=== PATIENT | female | born 1950 | race Caucasian/White ===

== ENCOUNTER 2020-07-06 14:08 | Emergency (ER) | payer MEDICARE, OTHER, SELFPAY ==
[2020-07-06 14:20] VITALS: BP 150/80; PULSE 150; RESP 30; TEMP 36.8; O2SAT 94; BMI 21.4
--- NOTE | 2020-07-06 14:30 | XR_ITS ---
EXAMINATION: XR CHEST CLINICAL INFORMATION: Shortness of breath. Acute intracranial subdural hematoma. COMPARISON: Chest radiographs 04/11/2015 TECHNIQUE: Portable upright AP view of the chest was obtained. FINDINGS: There is no pneumothorax, airspace consolidation, or effusion. Linear scarring adjacent to left cardiac border stable. Heart is borderline enlarged. The vascularity is low normal. The hilar and mediastinal contours are normal. There are multilevel degenerative changes as well as curvature at thoracolumbar spine. Suspect ununited fracture right posterior second rib, rounded edge, no visible destructive process. Finding new from 2015. XR/XR chest 1V IMPRESSION: No acute intrathoracic disease.
--- NOTE | 2020-07-06 14:31 | CT_ITS ---
EXAMINATION: CT HEAD WITHOUT CONTRAST (STROKE PROTOCOL) CLINICAL INFORMATION: Stroke protocol. Difficulty speaking. COMPARISON: CT brain noncontrast 08/21/2011 TECHNIQUE: Contiguous axial imaging was performed from the skull base to vertex without intravenous administration of contrast. This CT examination was performed using dose optimization techniques as appropriate, variously including the following: *Automated exposure control *Adjustment of mA and/or kV according to patient size (this includes techniques or standardized protocols for targeted exams where dose is matched to indication/reason for exam; i.e. extremities or head) *Use of iterative reconstruction technique DLP: 644 mGy-cm FINDINGS: There is an acute left cerebral convexity subdural hematoma measuring up to 8 mm in thickness. There is some extension along the left tentorium. No midline shift. Cisterns around midbrain symmetric. There is no intraparenchymal, intraventricular, or subarachnoid hemorrhage. No hydrocephalus. Periventricular white matter gliosis is present consistent with small vessel ischemic changes. There is no acute territorial infarct or mass lesion. The calvarium appears intact. There is no pneumocephalus or orbital emphysema. The visualized sinuses and middle ears and mastoid air cells show no significant mucosal thickening. There are no air-fluid levels. Results are called and discussed with Dr. Cruz in the Emergency Department at [address]/CT head for stroke IMPRESSION: 1. Acute left cerebral convexity subdural hematoma up to 8 mm thickness. No midline shift. 2. Bilateral periventricular white matter gliosis. No visible acute territorial infarct.
--- NOTE | 2020-07-06 14:31 | ECG_ITS ---
Test Reason : STROKE Blood Pressure : / mmHG Vent. Rate : 093 BPM Atrial Rate : 093 BPM P-R Int : 140 ms QRS Dur : 074 ms QT Int : 390 ms P-R-T Axes : 050 -13 038 degrees QTc Int : 484 ms Normal sinus rhythm Possible Left atrial enlargement Borderline ECG When compared with ECG of 13-JUL-2012 14:21, No significant change was found Referred By: Ting Cruz Electronically Signed By:JONATHON FRANKLIN MD
[2020-07-06 14:59] LABS: Glucose, Whole Blood 103 mg/dL (60-115)
--- NOTE | 2020-07-06 14:59 | PC.NURSE ---
PERFORMED PT/INR ON PT UNABLE TO FIND TECH PNEUMONICS IN POC MACHINE. PERMORED 1451.
[2020-07-06 15:00] LABS: Basophils Percent Auto 0.3 % (0-2); Hematocrit 38.3 % (37-47); Hemoglobin 12.6 g/dl (12.0-16.0); Imm Gran Abs Auto 0.01 X10*3/uL (0.00-0.03); Imm Gran Pct Auto 0.1 % (0.0-0.4); Lymphocytes Absolute Auto 0.4 X10*3/uL (1.2-4.9); Lymphocytes Percent Auto 5.5 % (20-40); MANUAL DIFF FLAG SCAN; Mean Corpuscular HGB Conc 32.9 g/dl (31.0-35.0); Mean Corpuscular Hemoglobin 30.8 pg (27.0-33.0); Mean Corpuscular Volume 93.6 fL (80-98); Mean Platelet Volume 9.6 fL (9.4-12.3); Monocytes Absolute Auto 0.3 X10*3/uL (0.1-1.2); Neutrophils Absolute Auto 6.3 X10*3/uL (2.0-8.3); Neutrophils Percent Auto 90.1 % (45-73); Platelet Count 212 X10*3/uL (160-400); Red Blood Count 4.09 X10*6/uL (4.20-5.50); Red Cell Distribution Width 13.9 % (11.0-16.0); SCAN SMEAR FLAG 1
--- NOTE | 2020-07-06 15:00 | PC.NURSE ---
pt reports going to bed last night around 2300 after speaking to her son on the phone at that time speech was clear and baseline for the pt. around 0100 pt accidentally rolled out of bed, hitting her head, c/o dizziness after wards, pt is not on blood thinners, then pt went back to bed. son spoke again to the pt around 1100 and pt appeared to bed confused and slurred speech. when arrived to ed pt has a slurred speech, very hard to comprehend, very slight facial droop on the left sided, hand grasp strong and equal, no visible drift, able to lift bilateral lower extremities, perrla. but when stood the pt up pt unable to stand onher own, need assistance into the bed. ns ont he monitor hr 91, 137/81 -
--- NOTE | 2020-07-06 15:03 | ED_ITS ---
HPI - Altered Mental Status General Chief Complaint: Altered Mental Status Stated Complaint: altered mental status Time Seen by Provider: 07/06/20 14:30 History of Present Illness HPI narrative: Patient is a 69-year-old female status post fall at approximately 01:00 a.m. this morning. Patient is subsequently felt very dizzy lightheaded. The fall was mechanical in nature. Patient denies any chest pain any palpitation. After the fall patient had headache difficulty walking. Finally presented to the emergency department at approximately 14:30. Patient denies any chest pain. Denies any nausea vomiting. Had difficulty getting the right words out. Had difficulty with her gait. Patient from home. No history of being on blood thinners. Not on Coumadin on Xarelto not on Eliquis. Related Data Home Medications Medication Instructions Recorded Confirmed bupropion HCl 1 tab PO QAM 07/06/20 07/06/20 fluoxetine 2 cap PO QAM 07/06/20 07/06/20 lorazepam 0.25 mg PO DAILY PRN 07/06/20 07/06/20 methylphenidate HCl 1 tab PO QID 07/06/20 07/06/20 trazodone 2 tab PO BEDTIME 07/06/20 07/06/20 Allergies Allergy/AdvReac Type Severity Reaction Status Date / Time Iodinated Contrast Media AdvReac Mild UNABLE TO Unverified 03/30/20 14:46 [IV CONTRAST] SPEAK Review of Systems Review of Systems: Yes all other systems are reviewed and are negative [facility] Past Medical History Attestation statement: The following information was validated with the patient. Medical History Anxiety Depression Social History Social History Advance Directives: No Advance Directives Information Provided: No Physical Exam Vital Signs: Vital Signs: Last Vital Signs Temp 98.3 F 07/06/20 14:20 Pulse 150 H 07/06/20 14:20 Resp 30 H 07/06/20 14:20 BP 150/80 H 07/06/20 14:20 Pulse Ox 94 07/06/20 14:20 Body Mass Index 21.4 Appearance: Alert. Oriented X3. Positive sign of head trauma to the left eye area. Eyes: Pupils equal, round and reactive to light. ENT: Pharynx normal. Neck: Normal inspection. Neck supple. No lymph nodes noted. No crepitus CVS: Normal heart rate and rhythm. Pulses normal. Normal S1 and S2 Respiratory: No respiratory distress. Breath sounds normal. No Wheezing. No rales Abdomen: Soft and nontender. No rigidity. No distention. good BS x4 Skin: Skin warm and dry. Normal skin color. Normal skin turgor. Extremities: No lower extremity edema. Neurovascular intact to all extremities. No Lacerations. No Rash Neuro: Oriented X 3. Moving all extremities . No sensory deficit. Moving all extermities. + slurred speech. [id number] off. NIH Stroke Scale Internal: Initial- Upon Arrival Level of Consciousness: Alert Level of Consciousness Questions: Answers both questions correctly Level of Consciousness Commands: Performs both tasks correctly Best Gaze: Normal Visual: No visual loss Facial Palsy: Normal Motor Arm (Right): No drift Motor Arm (Left): No drift Motor Leg (Right): No drift Motor Leg (Left): No drift Limb Ataxia: Present in two limbs Sensory: Normal Best Language: Mild to moderate aphasia Dysarthia: Mild to moderate dysarthria Extinction and Inattention: No abnormality Score: 4 MDM - Altered Mental Status MDM Narrative Medical decision making narrative: CT scan of the head showed a small subdural hematoma approximately 4 mm in size on the left side. There is no midline shift. The Urgent finding was discussed with Dr. Tripp at [facility]. Patient will likely require transfer to [facility] for further treatment. Patient's blood pressure is 137/81. Heart rate is actually 90. Finding discussed with patient's family. Agree with plan of transfer. Understood the risk and benefit of transfer. Lab Data Result diagrams: 07/06/20 14:52 07/06/20 14:52 Labs: Lab Results 07/06/20 07/06/20 Range/Units 14:51 14:52 WBC 7.0 (4.8-10.8) X10*3/uL RBC 4.09 L (4.20-5.50) X10*6/uL Hgb 12.6 (12.0-16.0) g/dl Hct 38.3 (37-47) % MCV 93.6 (80-98) fL MCH 30.8 (27.0-33.0) pg MCHC 32.9 (31.0-35.0) g/dl RDW 13.9 (11.0-16.0) % Plt Count 212 (160-400) X10*3/uL MPV 9.6 (9.4-12.3) fL POC Glucose 103 (60-115) mg/dL Critical Care Time Critical Care Time Total Critical Care Time: 40 Attestation: I have personally provided 40 minutes of critical care time exclusive of time spent on separately billable procedures. Time includes review of lab data, radiology results, discussion with consultants, and monitoring for potential decompensation. Interventions were performed as documented above Discharge Plan Discharge Clinical Impression: Subarachnoid hemorrhage Patient Disposition: [facility] Prescriptions: No Action methylphenidate HCl 20 mg tablet 1 tab PO QID RF: 0 lorazepam 0.5 mg tablet 0.25 mg PO DAILY PRN (Reason: Anxiety) RF: 0 trazodone 100 mg tablet 2 tab PO BEDTIME RF: 0 fluoxetine 20 mg capsule 2 cap PO QAM RF: 0 bupropion HCl 300 mg tablet extended release 24 hr 1 tab PO QAM RF: 0
[2020-07-06 15:06] VITALS: BP 137/81; PULSE 93
[2020-07-06 15:06] LABS: INTERNATIONAL NORM RATIO 1.1 (0.9-1.1); Prothrombin Time 13.2 SEC (10.8-13.0)
[2020-07-06 15:08] LABS: Partial Thromboplastin Time 33.2 SEC (24.1-38.0)
[2020-07-06 15:09] LABS: Stroke Lab Use COMPLETE
[2020-07-06 15:12] LABS: COVID-19 Test Negative (Negative)
[2020-07-06 15:17] VITALS: BP 141/81; PULSE 89; RESP 22; O2SAT 95
[2020-07-06 15:22] LABS: Prothrombin Time Whole Bld POC 13.5 sec (11.1-13.5); ~PT, ~INR - Anti Coag Clinic 1.1 (0.9-1.1)
--- NOTE | 2020-07-06 15:22 | PC.NURSE ---
Addendum entered by Macey Rader 07/06/20 15:37: pt does have visible bruising to her left side of face Original Note: pt is reporting of slight headache on the top of her head, pain at about 6/10,
[2020-07-06 15:23] VITALS: BP 136/82; PULSE 91; RESP 22; O2SAT 95
[2020-07-06 15:24] LABS: Alanine Aminotransferase 36 U/L (0-31); Albumin Level 3.9 g/dL (3.5-5.0); Alkaline Phosphatase 69 U/L (39-117); Aspartate Amino Transferase 54 U/L (5-31); Bilirubin Direct 0.2 mg/dL (0.0-0.5); Bilirubin Total 0.4 mg/dL (0.0-1.0)
[2020-07-06 15:27] LABS: SLIDE REVIEW VERIFIED
[2020-07-06 15:35] LABS: Anion Gap 15 (12-20); Blood Urea Nitrogen 21 mg/dL (9-16); Calcium 8.7 mg/dL (8.4-10.2); Carbon Dioxide 23 mmol/L (22-29); Chloride 102 mmol/L (96-108); Creatinine Clr Calc Pharmacy 35.6; Estimated Glomerular Filt Rate 52; Glucose Random 109 mg/dL (60-115); Potassium 4.1 mmol/l (3.3-5.1); Sodium 136 mmol/L (135-145)
[2020-07-06 15:38] LABS: Troponin-I High Sensitivity 27.3 ng/L (<3.5-17.0)
[2020-07-06 15:41] VITALS: BP 129/83; PULSE 90; RESP 22; O2SAT 95
--- NOTE | 2020-07-06 16:06 | PC.NURSE ---
report given to anna amaya at [facility]
== END 2020-07-06 16:07 | disposition short-term general hospital (02) ==
PROVIDERS: Emergency Provider Emergency Medicine Emergency Medical Services; PCP Internal Medicine
DX: S06.5X0A Traumatic subdural hemorrhage without loss of consciousness, initial encounter (principal); W01.0XXA Fall on same level from slipping, tripping and stumbling without subsequent striking against object, initial encounter; Z20.828 Contact with and (suspected) exposure to other viral communicable diseases; Y93.9 Activity, unspecified; Y92.003 Bedroom of unspecified non-institutional (private) residence as the place of occurrence of the external cause; Y99.9 Unspecified external cause status
CPT/HCPCS: 36415; 70450; 71045; 80048; 80076; 82550; 82947; 84484; 85025; 85610; 85730; 87635; 93005; 99285; 99291

== ENCOUNTER 2020-07-21 14:07 | Outpatient (REF) | payer MEDICARE, MEDICAID, OTHER, SELFPAY ==
[2020-07-21 15:00] LABS: MANUAL DIFF FLAG NO
[2020-07-21 15:10] LABS: Basophils Percent Auto 0.5 % (0-2); Eosinophils Absolute Auto 0.1 X10*3/uL (0.0-0.4); Eosinophils Percent Auto 1.7 % (0-4); Hematocrit 39.6 % (37-47); Hemoglobin 12.8 g/dl (12.0-16.0); Imm Gran Abs Auto 0.01 X10*3/uL (0.00-0.03); Imm Gran Pct Auto 0.2 % (0.0-0.4); Lymphocytes Absolute Auto 0.9 X10*3/uL (1.2-4.9); Lymphocytes Percent Auto 14.4 % (20-40); Mean Corpuscular HGB Conc 32.3 g/dl (31.0-35.0); Mean Corpuscular Hemoglobin 30.6 pg (27.0-33.0); Mean Corpuscular Volume 94.7 fL (80-98); Mean Platelet Volume 9.2 fL (9.4-12.3); Monocytes Absolute Auto 0.4 X10*3/uL (0.1-1.2); Monocytes Percent Auto 5.8 % (2-11); Neutrophils Percent Auto 77.4 % (45-73); Platelet Count 344 X10*3/uL (160-400); Red Blood Count 4.18 X10*6/uL (4.20-5.50); Red Cell Distribution Width 14.1 % (11.0-16.0); White Blood Count 6.4 X10*3/uL (4.8-10.8)
[2020-07-21 15:24] LABS: Alanine Aminotransferase 42 U/L (0-31); Albumin Level 3.8 g/dL (3.5-5.0); Alkaline Phosphatase 119 U/L (39-117); Anion Gap 11 (12-20); Aspartate Amino Transferase 29 U/L (5-31); Bilirubin Total 0.3 mg/dL (0.0-1.0); Blood Urea Nitrogen 22 mg/dL (9-16); C Reactive Protein 0.54 mg/dL (< or = 0.50); Calcium 8.5 mg/dL (8.4-10.2); Carbon Dioxide 26 mmol/L (22-29); Chloride 105 mmol/L (96-108); Estimated Glomerular Filt Rate 52; Glucose Random 102 mg/dL (60-115); Potassium 4.5 mmol/l (3.3-5.1); Sodium 137 mmol/L (135-145)
== END 2020-07-21 14:08 | disposition home or self-care (01) ==
LOC: HO.LAB 14:07
PROVIDERS: PCP Internal Medicine; Visit Provider Internal Medicine
DX: J44.9 Chronic obstructive pulmonary disease, unspecified (principal); S06.5X9D Traumatic subdural hemorrhage with loss of consciousness of unspecified duration, subsequent encounter; X58.XXXD Exposure to other specified factors, subsequent encounter
CPT/HCPCS: 36415; 80053; 85025; 86140

== ENCOUNTER 2021-01-31 14:26 | Outpatient (REF) | payer MEDICARE, MEDICAID, SELFPAY ==
--- NOTE | ~2021-01-31 | FL_ITS ---
EXAMINATION: XR BARIUM SWALLOW CLINICAL INFORMATION: Dysphagia. COMPARISON: None. TECHNIQUE: Modified barium swallow with speech pathologist. FINDINGS: Patient swallowed a combination of consistencies from thin liquid to barium-coated cookie without difficulty. No nasopharyngeal reflux or tracheal aspiration was appreciated. FLUOROSCOPY TIME: 1.8 minutes. DOSE AREA PRODUCT: 1.534 Gy-cm2 (parmar-centimeter squared). FL/FL barium swallow modified IMPRESSION: Unremarkable examination. Please refer to speech pathologist report for details.
--- NOTE | 2021-01-31 16:04 | MHC.SL.IMP ---
Date of Plan of Treatment: 01/31/21 Onset of Symptoms/Illness: 02/01/20 Date Treatment Started: 01/31/21 Admitting Diagnosis: Depression Cholecystectomy Peptic ulcer disease status post vagotomy Tubal ligation Carpal tunnel syndrome Right hand weakness with pain and loss of movement Primary Speech & Language Diagnosis: R13.12 Oropharyngeal Phase Dysphagia Reason for Today's Visit: 28328 Modified Barium Swallow Study Pre-evaluation Dietary Consistencies: Regular Pre-evaluation Liquid Consistency: Thin Pre-evaluation Medication Administration: Whole with Liquid Medical History: Modified Barium Swallow Study Fluoroscopic Evaluation of Swallowing Function CPT Code 98330 Evaluation Year: 2020 Reason for Study: Patient reports globus sensation and coughing when eating. Referring Physician: Dr. Tuan Nguyen Evaluating Clinician: Eileen Silva M.A., CCC-WATERWAY TRAFFIC CHECKER Study Number: 1 Patient Name: Herminia Blackmon Status: Outpatient, Ambulatory Age: 70 Gender: Female MEDICAL HISTORY: Year of Onset or Diagnosis: 2020 Comorbidities: Depression Cholecystectomy Peptic ulcer disease status post vagotomy Tubal ligation Carpal tunnel syndrome Right hand weakness with pain and loss of movement Current (pre-evaluation) Intake/Diet: Route: PO Diet Grade: Regular Liquid Consistencies: Thin Pre-Study Functional Oral Intake Scale (FOIS): 7- Total oral intake with no restrictions Pain: None reported at time of study Oral Motor Exam Mouth Occlusion: Normal Oral-Facial Teeth Characteristics: Intact/Normal Tongue Size: Normal Tongue Frenum Length: Normal Is patient able to manage secretions?: Yes Food and Liquid Trials: Oral Impairment: Lip Closure: Did not test Oral Impairment: Tongue Control During Bolus Hold: 0=Cohesive bolus between tongue to palatal seal Oral Impairment: Bolus Preparation/Mastication: 1=Slow prolonged chewing/mashing with complete re-collection Oral Impairment: Bolus Transport/Lingual Motion: 2=Slowed tongue motion Oral Impairment: Oral Residue: 2=Residue collection on oral structures Oral Impairment:Initiation of Pharyngeal Swallow: 2=Bolus head at posterior laryngeal surface of epiglottis Pharyngeal Impairment: Soft Palate Elevation: 0=No bolus between soft palate (SP)/pharyngeal wall (PW) Pharyngeal Impairment: Laryngeal Elevation: 1=Partial thyroid cartilage/arytenoids to epiglottic petiole movement Pharyngeal Impairment: Anterior Hyoid Excursion: 1=Partial anterior movement Pharyngeal Impairment: Epiglottic Movement: 0=Complete inversion Pharyngeal Impairment: Laryngeal Vestibular Closure:: 1=Incomplete: narrow column air/contrast in laryngeal vestibule Pharyngeal Impairment: Pharyngeal Stripping Wave: 0=Present: complete Pharyngeal Impairment: Pharyngeal Contraction: Did not test Pharyngeal Impairment: Pharyngoesophageal Segment Openin=Complete distension and complete duration: no obstruction of flow Pharyngeal Impairment: Tongue Base (TB) Retraction: 3=Wide column of contrast/air between TB and posterior PW Pharyngeal Impairment: Pharyngeal Residue: 1=Trace residue within or on pharyngeal structures Pharyngeal Impairment: Esophageal Clearance Upright Position: Did not test Impressions and Recommendations Clinical Observations: OBJECTIVE: Time-out: performed at 02:45 Evaluation Start: 02:30; Stop: 02:40 Patient Positioning: Seated 70-90 degrees Viewing Planes: LATERAL ONLY Contrast: MBSImP? Standardized Protocol using commercially prepared, standardized Barium viscosities, including: Varibar? THIN LIQUID (40% w/v, <15 cps) , 1/2 Shortbread Cookie (1 x1 x.25 ) MBSImP ID: [id number] MBSImP Results: Lip closure for intraoral bolus containment could not be assessed due to logistical reasons not related to physiologic impairment. Tongue control during bolus hold maintained a cohesive bolus held between tongue to palate seal. Bolus preparation and mastication resulted in slow, prolonged chewing/mashing but with complete re-collection. Bolus transport/lingual motion was with slowed tongue motion. Oral residue was a collection on oral structures. Initiation of the pharyngeal swallow occurred as the bolus head was at the posterior laryngeal surface of the epiglottis. Soft palate elevation resulted in no bolus between the soft palate and the pharyngeal wall. Laryngeal elevation was decreased, with partial superior movement of the thyroid cartilage/partial approximation of the arytenoids to the epiglottic petiole. Anterior hyoid excursion demonstrated partial anterior movement. Epiglottic movement resulted in complete inversion. Laryngeal vestibular closure was incomplete, with a narrow column of air/contrast noted within the laryngeal vestibule at the height of the swallow. Pharyngeal stripping wave was present and complete. Pharyngeal contraction could not be determined due to logistical reasons not related to physiologic impairment. Pharyngoesophageal segment opening was completely distended for complete duration with no obstruction of bolus flow. Tongue base retraction allowed a wide column of contrast or air between the retracted tongue base and the posterior pharyngeal wall. Pharyngeal residue was a trace within or on pharyngeal structures. Esophageal clearance in the upright position could not be assessed due to logistical reasons not related to physiologic impairment. Oral Impairment Score: 7 (absence of score, component 1) Pharyngeal Impairment Score: 6 (absence of score, component 13) Esophageal Impairment Score: --- (absence of score, component 17) Laryngeal Penetration and Aspiration: Penetration was observed in today's study. Thin Contrast entered the airway, remained above the vocal folds, and was ejected from the airway. ASSESSMENT: This exam was conducted by speech-language pathologist and radiologist. Patient was seated at optimal 90 degree position in chair for lateral view only. Patient was able to feed herself. Patient trialed the following liquid and solid consistencies: -5 mL thin liquid barium -cup sip thin liquid barium (individual and consecutive) -applesauce mixed with barium paste -chicken salad mixed with barium paste -Carolyn Doone cookie coated in barium paste. Patient displayed mild oropharyngeal dysphagia, characterized by: ORAL PHASE: -mildly prolonged mastication and piece meal deglutition pattern -slowed posterior tongue movement -mild oral residue PHARYNGEAL PHASE: -partial laryngeal elevation with partial anterior hyoid movement -episode of flash penetration -reduced tongue base retraction -mild pharyngeal retention on tongue base, in valleculae and on posterior pharyngeal wall when eating harder solids. No evidence of aspiration. Noted episode of flash penetration. Thin liquid barium momentarily entered airway above the vocal folds and immediately/spontaneously rejected. No aspiration or penetration with subsequent consecutive sips of thin liquid. The following compensatory strategies have not been used until today's study, but when employed, improved swallowing function: Bolus Volume Change eliminated Penetration Rate of Ingestion Change eliminated Penetration Additional Swallow(s) per Bolus decreased Oral Residue, Pharyngeal Residue Liquid Intake Recommendation: Thin Liquid Intake Strategies: Small Sips Dietary Recommendations: Regular Medication Administration: Whole with Liquid Compensatory Strategies Recommended: Sitting Upright (90 deg) Double Swallow Small Bites and Sips Alternate Liquids/Solids Rate of Ingestion Change Supervision during eating and or drinking: None Needed Recommendation for Speech Therapy: NA:Typical Evaluation Text Comment: Intake Recommendations: Route: PO Diet Grade: Regular Liquid Consistencies: Thin Post-Study Functional Oral Intake Scale (FOIS): 7- Total oral intake with no restrictions Therapy Recommendations: Therapy will be discontinued Treatment is not indicated at this time. WATERWAY TRAFFIC CHECKER discussed with patient recommendations for strategies to promote oral clearance. Recommend resume regular solids and thin liquids with strategies: -small bites of food -chew food well -moisten food with sauce/gravy as needed -alternate bite of food with sip of liquid -double swallow to promote clearance of oral and pharyngeal residue -take small, individual sips of liquid -upright 90 degree position when eating and/or drinking -close monitoring for any overt s/s of aspiration Prognosis for Improvement: The prognosis for the patient to meet nutritional needs by mouth is good/fair based on degree of impairment. Clinician - Supplemental, Miscellaneous Communication: It is important to note MBSS objective studies are snapshots in time and Patient function might vary with factors such as time of day or concomitant medical conditions. For this reason, the final treatment plan for this patient should rest with their medical care team. Additional recommendations should be considered with the totality of the Patient in mind. Thank for the opportunity to participate in the care of this patient. If you have any questions about the content of this report, please contact the [facility] at [facility]. Education: Education regarding findings from today's study and plans for therapy were provided to Patient only through Verbal Instruction. Understanding was expressed by the Patient only. Screw Machine Setter Clinician/Clinical Fellow: No Supervisory Statement: N/A Speech Language Pathologist: Eileen Silva M.A., CCC-WATERWAY TRAFFIC CHECKER
== END 2021-01-31 14:27 | disposition home or self-care (01) ==
LOC: HO.XRAY 14:26
PROVIDERS: Visit Provider Internal Medicine
DX: Z13.89 Encounter for screening for other disorder (principal)
CPT/HCPCS: 74230; 92611

== ENCOUNTER 2021-01-31 15:05 | Emergency (ER) | payer MEDICARE, OTHER, SELFPAY ==
--- NOTE | ~2021-01-31 | CT_ITS ---
EXAMINATION: CT HEAD WITHOUT CONTRAST CLINICAL INFORMATION: Left-sided headache. Dizziness. Recent subdural hematoma. COMPARISON: CT head July 06, 2020 TECHNIQUE: Contiguous axial imaging was performed from the skull base to vertex without intravenous administration of contrast. Coronal and sagittal reformatted images are performed at the CT scanner. [This CT examination was performed using dose optimization techniques as appropriate, variously including the following: *Automated exposure control *Adjustment of mA and/or kV according to patient size (this includes techniques or standardized protocols for targeted exams where dose is matched to indication/reason for exam; i.e. extremities or head) *Use of iterative reconstruction technique] DLP: 671 mGy-cm. FINDINGS: There is no evidence of acute intracranial hemorrhage or territorial infarction. No abnormal mass-effect or midline shift is seen. Bassett to white matter differentiation is well preserved. No extra-axial fluid collections are identified. The previously seen left-sided acute subdural hematoma on the CAT scan of July 06, 2020 has entirely resolved. There is generalized global volume loss. There is moderate prominence of the ventricles and the sulci . There is moderate hypodensity of the periventricular white matter due to chronic small vessel ischemic disease. There are vascular calcifications of the internal carotid arteries bilaterally. There is no osseous abnormality. The mastoid air cells and visualized portions of the paranasal sinuses are well-aerated. CT/CT head/brain wo con IMPRESSION: No acute intracranial pathology.
[2021-01-31 15:54] VITALS: BP 135/91; PULSE 92; RESP 16; TEMP 36.8; O2SAT 96; BMI 19.6
--- NOTE | 2021-01-31 16:12 | ED.GENADULT ---
HPI - General Adult General Chief complaint: Headache Stated complaint: Headache Time Seen by Provider: 01/31/21 16:12 Source: patient Mode of arrival: ambulatory Limitations: no limitations History of Present Illness HPI narrative: Patient last night developed a subconjuctival hemorrhage, unsure if she coughed or sneezed. Patient having left sided headache which she suffers from after having a traumatic subdural. Onset (ago): day(s) Location: eyes Severity: mild Quality: other (blood in the eye) Relieving factors: none Exacerbating factors: none Associated symptoms: denies other symptoms Related Data Home Medications Medication Instructions Recorded Confirmed bupropion HCl 1 tab PO QAM 07/06/20 07/06/20 fluoxetine 2 cap PO QAM 07/06/20 07/06/20 lorazepam 0.25 mg PO DAILY PRN 07/06/20 07/06/20 methylphenidate HCl 1 tab PO QID 07/06/20 07/06/20 trazodone 2 tab PO BEDTIME 07/06/20 07/06/20 Allergies Allergy/AdvReac Type Severity Reaction Status Date / Time Iodinated Contrast Media AdvReac Mild UNABLE TO Verified 01/31/21 16:01 [IV CONTRAST] SPEAK Review of Systems Constitutional: Constitutional: Reports no additional constitutional complaints Eyes: Eyes: Reports no additional eye complaints ENT: Denies dizziness Cardiovascular: Cardiovascular: Reports no additional cardiovascular complaints Respiratory: Respiratory: Reports as per HPI Gastrointestinal: Gastrointestinal: Reports no additional gastrointestinal complaints Genitourinary: Genitourinary: Reports no additional female genitourinary complaints Musculoskeletal: Musculoskeletal: Reports no additional musculoskeletal complaints Integumentary/Breasts: Skin/Breast: Denies rash Neurologic: Reports system reviewed and no additional complaints, except as documented, Denies dizziness and Denies Sensory deficit (Neuro) Psychiatric: Psychiatric: Denies anxiety PMFSH Past Medical History Medical History Anxiety Brain bleed Depression Social History Social History Advance Directives: No Advance Directives Information Provided: No Physical Exam Vital Signs: Vital Signs: Last Vital Signs Temp 98.2 F 01/31/21 15:54 Pulse 92 01/31/21 15:54 Resp 16 01/31/21 15:54 BP 135/91 H 01/31/21 15:54 Pulse Ox 96 01/31/21 15:54 Body Mass Index 19.6 Const: General: healthy appearing Nutritional Appearance: average body habitus Orientation/consciousness: oriented to person and patient oriented x3 Limitations: no limitations HENMT: Head: Yes normal to inspection Ears: external ears normal General nose exam: Normal external nose present Mouth: Normal oral and palatal mucosa present and oropharynx normal Throat: Yes posterior oropharynx normal Eyes: Other: EOMI, left eye with subconjunctival hemorrahage Neck: Other: supple Neck: Yes normal visual inspection Chest: Chest palpation & inspection: normal inspection of the chest Resp: Auscultation: clear to auscultation bilaterally Cardio: Jugular venous distension: no JVD Rate: regular rate Rhythm: regular rhythm Heart sounds: S1 normal heart sound present and S2 normal heart sound present GI: Inspection: Yes normal to inspection Palpation (GI): Soft to palpation, nontender and No hepatosplenomegaly present Auscultation: normal bowel sounds : General: Yes no CVA tenderness Back/Spine/Pelvis: Back: no CVA tenderness Skin: General skin exam: no rashes or lesions noted Neuro: General: oriented to person and patient oriented x3 Cranial nerves: Yes CN's II-XII intact bilaterally Motor exam (neuro): 5/5 motor strength present throughout Sensory Exam: No Sensory deficit (Neuro) Extrem: General: Yes normal to inspection Psych: Appearance: grossly normal Course Reevaluation(s) Reevaluation #1: patient resting comfortably will dc home Time: 18:00 Medical Decision Making Imaging Data CT scan - head: Radiologist's impression: IMPRESSION: No acute intracranial pathology. Discharge Plan Discharge Clinical Impression: Headache Qualifiers: Headache type: other headache syndrome Qualified Code(s): G44.89 - Other headache syndrome Subconjunctival hemorrhage Qualifiers: Laterality: left Qualified Code(s): H11.32 - Conjunctival hemorrhage, left eye Patient Disposition: Home, Self-Care Instructions: Acute Headache (ED), Subconjunctival Hemorrhage (ED) Prescriptions: No Action methylphenidate HCl 20 mg tablet 1 tab PO QID RF: 0 lorazepam 0.5 mg tablet 0.25 mg PO DAILY PRN (Reason: Anxiety) RF: 0 trazodone 100 mg tablet 2 tab PO BEDTIME RF: 0 fluoxetine 20 mg capsule 2 cap PO QAM RF: 0 bupropion HCl 300 mg tablet extended release 24 hr 1 tab PO QAM RF: 0 Referrals: Tuan Nguyen MD [Primary Care Provider] - 1 week
== END 2021-01-31 18:19 | disposition home or self-care (01) ==
PROVIDERS: Emergency Provider Emergency Medicine; PCP Internal Medicine
DX: G44.89 Other headache syndrome (principal); H11.32 Conjunctival hemorrhage, left eye
CPT/HCPCS: 70450; 74230; 92611; 99283; 99284

== ENCOUNTER 2021-04-03 17:02 | Outpatient (REF) | payer MEDICARE, OTHER, SELFPAY ==
--- NOTE | ~2021-04-03 | XR_ITS ---
EXAMINATION: XR CHEST CLINICAL INFORMATION: COPD. Weight loss. COMPARISON: 07/06/2020 and 04/11/2015 TECHNIQUE: 2 views of the chest were obtained. FINDINGS: There is no evidence of acute parenchymal disease, pneumothorax, or pleural effusion. Heart normal size. No evidence of pulmonary edema. There is left base scarring present. There is some mild elevation of the left hemidiaphragm. Status post GE junction region surgery with clips in place. There is scoliosis of the thoracic spine, convex right and lumbar spine, convex left. XR/XR chest 2V IMPRESSION: No acute disease. Scoliosis.
[2021-04-03 17:40] LABS: MANUAL DIFF FLAG NO
[2021-04-03 17:45] LABS: Basophils Percent Auto 0.7 % (0-2); Eosinophils Absolute Auto 0.1 X10*3/uL (0.0-0.4); Eosinophils Percent Auto 1.5 % (0-4); Hematocrit 41.3 % (37-47); Hemoglobin 13.2 g/dl (12.0-16.0); Imm Gran Abs Auto 0.02 X10*3/uL (0.00-0.03); Imm Gran Pct Auto 0.3 % (0.0-0.4); Lymphocytes Percent Auto 16.5 % (20-40); Mean Corpuscular Hemoglobin 30.1 pg (27.0-33.0); Mean Corpuscular Volume 94.1 fL (80-98); Mean Platelet Volume 9.6 fL (9.4-12.3); Monocytes Absolute Auto 0.4 X10*3/uL (0.1-1.2); Monocytes Percent Auto 6.6 % (2-11); Neutrophils Absolute Auto 4.4 X10*3/uL (2.0-8.3); Neutrophils Percent Auto 74.4 % (45-73); Platelet Count 267 X10*3/uL (160-400); Red Blood Count 4.39 X10*6/uL (4.20-5.50); Red Cell Distribution Width 14.7 % (11.0-16.0); White Blood Count 5.9 X10*3/uL (4.8-10.8)
[2021-04-03 18:11] LABS: Alanine Aminotransferase 25 U/L (0-31); Alkaline Phosphatase 85 U/L (39-117); Anion Gap 16 (12-20); Aspartate Amino Transferase 25 U/L (5-31); Bilirubin Total 0.3 mg/dL (0.0-1.0); Blood Urea Nitrogen 26 mg/dL (9-16); Calcium 9.1 mg/dL (8.4-10.2); Carbon Dioxide 22 mmol/L (22-29); Chloride 106 mmol/L (96-108); Estimated Glomerular Filt Rate 33; Glucose Random 91 mg/dL (60-115); Lipase 44 U/L (8-78); Potassium 4.8 mmol/L (3.3-5.1); Sodium 139 mmol/L (135-145); Total Protein 6.2 g/dL (6.5-8.0)
== END 2021-04-03 17:03 | disposition home or self-care (01) ==
LOC: HO.LAB 17:02
PROVIDERS: PCP Internal Medicine; Visit Provider Internal Medicine
DX: J44.9 Chronic obstructive pulmonary disease, unspecified (principal); R63.4 Abnormal weight loss; N18.9 Chronic kidney disease, unspecified
CPT/HCPCS: 36415; 71046; 80053; 83690; 85025

== ENCOUNTER 2021-05-25 18:48 | Inpatient (IN) | payer MEDICARE, OTHER, SELFPAY ==
--- NOTE | ~2021-05-25 | FL_ITS ---
EXAMINATION: XR FLUOROSCOPY WITH IMAGES CLINICAL INFORMATION Bilateral retrograde pyelograms and stent placement. COMPARISON: CT abdomen and pelvis 05/25/2021. TECHNIQUE: Fluoroscopy performed by Dr. Je Chávez. Fluoroscopy Time: 256.3 seconds. DAP: 42.49 mGy. Images: 8. FINDINGS: Imaging demonstrates retrograde pyelograms with placement of bilateral double-J ureteral stents on the final imaging. A cystocele is present. Please correlate with the operative note. FL/FL guidance in OR IMPRESSION: Fluoroscopy and spot films provided during bilateral retrograde double-J stent placement.
--- NOTE | ~2021-05-25 | NM_ITS ---
EXAMINATION: NM KIDNEY IMAGING CLINICAL INFORMATION: Left hydronephrosis, passed multiple kidney stones 5 years ago. Kidney stones and passed. COMPARISON: Nuclear medicine renal scan morphology 04/28/2007 CT abdomen and pelvis 05/25/2021. TECHNIQUE: Following intravenous administration of 10 mCi of 99 mm technetium DTPA, perfusion, cortical function and excretion was performed. 22 mg of Lasix was injected intravenously at 30 minutes of the scan. FINDINGS: Following isotope injection there is minimal delay in right renal perfusion, normal cortical uptake and excretion. There is no hydronephrosis with normal response post Lasix with complete excretion. There is significant delayed left renal perfusion, cortical uptake and delayed excretion. There is no response to Lasix. On renal analysis of the right kidney contributes 99.6% of renal function. The left kidney 0.394%. Post Lasix time from Lasix to half Lasix right kidney is 5.497. The left kidney half Lasix cannot be calculated as there is no excretion. NM/NM renal flow w pharm int IMPRESSION: 1. Minimal delay in the right renal perfusion but otherwise normal cortical function and excretion with normal response to Lasix. The right kidney contributes 99% of total renal function. 2. No left renal perfusion seen. There is delayed to no cortical uptake seen. No response to Lasix. 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
--- NOTE | ~2021-05-25 | CT_ITS ---
EXAMINATION: CT HEAD WITHOUT CONTRAST CLINICAL INFORMATION: Head trauma. COMPARISON: CT head dated from 07/06/2020. TECHNIQUE: Contiguous axial imaging was performed from the skull base to vertex without intravenous administration of contrast. This CT examination was performed using dose optimization techniques as appropriate, variously including the following: *Automated exposure control *Adjustment of mA and/or kV according to patient size (this includes techniques or standardized protocols for targeted exams where dose is matched to indication/reason for exam; i.e. extremities or head) *Use of iterative reconstruction technique DLP: 686 mGy-cm FINDINGS: Examination is greatly limited by motion. There is no evidence of acute intracranial hemorrhage or edematous territorial infarction. Scattered hypoattenuation in the periventricular and deep white matter are consistent with moderate microangiopathy. Bassett-white matter differentiation is preserved. Proportional prominence of the ventricles and sulcal spaces. No evidence for obstructive hydrocephalus. No abnormal mass effect or midline shift. No extra-axial fluid collections. No acute soft tissue or osseous abnormalities. There is mild mucosal thickening of the paranasal sinuses. The mastoids are clear. The temporomandibular joints are anteriorly positioned with respect to the temporal dose, which is likely related with patient's positioning. Poor dentition. Redemonstration of asymmetric widening of the dens with respect to the lateral mass on the right side without significantly changed. There are prominent calcification surrounding the odontoid process with subchondral cystic changes and sclerosis. CT/CT head/brain wo con IMPRESSION: Examination is markedly limited by motion. However, accounting for these limitations, no evidence of acute intracranial hemorrhage or acute edematous infarctions are identified. Chronic microangiopathy and generalized cerebral volume loss. Degenerative changes at C1 and C2 without significant change. Correlate clinically for crowned dens syndrome.
--- NOTE | ~2021-05-25 | CT_ITS ---
EXAMINATION: CT ABDOMEN AND PELVIS WITHOUT CONTRAST CLINICAL INFORMATION: 70-year-old female with abdominal pain. COMPARISON: CT abdomen 05/26/2007 TECHNIQUE: Multidetector volumetric imaging was performed from the superior aspect of the liver through the pubic symphysis. Sagittal and coronal reformatted images were obtained on the technologist's workstation. Evaluation of solid organs is significantly limited given lack of IV contrast. This CT examination was performed using dose optimization techniques as appropriate, variously including the following: *Automated exposure control *Adjustment of mA and/or kV according to patient size (this includes techniques or standardized protocols for targeted exams where dose is matched to indication/reason for exam; i.e. extremities or head) *Use of iterative reconstruction technique DLP: 288 mGy-cm FINDINGS: Visualized lung bases demonstrate dependent atelectasis. The heart is enlarged but only partially visualized. The liver demonstrates normal size, contour and attenuation. There is mild to moderate intrahepatic biliary ductal dilatation. The common bile duct is dilated measuring up to 1.4 cm. There is abrupt narrowing of the distal common bile duct, nonspecific (coronal image 25/75, series 6). The gallbladder is not visualized and presumed to be surgically absent. The pancreas is poorly visualized given lack of IV contrast. The spleen is normal in appearance. The adrenal glands are poorly visualized. Severe hydronephrosis of the left kidney. There is diffuse cortical thinning of the left kidney suggesting a chronic process. No obstructing calculi are noted. The right kidney is grossly unremarkable. Normal caliber loops of small and large bowel. Mild colonic stool burden. Normal caliber abdominal aorta which demonstrates moderate to severe atherosclerotic disease. The bladder is poorly visualized but grossly unremarkable. Unremarkable CT appearance of the uterus. No gross free pelvic fluid. No inguinal lymphadenopathy. Diffuse osteopenia. Moderate diffuse degenerative changes of the spine. Mild to moderate anterolisthesis of L5 on S1 secondary to bilateral L5 pars defects. Severe degenerative changes of the right hip. CT/CT abdomen pelvis wo con IMPRESSION: 1. Today's examination is significantly limited secondary to lack of IV contrast. 2. Severe hydronephrosis of the left kidney. There is diffuse cortical thinning of the left kidney suggesting a chronic process. No obstructing calculi are noted. Prior imaging reports suggests a history of left-sided hydronephrosis with an accessory left renal artery possibly causing an apparent UPJ obstruction. This can be better evaluated with CTA imaging of the abdomen as clinically indicated. 3. Mild to moderate intrahepatic biliary ductal dilatation with prominent dilatation of the common bile duct which demonstrates abrupt narrowing distally. This is a nonspecific finding. A focal lesion is region is not excluded as this region is poorly visualized given lack of IV contrast. Further evaluation can be obtained with MRI/MRCP versus ERCP. Given the overall suboptimal imaging due to lack of IV contrast, repeat imaging with IV contrast may be warranted.
--- NOTE | ~2021-05-25 | XR_ITS ---
EXAMINATION: XR CHEST CLINICAL INFORMATION: Left rib pain. Fall. COMPARISON: 04/03/2021 TECHNIQUE: Frontal view of the chest was obtained. FINDINGS: Elevated left hemidiaphragm. Minimal bibasilar atelectasis. No pleural effusion. No pneumothorax. No dense consolidation. The cardiomediastinal silhouette is unchanged, with a calcified aorta. No acute osseous abnormality. XR/XR chest 1V IMPRESSION: Bibasilar atelectasis with persistent elevation of the left hemidiaphragm. No displaced fractures are seen.
--- NOTE | ~2021-05-25 | US_ITS ---
EXAMINATION: US RETROPERITONEAL LIMITED (RENAL ONLY) CLINICAL INFORMATION: Left hydronephrosis. COMPARISON: CT 05/25/2021 TECHNIQUE: Renal ultrasound FINDINGS: RIGHT KIDNEY: 10.6 x 3.9 x 5.4 cm (SAG x AP x TRV). Increased renal parenchymal echogenicity. There are multiple anechoic cysts, larger measuring 1 cm in maximum dimension. No calculi. There is trace fullness of the right renal pelvis. LEFT KIDNEY: Measures approximately 8.6 cm in length, 4.7 cm AP, 3.9 cm in width.. Cortical thinning. Increased echogenicity of the renal parenchyma. There appears to be a stent present in the ureter/renal pelvis There is moderate to severe hydronephrosis present. Direct comparison with prior CT is difficult due to difference in modalities, with the degree of hydronephrosis appears improved as compared to previous. There are multiple cystic lesions present, largest measuring 1.6 cm in maximal dimension. US/US renal BI IMPRESSION: 1.. There appears be a stent present in the left renal ureter/renal pelvis. There is hydronephrosis present, appearing moderate to severe in nature. Direct comparison with prior CT is difficult due to difference in modalities, but the degree of hydronephrosis appears improved as compared to previous. Consider follow-up ultrasound for reassessment. 2. Bilateral renal cysts, described above.
--- NOTE | ~2021-05-25 | XR_ITS ---
EXAMINATION: XR ABDOMEN KUB CLINICAL INDICATION: Rectal pain COMPARISON: CT abdomen pelvis on 05/25/2021 TECHNIQUE: AP view of the abdomen. FINDINGS: Interval placement of bilateral ureteral stents. The bowel gas pattern is normal with no evidence of ileus or obstruction. No unusual soft tissue calcifications are noted. Severe arthritis of the right hip. XR/XR KUB IMPRESSION: Unremarkable bowel gas pattern.
[2021-05-25 19:10] VITALS: BP 190/106; BP 196/105; PULSE 83; PULSE 86; RESP 18; TEMP 37.3; O2SAT 95; O2SAT 96; BMI 20.5
--- NOTE | 2021-05-25 19:18 | ED.GENADULT ---
HPI - General Adult General Chief complaint: Neuro Symptoms/Deficit Stated complaint: abd pain nausea Time Seen by Provider: 05/25/21 19:03 Source: patient and EMS Limitations: no limitations History of Present Illness HPI narrative: This is a 68-year-old female brought in by ambulance. The patient states that she has had trouble walking for several months. The patient has a known history of subarachnoid hemorrhage. The patient reportedly has been worse today in terms of weakness and shakiness. EMS reports that the patient had almost fallen but was caught by her son before she fell. Patient herself states that she did fall, that she was trying to get up from the sofa and fell and called her son to pick her up off the floor. She does have a headache is about a 6/10, least she hit her head. She denies neck pain. She does have nausea and some pain in her left upper quadrant area. She reports that she takes lorazepam once daily and has not taken it today. She denies alcohol use. She reportedly has been having episodes of brief tremor-like movements today. She denies any chest pain or shortness of breath. The patient son later gets further history that the patient has had some upper abdominal pain for some time. He states that the patient did have a barium swallow done fairly recently for this but does not know the results. Patient reports abdominal pain that is worse today. The son reports that she did not fall, that she was more shaky and weak today and that when she was going up the stairs she began to fall back but he caught her when she fell, prevent any forceful contact with the floor. The son reports that her appearance with some sort of twitching movements of her face and arms is normal for her Related Data Home Medications Medication Instructions Recorded Confirmed bupropion HCl 300 mg 24 hr tablet, 1 tab PO QAM 07/06/20 07/06/20 extended release fluoxetine 20 mg capsule 2 cap PO QAM 07/06/20 07/06/20 lorazepam 0.5 mg tablet 0.25 mg PO DAILY PRN 07/06/20 07/06/20 methylphenidate HCl 20 mg tablet 1 tab PO QID 07/06/20 07/06/20 trazodone 100 mg tablet 2 tab PO BEDTIME 07/06/20 07/06/20 Allergies Allergy/AdvReac Type Severity Reaction Status Date / Time Iodinated Contrast Media AdvReac Mild UNABLE TO Verified 01/31/21 16:01 [IV CONTRAST] SPEAK Review of Systems Review of Systems: Yes all other systems are reviewed and are negative Constitutional: Constitutional: Reports headache(s) ENT: Reports headache(s) Cardiovascular: Cardiovascular: Reports as per HPI Respiratory: Respiratory: Reports as per HPI Gastrointestinal: Gastrointestinal: Reports abdominal pain and Reports nausea Musculoskeletal: Musculoskeletal: Denies numbness Neurologic: Reports headache(s), Denies focal weakness, Denies numbness, Denies convulsions and Denies Sensory deficit (Neuro) Psychiatric: Psychiatric: Reports anxiety PMFSH Past Medical History Medical History Anxiety Brain bleed Depression Social History Social History Advance Directives: No Advance Directives Information Provided: No Physical Exam Vital Signs: Vital Signs: Last Vital Signs Temp 98.0 F 05/25/21 20:23 Pulse 84 05/25/21 20:23 Resp 20 05/25/21 20:23 BP 155/94 H 05/25/21 20:23 Pulse Ox 94 05/25/21 20:23 Body Mass Index 20.5 Const: Other: Patient is extremely anxious appearing, hypervigilant, initially having brief jerks of her face and extremities, which ceased with distraction and wants the patient admitted her for a few minutes. No evidence of any focal seizures. General: cooperative, no acute distress and alert Orientation/consciousness: patient oriented x3 HENMT: Head: Yes normal to inspection Eyes: General: appearance normal, both eyes and all related structures Eyelids: Yes eyelids normal Conjunctivae: conjunctivae normal Pupils: Equal, round and reactive pupils present Neck: Neck: Yes normal visual inspection and Yes supple Chest: Chest palpation & inspection: normal inspection of the chest Resp: Effort & Inspection: normal respiratory effort Auscultation: clear to auscultation bilaterally Cardio: Rate: regular rate Rhythm: regular rhythm Heart sounds: S1 normal heart sound present, S2 normal heart sound present, no gallops, no murmurs and no rubs GI: Other: Tender left upper outer Inspection: No distended Palpation (GI): Soft to palpation, nontender and Other GI palpation findings present (Non-distended) Auscultation: normal bowel sounds Skin: General skin exam: no rashes or lesions noted Neuro: General: patient oriented x3, no focal motor deficits and CN's II-XI intact bilaterally Cranial nerves: Yes CN's II-XII intact bilaterally and Yes Equal, round and reactive pupils present Cognition (Neuro): normal cognition Motor exam (neuro): 5/5 motor strength present throughout and no tremor noted Sensory Exam: No Sensory deficit (Neuro) Extrem: General: Yes normal to inspection and Yes no pedal edema Psych: Affect: No normal affect and Anxious affect present Medical Decision Making MDM Narrative Medical decision making narrative: Patient with multiple complaints, including increased weakness today, chronic abdominal pain, nausea, nearly falling due to weakness. Patient appears anxious, with appearance that is suggestive of benzodiazepine withdrawal. Patient does take lorazepam daily, but denies having run out. Patient does have abdominal tenderness however this apparently has been present for some time and patient had a barium swallow done in January that was normal. Patient is somewhat unreliable as a historian, reported that she fell and believes she bumped her head, but her son denied that that happened, stated that he caught her before she was able to make contact with the floor. CT of the head is negative for acute disease, although there is some motion artifact. CBC is unremarkable. Chemistry panel reveals renal insufficiency, which appears to be baseline compared to a few months ago. Urinalysis is negative. Chest x-ray is negative for any concerning acute pathology. CT abdomen and pelvis is pending-it was done without contrast due to contrast allergy. The patient was medicated with lorazepam 1 mg IV, Zofran 1 mg IV. The patient is being signed out to Dr. Bella change of shift at 21:00, pending results of the CT scan, and re-evaluation the patient's ambulation. Lab Data Result diagrams: 05/25/21 19:26 05/25/21 19:26 Labs: Lab Results 05/25/21 05/25/21 05/25/21 Range/Units 19:26 19:26 19:26 WBC 6.4 (4.8-10.8) X10*3/uL RBC 4.11 L (4.20-5.50) X10*6/uL Hgb 12.6 (12.0-16.0) g/dl Hct 38.6 (37.0-47.0) % MCV 93.9 (80.0-98.0) fL MCH 30.7 (27.0-33.0) pg MCHC 32.6 (31.0-35.0) g/dl RDW 14.1 (11.0-16.0) % Plt Count 259 (160-400) X10*3/uL MPV 9.0 L (9.4-12.3) fL Immature Gran % (Auto) 0.2 (0.0-0.4) % Neut % (Auto) 78.3 H (45-73) % Lymph % (Auto) 13.3 L (20-40) % [place] % (Auto) 5.0 (2-11) % Eos % (Auto) 2.7 (0-4) % Baso % (Auto) 0.5 (0-2) % Lymph # (Auto) 0.9 L (1.2-4.9) X10*3/uL [place] # (Auto) 0.3 (0.1-1.2) X10*3/uL Eos # (Auto) 0.2 (0.0-0.4) X10*3/uL Baso # (Auto) 0.0 (0.0-0.2) X10*3/uL Abs Immat Gran (auto) 0.01 (0.00-0.03) X10*3/uL Absolute Neuts (auto) 5.0 (2.0-8.3) x10*3/uL Absolute Nucleated RBC 0.000 (0.0-0.012) X10*3/uL Nucleated RBC % (auto) 0.0 (0.0-0.2) /100WBC Sodium 135 (135-145) mmol/L Potassium 4.5 (3.3-5.1) mmol/L Chloride 103 (96-108) mmol/L Carbon Dioxide 26 (22-29) mmol/L Anion Gap 11 L (12-20) BUN 21 H (9-16) mg/dL Creatinine 1.47 H (0.5-1.4) mg/dL Estim Creat Clear Calc 22.3 Estimated GFR 35 Random Glucose 109 (60-115) mg/dL Calcium 8.5 D (8.4-10.2) mg/dL Total Bilirubin 0.3 (0.0-1.0) mg/dL AST 28 (5-31) U/L ALT 23 (0-31) U/L Alkaline Phosphatase 87 (39-117) U/L Troponin I High Sens 8.7 (<3.5-17.0) ng/L Total Protein 6.0 L (6.5-8.0) g/dL Albumin 3.8 (3.5-5.0) g/dL Lipase 50 (8-78) U/L Urine Color Urine Appearance Urine pH (5.0-8.0) Ur Specific [place] (1.005-1.025) Urine Protein (NEG-TRACE) MG/DL Urine Glucose (UA) (NEG) MG/DL Urine Ketones (NEG) MG/DL Urine Blood (NEG) Urine Nitrite (NEG) Ur Leukocyte Esterase (NEG) Urine RBC (0) /HPF Urine WBC (0-4) /HPF Ur Squamous Epith Cells /LPF Amorphous Sediment /LPF Urine Bacteria /LPF Urine Mucus /LPF 05/25/21 05/25/21 Range/Units 19:26 19:48 WBC (4.8-10.8) X10*3/uL RBC (4.20-5.50) X10*6/uL Hgb (12.0-16.0) g/dl Hct (37.0-47.0) % MCV (80.0-98.0) fL MCH (27.0-33.0) pg MCHC (31.0-35.0) g/dl RDW (11.0-16.0) % Plt Count (160-400) X10*3/uL MPV (9.4-12.3) fL Immature Gran % (Auto) (0.0-0.4) % Neut % (Auto) (45-73) % Lymph % (Auto) (20-40) % [place] % (Auto) (2-11) % Eos % (Auto) (0-4) % Baso % (Auto) (0-2) % Lymph # (Auto) (1.2-4.9) X10*3/uL [place] # (Auto) (0.1-1.2) X10*3/uL Eos # (Auto) (0.0-0.4) X10*3/uL Baso # (Auto) (0.0-0.2) X10*3/uL Abs Immat Gran (auto) (0.00-0.03) X10*3/uL Absolute Neuts (auto) (2.0-8.3) x10*3/uL Absolute Nucleated RBC (0.0-0.012) X10*3/uL Nucleated RBC % (auto) (0.0-0.2) /100WBC Sodium (135-145) mmol/L Potassium (3.3-5.1) mmol/L Chloride (96-108) mmol/L Carbon Dioxide (22-29) mmol/L Anion Gap (12-20) BUN (9-16) mg/dL Creatinine (0.5-1.4) mg/dL Estim Creat Clear Calc Estimated GFR Random Glucose (60-115) mg/dL Calcium (8.4-10.2) mg/dL Total Bilirubin (0.0-1.0) mg/dL AST (5-31) U/L ALT (0-31) U/L Alkaline Phosphatase (39-117) U/L Troponin I High Sens (<3.5-17.0) ng/L Total Protein (6.5-8.0) g/dL Albumin (3.5-5.0) g/dL Lipase Cancelled (8-78) U/L Urine Color YELLOW Urine Appearance HAZY Urine pH 7.0 (5.0-8.0) Ur Specific [place] 1.025 (1.005-1.025) Urine Protein 2+ H (NEG-TRACE) MG/DL Urine Glucose (UA) NEG (NEG) MG/DL Urine Ketones NEG (NEG) MG/DL Urine Blood 1+ H (NEG) Urine Nitrite NEG (NEG) Ur Leukocyte Esterase NEG (NEG) Urine RBC 0-2 (0) /HPF Urine WBC 0 (0-4) /HPF Ur Squamous Epith Cells TRACE /LPF Amorphous Sediment TRACE /LPF Urine Bacteria NONE /LPF Urine Mucus 1+ /LPF Imaging Data Chest x-ray: Radiologist's impression: Bibasilar atelectasis with persistent elevation of the left hemidiaphragm. No displaced fractures are seen. CT scan - head: Radiologist's impression: Examination is markedly limited by motion. However, accounting for these limitations, no evidence of acute intracranial hemorrhage or acute edematous infarctions are identified. ? Chronic microangiopathy and generalized cerebral volume loss. ? Degenerative changes at C1 and C2 without significant change. Correlate clinically for crowned dens syndrome. Discharge Plan Discharge Clinical Impression: Weakness, Abdominal pain Patient Disposition: Still a Patient Prescriptions: No Action methylphenidate HCl 20 mg tablet 1 tab PO QID RF: 0 lorazepam 0.5 mg tablet 0.25 mg PO DAILY PRN (Reason: Anxiety) RF: 0 trazodone 100 mg tablet 2 tab PO BEDTIME RF: 0 fluoxetine 20 mg capsule 2 cap PO QAM RF: 0 bupropion HCl 300 mg tablet extended release 24 hr 1 tab PO QAM RF: 0
[2021-05-25 19:30] LABS: MANUAL DIFF FLAG NO
[2021-05-25 19:34] LABS: Basophils Percent Auto 0.5 % (0-2); Eosinophils Absolute Auto 0.2 X10*3/uL (0.0-0.4); Eosinophils Percent Auto 2.7 % (0-4); Hematocrit 38.6 % (37.0-47.0); Hemoglobin 12.6 g/dl (12.0-16.0); Imm Gran Abs Auto 0.01 X10*3/uL (0.00-0.03); Imm Gran Pct Auto 0.2 % (0.0-0.4); Lymphocytes Absolute Auto 0.9 X10*3/uL (1.2-4.9); Lymphocytes Percent Auto 13.3 % (20-40); Mean Corpuscular HGB Conc 32.6 g/dl (31.0-35.0); Mean Corpuscular Hemoglobin 30.7 pg (27.0-33.0); Mean Corpuscular Volume 93.9 fL (80.0-98.0); Monocytes Absolute Auto 0.3 X10*3/uL (0.1-1.2); Neutrophils Percent Auto 78.3 % (45-73); Platelet Count 259 X10*3/uL (160-400); Red Blood Count 4.11 X10*6/uL (4.20-5.50); Red Cell Distribution Width 14.1 % (11.0-16.0); White Blood Count 6.4 X10*3/uL (4.8-10.8)
[2021-05-25] MEDS: LORazepam 2 MG/ML VIAL 1 MG IVPUSH (19:45)
[2021-05-25] MEDS: ondansetron HCL 4 MG/2 ML VIAL IVPUSH (19:46)
[2021-05-25 19:53] LABS: Alanine Aminotransferase 23 U/L (0-31); Albumin Level 3.8 g/dL (3.5-5.0); Alkaline Phosphatase 87 U/L (39-117); Anion Gap 11 (12-20); Aspartate Amino Transferase 28 U/L (5-31); Bilirubin Total 0.3 mg/dL (0.0-1.0); Blood Urea Nitrogen 21 mg/dL (9-16); Calcium 8.5 mg/dL (8.4-10.2); Carbon Dioxide 26 mmol/L (22-29); Chloride 103 mmol/L (96-108); Creatinine Clr Calc Pharmacy 22.3; Estimated Glomerular Filt Rate 35; Glucose Random 109 mg/dL (60-115); Lipase 50 U/L (8-78); Potassium 4.5 mmol/L (3.3-5.1); Sodium 135 mmol/L (135-145)
[2021-05-25 19:54] LABS: Appearance Urine HAZY; Color Urine YELLOW; Glucose Urine UA NEG (NEG); Leukocyte Esterase Urine NEG (NEG); Nitrite Urine NEG (NEG); Specific Gravity - Urine 1.025 (1.005-1.025); UACC Culture Trigger NO; Urine Blood 1+ (NEG); Urine Ketones NEG (NEG); Urine Protein 2+ MG/DL (NEG-TRACE)
[2021-05-25 19:55] LABS: Troponin-I High Sensitivity 8.7 ng/L (<3.5-17.0)
[2021-05-25 19:59] LABS: Amorphous Sediment Urine TRACE /LPF; Mucus Urine 1+ /LPF; RBC Urine 0-2 /HPF (0); Squamous Epithelial Cell Urine TRACE /LPF; WBC Urine 0 /HPF (0-4)
[2021-05-25 20:23] VITALS: BP 155/94; PULSE 84; RESP 20; TEMP 36.7; O2SAT 94
--- NOTE | 2021-05-25 21:50 | PHA.MEDREC ---
Pharmacy Consult ? Medication Reconciliation Pharmacy has completed the medication reconciliation. MR completed with patient and son who takes care of her. They are unsure of the fluoxetine dose at this time but state 40mg sounds right . Patient also takes adult aspirin PRN pain and took 3 tablets today. Thanks Heidy Mayfield
[2021-05-25 23:08] VITALS: BP 131/79; PULSE 83; RESP 12
--- NOTE | 2021-05-25 23:38 | P.HPHOSP_ITS ---
History of Present Illness Date of Service: 05/25/21 Chief Complaint: Generalized weakness 70-year-old female with a past medical history of anxiety, depression, history of subdural hematoma, falls presented to the hospital today with a chief complaint of generalized weakness/abdominal pain. Most of the history obtained from the patient and patient's son at bedside. Reportedly patient has been having generalized weakness for the past few days but today she noticed to be very weak and was unsteady and had a fall at home. Unwitnessed. Denies any head strike or loss of consciousness. Followed by patient is on when up status to check on her and then she had another fall but did not fell down he as he had her from falling. Mentions that patient has intermittent episodes of tremors/twitching but today did noted to be more pronounced; patient appeared to be unsteady on gait; Complains of abdominal pain going on for few days now but today noted to be slightly increased. Denies any difficulty with urination. Denies any cough or sputum production. Denies any chest pain or palpitations. Patient denies taking extra doses of her home medications. Review of all other systems is negative except mentioned above ER course: For ER team patient moving all extremities equally; CT head and CT neck showed no acute findings; CT abdomen showed severe hydronephrosis and intrahepatic and extrahepatic biliary ductal dilatation; also noted to have twitching/tremors; admitted to the hospital for further management. [facility] Medical History Anxiety Brain bleed Depression Social History Advance Directives: No Advance Directives Information Provided: No Meds Allergies Allergy/AdvReac Type Severity Reaction Status Date / Time Iodinated Contrast Media AdvReac Mild UNABLE TO Verified 01/31/21 16:01 [IV CONTRAST] SPEAK Active Medications: Current Medications Acetaminophen (Acetaminophen 325 Mg Tablet) 650 mg PO Q6H PRN PRN Reason: Pain, Mild (Pain Scale 1-3) Bupropion HCl (Bupropion Hcl Xl 300 Mg Tab.Er.24h) 300 mg PO QAM [place] Fluoxetine HCl (Fluoxetine Hcl 20 Mg Capsule) 40 mg PO BEDTIME [place] Dextrose/Sodium Chloride (D51/2ns) 1,000 mls @ 50 mls/hr IVCONT .Q20H [place] Lorazepam (Lorazepam 0.5 Mg Tablet) 0.5 mg PO DAILY PRN PRN Reason: Anxiety Melatonin (Melatonin 3 Mg Tablet) 6 mg PO BEDTIME PRN PRN Reason: Insomnia Methylphenidate HCl (Methylphenidate Hcl 5 Mg Tablet) 20 mg PO QID [place] Ondansetron HCl (Ondansetron Hcl 4 Mg/2 Ml Vial) 4 mg IVPUSH Q8H PRN PRN Reason: Nausea and Vomiting Pharmacy Consult (Consult Rx Perform Med Rec) 1 each MISCELLANE ONCE PRN PRN Reason: Consult order Senna (Sennosides 8.6 Mg Tablet) 17.2 mg PO BEDTIME PRN PRN Reason: Constipation Sodium Chloride (0.9 % Sodium Chloride Flush 3 Ml Syringe) 3 ml IVFLUSH QSHIFT [place] Trazodone HCl (Trazodone Hcl 100 Mg Tablet) 200 mg PO BEDTIME [facility] Home Medications Medication Instructions Recorded Confirmed Last Taken Type bupropion HCl 300 mg 24 hr tablet, 1 tab PO QAM 07/06/20 05/25/21 05/24/21 History extended release lorazepam 0.5 mg tablet 0.5 mg PO DAILY PRN 07/06/20 05/25/21 Unknown History methylphenidate HCl 20 mg tablet 1 tab PO QID 07/06/20 05/25/21 05/24/21 History trazodone 100 mg tablet 2 tab PO BEDTIME 07/06/20 05/25/21 05/24/21 History fluoxetine 40 mg capsule 1 cap PO BEDTIME 05/25/21 05/25/21 05/24/21 History Physical Exam Vital Signs and Narrative: Vital Signs: Last Vital Signs Temp 98.0 F 05/25/21 20:23 Pulse 83 05/25/21 23:08 Resp 12 05/25/21 23:08 BP 131/79 05/25/21 23:08 Pulse Ox 94 05/25/21 20:23 Body Mass Index 20.5 Gen: Appears be in no acute distress HEENT: NCAT, Moist mucosa. Pulmonary: Vesicular breath sounds, fair air entry CVS: Normal S1-S2 Abdomen: BS+, Soft, tender in the abdomen diffusely, more on left upper quadrant. Extremities: Warm well perfused Neuro: Alert and awake. Moves all extremities equally. Tremulous. Gait not assessed. Results Labs CBC and Chem 7: 11/12/21 19:26 05/25/21 19:26 Labs: Laboratory Results - last 24 hr 05/25/21 05/25/21 05/25/21 19:26 19:26 19:26 MCV 93.9 MCH 30.7 MCHC 32.6 RDW 14.1 Plt Count 259 MPV 9.0 L Immature Gran % (Auto) 0.2 Neut % (Auto) 78.3 H Lymph % (Auto) 13.3 L [place] % (Auto) 5.0 Eos % (Auto) 2.7 Baso % (Auto) 0.5 Lymph # (Auto) 0.9 L [place] # (Auto) 0.3 Eos # (Auto) 0.2 Baso # (Auto) 0.0 Abs Immat Gran (auto) 0.01 Absolute Neuts (auto) 5.0 Absolute Nucleated RBC 0.000 Nucleated RBC % (auto) 0.0 Anion Gap 11 L Estim Creat Clear Calc 22.3 Estimated GFR 35 Random Glucose 109 Calcium 8.5 D Total Bilirubin 0.3 AST 28 ALT 23 Alkaline Phosphatase 87 Troponin I High Sens 8.7 Total Protein 6.0 L Albumin 3.8 Lipase 50 Urine Color Urine Appearance Urine pH Ur Specific [place] Urine Protein Urine Glucose (UA) Urine Ketones Urine Blood Urine Nitrite Ur Leukocyte Esterase Urine RBC Urine WBC Ur Squamous Epith Cells Amorphous Sediment Urine Bacteria Urine Mucus 05/25/21 05/25/21 19:26 19:48 MCV MCH MCHC RDW Plt Count MPV Immature Gran % (Auto) Neut % (Auto) Lymph % (Auto) [place] % (Auto) Eos % (Auto) Baso % (Auto) Lymph # (Auto) [place] # (Auto) Eos # (Auto) Baso # (Auto) Abs Immat Gran (auto) Absolute Neuts (auto) Absolute Nucleated RBC Nucleated RBC % (auto) Anion Gap Estim Creat Clear Calc Estimated GFR Random Glucose Calcium Total Bilirubin AST ALT Alkaline Phosphatase Troponin I High Sens Total Protein Albumin Lipase Cancelled Urine Color YELLOW Urine Appearance HAZY Urine pH 7.0 Ur Specific [place] 1.025 Urine Protein 2+ H Urine Glucose (UA) NEG Urine Ketones NEG Urine Blood 1+ H Urine Nitrite NEG Ur Leukocyte Esterase NEG Urine RBC 0-2 Urine WBC 0 Ur Squamous Epith Cells TRACE Amorphous Sediment TRACE Urine Bacteria NONE Urine Mucus 1+ Imaging Radiologist's Impressions: Impressions Chest X-Ray 05/25/21 19:16 IMPRESSION: Bibasilar atelectasis with persistent elevation of the left hemidiaphragm. No displaced fractures are seen. Head CT 05/25/21 19:16 IMPRESSION: Examination is markedly limited by motion. However, accounting for these limitations, no evidence of acute intracranial hemorrhage or acute edematous infarctions are identified. Chronic microangiopathy and generalized cerebral volume loss. Degenerative changes at C1 and C2 without significant change. Correlate clinically for crowned dens syndrome. Abdomen/Pelvis CT 05/25/21 19:54 IMPRESSION: 1. Today's examination is significantly limited secondary to lack of IV contrast. 2. Severe hydronephrosis of the left kidney. There is diffuse cortical thinning of the left kidney suggesting a chronic process. No obstructing calculi are noted. Prior imaging reports suggests a history of left-sided hydronephrosis with an accessory left renal artery possibly causing an apparent UPJ obstruction. This can be better evaluated with CTA imaging of the abdomen as clinically indicated. 3. Mild to moderate intrahepatic biliary ductal dilatation with prominent dilatation of the common bile duct which demonstrates abrupt narrowing distally. This is a nonspecific finding. A focal lesion is region is not excluded as this region is poorly visualized given lack of IV contrast. Further evaluation can be obtained with MRI/MRCP versus ERCP. Given the overall suboptimal imaging due to lack of IV contrast, repeat imaging with IV contrast may be warranted. Assessment and Plan (1) Abdominal pain: Status: Acute (2) Weakness: Status: Acute (3) Hydronephrosis: Status: Acute 70-year-old female with a past medical history of anxiety, depression, history of subdural hematoma, falls presented to the hospital today with a chief complaint of generalized weakness/abdominal pain. Abdominal pain: will likely from Left-sidedhydronephrosis. also reports noted that patient had prior history of hydronephrosis. UA negative for infection Angulo catheter urology consult Biliary ductal dilatation/CBD dilatation with abrupt narrowing: Will consult GI for further input. WANDER: Gentle IV fluids. Fall: CT head showed no acute findings. CT cervical spine showed chronic degenerative changes. No acute fracture. Fall precautions. PT/OT. Tremors/twitching: Will consult Neurology for further recommendations. For all other chronic conditions, home medications will be continued DVT prophylaxis: SCD boots Code status: Full code Quality Stroke Does the patient have a stroke diagnosis?: No VTE Prior VTE?: No VTE Risk Level:: Medical - moderate - high VTE Device Contraindication: N/A - Device Ordered VTE Drug Contraindication: Treatment Not Indicated
[2021-05-26] VITALS (9 sets, daily range): BP systolic 129–172; BP diastolic 64–103; PULSE 72–82; RESP 16–22; TEMP 36.6–37.5; O2SAT 94–95
[2021-05-26] MEDS: Dextrose 5 % and 0.45 % NaCl 1,000 ML 50 ML IVCONT (00:29)
--- NOTE | 2021-05-26 00:50 | PC.NURSE ---
PT desatted to 87% on RA, this RN placed pt on 2L nasal cannula, now satting at 96%, no resp distress noted
[2021-05-26 01:18] LABS: D Dimer 285 NG/ML
[2021-05-26] MEDS: HYDROmorphone HCl 0.5 MG/0.5 ML SYRINGE 0.25 MG IVPUSH ×2 (04:10→08:53)
[2021-05-26 04:22] LABS: COVID-19 Test Negative (Negative); IDNOW Serial# 9DD0AD1C
[2021-05-26 06:29] LABS: MANUAL DIFF FLAG NO
[2021-05-26 06:34] LABS: Basophils Percent Auto 0.6 % (0-2); Eosinophils Absolute Auto 0.1 X10*3/uL (0.0-0.4); Eosinophils Percent Auto 2.3 % (0-4); Hematocrit 36.1 % (37.0-47.0); Imm Gran Abs Auto 0.02 X10*3/uL (0.00-0.03); Imm Gran Pct Auto 0.4 % (0.0-0.4); Lymphocytes Absolute Auto 0.8 X10*3/uL (1.2-4.9); Mean Corpuscular HGB Conc 33.2 g/dl (31.0-35.0); Mean Corpuscular Hemoglobin 30.9 pg (27.0-33.0); Mean Platelet Volume 9.3 fL (9.4-12.3); Monocytes Absolute Auto 0.4 X10*3/uL (0.1-1.2); Monocytes Percent Auto 6.7 % (2-11); Neutrophils Absolute Auto 3.9 x10*3/uL (2.0-8.3); Platelet Count 226 X10*3/uL (160-400); Red Blood Count 3.88 X10*6/uL (4.20-5.50); Red Cell Distribution Width 14.1 % (11.0-16.0); White Blood Count 5.2 X10*3/uL (4.8-10.8)
[2021-05-26 06:56] LABS: Anion Gap 11 (12-20); Blood Urea Nitrogen 18 mg/dL (9-16); Calcium 8.1 mg/dL (8.4-10.2); Carbon Dioxide 24 mmol/L (22-29); Chloride 107 mmol/L (96-108); Creatinine Clr Calc Pharmacy 24.8; Estimated Glomerular Filt Rate 40; Glucose Random 91 mg/dL (60-115); Potassium 4.3 mmol/L (3.3-5.1); Sodium 138 mmol/L (135-145)
[2021-05-26] MEDS: 0.9 % Sodium Chloride 1,000 ML 125 ML IVCONT (08:03)
[2021-05-26] MEDS: buPROPion HCl XL 300 MG TAB.ER.24H PO (08:54)
[2021-05-26] MEDS: Methylphenidate HCl 10 MG TABLET 20 MG PO ×4 (08:54→19:26)
[2021-05-26] MEDS: LORazepam 0.5 MG TABLET PO (11:02)
--- NOTE | 2021-05-26 11:08 | PC.NURSE ---
pt pulled out iv and is naked standing in the door way screaming. pt cleaned up and new iv placed in r lower arm by dave amaya. pt moved to room 8 and redirected to call pola.
--- NOTE | 2021-05-26 13:11 | P.PNIM_ITS ---
Subjective Subjective Date of Service: 05/26/21 Interval History: Has epigastric + RUQ pain No urinary problems Ongoing ataxia No LOC Review of Systems Review of Systems: Yes all other systems are reviewed and are negative Physical Exam Vital Signs: Vital Signs: Last Vital Signs Temp 97.8 F 05/26/21 06:12 Pulse 77 05/26/21 08:37 Resp 16 05/26/21 08:53 BP 147/103 H 05/26/21 08:37 Pulse Ox 95 05/26/21 06:12 Body Mass Index 20.5 Gen: tremulous HEENT: sclera anicteric, moist mucus membranes Neck: supple Lungs: clear to auscultation bilaterally Heart: regular rate and rhythm, no murmurs Abd: soft, epigastric + RUQ tenderness, no rebound Ext: no edema Skin: warm/well-perfused Neuro: alert and oriented x3, tremulous, dysmetria Psych: appropriate affect Objective Data Active Medications Acetaminophen (Acetaminophen 325 Mg Tablet) 650 mg PO Q6H PRN PRN Reason: Pain, Mild (Pain Scale 1-3) Bupropion HCl (Bupropion Hcl Xl 300 Mg Tab.Er.24h) 300 mg PO DAILY [facility] Last Admin: 05/26/21 08:54 Dose: 300 mg Documented by: MARIZOL Fluoxetine HCl (Fluoxetine Hcl 20 Mg Capsule) 40 mg PO BEDTIME [facility] Hydromorphone HCl (Hydromorphone Hcl 0.5 Mg/0.5 Ml Syringe) 0.25 mg IVPUSH Q4H PRN; Protocol PRN Reason: Breakthrough Pain Last Admin: 05/26/21 08:53 Dose: 0.25 mg Documented by: MARIZOL Sodium Chloride (Ns) 1,000 mls @ 125 mls/hr IVCONT .Q8H [facility] Stop: 05/26/21 15:59 Last Admin: 05/26/21 08:03 Dose: 125 mls/hr Documented by: MARIZOL Lorazepam (Lorazepam 0.5 Mg Tablet) 0.5 mg PO DAILY PRN PRN Reason: Anxiety Last Admin: 05/26/21 11:02 Dose: 0.5 mg Documented by: MARIZOL Melatonin (Melatonin 3 Mg Tablet) 6 mg PO BEDTIME PRN PRN Reason: Insomnia Methylphenidate HCl (Methylphenidate Hcl 10 Mg Tablet) 20 mg PO QID [facility] Last Admin: 05/26/21 08:54 Dose: 20 mg Documented by: MARIZOL Ondansetron HCl (Ondansetron Hcl 4 Mg/2 Ml Vial) 4 mg IVPUSH Q8H PRN PRN Reason: Nausea and Vomiting Pharmacy Consult (Consult Rx Perform Med Rec) 1 each MISCELLANE ONCE PRN PRN Reason: Consult order Senna (Sennosides 8.6 Mg Tablet) 17.2 mg PO BEDTIME PRN PRN Reason: Constipation Sodium Chloride (0.9 % Sodium Chloride Flush 3 Ml Syringe) 3 ml IVFLUSH QSHIFT [facility] Last Admin: 05/26/21 08:01 Dose: Not Given Documented by: MARIZOL Non-Admin Reason: IV Running Trazodone HCl (Trazodone Hcl 100 Mg Tablet) 200 mg PO BEDTIME [facility] Labs CBC & Chem 7: 05/26/21 06:23 05/26/21 06:23 Labs: Laboratory Results - last 24 hr 05/25/21 05/25/21 05/25/21 19:26 19:26 19:26 MCV 93.9 MCH 30.7 MCHC 32.6 RDW 14.1 Plt Count 259 MPV 9.0 L Immature Gran % (Auto) 0.2 Neut % (Auto) 78.3 H Lymph % (Auto) 13.3 L Ida % (Auto) 5.0 Eos % (Auto) 2.7 Baso % (Auto) 0.5 Lymph # (Auto) 0.9 L Ida # (Auto) 0.3 Eos # (Auto) 0.2 Baso # (Auto) 0.0 Abs Immat Gran (auto) 0.01 Absolute Neuts (auto) 5.0 Absolute Nucleated RBC 0.000 Nucleated RBC % (auto) 0.0 D-Dimer Anion Gap 11 L Estim Creat Clear Calc 22.3 Estimated GFR 35 Random Glucose 109 Calcium 8.5 D Total Bilirubin 0.3 AST 28 ALT 23 Alkaline Phosphatase 87 Troponin I High Sens 8.7 Total Protein 6.0 L Albumin 3.8 Lipase 50 Urine Color Urine Appearance Urine pH Ur Specific [place] Urine Protein Urine Glucose (UA) Urine Ketones Urine Blood Urine Nitrite Ur Leukocyte Esterase Urine RBC Urine WBC Ur Squamous Epith Cells Amorphous Sediment Urine Bacteria Urine Mucus COVID-19 (JAGRUTI) COVID-19 Clin Com 05/25/21 05/25/21 05/26/21 19:26 19:48 01:05 MCV MCH MCHC RDW Plt Count MPV Immature Gran % (Auto) Neut % (Auto) Lymph % (Auto) Ida % (Auto) Eos % (Auto) Baso % (Auto) Lymph # (Auto) Ida # (Auto) Eos # (Auto) Baso # (Auto) Abs Immat Gran (auto) Absolute Neuts (auto) Absolute Nucleated RBC Nucleated RBC % (auto) D-Dimer 285 Anion Gap Estim Creat Clear Calc Estimated GFR Random Glucose Calcium Total Bilirubin AST ALT Alkaline Phosphatase Troponin I High Sens Total Protein Albumin Lipase Cancelled Urine Color YELLOW Urine Appearance HAZY Urine pH 7.0 Ur Specific [place] 1.025 Urine Protein 2+ H Urine Glucose (UA) NEG Urine Ketones NEG Urine Blood 1+ H Urine Nitrite NEG Ur Leukocyte Esterase NEG Urine RBC 0-2 Urine WBC 0 Ur Squamous Epith Cells TRACE Amorphous Sediment TRACE Urine Bacteria NONE Urine Mucus 1+ COVID-19 (JAGRUTI) COVID-19 Clin Com 05/26/21 05/26/21 05/26/21 03:59 06:23 06:23 MCV 93.0 MCH 30.9 MCHC 33.2 RDW 14.1 Plt Count 226 MPV 9.3 L Immature Gran % (Auto) 0.4 Neut % (Auto) 75.0 H Lymph % (Auto) 15.0 L Ida % (Auto) 6.7 Eos % (Auto) 2.3 Baso % (Auto) 0.6 Lymph # (Auto) 0.8 L Ida # (Auto) 0.4 Eos # (Auto) 0.1 Baso # (Auto) 0.0 Abs Immat Gran (auto) 0.02 Absolute Neuts (auto) 3.9 Absolute Nucleated RBC 0.000 Nucleated RBC % (auto) 0.0 D-Dimer Anion Gap 11 L Estim Creat Clear Calc 24.8 Estimated GFR 40 Random Glucose 91 Calcium 8.1 L Total Bilirubin AST ALT Alkaline Phosphatase Troponin I High Sens Total Protein Albumin Lipase Urine Color Urine Appearance Urine pH Ur Specific [place] Urine Protein Urine Glucose (UA) Urine Ketones Urine Blood Urine Nitrite Ur Leukocyte Esterase Urine RBC Urine WBC Ur Squamous Epith Cells Amorphous Sediment Urine Bacteria Urine Mucus COVID-19 (JAGRUTI) Negative COVID-19 Clin Com See Note Impressions Chest X-Ray 05/25/21 19:16 IMPRESSION: Bibasilar atelectasis with persistent elevation of the left hemidiaphragm. No displaced fractures are seen. Head CT 05/25/21 19:16 IMPRESSION: Examination is markedly limited by motion. However, accounting for these limitations, no evidence of acute intracranial hemorrhage or acute edematous infarctions are identified. Chronic microangiopathy and generalized cerebral volume loss. Degenerative changes at C1 and C2 without significant change. Correlate clinically for crowned dens syndrome. Abdomen/Pelvis CT 05/25/21 19:54 IMPRESSION: 1. Today's examination is significantly limited secondary to lack of IV contrast. 2. Severe hydronephrosis of the left kidney. There is diffuse cortical thinning of the left kidney suggesting a chronic process. No obstructing calculi are noted. Prior imaging reports suggests a history of left-sided hydronephrosis with an accessory left renal artery possibly causing an apparent UPJ obstruction. This can be better evaluated with CTA imaging of the abdomen as clinically indicated. 3. Mild to moderate intrahepatic biliary ductal dilatation with prominent dilatation of the common bile duct which demonstrates abrupt narrowing distally. This is a nonspecific finding. A focal lesion is region is not excluded as this region is poorly visualized given lack of IV contrast. Further evaluation can be obtained with MRI/MRCP versus ERCP. Given the overall suboptimal imaging due to lack of IV contrast, repeat imaging with IV contrast may be warranted. Assessment and Plan (1) Hydronephrosis: Status: Acute (2) Weakness: Status: Acute (3) Abdominal pain: Status: Acute Assessment and Plan: hospital d#2 70yo F with anxiety, depression, hx subdural hematoma presented with worsening ataxia, generalized weakness and fall without LOC, abd pain found to have high-grade UPJ obstruction/hydronephrosis of L kidney, biliary ductal dilation with abrupt narrowing # biliary dilation/abd pain - GI consult, MRCP ordered # L hydronephrosis/UPJ obsturction - recommend CT angio- pt has IV contrast allergy- I offered premed with steroid + antihistamine but pt would like to wait for now to speak to Urology # ataxia/tremor - Neuro consult, MRI # WANDER - improved with IV fluids # mood disorder - bupropion, fluoxetine, trazodone, methylphenidate, lorazepam # VTE ppx - SCDs Quality Stroke Does the patient have a stroke diagnosis?: No VTE Prior VTE?: No VTE Risk Level:: Medical - moderate - high VTE Device Contraindication: N/A - Device Ordered VTE Drug Contraindication: Treatment Not Indicated
[2021-05-26] MEDS: Acetaminophen 325 MG TABLET 650 MG PO (13:14)
--- NOTE | 2021-05-26 14:46 | PC.NURSE ---
report given to carisa on imc
[2021-05-26] MEDS: 0.9 % Sodium Chloride Flush 3 ML SYRINGE IVFLUSH (15:13)
--- NOTE | 2021-05-26 15:52 | MHC.CM.PN ---
CM met with Patient and her Son/Beny and addressed IMM,providing them with the original and placing a copy on the chart.Patient lives alone in a Town [place] and PT is recommending STR.Patient was active with [facility] and was agreeable to a SNF search for STR only, which has been initiated. PCP is Dr. Tuan Nguyen and CM provided Patient and her Son with a blank HCP with instructions, for their review.DC planning has been initiated.
[2021-05-26] MEDS: Butalb/Acetamin/Caff 50/325/40 TABLET 1 TAB PO (16:18)
[2021-05-26] MEDS: FLUoxetine HCl 20 MG CAPSULE 40 MG PO (19:26)
[2021-05-26] MEDS: traZODone HCL 100 MG TABLET 200 MG PO (19:26)
--- NOTE | 2021-05-26 20:18 | CONS_ITS ---
DATE OF SERVICE: 05/26/2021 REFERRING PHYSICIAN: Savage Wilder MD REASON FOR CONSULTATION: Abnormal imaging of the biliary tree. HISTORY OF PRESENT ILLNESS: The patient is a pleasant 70-year-old woman, who was admitted to the hospital after presenting to the emergency room with weakness and a fall. She also reports some left-sided abdominal pain in the area of her ribs. She was evaluated in the emergency department with CT scanning on admission and this is reviewed. CT scanning of the abdomen and pelvis is interpreted as showing dilation of her common bile duct to 14 mm with narrowing distally. She has normal liver function tests and has no jaundice. Previous evaluation has included MRI of the biliary tree in 2005, which showed dilation of the common bile duct and intrahepatic ducts with no pancreatic lesion identified. The patient is status post cholecystectomy many years ago. PAST MEDICAL HISTORY: 1. Anxiety. 2. Subdural hematoma. 3. Depression. 4. Cholecystectomy. 5. Peptic ulcer disease with history of surgery. CURRENT MEDICATIONS: Her current medication list is reviewed in the chart. ALLERGIES: CONTRAST MEDIA. FAMILY HISTORY: This is reviewed with the patient and is noncontributory. SOCIAL HISTORY: There is no current tobacco, alcohol, or substance abuse. REVIEW OF SYSTEMS: SKIN: No pruritus. HEENT: Negative. CARDIOPULMONARY: She denies shortness of breath or chest pain. GASTROINTESTINAL: As above. GENITOURINARY: Negative. NEUROPSYCHIATRIC: Negative. PHYSICAL EXAMINATION: GENERAL: Shows a pleasant female, lying comfortably in bed. VITAL SIGNS: Reviewed in the electronic medical record and are stable. SKIN: Anicteric. HEENT: Shows no scleral icterus. NECK: Without lymphadenopathy or thyromegaly. LUNGS: Clear. HEART: Shows regular rate and rhythm. S1, S2. No murmur. ABDOMEN: Soft without focal masses or tenderness. Bowel sounds are present. No organomegaly is noted. EXTREMITIES: Without edema. LABORATORY DATA: Laboratory data and CT scanning are reviewed. IMPRESSION: Dilated common bile duct. This appears chronic and is likely reflective of her post cholecystectomy state. No pancreatic mass has been identified on the imaging recently or in the past. I would not recommend further evaluation at this time. Thanks for asking me to see her. I will follow her in the hospital with you. MD JOSH Pozo/STEVEN / [id number]
[2021-05-27] VITALS (9 sets, daily range): BP systolic 153–181; BP diastolic 68–88; PULSE 68–96; RESP 17–20; TEMP 36.2–37.3; O2SAT 93–97
[2021-05-27] MEDS: 0.9 % Sodium Chloride Flush 3 ML SYRINGE IVFLUSH ×4 (00:29→20:34)
[2021-05-27] MEDS: HYDROmorphone HCl 0.5 MG/0.5 ML SYRINGE 0.25 MG IVPUSH ×2 (04:33→09:45)
[2021-05-27] MEDS: Butalb/Acetamin/Caff 50/325/40 TABLET 1 TAB PO (04:41)
[2021-05-27 08:36] LABS: Anion Gap 12 (12-20); Blood Urea Nitrogen 19 mg/dL (9-16); Calcium 8.4 mg/dL (8.4-10.2); Carbon Dioxide 27 mmol/L (22-29); Chloride 107 mmol/L (96-108); Creatinine Clr Calc Pharmacy 24.7; Estimated Glomerular Filt Rate 39; Glucose Random 97 mg/dL (60-115); Potassium 4.5 mmol/L (3.3-5.1); Sodium 141 mmol/L (135-145)
[2021-05-27] MEDS: Methylphenidate HCl 10 MG TABLET 20 MG PO ×4 (09:46→20:32)
[2021-05-27] MEDS: buPROPion HCl XL 300 MG TAB.ER.24H PO (09:46)
--- NOTE | 2021-05-27 10:30 | P.CNNE_ITS ---
History of Present Illness Data of Consult Service Date: 05/27/21 Primary Care Provider: Tuan Nguyen MD [facility] Reason for consult: Weakness and fall 70 years old woman who came to hospital after falling down. She stated that she was going through a doorway when she lost her balance and fell. There was no dizziness and she did not pass out. There was no sign of significant physical trauma. She stated that she had done this before and admitted to [facility] and had an MRI done for investigation. There was no evidence of or history of seizure disorder. Review of Systems Review of Systems: No recent cold or flu-like illness neck pain or headache. [facility] Past Medical History Medical History Anxiety Brain bleed Depression Social History Social History Household Members: Family Housing: [facility] Do you presently have visiting nurse or other home services: No Patient Tobacco Use Status: Never used Tobacco service: No Current occupational status: retired and disabled Meds Allergies Allergy/AdvReac Type Severity Reaction Status Date / Time Iodinated Contrast Media AdvReac Mild UNABLE TO Verified 01/31/21 16:01 [IV CONTRAST] SPEAK Active Medications: Current Medications Acetaminophen (Acetaminophen 325 Mg Tablet) 650 mg PO Q6H PRN PRN Reason: Pain, Mild (Pain Scale 1-3) Last Admin: 05/26/21 13:14 Dose: 650 mg Documented by: Acetaminophen/Butalbital/Caffeine (Butalb/Acetamin/Caff 50/325/40 Tablet) 1 tab PO Q4H PRN PRN Reason: headache Last Admin: 05/27/21 04:41 Dose: 1 tab Documented by: Bupropion HCl (Bupropion Hcl Xl 300 Mg Tab.Er.24h) 300 mg PO DAILY [facility] Last Admin: 05/27/21 09:46 Dose: 300 mg Documented by: Fluoxetine HCl (Fluoxetine Hcl 20 Mg Capsule) 40 mg PO BEDTIME [facility] Last Admin: 05/26/21 19:26 Dose: 40 mg Documented by: Hydromorphone HCl (Hydromorphone Hcl 0.5 Mg/0.5 Ml Syringe) 0.25 mg IVPUSH Q4H PRN; Protocol PRN Reason: Breakthrough Pain Last Admin: 05/27/21 09:45 Dose: 0.25 mg Documented by: Lorazepam (Lorazepam 0.5 Mg Tablet) 0.5 mg PO DAILY PRN PRN Reason: Anxiety Last Admin: 05/26/21 11:02 Dose: 0.5 mg Documented by: Melatonin (Melatonin 3 Mg Tablet) 6 mg PO BEDTIME PRN PRN Reason: Insomnia Methylphenidate HCl (Methylphenidate Hcl 10 Mg Tablet) 20 mg PO QID [facility] Last Admin: 05/27/21 09:46 Dose: 20 mg Documented by: Ondansetron HCl (Ondansetron Hcl 4 Mg/2 Ml Vial) 4 mg IVPUSH Q8H PRN PRN Reason: Nausea and Vomiting Pharmacy Consult (Consult Rx Perform Med Rec) 1 each MISCELLANE ONCE PRN PRN Reason: Consult order Senna (Sennosides 8.6 Mg Tablet) 17.2 mg PO BEDTIME PRN PRN Reason: Constipation Sodium Chloride (0.9 % Sodium Chloride Flush 3 Ml Syringe) 3 ml IVFLUSH [facility] Last Admin: 05/27/21 09:45 Dose: 3 ml Documented by: Trazodone HCl (Trazodone Hcl 100 Mg Tablet) 200 mg PO BEDTIME [facility] Last Admin: 05/26/21 19:26 Dose: 200 mg Documented by: Home Medications Medication Instructions Recorded Confirmed Last Taken Type bupropion HCl 300 mg 24 hr tablet, 1 tab PO QAM 07/06/20 05/25/21 05/24/21 History extended release lorazepam 0.5 mg tablet 0.5 mg PO DAILY PRN 07/06/20 05/25/21 Unknown History methylphenidate HCl 20 mg tablet 1 tab PO QID 07/06/20 05/25/21 05/24/21 History trazodone 100 mg tablet 2 tab PO BEDTIME 07/06/20 05/25/21 05/24/21 History fluoxetine 40 mg capsule 1 cap PO BEDTIME 05/25/21 05/25/21 05/24/21 History Physical Exam Vital Signs: Vital Signs: Last Vital Signs Temp 99.0 F 05/27/21 07:48 Pulse 76 05/27/21 07:48 Resp 20 05/27/21 07:48 BP 162/80 H 05/27/21 07:48 Pulse Ox 97 05/27/21 07:48 Body Mass Index 20.5 Neuro: Other: She is alert and awake with normal spontaneity of speech fluency comprehension and affect. Pupils are round and reactive to light. Extraocular muscles were intact. Visual sheehan are full to threat. Face was symmetrical. There was no pronator drift. Mild bilateral ataxia was noted on [id number] testing and mild postural tremor in both hands. Deep tendon reflexes were absent with flexor plantars. Results Labs CBC & Chem 7: 05/26/21 06:23 05/27/21 06:23 Labs: BMP 05/27/21 06:23 Sodium 141 Potassium 4.5 Chloride 107 Carbon Dioxide 27 BUN 19 H Creatinine 1.33 Calcium [address] revealed [id number] diffuse cerebral and cerebellar atrophy and moderately severe chronic ischemic changes. Assessment and Plan (1) Gait disorder: Status: Acute 70 years old woman with multifactorial unsteadiness in gait disorder as mild cerebellar feature on examination, mild tremor, areflexia, cerebral and cerebellar atrophy and significant microvascular ischemic changes. Combination of all this would make her unsteady with tendency to fall. There is no particular 6 to this. Mainstay of management is reassurance and education regular use of a walker to avoid any falls for a overall history is not suggestive of a seizure disorder or a stroke. Procedures Date of Service Date of Service: 05/27/21
--- NOTE | 2021-05-27 10:43 | HO.PM.IMPN ---
Subjective Subjective Date of Service: 05/27/21 Interval History: L flank pain minimal nausea no RUQ pain tremulous Review of Systems Review of Systems: Yes all other systems are reviewed and are negative Physical Exam Vital Signs: Vital Signs: Last Vital Signs Temp 99.0 F 05/27/21 07:48 Pulse 76 05/27/21 07:48 Resp 20 05/27/21 07:48 BP 162/80 H 05/27/21 07:48 Pulse Ox 97 05/27/21 07:48 Body Mass Index 20.5 Gen: tremulous HEENT: sclera anicteric, moist mucus membranes Neck: supple Lungs: clear to auscultation bilaterally Heart: regular rate and rhythm, no murmurs Abd: soft, no rebound : L CVAT, Angulo draining clear yellow urine Ext: no edema Skin: warm/well-perfused Neuro: alert and oriented x3, tremulous, dysmetria + dysdiadochokinesia present L>R Psych: appropriate affect Objective Data Active Medications Acetaminophen (Acetaminophen 325 Mg Tablet) 650 mg PO Q6H PRN PRN Reason: Pain, Mild (Pain Scale 1-3) Last Admin: 05/26/21 13:14 Dose: 650 mg Documented by: RADHA Acetaminophen/Butalbital/Caffeine (Butalb/Acetamin/Caff 50/325/40 Tablet) 1 tab PO Q4H PRN PRN Reason: headache Last Admin: 05/27/21 04:41 Dose: 1 tab Documented by: ZEE Bupropion HCl (Bupropion Hcl Xl 300 Mg Tab.Er.24h) 300 mg PO DAILY [facility] Last Admin: 05/27/21 09:46 Dose: 300 mg Documented by: SARAH Fluoxetine HCl (Fluoxetine Hcl 20 Mg Capsule) 40 mg PO BEDTIME [facility] Last Admin: 05/26/21 19:26 Dose: 40 mg Documented by: ANAHY Hydromorphone HCl (Hydromorphone Hcl 0.5 Mg/0.5 Ml Syringe) 0.25 mg IVPUSH Q4H PRN; Protocol PRN Reason: Breakthrough Pain Last Admin: 05/27/21 09:45 Dose: 0.25 mg Documented by: SARAH Lorazepam (Lorazepam 0.5 Mg Tablet) 0.5 mg PO DAILY PRN PRN Reason: Anxiety Last Admin: 05/26/21 11:02 Dose: 0.5 mg Documented by: MARIZOL Melatonin (Melatonin 3 Mg Tablet) 6 mg PO BEDTIME PRN PRN Reason: Insomnia Methylphenidate HCl (Methylphenidate Hcl 10 Mg Tablet) 20 mg PO QID [facility] Last Admin: 05/27/21 09:46 Dose: 20 mg Documented by: SARAH Ondansetron HCl (Ondansetron Hcl 4 Mg/2 Ml Vial) 4 mg IVPUSH Q8H PRN PRN Reason: Nausea and Vomiting Pharmacy Consult (Consult Rx Perform Med Rec) 1 each MISCELLANE ONCE PRN PRN Reason: Consult order Senna (Sennosides 8.6 Mg Tablet) 17.2 mg PO BEDTIME PRN PRN Reason: Constipation Sodium Chloride (0.9 % Sodium Chloride Flush 3 Ml Syringe) 3 ml IVFLUSH QSHIFT [facility] Last Admin: 05/27/21 09:45 Dose: 3 ml Documented by: SARAH Trazodone HCl (Trazodone Hcl 100 Mg Tablet) 200 mg PO BEDTIME [facility] Last Admin: 05/26/21 19:26 Dose: 200 mg Documented by: ANAHY Labs CBC & Chem 7: 05/26/21 06:23 05/27/21 06:23 Labs: Laboratory Results - last 24 hr 05/27/21 06:23 Anion Gap 12 Estim Creat Clear Calc 24.7 Estimated GFR 39 Random Glucose 97 Calcium 8.4 Assessment and Plan (1) Hydronephrosis: Status: Acute (2) Weakness: Status: Acute (3) Abdominal pain: Status: Acute Assessment and Plan: hospital d#3 70yo F with anxiety, depression, hx subdural hematoma presented with worsening ataxia, generalized weakness and fall without LOC, abd pain found to have high-grade UPJ obstruction/hydronephrosis of L kidney, biliary ductal dilation with abrupt narrowing # L hydronephrosis/UPJ obsturction - recommend CT angio- pt has IV contrast allergy- I offered premed with steroid + antihistamine but pt would like to wait for now to speak to Urology # biliary dilation - GI consulted- appears chronic dating back to 2005, no further w/u indicated # ataxia/tremor - Neuro consulted, attributable to chronic microangiopathy and generalized cerebral volume loss, no further workup indicated # WANDER - improved with IV fluids # mood disorder - bupropion, fluoxetine, trazodone, methylphenidate, lorazepam # VTE ppx - SCDs Quality Stroke Does the patient have a stroke diagnosis?: No VTE Prior VTE?: No VTE Risk Level:: Medical - moderate - high VTE Device Contraindication: N/A - Device Ordered VTE Drug Contraindication: Treatment Not Indicated
[2021-05-27] MEDS: HYDROmorphone HCl 0.5 MG/0.5 ML SYRINGE 0.4 MG IVPUSH ×2 (17:50→20:33)
[2021-05-27] MEDS: traZODone HCL 100 MG TABLET 200 MG PO (20:32)
[2021-05-27] MEDS: FLUoxetine HCl 20 MG CAPSULE 40 MG PO (20:32)
[2021-05-28] VITALS (7 sets, daily range): BP systolic 117–154; BP diastolic 59–82; PULSE 68–79; RESP 18–20; TEMP 36.4–36.8; O2SAT 92–98
[2021-05-28] MEDS: LORazepam 0.5 MG TABLET PO ×2 (00:14→21:45)
[2021-05-28] MEDS: buPROPion HCl XL 300 MG TAB.ER.24H PO (08:49)
[2021-05-28] MEDS: Methylphenidate HCl 10 MG TABLET 20 MG PO ×4 (08:49→21:37)
[2021-05-28] MEDS: 0.9 % Sodium Chloride Flush 3 ML SYRINGE IVFLUSH ×3 (08:50→21:37)
[2021-05-28] MEDS: HYDROmorphone HCl 0.5 MG/0.5 ML SYRINGE 0.4 MG IVPUSH ×3 (08:58→19:00)
--- NOTE | 2021-05-28 09:19 | PM.UROCN ---
History of Present Illness Consult details Consult date: 05/28/21 Narrative: Herminia is a 70-year-old female. Admitted to hospital with generalized weakness and fall and they abdominal pain. CT imaging performed which showed left hydronephrosis and chronic changes to her kidney. Creatinine 1.1 last June, 1.5 in February, 1.3 currently. She reports no prior diagnosis of renal problems Suggest Lasix renogram to determine if left kidney is functional Further management will be based on imaging results Review of Systems Constitutional: Constitutional: Denies chills and Denies fever(s) Cardiovascular: Cardiovascular: Reports no additional cardiovascular complaints and Denies syncope Respiratory: Respiratory: Denies cough Gastrointestinal: Gastrointestinal: Denies abdominal pain and Denies heartburn Genitourinary: Genitourinary: Reports as per HPI and Denies change in libido Neurologic: Denies syncope Psychiatric: Psychiatric: Denies change in libido Endocrine: Endocrine: Denies change in libido PMFSH Past Medical History Medical History Anxiety Brain bleed Depression Social History Social History Household Members: Family Housing: [facility] Do you presently have visiting nurse or other home services: No Patient Tobacco Use Status: Never used Tobacco service: No Current occupational status: retired and disabled Meds Allergies Allergy/AdvReac Type Severity Reaction Status Date / Time Iodinated Contrast Media AdvReac Mild UNABLE TO Verified 01/31/21 16:01 [IV CONTRAST] SPEAK Active Medications: Current Medications Acetaminophen (Acetaminophen 325 Mg Tablet) 650 mg PO Q6H PRN PRN Reason: Pain, Mild (Pain Scale 1-3) Last Admin: 05/26/21 13:14 Dose: 650 mg Documented by: Acetaminophen/Butalbital/Caffeine (Butalb/Acetamin/Caff 50/325/40 Tablet) 1 tab PO Q4H PRN PRN Reason: headache Last Admin: 05/27/21 04:41 Dose: 1 tab Documented by: Bupropion HCl (Bupropion Hcl Xl 300 Mg Tab.Er.24h) 300 mg PO DAILY [facility] Last Admin: 05/28/21 08:49 Dose: 300 mg Documented by: Fluoxetine HCl (Fluoxetine Hcl 20 Mg Capsule) 40 mg PO BEDTIME [facility] Last Admin: 05/27/21 20:32 Dose: 40 mg Documented by: Hydromorphone HCl (Hydromorphone Hcl 0.5 Mg/0.5 Ml Syringe) 0.4 mg IVPUSH Q4H PRN; Protocol PRN Reason: Breakthrough Pain Last Admin: 05/28/21 08:58 Dose: 0.4 mg Documented by: Lorazepam (Lorazepam 0.5 Mg Tablet) 0.5 mg PO DAILY PRN PRN Reason: Anxiety Last Admin: 05/28/21 00:14 Dose: 0.5 mg Documented by: Melatonin (Melatonin 3 Mg Tablet) 6 mg PO BEDTIME PRN PRN Reason: Insomnia Methylphenidate HCl (Methylphenidate Hcl 10 Mg Tablet) 20 mg PO QID [facility] Last Admin: 05/28/21 08:49 Dose: 20 mg Documented by: Ondansetron HCl (Ondansetron Hcl 4 Mg/2 Ml Vial) 4 mg IVPUSH Q8H PRN PRN Reason: Nausea and Vomiting Pharmacy Consult (Consult Rx Perform Med Rec) 1 each MISCELLANE ONCE PRN PRN Reason: Consult order Senna (Sennosides 8.6 Mg Tablet) 17.2 mg PO BEDTIME PRN PRN Reason: Constipation Sodium Chloride (0.9 % Sodium Chloride Flush 3 Ml Syringe) 3 ml IVFLUSH [facility] Last Admin: 05/28/21 08:50 Dose: 3 ml Documented by: Trazodone HCl (Trazodone Hcl 100 Mg Tablet) 200 mg PO BEDTIME [facility] Last Admin: 05/27/21 20:32 Dose: 200 mg Documented by: Home Medications Medication Instructions Recorded Confirmed Last Taken Type bupropion HCl 300 mg 24 hr tablet, 1 tab PO QAM 07/06/20 05/25/21 05/24/21 History extended release lorazepam 0.5 mg tablet 0.5 mg PO DAILY PRN 07/06/20 05/25/21 Unknown History methylphenidate HCl 20 mg tablet 1 tab PO QID 07/06/20 05/25/21 05/24/21 History trazodone 100 mg tablet 2 tab PO BEDTIME 07/06/20 05/25/21 05/24/21 History fluoxetine 40 mg capsule 1 cap PO BEDTIME 05/25/21 05/25/21 05/24/21 History Physical Exam Vital Signs: Vital Signs: Last Vital Signs Temp 97.5 F 05/28/21 07:21 Pulse 73 05/28/21 07:21 Resp 18 05/28/21 07:21 BP 150/82 H 05/28/21 07:21 Pulse Ox 95 05/28/21 07:21 Body Mass Index 20.5 Const: General: cooperative, healthy appearing, comfortable and no acute distress Orientation/consciousness: patient oriented x3 HENMT: Face and sinus: Yes normal facial exam Mouth: moist mucous membranes Neck: Neck: Yes normal visual inspection, Yes full ROM and Yes trachea midline Chest: Chest palpation & inspection: normal inspection of the chest Resp: Effort & Inspection: normal respiratory effort, able to speak in complete sentences and no respiratory distress GI: Inspection: Yes normal to inspection Back/Spine/Pelvis: Cervical Spine: normal cervical lordosis Thoracic/Lumbar Spine: thoracic and lumbar spine normal to inspection Skin: General skin exam: no rashes or lesions noted Neuro: General: patient oriented x3, gait normal, tone normal and moves all extremities Extrem: General: Yes normal to inspection and Yes capillary refill normal Results Labs Result diagrams: 05/26/21 06:23 05/27/21 06:23 Labs: Urine 05/25/21 Range/Units 19:48 Urine Color YELLOW Urine Appearance HAZY Urine pH 7.0 (5.0-8.0) Ur Specific [place] 1.025 (1.005-1.025) Urine Protein 2+ H (NEG-TRACE) MG/DL Urine Glucose (UA) NEG (NEG) MG/DL All other labs normal. Assessment and Plan (1) Hydronephrosis: Status: Acute Left hydronephrosis Chronic changes to left kidney on imaging Recommend Lasix renogram for determination of function and outlet obstruction Procedures Date of Service Date of Service: 05/27/21
--- NOTE | 2021-05-28 10:45 | HO.PM.IMPN ---
Subjective Subjective Date of Service: 05/28/21 Interval History: ongoing L flank pain Review of Systems Review of Systems: Yes all other systems are reviewed and are negative Physical Exam Vital Signs: Vital Signs: Last Vital Signs Temp 97.5 F 05/28/21 07:21 Pulse 73 05/28/21 10:22 Resp 18 05/28/21 07:21 BP 150/82 H 05/28/21 10:22 Pulse Ox 95 05/28/21 10:22 Body Mass Index 20.5 Gen: tremulous HEENT: sclera anicteric, moist mucus membranes Neck: supple Lungs: clear to auscultation bilaterally Heart: regular rate and rhythm, no murmurs Abd: soft, no rebound : L CVAT, Angulo draining clear yellow urine Ext: no edema Skin: warm/well-perfused Neuro: alert and oriented x3, tremulous, dysmetria + dysdiadochokinesia present L>R Psych: appropriate affect Objective Data Active Medications Acetaminophen (Acetaminophen 325 Mg Tablet) 650 mg PO Q6H PRN PRN Reason: Pain, Mild (Pain Scale 1-3) Last Admin: 05/26/21 13:14 Dose: 650 mg Documented by: RADHA Acetaminophen/Butalbital/Caffeine (Butalb/Acetamin/Caff 50/325/40 Tablet) 1 tab PO Q4H PRN PRN Reason: headache Last Admin: 05/27/21 04:41 Dose: 1 tab Documented by: ZEE Bupropion HCl (Bupropion Hcl Xl 300 Mg Tab.Er.24h) 300 mg PO DAILY [facility] Last Admin: 05/28/21 08:49 Dose: 300 mg Documented by: JOSE MARTIN Fluoxetine HCl (Fluoxetine Hcl 20 Mg Capsule) 40 mg PO BEDTIME [facility] Last Admin: 05/27/21 20:32 Dose: 40 mg Documented by: CHAPIS Hydromorphone HCl (Hydromorphone Hcl 0.5 Mg/0.5 Ml Syringe) 0.4 mg IVPUSH Q4H PRN; Protocol PRN Reason: Breakthrough Pain Last Admin: 05/28/21 08:58 Dose: 0.4 mg Documented by: JOSE MARTIN Lorazepam (Lorazepam 0.5 Mg Tablet) 0.5 mg PO DAILY PRN PRN Reason: Anxiety Last Admin: 05/28/21 00:14 Dose: 0.5 mg Documented by: DEVEN Melatonin (Melatonin 3 Mg Tablet) 6 mg PO BEDTIME PRN PRN Reason: Insomnia Methylphenidate HCl (Methylphenidate Hcl 10 Mg Tablet) 20 mg PO QID [facility] Last Admin: 05/28/21 08:49 Dose: 20 mg Documented by: JOSE MARTIN Ondansetron HCl (Ondansetron Hcl 4 Mg/2 Ml Vial) 4 mg IVPUSH Q8H PRN PRN Reason: Nausea and Vomiting Pharmacy Consult (Consult Rx Perform Med Rec) 1 each MISCELLANE ONCE PRN PRN Reason: Consult order Senna (Sennosides 8.6 Mg Tablet) 17.2 mg PO BEDTIME PRN PRN Reason: Constipation Sodium Chloride (0.9 % Sodium Chloride Flush 3 Ml Syringe) 3 ml IVFLUSH QSHIFT [facility] Last Admin: 05/28/21 08:50 Dose: 3 ml Documented by: JOSE MARTIN Trazodone HCl (Trazodone Hcl 100 Mg Tablet) 200 mg PO BEDTIME [facility] Last Admin: 05/27/21 20:32 Dose: 200 mg Documented by: CHAPIS Labs CBC & Chem 7: 05/26/21 06:23 05/27/21 06:23 Assessment and Plan (1) Hydronephrosis: Status: Acute (2) Weakness: Status: Acute (3) Abdominal pain: Status: Acute Assessment and Plan: hospital d#4 70yo F with anxiety, depression, hx subdural hematoma presented with worsening ataxia, generalized weakness and fall without LOC, abd pain found to have high-grade UPJ obstruction/hydronephrosis of L kidney, biliary ductal dilation with abrupt narrowing # L hydronephrosis/UPJ obstruction with question of accessory L renal artery as cause - recommend CT angio- pt has IV contrast allergy- I offered premed with steroid + antihistamine but pt declines - Lasix renogram as per [facility]rology [facility] consultant # biliary dilation - GI consulted- appears chronic dating back to 2005, no further w/u indicated # ataxia/tremor - Neuro consulted, attributable to chronic microangiopathy and generalized cerebral volume loss, no further workup indicated # 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 Lasix renogram as above # mood disorder - bupropion, fluoxetine, trazodone, methylphenidate, lorazepam # VTE ppx - SCDs Quality Stroke Does the patient have a stroke diagnosis?: No VTE Prior VTE?: No VTE Risk Level:: Medical - moderate - high VTE Device Contraindication: N/A - Device Ordered VTE Drug Contraindication: Treatment Not Indicated
--- NOTE | 2021-05-28 13:15 | MHC.CLN ---
Addendum entered by Sheryl Sebastian RD 05/28/21 13:24: AGREE WITH PROVIDER'S ASSESSMENT BELOW Original Note: RE: CONSULT PT'S WT HISTORY IS FOLLOWS: JANUARY 2020: 53.1 KG (NON SIGNIFICANT 15% WT LOSS X 1.5 YEARS) 07/06/20: 49.895 KG (NON SIGNIFICANT 10% WT LOSS X 1 YEAR) 01/31/21: 47.174 KG (NON SIGNIFICANT 5% WT LOSS X 4 MONTHS) WHILE PT IS PETITE, NO SIGNS OF MUSCLE WASTING OR FAT DEPLETION PT STATED SHE IS EATING, BUT WILL NOT EAT HER WHOLE PLATE PO INTAKE DOCUMENTED 50% X 1 MEAL, 100% X 1 MEAL RECOMMEND ENSURE PLUS SUPPLEMENT BID TO PROVIDE 700 KCALS AND 32 GRAMS PROTEIN MONITOR PO INTAKE
--- NOTE | 2021-05-28 13:15 | MHC.CM.PN ---
per rounds no dc date at this time pt willbe having a urology consult
[2021-05-28] MEDS: Furosemide 40 MG/4 ML VIAL 22 MG IVPUSH (19:01)
[2021-05-28] MEDS: FLUoxetine HCl 20 MG CAPSULE 40 MG PO (21:37)
[2021-05-28] MEDS: traZODone HCL 100 MG TABLET 200 MG PO (21:37)
[2021-05-29] VITALS (8 sets, daily range): BP systolic 93–152; BP diastolic 51–77; PULSE 68–82; RESP 16–20; TEMP 36.1–37.8; O2SAT 90–97
[2021-05-29] MEDS: HYDROmorphone HCl 0.5 MG/0.5 ML SYRINGE 0.4 MG IVPUSH ×4 (00:35→18:07)
[2021-05-29 06:57] LABS: Anion Gap 10 (12-20); Blood Urea Nitrogen 43 mg/dL (9-16); Calcium 8.2 mg/dL (8.4-10.2); Carbon Dioxide 33 mmol/L (22-29); Chloride 100 mmol/L (96-108); Creatinine Clr Calc Pharmacy 16.8; Estimated Glomerular Filt Rate 25; Glucose Random 108 mg/dL (60-115); Potassium 4.1 mmol/L (3.3-5.1); Sodium 139 mmol/L (135-145)
[2021-05-29] MEDS: buPROPion HCl XL 300 MG TAB.ER.24H PO (08:30)
[2021-05-29] MEDS: Methylphenidate HCl 10 MG TABLET 20 MG PO ×3 (08:30→16:53)
[2021-05-29] MEDS: 0.9 % Sodium Chloride Flush 3 ML SYRINGE IVFLUSH ×3 (08:30→19:46)
[2021-05-29] MEDS: Lactated Ringers 1,000 ML 80 ML IVCONT ×2 (08:34→19:44)
--- NOTE | 2021-05-29 11:35 | P.CONNP_ITS ---
History of Present Illness Reason for Consult Consult date: 05/29/21 Reason for consult: WANDER Chief Complaint Chief complaint: Abd pain History of Present Illness Narrative: 70-year-old female with a past medical history of anxiety, depression, history of subdural hematoma, falls presented to the hospital today with a chief complaint of generalized weakness/abdominal pain/flank pain. She continues to have left flank pain. Denies any chest pain, palpitations, nausea, vomiting or diarrhea. Denies taking NSAID's on a regular basis. CT abdomen showed severe hydronephrosis and intrahepatic and extrahepatic biliary ductal dilatation. She underwent renogram and has a left UPJ obstruction. She has H/O renal stones. Urology has been consulted. Her serum creatinine has gone up from her baseline. Nephrology has been consulted to assist in her clinical management during her current hospital stay Review of Systems Review of Systems Yes all other systems are reviewed and are negative [facility] Past Medical History Medical History Anxiety Brain bleed Depression Social History Social History Household Members: Family Housing: [facility] Do you presently have visiting nurse or other home services: No Patient Tobacco Use Status: Never used Tobacco service: No Current occupational status: retired and disabled Meds Allergies Allergy/AdvReac Type Severity Reaction Status Date / Time Iodinated Contrast Media AdvReac Mild UNABLE TO Verified 01/31/21 16:01 [IV CONTRAST] SPEAK Active Medications: Current Medications Acetaminophen (Acetaminophen 325 Mg Tablet) 650 mg PO Q6H PRN PRN Reason: Pain, Mild (Pain Scale 1-3) Last Admin: 05/26/21 13:14 Dose: 650 mg Documented by: Acetaminophen/Butalbital/Caffeine (Butalb/Acetamin/Caff 50/325/40 Tablet) 1 tab PO Q4H PRN PRN Reason: headache Last Admin: 05/27/21 04:41 Dose: 1 tab Documented by: Bupropion HCl (Bupropion Hcl Xl 300 Mg Tab.Er.24h) 300 mg PO DAILY [facility] Last Admin: 05/29/21 08:30 Dose: 300 mg Documented by: Fluoxetine HCl (Fluoxetine Hcl 20 Mg Capsule) 40 mg PO BEDTIME [facility] Last Admin: 05/28/21 21:37 Dose: 40 mg Documented by: Hydromorphone HCl (Hydromorphone Hcl 0.5 Mg/0.5 Ml Syringe) 0.4 mg IVPUSH Q4H PRN; Protocol PRN Reason: Breakthrough Pain Last Admin: 05/29/21 08:30 Dose: 0.4 mg Documented by: Lactated Ringer's (Lr) 1,000 mls @ 80 mls/hr IVCONT .[id number] [facility] Last Admin: 05/29/21 08:34 Dose: 80 mls/hr Documented by: Lorazepam (Lorazepam 0.5 Mg Tablet) 0.5 mg PO DAILY PRN PRN Reason: Anxiety Last Admin: 05/28/21 21:45 Dose: 0.5 mg Documented by: Melatonin (Melatonin 3 Mg Tablet) 6 mg PO BEDTIME PRN PRN Reason: Insomnia Methylphenidate HCl (Methylphenidate Hcl 10 Mg Tablet) 20 mg PO QID [facility] Last Admin: 05/29/21 08:30 Dose: 20 mg Documented by: Ondansetron HCl (Ondansetron Hcl 4 Mg/2 Ml Vial) 4 mg IVPUSH Q8H PRN PRN Reason: Nausea and Vomiting Pharmacy Consult (Consult Rx Perform Med Rec) 1 each MISCELLANE ONCE PRN PRN Reason: Consult order Senna (Sennosides 8.6 Mg Tablet) 17.2 mg PO BEDTIME PRN PRN Reason: Constipation Sodium Chloride (0.9 % Sodium Chloride Flush 3 Ml Syringe) 3 ml IVFLUSH QSHIFT [facility] Last Admin: 05/29/21 08:30 Dose: 3 ml Documented by: Trazodone HCl (Trazodone Hcl 100 Mg Tablet) 200 mg PO BEDTIME [facility] Last Admin: 05/28/21 21:37 Dose: 200 mg Documented by: Home Medications Medication Instructions Recorded Confirmed Last Taken Type bupropion HCl 300 mg 24 hr tablet, 1 tab PO QAM 07/06/20 05/25/21 05/24/21 History extended release lorazepam 0.5 mg tablet 0.5 mg PO DAILY PRN 07/06/20 05/25/21 Unknown History methylphenidate HCl 20 mg tablet 1 tab PO QID 07/06/20 05/25/21 05/24/21 History trazodone 100 mg tablet 2 tab PO BEDTIME 07/06/20 05/25/2121 History fluoxetine 40 mg capsule 1 cap PO BEDTIME 05/25/21 05/25/21 05/24/21 History Physical Exam Vital Signs: Last Vital Signs Temp 98 F 05/29/21 10:56 Pulse 76 05/29/21 10:56 Resp 16 05/29/21 10:56 BP 132/70 05/29/21 10:56 Pulse Ox 91 L 05/29/21 10:56 Body Mass Index 20.5 Const General: cooperative Orientation/consciousness: patient oriented x3 Eyes EOM: EOMs intact bilaterally Neck Neck: Yes supple Resp Auscultation: diminished lung sounds Cardio Rate: regular rate GI Palpation (GI): Soft to palpation Neuro General: patient oriented x3 and moves all extremities Results Lab Results Result Diagrams: 05/26/21 06:23 05/29/21 06:10 Lab results: Chemistry 05/27/21 05/29/21 06:23 06:10 Sodium 141 139 Potassium 4.5 4.1 Carbon Dioxide 27 33 H BUN 19 H 43 H D Creatinine 1.33 1.95 H Calcium 8.4 8.2 L Assessment and Plan (1) Acute kidney injury: Status: Acute WANDER due to obstruction as well as tubular injury Urology going to see patient; Started on IV fluids No reason to suspect GN/AIN; Supportive care Labs AM; Shall closely follow up Procedures Date of Service Date of Service: 05/29/21
--- NOTE | 2021-05-29 16:24 | P.PNIM_ITS ---
Subjective Subjective Date of Service: 05/30/21 Interval History: WANDER, hydronephrosis Review of Systems Denies any new complaint of chest pain or shortness of breath or abdominal pain or fever or chills or nausea or vomiting Denies any cough Denies any weakness or numbness. has ch Left lateral back area pain Physical Exam Vital Signs: Vital Signs: Last Vital Signs Temp 98.7 F 05/29/21 16:00 Pulse 82 05/29/21 16:00 Resp 18 05/29/21 16:00 BP 152/72 H 05/29/21 16:00 Pulse Ox 92 05/29/21 16:00 Body Mass Index 20.5 Gen: tremulous HEENT: sclera anicteric, moist mucus membranes Neck: supple Lungs: clear to auscultation bilaterally Heart: regular rate and rhythm, no murmurs Abd: soft, no rebound : L CVAT, Angulo draining clear yellow urine Ext: no edema Skin: warm/well-perfused Neuro: alert and oriented x3, tremulous, dysmetria + dysdiadochokinesia present L>R Psych: appropriate affect Objective Data Active Medications Acetaminophen (Acetaminophen 325 Mg Tablet) 650 mg PO Q6H PRN PRN Reason: Pain, Mild (Pain Scale 1-3) Last Admin: 05/26/21 13:14 Dose: 650 mg Documented by: RADHA Acetaminophen/Butalbital/Caffeine (Butalb/Acetamin/Caff 50/325/40 Tablet) 1 tab PO Q4H PRN PRN Reason: headache Last Admin: 05/27/21 04:41 Dose: 1 tab Documented by: ZEE Bupropion HCl (Bupropion Hcl Xl 300 Mg Tab.Er.24h) 300 mg PO DAILY [facility] Last Admin: 05/29/21 08:30 Dose: 300 mg Documented by: ANNALISA Fluoxetine HCl (Fluoxetine Hcl 20 Mg Capsule) 40 mg PO BEDTIME [facility] Last Admin: 05/28/21 21:37 Dose: 40 mg Documented by: CHAPIS Hydromorphone HCl (Hydromorphone Hcl 0.5 Mg/0.5 Ml Syringe) 0.4 mg IVPUSH Q4H PRN; Protocol PRN Reason: Breakthrough Pain Last Admin: 05/29/21 13:24 Dose: 0.4 mg Documented by: ANNALISA Lactated Ringer's (Lr) 1,000 mls @ 80 mls/hr IVCONT .[id number] [facility] Last Admin: 05/29/21 08:34 Dose: 80 mls/hr Documented by: ANNALISA Lorazepam (Lorazepam 0.5 Mg Tablet) 0.5 mg PO DAILY PRN PRN Reason: Anxiety Last Admin: 05/28/21 21:45 Dose: 0.5 mg Documented by: CHPAIS Melatonin (Melatonin 3 Mg Tablet) 6 mg PO BEDTIME PRN PRN Reason: Insomnia Methylphenidate HCl (Methylphenidate Hcl 10 Mg Tablet) 20 mg PO QID [facility] Last Admin: 05/29/21 13:24 Dose: 20 mg Documented by: ANNALISA Ondansetron HCl (Ondansetron Hcl 4 Mg/2 Ml Vial) 4 mg IVPUSH Q8H PRN PRN Reason: Nausea and Vomiting Pharmacy Consult (Consult Rx Perform Med Rec) 1 each MISCELLANE ONCE PRN PRN Reason: Consult order Senna (Sennosides 8.6 Mg Tablet) 17.2 mg PO BEDTIME PRN PRN Reason: Constipation Sodium Chloride (0.9 % Sodium Chloride Flush 3 Ml Syringe) 3 ml IVFLUSH QSHIFT [facility] Last Admin: 05/29/21 13:25 Dose: 3 ml Documented by: ANNALISA Trazodone HCl (Trazodone Hcl 100 Mg Tablet) 200 mg PO BEDTIME [facility] Last Admin: 05/28/21 21:37 Dose: 200 mg Documented by: CHAPIS Labs CBC & Chem 7: 05/26/21 06:23 05/30/21 08:57 Labs: Laboratory Results - last 24 hr 05/29/21 06:10 Anion Gap 10 L Estim Creat Clear Calc 16.8 Estimated GFR 25 Random Glucose 108 Calcium 8.2 L Assessment and Plan (1) Acute kidney injury: Status: Acute Assessment and Plan: 70yo F with anxiety, depression, hx subdural hematoma presented with worsening ataxia, generalized weakness and fall without LOC, abd pain found to have high-grade UPJ obstruction/hydronephrosis of L kidney, biliary ductal dilation with abrupt narrowing 1. L hydronephrosis/UPJ obstruction with question of accessory L renal artery as cause - Lasix renogram done -as per Urology is aware to follow up 2. biliary dilation - GI consulted- appears chronic dating back to 2005, no further w/u indicated 3. ataxia/tremor- Neuro consulted, attributable to chronic microangiopathy and generalized cerebral volume loss, no further workup indicated 4. 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 Lasix renogram as above 5.mood disorder- bupropion, fluoxetine, trazodone, methylphenidate, lorazepam # VTE ppx - SCDs Quality Stroke Does the patient have a stroke diagnosis?: No VTE Prior VTE?: No VTE Risk Level:: Medical - moderate - high VTE Device Contraindication: N/A - Device Ordered VTE Drug Contraindication: Treatment Not Indicated
[2021-05-29] MEDS: Gabapentin 100 MG CAPSULE PO (16:53)
[2021-05-29] MEDS: ondansetron HCL 4 MG/2 ML VIAL IVPUSH (18:07)
[2021-05-29] MEDS: Lidocaine 4 % Patch ADH..PATCH 1 PATCH TRANSDERMA (19:38)
[2021-05-29] MEDS: Melatonin 3 MG TABLET 6 MG PO (19:41)
[2021-05-29] MEDS: Acetaminophen 325 MG TABLET 650 MG PO (19:41)
[2021-05-29] MEDS: traZODone HCL 100 MG TABLET 200 MG PO (19:42)
[2021-05-29] MEDS: FLUoxetine HCl 20 MG CAPSULE 40 MG PO (19:42)
[2021-05-29] MEDS: oxyCODONE HCl Immed Release 5 MG TABLET PO (19:51)
[2021-05-30] VITALS (16 sets, daily range): BP systolic 124–168; BP diastolic 62–94; PULSE 66–82; RESP 14–20; TEMP 36.1–37.7; O2SAT 91–98
[2021-05-30] MEDS: Methylphenidate HCl 10 MG TABLET 20 MG PO ×2 (08:05→14:15)
[2021-05-30] MEDS: Acetaminophen 325 MG TABLET 650 MG PO ×2 (08:05→14:15)
[2021-05-30] MEDS: Lactated Ringers 1,000 ML 80 ML IVCONT (08:06)
[2021-05-30] MEDS: Lidocaine 4 % Patch ADH..PATCH 1 PATCH TRANSDERMA (08:06)
[2021-05-30] MEDS: buPROPion HCl XL 300 MG TAB.ER.24H PO (08:06)
[2021-05-30] MEDS: HYDROmorphone HCl 0.5 MG/0.5 ML SYRINGE 0.4 MG IVPUSH ×2 (08:11→20:04)
[2021-05-30] MEDS: 0.9 % Sodium Chloride Flush 3 ML SYRINGE IVFLUSH ×2 (08:16→23:51)
--- NOTE | 2021-05-30 09:04 | P.PNUR_ITS ---
Subjective Subjective Date of Service: 05/30/21 Interval history: Re-evaluation of patient Persistent left flank pain Nuclear medicine imaging indicates minimal function left kidney Creatinine has risen Discussed placement of stents with patient this morning Stent placement may or may not resolve current flank pain Will plan for procedure this afternoon Discussed with attending nurse Physical Exam Vital Signs: Vital Signs: Last Vital Signs Temp 97.4 F 05/30/21 07:31 Pulse 77 05/30/21 07:31 Resp 18 05/30/21 07:31 BP 138/66 05/30/21 07:31 Pulse Ox 92 05/30/21 07:31 Body Mass Index 20.5 Const: General: cooperative, healthy appearing, comfortable and no acute distress Orientation/consciousness: patient oriented x3 HENMT: Face and sinus: Yes normal facial exam Mouth: moist mucous membranes Neck: Neck: Yes normal visual inspection, Yes full ROM and Yes trachea midline Chest: Chest palpation & inspection: normal inspection of the chest Resp: Effort & Inspection: normal respiratory effort, able to speak in complete sentences and no respiratory distress GI: Inspection: Yes normal to inspection Back/Spine/Pelvis: Cervical Spine: normal cervical lordosis Thoracic/Lumbar Spine: thoracic and lumbar spine normal to inspection Skin: General skin exam: no rashes or lesions noted Neuro: General: patient oriented x3, gait normal, tone normal and moves all extremities Extrem: General: Yes normal to inspection and Yes capillary refill normal Urology Results Labs CBC & Chem 7: 05/26/21 06:23 05/29/21 06:10 Progress Note: A&P Assessment and plan (1) Acute kidney injury: Status: Acute (2) Hydronephrosis: Status: Acute Assessment and Plan: Plan for bilateral retrograde, left stent placement Fall Risk Details Current Medications: Current Medications Acetaminophen (Acetaminophen 325 Mg Tablet) 650 mg PO Q6H [facility] [place] Last Admin: 05/30/21 08:05 Dose: 650 mg Documented by: Bupropion HCl (Bupropion Hcl Xl 300 Mg Tab.Er.24h) 300 mg PO DAILY [facility] [place] Last Admin: 05/30/21 08:06 Dose: 300 mg Documented by: Fluoxetine HCl (Fluoxetine Hcl 20 Mg Capsule) 40 mg PO BEDTIME [facility] Last Admin: 05/29/21 19:42 Dose: 40 mg Documented by: Hydromorphone HCl (Hydromorphone Hcl 0.5 Mg/0.5 Ml Syringe) 0.4 mg IVPUSH Q4H PRN; Protocol PRN Reason: Breakthrough Pain Last Admin: 05/30/21 08:11 Dose: 0.4 mg Documented by: Lactated Ringer's (Lr) 1,000 mls @ 80 mls/hr IVCONT .[id number] [facility] [place] Last Admin: 05/30/21 08:06 Dose: 80 mls/hr Documented by: Lidocaine (Lidocaine 4 % Patch Adh..Patch) 1 patch TRANSDERMA DAILY [facility] [place]; Protocol Last Admin: 05/30/21 08:06 Dose: 1 patch Documented by: Lorazepam (Lorazepam 0.5 Mg Tablet) 0.5 mg PO DAILY PRN PRN Reason: Anxiety Last Admin: 05/28/21 21:45 Dose: 0.5 mg Documented by: Melatonin (Melatonin 3 Mg Tablet) 6 mg PO BEDTIME PRN PRN Reason: Insomnia Last Admin: 05/29/21 19:41 Dose: 6 mg Documented by: Methylphenidate HCl (Methylphenidate Hcl 10 Mg Tablet) 20 mg PO QID [facility] [place] Last Admin: 05/30/21 08:05 Dose: 20 mg Documented by: Ondansetron HCl (Ondansetron Hcl 4 Mg/2 Ml Vial) 4 mg IVPUSH Q8H PRN PRN Reason: Nausea and Vomiting Last Admin: 05/29/21 18:07 Dose: 4 mg Documented by: Pharmacy Consult (Consult Rx Perform Med Rec) 1 each MISCELLANE ONCE PRN PRN Reason: Consult order Senna (Sennosides 8.6 Mg Tablet) 17.2 mg PO BEDTIME PRN PRN Reason: Constipation Sodium Chloride (0.9 % Sodium Chloride Flush 3 Ml Syringe) 3 ml IVFLUSH QSHIFT [facility] [place] Last Admin: 05/30/21 08:16 Dose: 3 ml Documented by: Trazodone HCl (Trazodone Hcl 100 Mg Tablet) 200 mg PO BEDTIME [facility] [place] Last Admin: 05/29/21 19:42 Dose: 200 mg Documented by: Time Spent With Patient Time: Total time spent is greater than 50% in coordination of care (as documented) at patient's floor/unit and/or counseling patient: Time with patient: less than 15 minutes No Severe Sepsis: No Severe Sepsis Progress Note: Quality Stroke Does the patient have a stroke diagnosis?: No
[2021-05-30 09:44] LABS: Anion Gap 9 (12-20); Blood Urea Nitrogen 41 mg/dL (9-16); Carbon Dioxide 29 mmol/L (22-29); Chloride 104 mmol/L (96-108); Creatinine Clr Calc Pharmacy 21.3; Estimated Glomerular Filt Rate 33; Glucose Random 91 mg/dL (60-115); Potassium 4.3 mmol/L (3.3-5.1); Sodium 138 mmol/L (135-145)
--- NOTE | 2021-05-30 10:20 | PM.PNNEP ---
Subjective Subjective Date of Service: 05/30/21 Interval history: Events noted. All recent data reviewed. Urology recommendations reviewed. For OR today Physical Exam Vital Signs: Vital Signs: Last Vital Signs Temp 97.4 F 05/30/21 07:31 Pulse 77 05/30/21 09:43 Resp 18 05/30/21 07:31 BP 138/66 05/30/21 09:43 Pulse Ox 92 05/30/21 09:43 Body Mass Index 20.5 Const: General: cooperative HENMT: Head: Yes atraumatic Eyes: EOM: EOMs intact bilaterally Neck: Neck: Yes supple Resp: Auscultation: diminished lung sounds Cardio: Jugular venous distension: no JVD GI: Palpation (GI): Soft to palpation Neuro: General: moves all extremities Objective Data Labs CBC & Chem 7: 05/26/21 06:23 05/30/21 08:57 Labs: Laboratory Results - last 24 hr 05/30/21 08:57 Sodium 138 Potassium 4.3 Chloride 104 Carbon Dioxide 29 Anion Gap 9 L BUN 41 H Creatinine 1.54 H Estim Creat Clear Calc 21.3 Estimated GFR 33 Random Glucose 91 Calcium 8.0 L Procedures Date of Service Date of Service: 05/30/21 Assessment & Plan Assessment and plan (1) Acute kidney injury: Status: Acute Assessment and Plan: WANDER due to obstruction as well as tubular injury Urology going to take patient to OR today No reason to suspect GN/AIN; Supportive care Labs AM; Shall closely follow up Time Spent With Patient Time: Total time spent is greater than 50% in coordination of care (as documented) at patient's floor/unit and/or counseling patient: Progress Note: Quality Stroke Does the patient have a stroke diagnosis?: No
--- NOTE | 2021-05-30 10:26 | MHC.CM.PN ---
filed hcp and placed on medical record..pt is fully vaccinated
[2021-05-30] MEDS: LORazepam 0.5 MG TABLET PO (11:43)
--- NOTE | 2021-05-30 15:11 | MHC.CM.PN ---
per rounds pt not ready for dc till pt to have stents today pt accepted at [facility]
--- NOTE | 2021-05-30 15:46 | P.PNIM_ITS ---
Subjective Subjective Date of Service: 05/30/21 Interval History: wander , hydronephrosis Review of Systems Still has pain on the lateral left side Denies any nausea or vomiting or fever or chills. Physical Exam Vital Signs: Vital Signs: Last Vital Signs Temp 97.6 F 05/30/21 11:29 Pulse 77 05/30/21 11:29 Resp 18 05/30/21 11:29 BP 126/76 05/30/21 11:29 Pulse Ox 96 05/30/21 11:29 Body Mass Index 20.5 Gen: tremer improving HEENT: sclera anicteric, moist mucus membranes Neck: supple Lungs: clear to auscultation bilaterally Heart: regular rate and rhythm, no murmurs Abd: soft, no rebound : L CVAT, Angulo draining clear yellow urine Ext: no edema Skin: warm/well-perfused Neuro: alert and oriented x3, tremulous, dysmetria + dysdiadochokinesia present L>R Psych: appropriate affect Objective Data Active Medications Acetaminophen (Acetaminophen 325 Mg Tablet) 650 mg PO Q6H [facility] Last Admin: 05/30/21 14:15 Dose: 650 mg Documented by: ANTOLIN Bupropion HCl (Bupropion Hcl Xl 300 Mg Tab.Er.24h) 300 mg PO DAILY [facility] Last Admin: 05/30/21 08:06 Dose: 300 mg Documented by: ANTOLIN Fluoxetine HCl (Fluoxetine Hcl 20 Mg Capsule) 40 mg PO BEDTIME [facility] Last Admin: 05/29/21 19:42 Dose: 40 mg Documented by: ZEE Hydromorphone HCl (Hydromorphone Hcl 0.5 Mg/0.5 Ml Syringe) 0.4 mg IVPUSH Q4H PRN; Protocol PRN Reason: Breakthrough Pain Last Admin: 05/30/21 08:11 Dose: 0.4 mg Documented by: ANTOLIN Lactated Ringer's (Lr) 1,000 mls @ 80 mls/hr IVCONT .[id number] [facility] Last Admin: 05/30/21 08:06 Dose: 80 mls/hr Documented by: ANTOLIN Lidocaine (Lidocaine 4 % Patch Adh..Patch) 1 patch TRANSDERMA DAILY [facility]; Protocol Last Admin: 05/30/21 08:06 Dose: 1 patch Documented by: ANTOLIN Lorazepam (Lorazepam 0.5 Mg Tablet) 0.5 mg PO DAILY PRN PRN Reason: Anxiety Last Admin: 05/30/21 11:43 Dose: 0.5 mg Documented by: ANTOLIN Melatonin (Melatonin 3 Mg Tablet) 6 mg PO BEDTIME PRN PRN Reason: Insomnia Last Admin: 05/29/21 19:41 Dose: 6 mg Documented by: ZEE Methylphenidate HCl (Methylphenidate Hcl 10 Mg Tablet) 20 mg PO QID [facility] Last Admin: 05/30/21 14:15 Dose: 20 mg Documented by: ANTOLIN Ondansetron HCl (Ondansetron Hcl 4 Mg/2 Ml Vial) 4 mg IVPUSH Q8H PRN PRN Reason: Nausea and Vomiting Last Admin: 05/29/21 18:07 Dose: 4 mg Documented by: ANNALISA Pharmacy Consult (Consult Rx Perform Med Rec) 1 each MISCELLANE ONCE PRN PRN Reason: Consult order Senna (Sennosides 8.6 Mg Tablet) 17.2 mg PO BEDTIME PRN PRN Reason: Constipation Sodium Chloride (0.9 % Sodium Chloride Flush 3 Ml Syringe) 3 ml IVFLUSH QSHIFT [facility] Last Admin: 05/30/21 08:16 Dose: 3 ml Documented by: ANTOLIN Trazodone HCl (Trazodone Hcl 100 Mg Tablet) 200 mg PO BEDTIME [facility] Last Admin: 05/29/21 19:42 Dose: 200 mg Documented by: ZEE Labs CBC & Chem 7: 05/26/21 06:23 05/30/21 08:57 Labs: Laboratory Results - last 24 hr 05/30/21 08:57 Anion Gap 9 L Estim Creat Clear Calc 21.3 Estimated GFR 33 Random Glucose 91 Calcium 8.0 L Assessment and Plan (1) Acute kidney injury: Status: Acute (2) Hydronephrosis: Status: Acute Assessment and Plan: 70yo F with anxiety, depression, hx subdural hematoma presented with worsening ataxia, generalized weakness and fall without LOC, abd pain found to have high-grade UPJ obstruction/hydronephrosis of L kidney, biliary ductal dilation with abrupt narrowing 1. L hydronephrosis/UPJ obstruction with question of accessory L renal artery as cause - Lasix renogram done -as per Urology is aware to follow up 2. biliary dilation - GI consulted- appears chronic dating back to 2005, no further w/u indicated 3. ataxia/tremor- Neuro consulted, attributable to chronic microangiopathy and generalized cerebral volume loss, no further workup indicated 4. 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 Lasix renogram as above-1. Minimal delay in the right renal perfusion but oth erwise normal cortical function and excretion with normal response to Lasix. The right kidney contributes 99% of total renal function. ? 2. No left renal perfusion seen. There is delayed? to no cortical uptake seen. No response to Lasix. 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 Continue hydration, possible stent placement today. 5.mood disorder- bupropion, fluoxetine, trazodone, methylphenidate, lorazepam Quality Stroke Does the patient have a stroke diagnosis?: No VTE Prior VTE?: No VTE Risk Level:: Medical - moderate - high VTE Device Contraindication: N/A - Device Ordered VTE Drug Contraindication: Treatment Not Indicated
--- NOTE | 2021-05-30 17:04 | HO.ANESPROP2 ---
HPI - Anesthesia Eval Consult details Narrative: 70 yo female patient for cysto, stent left PMFSH Active Problems Active Problems: All Active Problems (Updated 05/29/21 @ 11:45 by Sb Thapa MD) Acute kidney injury (Acute) Gait disorder (Acute) Hydronephrosis (Acute) Weakness (Acute) Abdominal pain (Acute) ? subdural hematoma H/o peptic ulcer surgery H/o cholecystectomy H/ o right hand surgery Past Medical History Medical History Anxiety Brain bleed Depression FHx: cholecystectomy History of lipoma Peptic ulcer Family History Family history of problems with anesthesia: No Surgical History Surgical History History of hand surgery History of Problems with Anesthesia: No Social History Social History (Updated 05/30/21 @ 17:35 by Marii Wu MD) Household Members: Family [facility] Do you presently have visiting nurse or other home services: No Patient Tobacco Use Status: Current everyday Tobacco user Smoked in Last 30 Days: Yes service: No Current occupational status: retired and disabled Meds Allergies Allergy/AdvReac Type Severity Reaction Status Date / Time Iodinated Contrast Media AdvReac Mild UNABLE TO Verified 01/31/21 16:01 [IV CONTRAST] SPEAK Active Medications: Current Medications Acetaminophen (Acetaminophen 325 Mg Tablet) 650 mg PO Q6H [facility] Last Admin: 05/30/21 14:15 Dose: 650 mg Documented by: Bupropion HCl (Bupropion Hcl Xl 300 Mg Tab.Er.24h) 300 mg PO DAILY [facility] Last Admin: 05/30/21 08:06 Dose: 300 mg Documented by: Fluoxetine HCl (Fluoxetine Hcl 20 Mg Capsule) 40 mg PO BEDTIME [facility] Last Admin: 05/29/21 19:42 Dose: 40 mg Documented by: Hydromorphone HCl (Hydromorphone Hcl 0.5 Mg/0.5 Ml Syringe) 0.4 mg IVPUSH Q4H PRN; Protocol PRN Reason: Breakthrough Pain Last Admin: 05/30/21 08:11 Dose: 0.4 mg Documented by: Lactated Ringer's (Lr) 1,000 mls @ 80 mls/hr IVCONT .[id number] [facility] Last Infusion: 05/30/21 16:32 Dose: 0 mls/hr Documented by: Lidocaine (Lidocaine 4 % Patch Adh..Patch) 1 patch TRANSDERMA DAILY [facility]; Protocol Last Admin: 05/30/21 08:06 Dose: 1 patch Documented by: Lorazepam (Lorazepam 0.5 Mg Tablet) 0.5 mg PO DAILY PRN PRN Reason: Anxiety Last Admin: 05/30/21 11:43 Dose: 0.5 mg Documented by: Melatonin (Melatonin 3 Mg Tablet) 6 mg PO BEDTIME PRN PRN Reason: Insomnia Last Admin: 05/29/21 19:41 Dose: 6 mg Documented by: Methylphenidate HCl (Methylphenidate Hcl 10 Mg Tablet) 20 mg PO QID [facility] Last Admin: 05/30/21 14:15 Dose: 20 mg Documented by: Ondansetron HCl (Ondansetron Hcl 4 Mg/2 Ml Vial) 4 mg IVPUSH Q8H PRN PRN Reason: Nausea and Vomiting Last Admin: 05/29/21 18:07 Dose: 4 mg Documented by: Pharmacy Consult (Consult Rx Perform Med Rec) 1 each MISCELLANE ONCE PRN PRN Reason: Consult order Senna (Sennosides 8.6 Mg Tablet) 17.2 mg PO BEDTIME PRN PRN Reason: Constipation Sodium Chloride (0.9 % Sodium Chloride Flush 3 Ml Syringe) [facility] Last Admin: 05/30/21 08:16 Dose: 3 ml Documented by: Trazodone HCl (Trazodone Hcl 100 Mg Tablet) 200 mg PO BEDTIME [facility] Last Admin: 05/29/21 19:42 Dose: 200 mg Documented by: Home Medications Medication Instructions Recorded Confirmed Last Taken Type bupropion HCl 300 mg 24 hr tablet, 1 tab PO QAM 07/06/20 05/25/21 05/24/21 History extended release lorazepam 0.5 mg tablet 0.5 mg PO DAILY PRN 07/06/20 05/25/21 Unknown History methylphenidate HCl 20 mg tablet 1 tab PO QID 07/06/20 05/25/21 05/24/21 History trazodone 100 mg tablet 2 tab PO BEDTIME 07/06/20 05/25/21 05/24/21 History fluoxetine 40 mg capsule 1 cap PO BEDTIME 05/25/21 05/25/21 05/24/21 History Exam Exam Date and Time: May 30, 2021 1704 Height,Weight and Vital Signs: Height 4 ft 10 in Weight 44.7 kg Last Vital Signs Temp 99.8 F 05/30/21 16:47 Pulse 76 05/30/21 16:47 Resp 20 05/30/21 16:47 BP 154/74 H 05/30/21 16:47 Pulse Ox 98 05/30/21 16:47 Pertinent Lab Results Pertinent Lab Results: Laboratory Tests 05/25/21 05/25/21 05/25/21 19:26 19:26 19:26 WBC 6.4 RBC 4.11 L Hgb 12.6 Hct 38.6 MCV 93.9 MCH 30.7 MCHC 32.6 RDW 14.1 Plt Count 259 MPV 9.0 L Immature Gran % (Auto) 0.2 Neut % (Auto) 78.3 H Lymph % (Auto) 13.3 L Kings % (Auto) 5.0 Eos % (Auto) 2.7 Baso % (Auto) 0.5 Lymph # (Auto) 0.9 L Kings # (Auto) 0.3 Eos # (Auto) 0.2 Baso # (Auto) 0.0 Abs Immat Gran (auto) 0.01 Absolute Neuts (auto) 5.0 Absolute Nucleated RBC 0.000 Nucleated RBC % (auto) 0.0 D-Dimer Sodium 135 Potassium 4.5 Chloride 103 Carbon Dioxide 26 Anion Gap 11 L BUN 21 H Creatinine 1.47 H Estim Creat Clear Calc 22.3 Estimated GFR 35 Random Glucose 109 Calcium 8.5 D Total Bilirubin 0.3 AST 28 ALT 23 Alkaline Phosphatase 87 Troponin I High Sens 8.7 Total Protein 6.0 L Albumin 3.8 Lipase 50 Urine Color Urine Appearance Urine pH Ur Specific [place] Urine Protein Urine Glucose (UA) Urine Ketones Urine Blood Urine Nitrite Ur Leukocyte Esterase Urine RBC Urine WBC Ur Squamous Epith Cells Amorphous Sediment Urine Bacteria Urine Mucus COVID-19 (JAGRUTI) COVID-19 Clin Com 05/25/21 05/25/21 05/26/21 19:26 19:48 01:05 WBC RBC Hgb Hct MCV MCH MCHC RDW Plt Count MPV Immature Gran % (Auto) Neut % (Auto) Lymph % (Auto) Kings % (Auto) Eos % (Auto) Baso % (Auto) Lymph # (Auto) Kings # (Auto) Eos # (Auto) Baso # (Auto) Abs Immat Gran (auto) Absolute Neuts (auto) Absolute Nucleated RBC Nucleated RBC % (auto) D-Dimer 285 Sodium Potassium Chloride Carbon Dioxide Anion Gap BUN Creatinine Estim Creat Clear Calc Estimated GFR Random Glucose Calcium Total Bilirubin AST ALT Alkaline Phosphatase Troponin I High Sens Total Protein Albumin Lipase Cancelled Urine Color YELLOW Urine Appearance HAZY Urine pH 7.0 Ur Specific [place] 1.025 Urine Protein 2+ H Urine Glucose (UA) NEG Urine Ketones NEG Urine Blood 1+ H Urine Nitrite NEG Ur Leukocyte Esterase NEG Urine RBC 0-2 Urine WBC 0 Ur Squamous Epith Cells TRACE Amorphous Sediment TRACE Urine Bacteria NONE Urine Mucus 1+ COVID-19 (JAGRUTI) COVID-19 Clin Com 05/26/21 05/26/21 05/26/21 03:59 06:23 06:23 WBC 5.2 RBC 3.88 L Hgb 12.0 Hct 36.1 L MCV 93.0 MCH 30.9 MCHC 33.2 RDW 14.1 Plt Count 226 MPV 9.3 L Immature Gran % (Auto) 0.4 Neut % (Auto) 75.0 H Lymph % (Auto) 15.0 L Kings % (Auto) 6.7 Eos % (Auto) 2.3 Baso % (Auto) 0.6 Lymph # (Auto) 0.8 L Kings # (Auto) 0.4 Eos # (Auto) 0.1 Baso # (Auto) 0.0 Abs Immat Gran (auto) 0.02 Absolute Neuts (auto) 3.9 Absolute Nucleated RBC 0.000 Nucleated RBC % (auto) 0.0 D-Dimer Sodium 138 Potassium 4.3 Chloride 107 Carbon Dioxide 24 Anion Gap 11 L BUN 18 H Creatinine 1.32 Estim Creat Clear Calc 24.8 Estimated GFR 40 Random Glucose 91 Calcium 8.1 L Total Bilirubin AST ALT Alkaline Phosphatase Troponin I High Sens Total Protein Albumin Lipase Urine Color Urine Appearance Urine pH Ur Specific [place] Urine Protein Urine Glucose (UA) Urine Ketones Urine Blood Urine Nitrite Ur Leukocyte Esterase Urine RBC Urine WBC Ur Squamous Epith Cells Amorphous Sediment Urine Bacteria Urine Mucus COVID-19 (JAGRUTI) Negative COVID-19 Clin Com See Note 05/27/21 05/29/21 05/30/21 06:23 06:10 08:57 WBC RBC Hgb Hct MCV MCH MCHC RDW Plt Count MPV Immature Gran % (Auto) Neut % (Auto) Lymph % (Auto) Kings % (Auto) Eos % (Auto) Baso % (Auto) Lymph # (Auto) Kings # (Auto) Eos # (Auto) Baso # (Auto) Abs Immat Gran (auto) Absolute Neuts (auto) Absolute Nucleated RBC Nucleated RBC % (auto) D-Dimer Sodium 141 139 138 Potassium 4.5 4.1 4.3 Chloride 107 100 104 Carbon Dioxide 27 33 H 29 Anion Gap 12 10 L 9 L BUN 19 H 43 H D 41 H Creatinine 1.33 1.95 H 1.54 H Estim Creat Clear Calc 24.7 16.8 21.3 Estimated GFR 39 25 33 Random Glucose 97 108 91 Calcium 8.4 8.2 L 8.0 L Total Bilirubin AST ALT Alkaline Phosphatase Troponin I High Sens Total Protein Albumin Lipase Urine Color Urine Appearance Urine pH Ur Specific [place] Urine Protein Urine Glucose (UA) Urine Ketones Urine Blood Urine Nitrite Ur Leukocyte Esterase Urine RBC Urine WBC Ur Squamous Epith Cells Amorphous Sediment Urine Bacteria Urine Mucus COVID-19 (JAGRUTI) COVID-19 Clin Com Airway Mallampati Class: II TM Dist: >3cm Neck ROM: Limited (Hears snapping sound with certain movements of neck. Being followed) Denture: Upper and Lower Heart: RRR Lungs: CTAB Assessment and Plan Assessment Anesthesia Assessment: Anesthesia Plan Discussed and Chart Reviewed Final Anesthetic Review Family History of Problems with Anesthesia: No History of Problems with Anesthesia: No NPO: Yes ASA Class: III and Emergency Final Preanesthetic Review: No Changes in Pt Med Stat, Meds/Allgs Chart Reviewed, Consent Obtained/Reviewed and Anes Risks/Benef Reviewed Patient Risk: Intermediate Procedure Risk: Low Assessment/Block/Sedation in SS: Assess/Block/Sedation-SS Anesthetic Plan Anesthetic Plan: GA and MAC: Disposition: Standard PACU
[2021-05-30] MEDS: levoFLOXacin/D5W 500 MG/100 ML PIGGYBACK 100 MG IV (17:24)
--- NOTE | 2021-05-30 17:24 | MHC.SHP ---
Pre-Procedural Eval Section A Date of Service: 05/30/21 The patient is an INPATIENT: Yes Changes since office visit: No Cold of Flu in the past 2 weeks, No New Medical Problems, No Changes in Medication and No Patient answered all questions The History & Physical has been completed within 30 days and I have reviewed it.: Yes Section B Chief Complaint: Abd pain Allergies: Allergies Allergy/AdvReac Type Severity Reaction Status Date / Time Iodinated Contrast Media AdvReac Mild UNABLE TO Verified 01/31/21 16:01 [IV CONTRAST] SPEAK Plan Diagnosis/Plan: Unchanged (cystoscopy, bilateral retrogrades and left stent placement) I have reviewed the history and physical and performed a pertinent physical examination on my patient. No changes have occurred unless specified.
--- NOTE | 2021-05-30 18:09 | W.PM.OPN ---
Operative Note Operative Note Date of Service: 05/30/21 Narrative: PreOperative Diagnosis: Left hydronephrosis Post Operative Diagnosis: bilateral hydronephrosis Procedure: cystoscopy, bilateral retrograde, bilateral stent placement Surgeon: Dr Je Chávez Anesthesia: sedation Indications for procedure: elevated creatinine 1.5, left hydronephrosis on CT scan imaging Procedure: After informed consent was verified the patient was brought to the operating room and placed in a supine position. anesthesia was administered per protocol. patient was placed in modified dorsal lithotomy position and prepped and draped in sterile fashion. Safety pause time-out was performed. Antibiotics being given. Cystoscopy performed. Left retrograde performed. Left hydronephrosis was seen. Sensor guidewire was placed. Six Vietnamese by 22 cm stent was placed. Postobstructive hydronephrotic drip was noted. Right retrograde performed. There was some attenuation of the right proximal ureter. Not definitive hydronephrosis but calyceal dilatation noted. Sensor guidewire placed. Six Vietnamese by 22 cm stent placed. It appeared to be in not quite the right position. The stent was withdrawn. An angled Glidewire was placed. The open-ended catheter was placed. Retrograde examination performed. It appears the stent had been in good position. Sensor guidewire placed. The 6 Vietnamese by 22 cm stent placed again and seen in good position. Angulo catheter placed to allow drainage and decline in creatinine. Patient tolerated procedure well was transferred in stable condition to the recovery area. Pathology: Drains: Drains 6 Vietnamese by 22 cm stent
[2021-05-30] MEDS: oxyCODONE HCl Immed Release 5 MG TABLET PO (18:51)
[2021-05-30] MEDS: fentaNYL citrate/PF 100 MCG/2 ML VIAL 25 MCG IVPUSH ×2 (21:00→22:21)
[2021-05-30] MEDS: ondansetron HCL 4 MG/2 ML VIAL IVPUSH (21:06)
[2021-05-30] MEDS: traZODone HCL 100 MG TABLET 200 MG PO (22:28)
[2021-05-30] MEDS: Phenazopyridine HCL 100 MG TABLET PO (22:56)
--- NOTE | 2021-05-30 22:59 | PC.NURSE ---
lower abdomen pain and lower back 10/10 sharp ,pressure . patient is restless, moaning. bladder scanned 88 ml, stoddard cath output 420 ml punch color urine since after surgery today. stoddard cath is patent,no blood clots. Pt medicated tonight with dilauded IV and fentanyl IV with minimal effect. DR Chávez was notified, Oxybuytinin 5 mg po x 1 dose for bladder spasm and Pyridium 100 mg po x 1 dose ordered and administered.
[2021-05-31] VITALS (9 sets, daily range): BP systolic 127–162; BP diastolic 67–83; PULSE 60–78; RESP 16–20; TEMP 36.4–37.2; O2SAT 92–100
[2021-05-31] MEDS: Acetaminophen 325 MG TABLET 650 MG PO ×4 (00:19→19:34)
[2021-05-31] MEDS: Lactated Ringers 1,000 ML 80 ML IVCONT ×2 (00:20→14:06)
[2021-05-31] MEDS: HYDROmorphone HCl 0.5 MG/0.5 ML SYRINGE 0.4 MG IVPUSH ×4 (09:18→23:38)
[2021-05-31] MEDS: buPROPion HCl XL 300 MG TAB.ER.24H PO (09:19)
[2021-05-31] MEDS: Methylphenidate HCl 10 MG TABLET 20 MG PO ×3 (09:19→17:33)
[2021-05-31] MEDS: Lidocaine 4 % Patch ADH..PATCH 1 PATCH TRANSDERMA ×2 (09:19→13:49)
[2021-05-31 09:35] LABS: Anion Gap 12 (12-20); Blood Urea Nitrogen 27 mg/dL (9-16); Calcium 8.2 mg/dL (8.4-10.2); Carbon Dioxide 27 mmol/L (22-29); Chloride 106 mmol/L (96-108); Creatinine Clr Calc Pharmacy 23.5; Estimated Glomerular Filt Rate 37; Glucose Random 82 mg/dL (60-115); Potassium 4.5 mmol/L (3.3-5.1); Sodium 140 mmol/L (135-145)
--- NOTE | 2021-05-31 11:11 | PC.NURSE ---
Skin assessment completed today. Patient has no skin issues at this time.
--- NOTE | 2021-05-31 12:01 | PM.PNNEP ---
Subjective Subjective Date of Service: 05/31/21 Interval history: Events noted. All recent data reviewed Physical Exam Vital Signs: Vital Signs: Last Vital Signs Temp 97.6 F 05/31/21 11:14 Pulse 60 05/31/21 11:24 Resp 19 05/31/21 11:14 BP 127/67 05/31/21 11:24 Pulse Ox 96 05/31/21 11:24 Body Mass Index 20.5 Const: General: comfortable Eyes: EOM: EOMs intact bilaterally Neck: Neck: Yes supple Resp: Auscultation: diminished lung sounds Cardio: Rate: regular rate GI: Palpation (GI): Soft to palpation Neuro: General: moves all extremities Objective Data Labs CBC & Chem 7: 05/26/21 06:23 05/31/21 07:45 Labs: Laboratory Results - last 24 hr 05/31/21 07:45 Sodium 140 Potassium 4.5 Chloride 106 Carbon Dioxide 27 Anion Gap 12 BUN 27 H Creatinine 1.39 Estim Creat Clear Calc 23.5 Estimated GFR 37 Random Glucose 82 Calcium 8.2 L Procedures Date of Service Date of Service: 05/31/21 Assessment & Plan Assessment and plan (1) Acute kidney injury: Status: Acute Assessment and Plan: WANDER due to obstruction as well as tubular injury S/P stent yesterday; Renal functions better No reason to suspect GN/AIN; C/W Supportive care Labs AM; Shall closely follow up Time Spent With Patient Time: Total time spent is greater than 50% in coordination of care (as documented) at patient's floor/unit and/or counseling patient: Progress Note: Quality Stroke Does the patient have a stroke diagnosis?: No
--- NOTE | 2021-05-31 13:21 | P.PNIM_ITS ---
Subjective Subjective Date of Service: 05/31/21 Interval History: elias, hydronephrosis, hematuria Review of Systems Still has left flank lateral area discomfort. Denies any chest pain or shortness of breath or abdominal pain or fever chills. Has pinkish urine. Physical Exam Vital Signs: Vital Signs: Last Vital Signs Temp 97.6 F 05/31/21 11:14 Pulse 60 05/31/21 11:24 Resp 19 05/31/21 11:14 BP 127/67 05/31/21 11:24 Pulse Ox 96 05/31/21 11:24 Body Mass Index 20.5 Gen: tremer improv ing HEENT: sclera anicteric, moist m ucus membranes Nec k: supple Lungs: c lear to auscultati on bilaterally Hea rt: regular rate a nd rhythm, no murm urs Abd: soft, no rebound : L CVAT , Angulo draining - pinkish urine , no clots Ext: no sánchez ma Skin: warm/well -perfused Neuro: a lert and oriented x3, tremulous, dys metria + dysdiadoc hokinesia present L>R Psych: appropr iate affect Objective Data Active Medications Acetaminophen (Acetaminophen 325 Mg Tablet) 650 mg PO Q6H [facility] Last Admin: 05/31/21 06:30 Dose: 650 mg Documented by: EARL Albuterol Sulfate (Albuterol Sulfate (0.083%) 2.5 Mg/3 Ml Vial.Neb) 2.5 mg INHALE ONCE PRN PRN Reason: Wheezing Bupropion HCl (Bupropion Hcl Xl 300 Mg Tab.Er.24h) 300 mg PO DAILY [facility] Last Admin: 05/31/21 09:19 Dose: 300 mg Documented by: DAVIDE Fentanyl (Fentanyl Citrate/Pf 100 Mcg/2 Ml Vial) 25 mcg IVPUSH Q5M PRN; Protocol PRN Reason: Pain, Moderate (Pain Scale 4-6 Last Admin: 05/30/21 22:21 Dose: 25 mcg Documented by: MAHAMED Fluoxetine HCl (Fluoxetine Hcl 20 Mg Capsule) 40 mg PO BEDTIME [facility] Last Admin: 05/30/21 21:35 Dose: Not Given Documented by: MAHAMED Non-Admin Reason: Nausea Hydromorphone HCl (Hydromorphone Hcl 0.5 Mg/0.5 Ml Syringe) 0.4 mg IVPUSH Q4H PRN; Protocol PRN Reason: Breakthrough Pain Last Admin: 05/31/21 09:18 Dose: 0.4 mg Documented by: DAVIDE Hydromorphone HCl (Hydromorphone Hcl 0.5 Mg/0.5 Ml Syringe) 0.25 mg IVPUSH Q5M PRN; Protocol PRN Reason: Pain, Severe (Pain Scale 7-10) Lactated Ringer's (Lr) 1,000 mls @ 80 mls/hr IVCONT .[id number] [facility] Last Admin: 05/31/21 00:20 Dose: 80 mls/hr Documented by: EARL Promethazine HCl 12.5 mg/ (Sodium Chloride) 50.5 mls @ 202 mls/hr IV ONCE PRN PRN Reason: Nausea and Vomiting Lidocaine (Lidocaine 4 % Patch Adh..Patch) 1 patch TRANSDERMA DAILY [facility]; Protocol Last Admin: 05/31/21 09:19 Dose: 1 patch Documented by: DAVIDE Melatonin (Melatonin 3 Mg Tablet) 6 mg PO BEDTIME PRN PRN Reason: Insomnia Last Admin: 05/29/21 19:41 Dose: 6 mg Documented by: ZEE Methylphenidate HCl (Methylphenidate Hcl 10 Mg Tablet) 20 mg PO QID [facility] Last Admin: 05/31/21 09:19 Dose: 20 mg Documented by: DAVIDE Ondansetron HCl (Ondansetron Hcl 4 Mg/2 Ml Vial) 4 mg IVPUSH Q8H PRN PRN Reason: Nausea and Vomiting Last Admin: 05/30/21 21:06 Dose: 4 mg Documented by: MAHAMED Pharmacy Consult (Consult Rx Perform Med Rec) 1 each MISCELLANE ONCE PRN PRN Reason: Consult order Senna (Sennosides 8.6 Mg Tablet) 17.2 mg PO BEDTIME PRN PRN Reason: Constipation Sodium Chloride (0.9 % Sodium Chloride Flush 3 Ml Syringe) 3 ml IVFLUSH QSHIFT [facility] Last Admin: 05/31/21 08:45 Dose: Not Given Documented by: DAVIDE Non-Admin Reason: IV Running Trazodone HCl (Trazodone Hcl 100 Mg Tablet) 200 mg PO BEDTIME [facility] Last Admin: 05/30/21 22:28 Dose: 200 mg Documented by: MAHAMED Labs CBC & Chem 7: 05/26/21 06:23 05/31/21 07:45 Labs: Laboratory Results - last 24 hr 05/31/21 07:45 Anion Gap 12 Estim Creat Clear Calc 23.5 Estimated GFR 37 Random Glucose 82 Calcium 8.2 L Assessment and Plan (1) Acute kidney injury: Status: Acute (2) Hematuria: Status: Acute Assessment and Plan: 70yo F with anxiety, depression, hx subdural hematoma presented with worsening ataxia, generalized weakness and fall without LOC, abd pain found to have high-grade UPJ obstruction/hydronephrosis of L kidney, biliary ductal dilation with abrupt narrowing 1. L hydronephrosis/UPJ obstruction with question of accessory L renal artery as cause - Lasix renogram done -s/p stent Has hematuria, question of leakage of urine around the Angulo Pain control with lidocaine patch and Tylenol. Urology follow-up 2. biliary dilation - GI consulted- appears chronic dating back to 2005, no further w/u indicated 3. ataxia/tremor- Neuro consulted, attributable to chronic microangiopathy and generalized cerebral volume loss, no further workup indicated 4. 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 Improving with hydration Lasix renogram as above-1. Minimal delay in the right renal perfusion but otherwise normal cortical function and excretion with normal response to Lasix. The right kidney contributes 99% of total renal function. ? 2. No left renal perfusion seen. There is delayed? to no cortical uptake seen. No response to Lasix. 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 Continue hydration, possible stent placement today. 5.mood disorder- bupropion, fluoxetine, trazodone, methylphenidate, lorazepam Quality Stroke Does the patient have a stroke diagnosis?: No VTE Prior VTE?: No VTE Risk Level:: Medical - moderate - high VTE Device Contraindication: N/A - Device Ordered VTE Drug Contraindication: Treatment Not Indicated
[2021-05-31] MEDS: traZODone HCL 100 MG TABLET 200 MG PO (20:31)
[2021-05-31] MEDS: FLUoxetine HCl 20 MG CAPSULE 40 MG PO (20:31)
[2021-05-31] MEDS: 0.9 % Sodium Chloride Flush 3 ML SYRINGE IVFLUSH (23:38)
[2021-06-01] VITALS (8 sets, daily range): BP systolic 132–165; BP diastolic 74–91; PULSE 65–79; RESP 18–20; TEMP 36.8–37.1; O2SAT 93–97
[2021-06-01] MEDS: Acetaminophen 325 MG TABLET 650 MG PO ×4 (01:25→18:46)
[2021-06-01] MEDS: Lactated Ringers 1,000 ML 80 ML IVCONT (02:54)
[2021-06-01] MEDS: HYDROmorphone HCl 0.5 MG/0.5 ML SYRINGE 0.4 MG IVPUSH ×2 (04:09→10:37)
[2021-06-01] MEDS: Lidocaine 4 % Patch ADH..PATCH 1 PATCH TRANSDERMA ×2 (07:42→07:44)
[2021-06-01] MEDS: buPROPion HCl XL 300 MG TAB.ER.24H PO (07:45)
[2021-06-01] MEDS: Methylphenidate HCl 10 MG TABLET 20 MG PO ×3 (07:46→17:43)
--- NOTE | 2021-06-01 11:40 | PM.PNNEP ---
Subjective Subjective Date of Service: 06/01/21 Interval history: Events noted. All recent data reviewed Physical Exam Vital Signs: Vital Signs: Last Vital Signs Temp 98.8 F 06/01/21 11:00 Pulse 75 06/01/21 11:08 Resp 18 06/01/21 11:00 BP 165/82 H 06/01/21 11:08 Pulse Ox 97 06/01/21 11:08 Body Mass Index 20.5 Const: General: no acute distress HENMT: Head: Yes normocephalic Mouth: moist mucous membranes Eyes: EOM: EOMs intact bilaterally Neck: Neck: Yes supple Resp: Auscultation: diminished lung sounds Cardio: Rate: regular rate GI: Palpation (GI): Soft to palpation Neuro: General: moves all extremities Objective Data Labs CBC & Chem 7: 05/26/21 06:23 05/31/21 07:45 Procedures Date of Service Date of Service: 06/01/21 Assessment & Plan Assessment and plan (1) Acute kidney injury: Status: Acute Assessment and Plan: WANDER due to obstruction as well as tubular injury S/P stent 2 days ago; Renal functions better No reason to suspect GN/AIN; C/W Supportive care Labs AM; Shall closely follow up Time Spent With Patient Time: Total time spent is greater than 50% in coordination of care (as documented) at patient's floor/unit and/or counseling patient: Progress Note: Quality Stroke Does the patient have a stroke diagnosis?: No
--- NOTE | 2021-06-01 11:58 | MHC.CM.PN ---
per rounds no dc date at thsi time gi to see pt ,pt has a rectal prolapse dc plan remanins str
--- NOTE | 2021-06-01 12:56 | P.CONGS_ITS ---
History of Present Illness Consult details Consult date: 06/01/21 Reason for consult: abdominal pain Requesting physician: Kishore Baldwin Narrative: 70-year-old female patient presenting with complaints of rectal pain found today to have rectal prolapse. She reports the rectal prolapse as occurred over the past month as becoming more painful. She does report straining to have a bowel movement. She denies a previous history of rectal s urgery. She reports painful in the rectum is reduced; she has had to reduce the prolapse manually on many occasions. Review of Systems Review of Systems: Yes all other systems are reviewed and are negative Constitutional: Constitutional: Reports fatigue, Denies fever(s), Denies night sweats and Reports weakness Cardiovascular: Cardiovascular: Denies chest pain, Denies rapid heart rate and Denies irregular heart rhythm Respiratory: Respiratory: Denies cough and Denies stridor Gastrointestinal: Gastrointestinal: Reports abdominal pain, Reports bloating and Reports constipation Musculoskeletal: Musculoskeletal: Reports myalgias Neurologic: Reports weakness Endocrine: Endocrine: Reports fatigue PMFSH Past Medical History Medical History Anxiety Brain bleed Depression FHx: cholecystectomy History of lipoma Peptic ulcer Surgical History Surgical History History of hand surgery Social History Social History Household Members: Family [facility] Do you presently have visiting nurse or other home services: No Patient Tobacco Use Status: Current everyday Tobacco user Smoked in Last 30 Days: Yes service: No Current occupational status: retired and disabled Meds Allergies Allergy/AdvReac Type Severity Reaction Status Date / Time Iodinated Contrast Media AdvReac Mild UNABLE TO Verified 01/31/21 16:01 [IV CONTRAST] SPEAK Active Medications: Current Medications Acetaminophen (Acetaminophen 325 Mg Tablet) 650 mg PO Q6H [facility] Last Admin: 06/01/21 07:45 Dose: 650 mg Documented by: Albuterol Sulfate (Albuterol Sulfate (0.083%) 2.5 Mg/3 Ml Vial.Neb) 2.5 mg INHALE ONCE PRN PRN Reason: Wheezing Bupropion HCl (Bupropion Hcl Xl 300 Mg Tab.Er.24h) 300 mg PO DAILY [facility] Last Admin: 06/01/21 07:45 Dose: 300 mg Documented by: Fentanyl (Fentanyl Citrate/Pf 100 Mcg/2 Ml Vial) 25 mcg IVPUSH Q5M PRN; Protocol PRN Reason: Pain, Moderate (Pain Scale 4-6 Last Admin: 05/30/21 22:21 Dose: 25 mcg Documented by: Fluoxetine HCl (Fluoxetine Hcl 20 Mg Capsule) 40 mg PO BEDTIME [facility] Last Admin: 05/31/21 20:31 Dose: 40 mg Documented by: Hydromorphone HCl (Hydromorphone Hcl 0.5 Mg/0.5 Ml Syringe) 0.4 mg IVPUSH Q4H PRN; Protocol PRN Reason: Breakthrough Pain Last Admin: 06/01/21 10:37 Dose: 0.4 mg Documented by: Hydromorphone HCl (Hydromorphone Hcl 0.5 Mg/0.5 Ml Syringe) 0.25 mg IVPUSH Q5M PRN; Protocol PRN Reason: Pain, Severe (Pain Scale 7-10) Promethazine HCl 12.5 mg/ (Sodium Chloride) 50.5 mls @ 202 mls/hr IV ONCE PRN PRN Reason: Nausea and Vomiting Lidocaine (Lidocaine 4 % Patch Adh..Patch) 1 patch TRANSDERMA DAILY [facility]; Protocol Last Admin: 06/01/21 07:42 Dose: 1 patch Documented by: Lidocaine (Lidocaine 4 % Patch Adh..Patch) 1 patch TRANSDERMA DAILY [facility]; Protocol Last Admin: 06/01/21 07:44 Dose: 1 patch Documented by: Melatonin (Melatonin 3 Mg Tablet) 6 mg PO BEDTIME PRN PRN Reason: Insomnia Last Admin: 05/29/21 19:41 Dose: 6 mg Documented by: Methylphenidate HCl (Methylphenidate Hcl 10 Mg Tablet) 20 mg PO QID [facility] Last Admin: 06/01/21 07:46 Dose: 20 mg Documented by: Ondansetron HCl (Ondansetron Hcl 4 Mg/2 Ml Vial) 4 mg IVPUSH Q8H PRN PRN Reason: Nausea and Vomiting Last Admin: 05/30/21 21:06 Dose: 4 mg Documented by: Pharmacy Consult (Consult Rx Perform Med Rec) 1 each MISCELLANE ONCE PRN PRN Reason: Consult order Senna (Sennosides 8.6 Mg Tablet) 17.2 mg PO BEDTIME PRN PRN Reason: Constipation Sodium Chloride (0.9 % Sodium Chloride Flush 3 Ml Syringe) 3 ml IVFLUSH QSHIFT [facility] Last Admin: 06/01/21 07:49 Dose: Not Given Documented by: Trazodone HCl (Trazodone Hcl 100 Mg Tablet) 200 mg PO BEDTIME [facility] Last Admin: 05/31/21 20:31 Dose: 200 mg Documented by: Home Medications Medication Instructions Recorded Confirmed Last Taken Type bupropion HCl 300 mg 24 hr tablet, 1 tab PO QAM 07/06/20 05/25/21 05/24/21 History extended release lorazepam 0.5 mg tablet 0.5 mg PO DAILY PRN 07/06/20 05/25/21 Unknown History methylphenidate HCl 20 mg tablet 1 tab PO QID 07/06/20 05/25/21 05/24/21 History trazodone 100 mg tablet 2 tab PO BEDTIME 07/06/20 05/25/21 05/24/21 History fluoxetine 40 mg capsule 1 cap PO BEDTIME 05/25/21 05/25/21 05/24/21 History Physical Exam Vital Signs: Vital Signs: Last Vital Signs Temp 98.8 F 06/01/21 11:00 Pulse 75 06/01/21 11:08 Resp 18 06/01/21 11:00 BP 165/82 H 06/01/21 11:08 Pulse Ox 97 06/01/21 11:08 Body Mass Index 20.5 Const: General: in distress and ill appearing Nutritional Appearance: thin Orientation/consciousness: patient oriented x3 Limitations: no limitations HENMT: Head: Yes normocephalic and Yes atraumatic Resp: Effort & Inspection: normal respiratory effort, no stridor and not tachypneic GI: Other: Soft, nondistended, no tympany to percussion, normal bowel sounds. Rectal examination does reveal a patulous anal sphincter with prolapsing mucosa, incontinent of stool and flatus. The rectal prolapse is currently reduced and no rectal bleeding is identified. Skin: General skin exam: no rashes or lesions noted Neuro: General: patient oriented x3 Extrem: General: No clubbing and No cyanosis Results Labs Result diagrams: 05/26/21 06:23 05/31/21 07:45 Labs: Urine 05/25/21 Range/Units 19:48 Urine Color YELLOW Urine Appearance HAZY Urine pH 7.0 (5.0-8.0) Ur Specific [place] 1.025 (1.005-1.025) Urine Protein 2+ H (NEG-TRACE) MG/DL Urine Glucose (UA) NEG (NEG) MG/DL All other labs normal. Assessment and Plan (1) Rectal prolapse: Status: Acute unfortunate 70-year-old female patient with multiple medical problems found to have rectal prolapse with associated rectal pain. The prolapse occurs frequently when having a bowel movement. The patient does report straining to have a bowel movement. Recommend a trial of stool softeners and fiber therapy to prevent the need for straining to have a bowel movement. If the prolapse co ntinues to occur a or becomes non reducible surgical intervention may be required including sigmoid resection with rectopexy. Patient is not interested in further surgery at this time. Discussed findings with Dr. Baldwin. Procedures Date of Service Date of Service: 06/01/21
[2021-06-01] MEDS: Docusate Sodium 100 MG CAPSULE PO ×2 (13:34→22:07)
[2021-06-01] MEDS: HYDROmorphone HCl 0.5 MG/0.5 ML SYRINGE IVPUSH ×2 (14:20→18:47)
--- NOTE | 2021-06-01 14:48 | HO.PM.IMPN ---
Subjective Subjective Date of Service: 06/01/21 Interval History: Hematuria with clots, rectal prolapse. Review of Systems Patient having pain in the anal area due to rectal prolapse seems discomfortable this morning, in addition having hematuria with clots as above. Denies any and nausea vomiting or shortness of breath or any weakness or numbness. Physical Exam Vital Signs: Vital Signs: Last Vital Signs Temp 98.8 F 06/01/21 11:00 Pulse 75 06/01/21 11:08 Resp 18 06/01/21 11:00 BP 165/82 H 06/01/21 11:08 Pulse Ox 97 06/01/21 11:08 Body Mass Index 20.5 Physical exam: Appearance: Alert.? Oriented X3.?has pain rectal area. cvs: rrr, [id number] , no murmur res: clear to auscultation ,no rhonchii or wheezing abd: no rebound or guarding ,nt, bs present. ext pulses present , no cyanosis ,Gait well balanced well coordinated. neuro: axo3 , moves all ext. Objective Data Active Medications Acetaminophen (Acetaminophen 325 Mg Tablet) 650 mg PO Q6H [facility] Last Admin: 06/01/21 13:35 Dose: 650 mg Documented by: SARAH Albuterol Sulfate (Albuterol Sulfate (0.083%) 2.5 Mg/3 Ml Vial.Neb) 2.5 mg INHALE ONCE PRN PRN Reason: Wheezing Bupropion HCl (Bupropion Hcl Xl 300 Mg Tab.Er.24h) 300 mg PO DAILY [facility] Last Admin: 06/01/21 07:45 Dose: 300 mg Documented by: SARAH Docusate Sodium (Docusate Sodium 100 Mg Capsule) 100 mg PO BID [facility] Last Admin: 06/01/21 13:34 Dose: 100 mg Documented by: SARAH Fluoxetine HCl (Fluoxetine Hcl 20 Mg Capsule) 40 mg PO BEDTIME [facility] Last Admin: 05/31/21 20:31 Dose: 40 mg Documented by: TUMASY Hydromorphone HCl (Hydromorphone Hcl 0.5 Mg/0.5 Ml Syringe) 0.25 mg IVPUSH Q5M PRN; Protocol PRN Reason: Pain, Severe (Pain Scale 7-10) Hydromorphone HCl (Hydromorphone Hcl 0.5 Mg/0.5 Ml Syringe) 0.5 mg IVPUSH Q4H PRN; Protocol PRN Reason: Pain, Mild (Pain Scale 1-3) Last Admin: 06/01/21 14:20 Dose: 0.5 mg Documented by: SARAH Promethazine HCl 12.5 mg/ (Sodium Chloride) 50.5 mls @ 202 mls/hr IV ONCE PRN PRN Reason: Nausea and Vomiting Lidocaine (Lidocaine 4 % Patch Adh..Patch) 1 patch TRANSDERMA DAILY [facility]; Protocol Last Admin: 06/01/21 07:42 Dose: 1 patch Documented by: SARAH Lidocaine (Lidocaine 4 % Patch Adh..Patch) 1 patch TRANSDERMA DAILY [facility]; Protocol Last Admin: 06/01/21 07:44 Dose: 1 patch Documented by: SARAH Melatonin (Melatonin 3 Mg Tablet) 6 mg PO BEDTIME PRN PRN Reason: Insomnia Last Admin: 05/29/21 19:41 Dose: 6 mg Documented by: ZEE Methylphenidate HCl (Methylphenidate Hcl 10 Mg Tablet) 20 mg PO 0600,1000,1400,1800 [facility] Last Admin: 06/01/21 13:58 Dose: Not Given Documented by: SARAH Non-Admin Reason: time change Ondansetron HCl (Ondansetron Hcl 4 Mg/2 Ml Vial) 4 mg IVPUSH Q8H PRN PRN Reason: Nausea and Vomiting Last Admin: 05/30/21 21:06 Dose: 4 mg Documented by: MAHAMED Pharmacy Consult (Consult Rx Perform Med Rec) 1 each MISCELLANE ONCE PRN PRN Reason: Consult order Senna (Sennosides 8.6 Mg Tablet) 17.2 mg PO BEDTIME PRN PRN Reason: Constipation Sodium Chloride (0.9 % Sodium Chloride Flush 3 Ml Syringe) 3 ml IVFLUSH QSHIFT [facility] Last Admin: 06/01/21 07:49 Dose: Not Given Documented by: SARAH Non-Admin Reason: IV Running Trazodone HCl (Trazodone Hcl 100 Mg Tablet) 200 mg PO BEDTIME [facility] Last Admin: 05/31/21 20:31 Dose: 200 mg Documented by: IVONNE Labs CBC & Chem 7: 05/26/21 06:23 05/31/21 07:45 Assessment and Plan (1) Rectal prolapse: Status: Acute (2) Abdominal pain: Status: Acute Assessment and Plan: 70yo F with anxiety, depression, hx subdural hematoma presented with worsening ataxia, generalized weakness and fall without LOC, abd pain found to have high-grade UPJ obstruction/hydronephrosis of L kidney, biliary ductal dilation with abrupt narrowing 1. L hydronephrosis/UPJ obstruction with question of accessory L renal artery as cause - Lasix renogram done -s/p stent Has hematuria, question of leakage of urine around the Angulo Pain control with lidocaine patch and Tylenol. Urology follow-up 2. biliary dilation- GI consulted- appears chronic dating back to 2005, no further w/u indicated 3. ataxia/tremor- Neuro consulted, attributable to chronic microangiopathy and generalized cerebral volume loss, no further workup indicated 4. 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 Improving with hydration Lasix renogram as above-1. Minimal delay in the right renal perfusion but otherwise normal cortical function and excretion with normal response to Lasix. The right kidney contributes 99% of total renal function. ? No left renal perfusion seen. There is delayed? to no cortical uptake seen. No response to Lasix. 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 WANDER improving with hydration. Had stent placed 05/31 Yesterday had pinkish urine today has pinkish urine again with clots urology follow-up pending- communication sent to use urology. 5.mood disorder- bupropion, fluoxetine, trazodone, methylphenidate, lorazepam 6. rectal prolapse: seen by surgery recommended laxatives,, pain control If does not improve then may need surgery but patient is refusing currently surgical intervention. surgery following. Quality Stroke Does the patient have a stroke diagnosis?: No VTE Prior VTE?: No VTE Risk Level:: Medical - moderate - high VTE Device Contraindication: N/A - Device Ordered VTE Drug Contraindication: Treatment Not Indicated
[2021-06-01] MEDS: 0.9 % Sodium Chloride Flush 3 ML SYRINGE IVFLUSH ×2 (15:51→22:10)
--- NOTE | 2021-06-01 16:25 | PM.UROPN ---
Subjective Subjective Date of Service: 06/01/21 Interval history: complicated picture persistent pain of various causes bilateral stents placed for hydronephrosis and elevated creatinine creatinine has started to drop hematuria with indwelling catheter and bladder spasm initiate oxybutynin if hematuria resolves plan for removal Angulo catheter Physical Exam Vital Signs: Vital Signs: Last Vital Signs Temp 98.5 F 06/01/21 16:00 Pulse 67 06/01/21 16:00 Resp 18 06/01/21 16:00 BP 164/77 H 06/01/21 16:00 Pulse Ox 93 06/01/21 16:00 Body Mass Index 20.5 Const: General: cooperative, healthy appearing, comfortable and no acute distress Orientation/consciousness: patient oriented x3 HENMT: Face and sinus: Yes normal facial exam Mouth: moist mucous membranes Neck: Neck: Yes normal visual inspection, Yes full ROM and Yes trachea midline Chest: Chest palpation & inspection: normal inspection of the chest Resp: Effort & Inspection: normal respiratory effort, able to speak in complete sentences and no respiratory distress GI: Inspection: Yes normal to inspection Back/Spine/Pelvis: Cervical Spine: normal cervical lordosis Thoracic/Lumbar Spine: thoracic and lumbar spine normal to inspection Skin: General skin exam: no rashes or lesions noted Neuro: General: patient oriented x3, gait normal, tone normal and moves all extremities Extrem: General: Yes normal to inspection and Yes capillary refill normal Urology Results Labs CBC & Chem 7: 05/26/21 06:23 05/31/21 07:45 Progress Note: A&P Assessment and plan (1) Hematuria: Status: Acute (2) Hydronephrosis: Status: Acute Assessment and Plan: follow-up creatinine remove catheter when hematuria start to resolve oxybutynin for bladder spasm Fall Risk Details Current Medications: Current Medications Acetaminophen (Acetaminophen 325 Mg Tablet) 650 mg PO Q6H [facility] Last Admin: 06/01/21 13:35 Dose: 650 mg Documented by: Albuterol Sulfate (Albuterol Sulfate (0.083%) 2.5 Mg/3 Ml Vial.Neb) 2.5 mg INHALE ONCE PRN PRN Reason: Wheezing Bupropion HCl (Bupropion Hcl Xl 300 Mg Tab.Er.24h) 300 mg PO DAILY [facility] Last Admin: 06/01/21 07:45 Dose: 300 mg Documented by: Docusate Sodium (Docusate Sodium 100 Mg Capsule) 100 mg PO BID [facility] Last Admin: 06/01/21 13:34 Dose: 100 mg Documented by: Fluoxetine HCl (Fluoxetine Hcl 20 Mg Capsule) 40 mg PO BEDTIME [facility] Last Admin: 05/31/21 20:31 Dose: 40 mg Documented by: Hydromorphone HCl (Hydromorphone Hcl 0.5 Mg/0.5 Ml Syringe) 0.25 mg IVPUSH Q5M PRN; Protocol PRN Reason: Pain, Severe (Pain Scale 7-10) Hydromorphone HCl (Hydromorphone Hcl 0.5 Mg/0.5 Ml Syringe) 0.5 mg IVPUSH Q4H PRN; Protocol PRN Reason: Pain, Mild (Pain Scale 1-3) Last Admin: 06/01/21 14:20 Dose: 0.5 mg Documented by: Promethazine HCl 12.5 mg/ (Sodium Chloride) 50.5 mls @ 202 mls/hr IV ONCE PRN PRN Reason: Nausea and Vomiting Lidocaine (Lidocaine 4 % Patch Adh..Patch) 1 patch TRANSDERMA DAILY [facility]; Protocol Last Admin: 06/01/21 07:42 Dose: 1 patch Documented by: Lidocaine (Lidocaine 4 % Patch Adh..Patch) 1 patch TRANSDERMA DAILY [facility]; Protocol Last Admin: 06/01/21 07:44 Dose: 1 patch Documented by: Melatonin (Melatonin 3 Mg Tablet) 6 mg PO BEDTIME PRN PRN Reason: Insomnia Last Admin: 05/29/21 19:41 Dose: 6 mg Documented by: Methylphenidate HCl (Methylphenidate Hcl 10 Mg Tablet) 20 mg PO 0600,1000,1400,1800 [facility] Last Admin: 06/01/21 13:58 Dose: Not Given Documented by: Ondansetron HCl (Ondansetron Hcl 4 Mg/2 Ml Vial) 4 mg IVPUSH Q8H PRN PRN Reason: Nausea and Vomiting Last Admin: 05/30/21 21:06 Dose: 4 mg Documented by: Oxybutynin Chloride (Oxybutynin Chloride Er 5 Mg Tab.Er.24) 5 mg PO BEDTIME [facility] Pharmacy Consult (Consult Rx Perform Med Rec) 1 each MISCELLANE ONCE PRN PRN Reason: Consult order Senna (Sennosides 8.6 Mg Tablet) 17.2 mg PO BEDTIME PRN PRN Reason: Constipation Sodium Chloride (0.9 % Sodium Chloride Flush 3 Ml Syringe) 3 ml IVFLUSH QSHIFT [facility] Last Admin: 06/01/21 15:51 Dose: 3 ml Documented by: Trazodone HCl (Trazodone Hcl 100 Mg Tablet) 200 mg PO BEDTIME [facility] Last Admin: 05/31/21 20:31 Dose: 200 mg Documented by: Time Spent With Patient Time: Total time spent is greater than 50% in coordination of care (as documented) at patient's floor/unit and/or counseling patient: Time with patient: less than 15 minutes No Severe Sepsis: No Severe Sepsis Progress Note: Quality Stroke Does the patient have a stroke diagnosis?: No
[2021-06-01 17:48] LABS: Anion Gap 11 (12-20); Blood Urea Nitrogen 30 mg/dL (9-16); Carbon Dioxide 27 mmol/L (22-29); Chloride 104 mmol/L (96-108); Creatinine Clr Calc Pharmacy 23.5; Estimated Glomerular Filt Rate 37; Glucose Random 87 mg/dL (60-115); Potassium 4.8 mmol/L (3.3-5.1); Sodium 137 mmol/L (135-145)
[2021-06-01] MEDS: traZODone HCL 100 MG TABLET 200 MG PO (22:06)
[2021-06-01] MEDS: FLUoxetine HCl 20 MG CAPSULE 40 MG PO (22:07)
[2021-06-01] MEDS: HYDROmorphone HCl 1 MG/ML SYRINGE IVPUSH (22:10)
[2021-06-02] VITALS (7 sets, daily range): BP systolic 140–181; BP diastolic 75–89; PULSE 68–80; RESP 18–20; TEMP 36.4–36.9; O2SAT 92–95
[2021-06-02] MEDS: Acetaminophen 325 MG TABLET 650 MG PO ×3 (01:13→20:20)
[2021-06-02] MEDS: Methylphenidate HCl 10 MG TABLET 20 MG PO ×4 (06:06→18:54)
[2021-06-02 07:45] LABS: Hematocrit 39.9 % (37.0-47.0); Hemoglobin 12.4 g/dl (12.0-16.0); Mean Corpuscular HGB Conc 31.1 g/dl (31.0-35.0); Mean Corpuscular Hemoglobin 29.8 pg (27.0-33.0); Mean Corpuscular Volume 95.9 fL (80.0-98.0); Platelet Count 217 X10*3/uL (160-400); Red Blood Count 4.16 X10*6/uL (4.20-5.50); Red Cell Distribution Width 13.5 % (11.0-16.0); White Blood Count 5.2 X10*3/uL (4.8-10.8)
[2021-06-02 08:13] LABS: Anion Gap 11 (12-20); Blood Urea Nitrogen 27 mg/dL (9-16); Calcium 8.1 mg/dL (8.4-10.2); Carbon Dioxide 28 mmol/L (22-29); Chloride 104 mmol/L (96-108); Creatinine Clr Calc Pharmacy 24.5; Estimated Glomerular Filt Rate 39; Glucose Random 79 mg/dL (60-115); Potassium 4.2 mmol/L (3.3-5.1); Sodium 139 mmol/L (135-145)
--- NOTE | 2021-06-02 09:17 | P.PNNP_ITS ---
Subjective Subjective Date of Service: 06/02/21 Interval history: Hematuria with clots, rectal prolapse. Physical Exam Vital Signs: Vital Signs: Last Vital Signs Temp 98.4 F 06/02/21 03:19 Pulse 71 06/02/21 03:19 Resp 18 06/02/21 03:19 BP 147/75 H 06/02/21 03:19 Pulse Ox 93 06/02/21 03:19 Body Mass Index 20.5 Const: Other: Patient is extremely anxious appearing, hypervigilant, initially having brief jerks of her face and extremities, which ceased with distraction and wants the patient admitted her for a few minutes. No evidence of any focal seizures. General: cooperative, healthy appearing, comfortable, no acute dis tress, alert, in distress and ill appearing Nutritional Appearance: thin Orientation/consciousness: patient oriented x3 Limitations: no limitations and No language barrier HENMT: Head: Yes normal to inspection, Yes normocephalic and Yes atraumatic Face and sinus: Yes normal facial exam Mouth: moist mucous membranes Eyes: General: appearance normal, both eyes and all related structures Eyelids: Yes eyelids normal Conjunctivae: conjunctivae normal Pupils: Equal, round and reactive pupils present EOM: EOMs intact bilaterally Neck: Neck: Yes normal visual inspection, Yes full ROM, Yes trachea midline and Yes supple Chest: Chest palpation & inspection: normal inspection of the chest Resp: Effort & Inspection: normal respiratory effort, able to speak in complete sentences, no respiratory distress, no stridor and not tachypneic Auscultation: clear to auscultation bilaterally and diminished lung sounds Cardio: Jugular venous distension: no JVD Rate: regular rate Rhythm: regular rhythm Heart sounds: S1 normal heart sound present, S2 normal heart sound present, no gallops, no murmurs and no rubs GI: Other: Soft, nondistended, no tympany to percussion, normal bowel sounds. Rectal examination does reveal a patulous anal sphincter with prolapsing mucosa, incontinent of stool and flatus. The rectal prolapse is currently reduced and no rectal bleeding is identified. Inspection: Yes normal to inspection and No distended Palpation (GI): Soft to palpation, nontender and Other GI palpation findings present (Non-distended) Auscultation: normal bowel sounds Back/Spine/Pelvis: Cervical Spine: normal cervical lordosis Thoracic/Lumbar Spine: thoracic and lumbar spine normal to inspection Skin: General skin exam: no rashes or lesions noted Neuro: Other: She is alert and awake with normal spontaneity of speech fluency comprehension and affect. Pupils are round and reactive to light. Extraocular muscles were intact. Visual sheehan are full to threat. Face was symmetrical. There was no pronator drift. Mild bilateral ataxia was noted on [id number] testing and mild postural tremor in both hands. Deep tendon reflexes were absent with flexor plantars. General: patient oriented x3, gait normal, tone normal, moves all extremities, no focal motor deficits and CN's II-XI intact bilaterally Cranial nerves: Yes CN's II-XII intact bilaterally and Yes Equal, round and reactive pupils present Cognition (Neuro): normal cognition Motor exam (neuro): 5/5 motor strength present throughout and no tremor noted Sensory Exam: No Sensory deficit (Neuro) Extrem: General: Yes normal to inspection, Yes capillary refill normal, Yes no pedal edema, No clubbing and No cyanosis Psych: Affect: No normal affect and Anxious affect present Objective Data Labs CBC & Chem 7: 06/02/21 06:46 06/02/21 06:46 Labs: Laboratory Results - last 24 hr 06/01/21 06/02/21 06/02/21 17:14 06:46 06:46 WBC 5.2 RBC 4.16 L Hgb 12.4 Hct 39.9 MCV 95.9 MCH 29.8 MCHC 31.1 RDW 13.5 Plt Count 217 MPV 10.0 Absolute Nucleated RBC 0.000 Nucleated RBC % (auto) 0.0 Sodium 137 139 Potassium 4.8 4.2 Chloride 104 104 Carbon Dioxide 27 28 Anion Gap 11 L 11 L BUN 30 H 27 H Creatinine 1.39 1.34 Estim Creat Clear Calc 23.5 24.5 Estimated GFR 37 39 Random Glucose 87 79 Calcium 8.0 L 8.1 L Procedures Date of Service Date of Service: 06/02/21 Assessment & Plan Assessment and plan (1) Hematuria: Status: Acute (2) Hydronephrosis: Status: Acute Assessment and Plan: WANDER due to obstruction as well as tubular injury S/P stent 2 days ago; Renal functions better No reason to suspect GN/AIN; C/W Supportive care Assessment and Plan: 70yo F with anxiety, depression, hx subdural hematoma presented with worsening ataxia, generalized weakness and fall without LOC, abd pain found to have high-grade UPJ obstruction/hydronephrosis of L kidney, biliary ductal dilation with abrupt narrowing 1. L hydronephrosis/UPJ obstruction with question of accessory L renal artery as cause - Lasix renogram done -s/p stent Has hematuria, question of leakage of urine around the Angulo Pain control with lidocaine patch and Tylenol. Urology follow-up 2. biliary dilation- GI consulted- appears chronic dating back to 2005, no further w/u indicated 3. ataxia/tremor- Neuro consulted, attributable to chronic microangiopathy and generalized cerebral volume loss, no further workup indicated 4. 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 Improving with hydration Lasix renogram as above-1. Minimal delay in the right renal perfusion but otherwise normal cortical function and excretion with normal response to Lasix. The right kidney contributes 99% of total renal function. ? No left renal perfusion seen. There is delayed? to no cortical uptake seen. No response to Lasix. 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 WANDER improving with hydration. Had stent placed 05/31 Yesterday had pinkish urine today has pinkish urine again with clots urology follow-up pending- communication sent to use urology. 5.mood disorder- bupropion, fluoxetine, trazodone, methylphenidate, lorazepam 6. rectal prolapse: seen by surgery recommended laxatives,, pain control If does not improve then may need surgery but patient is refusing currently surgical intervention. surgery following. Time Spent With Patient Time: Total time spent is greater than 50% in coordination of care (as documented) at patient's floor/unit and/or counseling patient: Progress Note: Quality Stroke Does the patient have a stroke diagnosis?: No
--- NOTE | 2021-06-02 09:26 | PM.PNGS ---
Subjective Subjective Date of Service: 06/02/21 Interval history: Patient reports continued rectal pain, frustrated because she is not getting her pain medication when requested. Physical Exam Vital Signs: Vital Signs: Last Vital Signs Temp 98.4 F 06/02/21 03:19 Pulse 71 06/02/21 03:19 Resp 18 06/02/21 03:19 BP 147/75 H 06/02/21 03:19 Pulse Ox 93 06/02/21 03:19 Body Mass Index 20.5 Const: General: in distress and ill appearing Nutritional Appearance: cachectic Orientation/consciousness: patient oriented x3 Resp: Effort & Inspection: normal respiratory effort GI: Other: Rectal examination reveals no evidence of prolapse at this time,prolapse completely reduce. No rectal bleeding noted Skin: Other: warm and dry Neuro: General: patient oriented x3 Objective Data Active Medications Acetaminophen (Acetaminophen 325 Mg Tablet) 650 mg PO Q6H [facility] Last Admin: 06/02/21 01:13 Dose: 650 mg Documented by: DHARMESH Albuterol Sulfate (Albuterol Sulfate (0.083%) 2.5 Mg/3 Ml Vial.Neb) 2.5 mg INHALE ONCE PRN PRN Reason: Wheezing Bupropion HCl (Bupropion Hcl Xl 300 Mg Tab.Er.24h) 300 mg PO DAILY [facility] Last Admin: 06/01/21 07:45 Dose: 300 mg Documented by: SARAH Docusate Sodium (Docusate Sodium 100 Mg Capsule) 100 mg PO BID [facility] Last Admin: 06/01/21 22:07 Dose: 100 mg Documented by: DHARMESH Fluoxetine HCl (Fluoxetine Hcl 20 Mg Capsule) 40 mg PO BEDTIME [facility] Last Admin: 06/01/21 22:07 Dose: 40 mg Documented by: DHARMESH Hydromorphone HCl (Hydromorphone Hcl 0.5 Mg/0.5 Ml Syringe) 0.25 mg IVPUSH Q5M PRN; Protocol PRN Reason: Pain, Severe (Pain Scale 7-10) Hydromorphone HCl (Hydromorphone Hcl 0.5 Mg/0.5 Ml Syringe) 0.5 mg IVPUSH Q4H PRN; Protocol PRN Reason: Pain, Mild (Pain Scale 1-3) Last Admin: 06/01/21 18:47 Dose: 0.5 mg Documented by: AYAN Promethazine HCl 12.5 mg/ (Sodium Chloride) 50.5 mls @ 202 mls/hr IV ONCE PRN PRN Reason: Nausea and Vomiting Lidocaine (Lidocaine 4 % Patch Adh..Patch) 1 patch TRANSDERMA DAILY [facility]; Protocol Last Admin: 06/01/21 07:42 Dose: 1 patch Documented by: SARAH Lidocaine (Lidocaine 4 % Patch Adh..Patch) 1 patch TRANSDERMA DAILY [facility]; Protocol Last Admin: 06/01/21 07:44 Dose: 1 patch Documented by: SARAH Melatonin (Melatonin 3 Mg Tablet) 6 mg PO BEDTIME PRN PRN Reason: Insomnia Last Admin: 05/29/21 19:41 Dose: 6 mg Documented by: ZEE Methylphenidate HCl (Methylphenidate Hcl 10 Mg Tablet) 20 mg PO 0600,1000,1400,1800 [facility] Last Admin: 06/02/21 06:06 Dose: 20 mg Documented by: DHARMESH Ondansetron HCl (Ondansetron Hcl 4 Mg/2 Ml Vial) 4 mg IVPUSH Q8H PRN PRN Reason: Nausea and Vomiting Last Admin: 05/30/21 21:06 Dose: 4 mg Documented by: MAHAMED Oxybutynin Chloride (Oxybutynin Chloride Er 5 Mg Tab.Er.24) 5 mg PO BEDTIME [facility] Last Admin: 06/01/21 22:06 Dose: 5 mg Documented by: DHARMESH Pharmacy Consult (Consult Rx Perform Med Rec) 1 each MISCELLANE ONCE PRN PRN Reason: Consult order Senna (Sennosides 8.6 Mg Tablet) 17.2 mg PO BEDTIME PRN PRN Reason: Constipation Sodium Chloride (0.9 % Sodium Chloride Flush 3 Ml Syringe) 3 ml IVFLUSH QSHIFT [facility] Last Admin: 06/01/21 22:10 Dose: 3 ml Documented by: DHARMESH Trazodone HCl (Trazodone Hcl 100 Mg Tablet) 200 mg PO BEDTIME [facility] Last Admin: 06/01/21 22:06 Dose: 200 mg Documented by: DHARMESH Labs CBC & Chem 7: 06/02/21 06:46 06/02/21 06:46 Labs: Laboratory Results - last 24 hr 06/01/21 06/02/2106/02/21 17:14 06:46 06:46 MCV 95.9 MCH 29.8 MCHC 31.1 RDW 13.5 Plt Count 217 MPV 10.0 Absolute Nucleated RBC 0.000 Nucleated RBC % (auto) 0.0 Anion Gap 11 L 11 L Estim Creat Clear Calc 23.5 24.5 Estimated GFR 37 39 Random Glucose 87 79 Calcium 8.0 L 8.1 L Procedures Date of Service Date of Service: 06/02/21 Progress Note: A&P Assessment and plan (1) Rectal prolapse: Status: Acute Assessment and Plan: Patient's rectal prolapse is reduced at this time but she continues to report rectal pain. Not sure how much of the pain is related to the prolapse and what may be from the urinary system. I again reviewed the surgical option, but she flatly refuses any surgery. Would therefore continue the fiber therapy/stool softeners. Please reconsult for any new problems. Fall Risk Details Current Medications: Current Medications Acetaminophen (Acetaminophen 325 Mg Tablet) 650 mg PO Q6H [facility] Last Admin: 06/02/21 01:13 Dose: 650 mg Documented by: Albuterol Sulfate (Albuterol Sulfate (0.083%) 2.5 Mg/3 Ml Vial.Neb) 2.5 mg INHALE ONCE PRN PRN Reason: Wheezing Bupropion HCl (Bupropion Hcl Xl 300 Mg Tab.Er.24h) 300 mg PO DAILY [facility] Last Admin: 06/01/21 07:45 Dose: 300 mg Documented by: Docusate Sodium (Docusate Sodium 100 Mg Capsule) 100 mg PO BID [facility] Last Admin: 06/01/21 22:07 Dose: 100 mg Documented by: Fluoxetine HCl (Fluoxetine Hcl 20 Mg Capsule) 40 mg PO BEDTIME [facility] Last Admin: 06/01/21 22:07 Dose: 40 mg Documented by: Hydromorphone HCl (Hydromorphone Hcl 0.5 Mg/0.5 Ml Syringe) 0.25 mg IVPUSH Q5M PRN; Protocol PRN Reason: Pain, Severe (Pain Scale 7-10) Hydromorphone HCl (Hydromorphone Hcl 0.5 Mg/0.5 Ml Syringe) 0.5 mg IVPUSH Q4H PRN; Protocol PRN Reason: Pain, Mild (Pain Scale 1-3) Last Admin: 06/01/21 18:47 Dose: 0.5 mg Documented by: Promethazine HCl 12.5 mg/ (Sodium Chloride) 50.5 mls @ 202 mls/hr IV ONCE PRN PRN Reason: Nausea and Vomiting Lidocaine (Lidocaine 4 % Patch Adh..Patch) 1 patch TRANSDERMA DAILY [facility]; Protocol Last Admin: 06/01/21 07:42 Dose: 1 patch Documented by: Lidocaine (Lidocaine 4 % Patch Adh..Patch) 1 patch TRANSDERMA DAILY [facility]; Protocol Last Admin: 06/01/21 07:44 Dose: 1 patch Documented by: Melatonin (Melatonin 3 Mg Tablet) 6 mg PO BEDTIME PRN PRN Reason: Insomnia Last Admin: 05/29/21 19:41 Dose: 6 mg Documented by: Methylphenidate HCl (Methylphenidate Hcl 10 Mg Tablet) 20 mg PO 0600,1000,1400,1800 [facility] Last Admin: 06/02/21 06:06 Dose: 20 mg Documented by: Ondansetron HCl (Ondansetron Hcl 4 Mg/2 Ml Vial) 4 mg IVPUSH Q8H PRN PRN Reason: Nausea and Vomiting Last Admin: 05/30/21 21:06 Dose: 4 mg Documented by: Oxybutynin Chloride (Oxybutynin Chloride Er 5 Mg Tab.Er.24) 5 mg PO BEDTIME [facility] Last Admin: 06/01/21 22:06 Dose: 5 mg Documented by: Pharmacy Consult (Consult Rx Perform Med Rec) 1 each MISCELLANE ONCE PRN PRN Reason: Consult order Senna (Sennosides 8.6 Mg Tablet) 17.2 mg PO BEDTIME PRN PRN Reason: Constipation Sodium Chloride (0.9 % Sodium Chloride Flush 3 Ml Syringe) 3 ml IVFLUSH QSHIFT [facility] Last Admin: 06/01/21 22:10 Dose: 3 ml Documented by: Trazodone HCl (Trazodone Hcl 100 Mg Tablet) 200 mg PO BEDTIME [facility] Last Admin: 06/01/21 22:06 Dose: 200 mg Documented by: Time Spent With Patient Time: Total time spent is greater than 50% in coordination of care (as documented) at patient's floor/unit and/or counseling patient: Time with patient: 15 - 24 minutes Quality Stroke Does the patient have a stroke diagnosis?: No VTE Prior VTE?: No VTE Risk Level:: Medical - moderate - high VTE Device Contraindication: N/A - Device Ordered VTE Drug Contraindication: Treatment Not Indicated
[2021-06-02] MEDS: Docusate Sodium 100 MG CAPSULE PO ×2 (09:59→20:20)
[2021-06-02] MEDS: buPROPion HCl XL 300 MG TAB.ER.24H PO (09:59)
[2021-06-02] MEDS: HYDROmorphone HCl 0.5 MG/0.5 ML SYRINGE IVPUSH ×4 (10:00→20:21)
[2021-06-02] MEDS: 0.9 % Sodium Chloride Flush 3 ML SYRINGE IVFLUSH ×3 (10:00→20:23)
[2021-06-02] MEDS: Lidocaine 4 % Patch ADH..PATCH 1 PATCH TRANSDERMA (10:01)
--- NOTE | 2021-06-02 11:25 | HO.PM.IMPN ---
Subjective Subjective Date of Service: 06/02/21 Interval History: Hematuria , rectal prolapse. Review of Systems Still has flank area discomfort as well as more rectal area discomfort due to prolapse. Denies any chest pain and shortness of breath or fever chills. Physical Exam Vital Signs: Vital Signs: Last Vital Signs Temp 98.2 F 06/02/21 08:00 Pulse 80 06/02/21 08:00 Resp 20 06/02/21 08:00 BP 181/86 H 06/02/21 08:00 Pulse Ox 93 06/02/21 08:00 Body Mass Index 20.5 Physical exam: Appearance: Alert.? Oriented X3.?has pain rectal area. cvs: rrr, [id number] , no murmur res: clear to auscultation ,no rhonchii or wheezing abd: no rebound or guarding ,lateral flank area pain, bs present. ext pulses present , no cyanosis ,Gait well balanced well coordinated. neuro: axo3 , moves all ext. Objective Data Active Medications Acetaminophen (Acetaminophen 325 Mg Tablet) 650 mg PO Q6H [facility] Last Admin: 06/02/21 10:01 Dose: 650 mg Documented by: JOSE MARTIN Albuterol Sulfate (Albuterol Sulfate (0.083%) 2.5 Mg/3 Ml Vial.Neb) 2.5 mg INHALE ONCE PRN PRN Reason: Wheezing Bupropion HCl (Bupropion Hcl Xl 300 Mg Tab.Er.24h) 300 mg PO DAILY [facility] Last Admin: 06/02/21 09:59 Dose: 300 mg Documented by: JOSE MARTIN Docusate Sodium (Docusate Sodium 100 Mg Capsule) 100 mg PO BID [facility] Last Admin: 06/02/21 09:59 Dose: 100 mg Documented by: JOSE MARTIN Fluoxetine HCl (Fluoxetine Hcl 20 Mg Capsule) 40 mg PO BEDTIME [facility] Last Admin: 06/01/21 22:07 Dose: 40 mg Documented by: DHARMESH Hydromorphone HCl (Hydromorphone Hcl 0.5 Mg/0.5 Ml Syringe) 0.25 mg IVPUSH Q5M PRN; Protocol PRN Reason: Pain, Severe (Pain Scale 7-10) Hydromorphone HCl (Hydromorphone Hcl 0.5 Mg/0.5 Ml Syringe) 0.5 mg IVPUSH Q4H [facility]; Protocol Promethazine HCl 12.5 mg/ (Sodium Chloride) 50.5 mls @ 202 mls/hr IV ONCE PRN PRN Reason: Nausea and Vomiting Lidocaine (Lidocaine 4 % Patch Adh..Patch) 1 patch TRANSDERMA DAILY [facility]; Protocol Last Admin: 06/02/21 10:24 Dose: Not Given Documented by: JOSE MARTIN Non-Admin Reason: Duplicate Order Lidocaine (Lidocaine 4 % Patch Adh..Patch) 1 patch TRANSDERMA DAILY [facility]; Protocol Last Admin: 06/02/21 10:01 Dose: 1 patch Documented by: JOSE MARTIN Melatonin (Melatonin 3 Mg Tablet) 6 mg PO BEDTIME PRN PRN Reason: Insomnia Last Admin: 05/29/21 19:41 Dose: 6 mg Documented by: ZEE Methylphenidate HCl (Methylphenidate Hcl 10 Mg Tablet) 20 mg PO 0600,1000,1400,1800 [facility] Last Admin: 06/02/21 10:00 Dose: 20 mg Documented by: JOSE MARTIN Ondansetron HCl (Ondansetron Hcl 4 Mg/2 Ml Vial) 4 mg IVPUSH Q8H PRN PRN Reason: Nausea and Vomiting Last Admin: 05/30/21 21:06 Dose: 4 mg Documented by: MAHAMED Oxybutynin Chloride (Oxybutynin Chloride Er 5 Mg Tab.Er.24) 5 mg PO BEDTIME [facility] Last Admin: 06/01/21 22:06 Dose: 5 mg Documented by: DHARMESH Pharmacy Consult (Consult Rx Perform Med Rec) 1 each MISCELLANE ONCE PRN PRN Reason: Consult order Senna (Sennosides 8.6 Mg Tablet) 17.2 mg PO BEDTIME PRN PRN Reason: Constipation Sodium Chloride (0.9 % Sodium Chloride Flush 3 Ml Syringe) 3 ml IVFLUSH QSHIFT [facility] Last Admin: 06/02/21 10:00 Dose: 3 ml Documented by: JOSE MARTIN Trazodone HCl (Trazodone Hcl 100 Mg Tablet) 200 mg PO BEDTIME [facility] Last Admin: 06/01/21 22:06 Dose: 200 mg Documented by: DHARMESH Labs CBC & Chem 7: 06/02/21 06:46 06/02/21 06:46 Labs: Laboratory Results - last 24 hr 06/01/21 06/02/21 06/02/21 17:14 06:46 06:46 MCV 95.9 MCH 29.8 MCHC 31.1 RDW 13.5 Plt Count 217 MPV 10.0 Absolute Nucleated RBC 0.000 Nucleated RBC % (auto) 0.0 Anion Gap 11 L 11 L Estim Creat Clear Calc 23.5 24.5 Estimated GFR 37 39 Random Glucose 87 79 Calcium 8.0 L 8.1 L Assessment and Plan (1) Rectal prolapse: Status: Acute (2) Hematuria: Status: Acute Assessment and Plan: 70yo F with anxiety, depression, hx subdural hematoma presented with worsening ataxia, generalized weakness and fall without LOC, abd pain found to have high-grade UPJ obstruction/hydronephrosis of L kidney, biliary ductal dilation with abrupt narrowing 1. L hydronephrosis/UPJ obstruction with question of accessory L renal artery as cause - Lasix renogram done -s/p stent Has hematuria Pain control with lidocaine patch and Tylenol, dilaudid -watch for sedation and respiratory status Urology [id number] for ureter spasm 2. biliary dilation- GI consulted- appears chronic dating back to 2005, no further w/u indicated 3. ataxia/tremor- Neuro consulted, attributable to chronic microangiopathy and generalized cerebral volume loss, no further workup indicated 4. 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 Improving with hydration Lasix renogram as above-1. Minimal delay in the right renal perfusion but otherwise normal cortical function and excretion with normal response to Lasix. The right kidney contributes 99% of total renal function. ? No left renal perfusion seen. There is delayed? to no cortical uptake seen. No response to Lasix. 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 ? WANDER improving with hydration.? Had stent placed 05/31 ? Yesterday had pinkish urine today has pinkish urine again with clots ?urology follow-up pending- communication sent to use urology. 5.mood disorder- bupropion, fluoxetine, trazodone, methylphenidate, lorazepam 6. rectal prolapse:? seen by surgery recommended laxatives,pain control She may need surgical intervention if rectal prolapse does not improve with above. Quality Stroke Does the patient have a stroke diagnosis?: No VTE Prior VTE?: No VTE Risk Level:: Medical - moderate - high VTE Device Contraindication: N/A - Device Ordered VTE Drug Contraindication: Treatment Not Indicated
[2021-06-02] MEDS: traZODone HCL 100 MG TABLET 200 MG PO (20:22)
[2021-06-02] MEDS: FLUoxetine HCl 20 MG CAPSULE 40 MG PO (20:22)
[2021-06-03] MEDS: HYDROmorphone HCl 0.5 MG/0.5 ML SYRINGE IVPUSH ×5 (00:20→20:55)
[2021-06-03] MEDS: Acetaminophen 325 MG TABLET 650 MG PO ×4 (01:45→20:55)
[2021-06-03 03:22] VITALS: BP 160/87; PULSE 60; RESP 20; TEMP 36.6; O2SAT 97
[2021-06-03] MEDS: Methylphenidate HCl 10 MG TABLET 20 MG PO ×3 (06:00→15:24)
[2021-06-03 08:00] VITALS: BP 145/82; PULSE 72; RESP 20; TEMP 36.6; O2SAT 92
--- NOTE | 2021-06-03 08:33 | PM.PNNEP ---
Subjective Subjective Date of Service: 06/03/21 Interval history: Hematuria , rectal prolapse. Physical Exam Vital Signs: Vital Signs: Last Vital Signs Temp 97.9 F 06/03/21 08:00 Pulse 72 06/03/21 08:00 Resp 20 06/03/21 08:00 BP 145/82 H 06/03/21 08:00 Pulse Ox 92 06/03/21 08:00 Body Mass Index 20.5 Const: Other: Patient is extremely anxious appearing, hypervigilant, initially having brief jerks of her face and extremities, which ceased with distraction and wants the patient admitted her for a few minutes. No evidence of any focal seizures. General: cooperative, healthy appearing, comfortable, no acute distress, alert, in distress and ill appearing Nutritional Appearance: cachectic and thin Orientation/consciousness: patient oriented x3 Limitations: no limitations and No language barrier HENMT: Head: Yes normal to inspection, Yes normocephalic and Yes atraumatic Face and sinus: Yes normal facial exam Mouth: moist mucous membranes Eyes: General: appearance normal, both eyes and all related structures Eyelids: Yes eyelids normal Conjunctivae: conjunctivae normal Pupils: Equal, round and reactive pupils present EOM: EOMs intact bilaterally Neck: Neck: Yes normal visual inspection, Yes full ROM, Yes trachea midline and Yes supple Chest: Chest palpation & inspection: normal inspection of the chest Resp: Effort & Inspection: normal respiratory effort, able to speak in complete sentences, no respiratory distress, no stridor and not tachypneic Auscultation: clear to auscultation bilaterally and diminished lung sounds Cardio: Jugular venous distension: no JVD Rate: regular rate Rhythm: regular rhythm Heart sounds: S1 normal heart sound present, S2 normal heart sound present, no gallops, no murmurs and no rubs GI: Other: Rectal examination reveals no evidence of prolapse at this time,prolapse completely reduce. No rectal bleeding noted Inspection: Yes normal to inspection and No distended Palpation (GI): Soft to palpation, nontender and Other GI palpation findings present (Non-distended) Auscultation: normal bowel sounds Back/Spine/Pelvis: Cervical Spine: normal cervical lordosis Thoracic/Lumbar Spine: thoracic and lumbar spine normal to inspection Skin: Other: warm and dry General skin exam: no rashes or lesions noted Neuro: Other: She is alert and awake with normal spontaneity of speech fluency comprehension and affect. Pupils are round and reactive to light. Extraocular muscles were intact. Visual sheehan are full to threat. Face was symmetrical. There was no pronator drift. Mild bilateral ataxia was noted on [id number] testing and mild postural tremor in both hands. Deep tendon reflexes were absent with flexor plantars. General: patient oriented x3, gait normal, tone normal, moves all extremities, no focal motor deficits and CN's II-XI intact bilaterally Cranial nerves: Yes CN's II-XII intact bilaterally and Yes Equal, round and reactive pupils present Cognition (Neuro): normal cognition Motor exam (neuro): 5/5 motor strength present throughout and no tremor noted Sensory Exam: No Sensory deficit (Neuro) Extrem: General: Yes normal to inspection, Yes capillary refill normal, Yes no pedal edema, No clubbing and No cyanosis Psych: Affect: No normal affect and Anxious affect present Objective Data Labs CBC & Chem 7: 06/02/21 06:46 06/02/21 06:46 Procedures Date of Service Date of Service: 06/03/21 Assessment & Plan Assessment and plan (1) Rectal prolapse: Status: Acute (2) Hematuria: Status: Acute Assessment and Plan: 70yo F with anxiety, depression, hx subdural hematoma presented with worsening ataxia, generalized weakness and fall without LOC, abd pain found to have high-grade UPJ obstruction/hydronephrosis of L kidney, biliary ductal dilation with abrupt narrowing 1. L hydronephrosis/UPJ obstruction with question of accessory L renal artery as cause - Lasix renogram done -s/p stent Has hematuria Pain control with lidocaine patch and Tylenol, dilaudid -watch for sedation and respiratory status Urology [id number] for ureter spasm 2. biliary dilation- GI consulted- appears chronic dating back to 2005, no further w/u indicated 3. ataxia/tremor- Neuro consulted, attributable to chronic microangiopathy and generalized cerebral volume loss, no further workup indicated 4. 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 Improving with hydration Lasix renogram as above-1. Minimal delay in the right renal perfusion but otherwise normal cortical function and excretion with normal response to Lasix. The right kidney contributes 99% of total renal function. ? No left renal perfusion seen. There is delayed? to no cortical uptake seen. No response to Lasix. 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 ? WANDER creat starting to creep up. suggest increase IVF get renal US in am discuss with urology ? Had stent placed 05/31 ? Yesterday had pinkish urine today has pinkish urine again with clots ?urology follow-up pending 5.mood disorder- bupropion, fluoxetine, trazodone, methylphenidate, lorazepam 6. rectal prolapse:? seen by surgery recommended laxatives,pain control She may need surgical intervention if rectal prolapse does not improve with above. Time Spent With Patient Time: Total time spent is greater than 50% in coordination of care (as documented) at patient's floor/unit and/or counseling patient: Progress Note: Quality Stroke Does the patient have a stroke diagnosis?: No
[2021-06-03] MEDS: buPROPion HCl XL 300 MG TAB.ER.24H PO (09:32)
[2021-06-03] MEDS: Docusate Sodium 100 MG CAPSULE PO ×2 (09:32→20:54)
[2021-06-03] MEDS: 0.9 % Sodium Chloride Flush 3 ML SYRINGE IVFLUSH ×3 (09:32→20:56)
[2021-06-03] MEDS: Lactated Ringers 1,000 ML 100 ML IVCONT ×2 (09:37→20:54)
[2021-06-03] MEDS: Lidocaine 4 % Patch ADH..PATCH 1 PATCH TRANSDERMA (09:39)
--- NOTE | 2021-06-03 11:39 | P.PNIM_ITS ---
Subjective Subjective Date of Service: 06/03/21 Interval History: WANDER, rectal prolapse Review of Systems Pain seems to be improving slowly. Denies any nausea vomiting or fever chills or cough or phlegm. This morning seems like rectal prolapse -rectum in place , she also had bm. Physical Exam Vital Signs: Vital Signs: Last Vital Signs Temp 97.9 F 06/03/21 08:00 Pulse 72 06/03/21 08:00 Resp 20 06/03/21 08:00 BP 145/82 H 06/03/21 08:00 Pulse Ox 92 06/03/21 08:00 Body Mass Index 20.5 Appearance: Alert.? Oriented X3.?has pain rectal area. cvs: rrr, [id number] , no murmur res: clear to auscultation ,no rhonchii or wheezing abd: no rebound or guarding ,lateral flank area pains seems improving, bs present. ext pulses present , no cyanosis ,Gait well balanced well coordinated. neuro: axo3 , moves all ext. Objective Data Active Medications Acetaminophen (Acetaminophen 325 Mg Tablet) 650 mg PO Q6H [facility] Last Admin: 06/03/21 09:33 Dose: 650 mg Documented by: JOSE MARTIN Albuterol Sulfate (Albuterol Sulfate (0.083%) 2.5 Mg/3 Ml Vial.Neb) 2.5 mg INHALE ONCE PRN PRN Reason: Wheezing Bupropion HCl (Bupropion Hcl Xl 300 Mg Tab.Er.24h) 300 mg PO DAILY [facility] Last Admin: 06/03/21 09:32 Dose: 300 mg Documented by: JOSE MARTIN Docusate Sodium (Docusate Sodium 100 Mg Capsule) 100 mg PO BID [facility] Last Admin: 06/03/21 09:32 Dose: 100 mg Documented by: JOSE MARTIN Fluoxetine HCl (Fluoxetine Hcl 20 Mg Capsule) 40 mg PO BEDTIME [facility] Last Admin: 06/02/21 20:22 Dose: 40 mg Documented by: DHARMESH Hydromorphone HCl (Hydromorphone Hcl 0.5 Mg/0.5 Ml Syringe) 0.25 mg IVPUSH Q5M PRN; Protocol PRN Reason: Pain, Severe (Pain Scale 7-10) Hydromorphone HCl (Hydromorphone Hcl 0.5 Mg/0.5 Ml Syringe) 0.5 mg IVPUSH Q4H [facility]; Protocol Last Admin: 06/03/21 09:33 Dose: 0.5 mg Documented by: JOSE MARTIN Promethazine HCl 12.5 mg/ (Sodium Chloride) 50.5 mls @ 202 mls/hr IV ONCE PRN PRN Reason: Nausea and Vomiting Lactated Ringer's (Lr) 1,000 mls @ 100 mls/hr IVCONT .Q10H [facility] Last Admin: 06/03/21 09:37 Dose: 100 mls/hr Documented by: JOSE MARTIN Lidocaine (Lidocaine 4 % Patch Adh..Patch) 1 patch TRANSDERMA DAILY [facility]; Protocol Last Admin: 06/03/21 09:39 Dose: 1 patch Documented by: JOSE MARTIN Melatonin (Melatonin 3 Mg Tablet) 6 mg PO BEDTIME PRN PRN Reason: Insomnia Last Admin: 05/29/21 19:41 Dose: 6 mg Documented by: ZEE Methylphenidate HCl (Methylphenidate Hcl 10 Mg Tablet) 20 mg PO 0600,100 0,1400,1800 [facility] Last Admin: 06/03/21 09:32 Dose: 20 mg Documented by: JOSE MARTIN Ondansetron HCl (Ondansetron Hcl 4 Mg/2 Ml Vial) 4 mg IVPUSH Q8H PRN PRN Reason: Nausea and Vomiting Last Admin: 05/30/21 21:06 Dose: 4 mg Documented by: MAHAMED Oxybutynin Chloride (Oxybutynin Chloride Er 5 Mg Tab.Er.24) 5 mg PO BEDTIME [facility] Last Admin: 06/02/21 20:21 Dose: 5 mg Documented by: DHARMESH Pharmacy Consult (Consult Rx Perform Med Rec) 1 each MISCELLANE ONCE PRN PRN Reason: Consult order Senna (Sennosides 8.6 Mg Tablet) 17.2 mg PO BEDTIME PRN PRN Reason: Constipation Sodium Chloride (0.9 % Sodium Chloride Flush 3 Ml Syringe) 3 ml IVFLUSH QSHIFT [facility] Last Admin: 06/03/21 09:32 Dose: 3 ml Documented by: JOSE MARTIN Trazodone HCl (Trazodone Hcl 100 Mg Tablet) 200 mg PO BEDTIME [facility] Last Admin: 06/02/21 20:22 Dose: 200 mg Documented by: DHARMESH Labs CBC & Chem 7: 06/02/21 06:46 06/02/21 06:46 Assessment and Plan (1) Rectal prolapse: Status: Acute (2) Hydronephrosis: Status: Acute Assessment and Plan: 70yo F with anxiety, depression, hx subdural hematoma presented with worsening ataxia, generalized weakness and fall without LOC, abd pain found to have high-grade UPJ obstruction/hydronephrosis of L kidney, biliary ductal dilation with abrupt narrowing 1. L hydronephrosis/UPJ obstruction with question of accessory L renal artery as cause - Lasix renogram done -s/p stent Has hematuria Pain control with lidocaine patch and Tylenol, dilaudid adjusted -watch for sedation and respiratory status hydration and renal us Urology [id number] oxybutnin for ureter spasm 2. biliary dilation- GI consulted- appears chronic dating back to 2005, no further w/u indicated 3. ataxia/tremor- Neuro consulted, attributable to chronic microangiopathy and generalized cerebral volume loss, no further workup indicated 4. 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 Improving with hydration Lasix renogram as above-1. Minimal delay in the right renal perfusion but otherwise normal cortical function and excretion with normal response to Lasix. The right kidney contributes 99% of total renal function. ? No left renal perfusion seen. There is delayed? to no cortical uptake seen. No response to Lasix. 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 ? WANDER improving with hydration.? Had stent placed 05/31 ? Yesterday had pinkish urine today has pinkish urine again with clots ?urology follow-up pending- communication sent to use urology. 5.mood disorder- bupropion, fluoxetine, trazodone, methylphenidate, lorazepam 6. rectal prolapse:? seen by surgery recommended laxatives,pain control She may need surgical intervention if rectal prolapse does not improve with above. Quality Stroke Does the patient have a stroke diagnosis?: No VTE Prior VTE?: No VTE Risk Level:: Medical - moderate - high VTE Device Contraindication: N/A - Device Ordered VTE Drug Contraindication: Treatment Not Indicated
[2021-06-03 11:57] VITALS: BP 153/90; PULSE 69; RESP 20; TEMP 37.1; O2SAT 94
[2021-06-03] MEDS: polyethylene glycoL 3350 17 GM POWD.PACK PO (12:48)
[2021-06-03 15:17] VITALS: BP 154/78; PULSE 72; RESP 20; TEMP 36.1; O2SAT 95
[2021-06-03] MEDS: HYDROmorphone HCl 0.5 MG/0.5 ML SYRINGE 0.25 MG IVPUSH (17:51)
[2021-06-03 19:04] VITALS: BP 150/74; PULSE 75; RESP 21; TEMP 36.7; O2SAT 95
[2021-06-03] MEDS: FLUoxetine HCl 20 MG CAPSULE 40 MG PO (20:54)
[2021-06-03] MEDS: traZODone HCL 100 MG TABLET 200 MG PO (20:55)
[2021-06-03 23:11] VITALS: BP 126/61; PULSE 77; RESP 20; TEMP 37.1; O2SAT 92
[2021-06-04] MEDS: HYDROmorphone HCl 0.5 MG/0.5 ML SYRINGE IVPUSH ×5 (03:28→20:45)
[2021-06-04 03:29] VITALS: PULSE 65; RESP 18
[2021-06-04] MEDS: Lactated Ringers 1,000 ML 100 ML IVCONT (06:00)
[2021-06-04] MEDS: Methylphenidate HCl 10 MG TABLET 20 MG PO ×4 (06:00→17:16)
[2021-06-04] MEDS: Acetaminophen 325 MG TABLET 650 MG PO ×3 (06:00→18:40)
[2021-06-04 07:43] VITALS: BP 166/94; PULSE 70; RESP 18; TEMP 36.6; O2SAT 93
[2021-06-04 08:58] LABS: Hematocrit 38.8 % (37.0-47.0); Hemoglobin 12.3 g/dl (12.0-16.0)
[2021-06-04 09:13] LABS: Anion Gap 12 (12-20); Blood Urea Nitrogen 28 mg/dL (9-16); Calcium 8.4 mg/dL (8.4-10.2); Carbon Dioxide 29 mmol/L (22-29); Chloride 103 mmol/L (96-108); Creatinine Clr Calc Pharmacy 24.5; Estimated Glomerular Filt Rate 39; Glucose Random 116 mg/dL (60-115); Potassium 4.6 mmol/L (3.3-5.1); Sodium 139 mmol/L (135-145)
[2021-06-04] MEDS: polyethylene glycoL 3350 17 GM POWD.PACK PO (09:40)
[2021-06-04] MEDS: 0.9 % Sodium Chloride Flush 3 ML SYRINGE IVFLUSH ×3 (09:40→20:46)
[2021-06-04] MEDS: buPROPion HCl XL 300 MG TAB.ER.24H PO (09:40)
[2021-06-04] MEDS: Docusate Sodium 100 MG CAPSULE PO ×2 (09:40→20:45)
[2021-06-04] MEDS: Lidocaine 4 % Patch ADH..PATCH 1 PATCH TRANSDERMA (09:42)
[2021-06-04 11:22] VITALS: BP 140/86; PULSE 67; RESP 18; TEMP 36.8; O2SAT 94
--- NOTE | 2021-06-04 11:57 | HO.PM.IMPN ---
Subjective Subjective Date of Service: 06/04/21 Interval History: rectal pain, hemtauria , ? fluid leakage around stoddard Review of Systems Still has rectal pain with passing bowels and somewhat rectal protruding this morning also as per patient. Physical Exam Vital Signs: Vital Signs: Last Vital Signs Temp 98.2 F 06/04/21 11:22 Pulse 67 06/04/21 11:22 Resp 18 06/04/21 11:22 BP 140/86 H 06/04/21 11:22 Pulse Ox 94 06/04/21 11:22 Body Mass Index 20.5 Appearance: Alert.? Oriented X3.?has pain rectal area. cvs: rrr, [id number] , no murmur res: clear to auscultation ,no rhonchii or wheezing abd: no rebound or guarding ,lateral flank area pains seems improving, bs present. has rectal area pain some urine leakage around stoddard hemturia improving ext pulses present , no cyanosis ,Gait well balanced well coordinated. neuro: axo3 , moves all ex Objective Data Active Medications Acetaminophen (Acetaminophen 325 Mg Tablet) 650 mg PO Q6H [facility] Last Admin: 06/04/21 06:00 Dose: 650 mg Documented by: VIVI Albuterol Sulfate (Albuterol Sulfate (0.083%) 2.5 Mg/3 Ml Vial.Neb) 2.5 mg INHALE ONCE PRN PRN Reason: Wheezing Bupropion HCl (Bupropion Hcl Xl 300 Mg Tab.Er.24h) 300 mg PO DAILY [facility] Last Admin: 06/04/21 09:40 Dose: 300 mg Documented by: RON Docusate Sodium (Docusate Sodium 100 Mg Capsule) 100 mg PO BID [facility] Last Admin: 06/04/21 09:40 Dose: 100 mg Documented by: RON Fluoxetine HCl (Fluoxetine Hcl 20 Mg Capsule) 40 mg PO BEDTIME [facility] Last Admin: 06/03/21 20:54 Dose: 40 mg Documented by: VIVI Hydromorphone HCl (Hydromorphone Hcl 0.5 Mg/0.5 Ml Syringe) 0.25 mg IVPUSH Q5M PRN; Protocol PRN Reason: Pain, Severe (Pain Scale 7-10) Hydromorphone HCl (Hydromorphone Hcl 0.5 Mg/0.5 Ml Syringe) 0.5 mg IVPUSH Q6H [facility]; Protocol Last Admin: 06/04/21 09:41 Dose: 0.5 mg Documented by: RON Promethazine HCl 12.5 mg/ (Sodium Chloride) 50.5 mls @ 202 mls/hr IV ONCE PRN PRN Reason: Nausea and Vomiting Lidocaine (Lidocaine 4 % Patch Adh..Patch) 1 patch TRANSDERMA DAILY [facility]; Protocol Last Admin: 06/04/21 09:42 Dose: 1 patch Documented by: RON Melatonin (Melatonin 3 Mg Tablet) 6 mg PO BEDTIME PRN PRN Reason: Insomnia Last Admin: 05/29/21 19:41 Dose: 6 mg Documented by: ZEE Methylphenidate HCl (Methylphenidate Hcl 10 Mg Tablet) 20 mg PO 0600,1000,1400,1800 [facility] Last Admin: 06/04/21 09:40 Dose: 20 mg Documented by: RON Ondansetron HCl (Ondansetron Hcl 4 Mg/2 Ml Vial) 4 mg IVPUSH Q8H PRN PRN Reason: Nausea and Vomiting Last Admin: 05/30/21 21:06 Dose: 4 mg Documented by: MAHAMED Oxybutynin Chloride (Oxybutynin Chloride Er 5 Mg Tab.Er.24) 5 mg PO BEDTIME [facility] Last Admin: 06/03/21 20:54 Dose: 5 mg Documented by: VIVI Pharmacy Consult (Consult Rx Perform Med Rec) 1 each MISCELLANE ONCE PRN PRN Reason: Consult order Polyethylene Glycol (Polyethylene Glycol 3350 17 Gm Powd.Pack) 17 gm PO DAILY [facility] Last Admin: 06/04/21 09:40 Dose: 17 gm Documented by: RON Sodium Chloride (0.9 % Sodium Chloride Flush 3 Ml Syringe) 3 ml IVFLUSH QSHIFT [facility] Last Admin: 06/04/21 09:40 Dose: 3 ml Documented by: RON Trazodone HCl (Trazodone Hcl 100 Mg Tablet) 200 mg PO BEDTIME [facility] Last Admin: 06/03/21 20:55 Dose: 200 mg Documented by: VIVI Labs CBC & Chem 7: 06/04/21 08:28 06/04/21 08:28 Labs: Laboratory Results - last 24 hr 06/04/21 06/04/21 08:27 08:28 Anion Gap 12 Estim Creat Clear Calc 24.5 Estimated GFR 39 Random Glucose 116 H Calcium 8.4 Blood Type O Positive Antibody Screen NEGATIVE Assessment and Plan (1) Rectal prolapse: Status: Acute (2) Hydronephrosis: Status: Acute Assessment and Plan: 70yo F with anxiety, depression, hx subdural hematoma presented with worsening ataxia, generalized weakness and fall without LOC, abd pain found to have high-grade UPJ obstruction/hydronephrosis of L kidney, biliary ductal dilation with abrupt narrowing 1. L hydronephrosis/UPJ obstruction with question of accessory L renal artery as cause - Lasix renogram done -s/p stent Has hematuria Pain control with lidocaine patch and Tylenol, dilaudid adjusted -watch for sedation and respiratory status renal us-seems hydronephrosis improving in comparsion to previous ct scan Urology azkcip-um-wy oxybutnin for ureter spasm, urology follow-up for hematuria as well as urine leaking around the catheter. 2. biliary dilation- GI consulted- appears chronic dating back to 2005, no further w/u indicated 3. ataxia/tremor- Neuro consulted, attributable to chronic microangiopathy and generalized cerebral volume loss, no further workup indicated 4. 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 Improving with hydration Lasix renogram as above-1. Minimal delay in the right renal perfusion but otherwise normal cortical function and excretion with normal response to Lasix. The right kidney contributes 99% of total renal function. ? No left renal perfusion seen. There is delayed? to no cortical uptake seen. No response to Lasix. 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 ? WANDER improving with hydration.? Had stent placed 05/31 ? Yesterday had pinkish urine today has pinkish urine again with clots ?urology follow-up pending- communication sent to use urology. 5.mood disorder- bupropion, fluoxetine, trazodone, methylphenidate, lorazepam 6. rectal prolapse:? seen by surgery recommended laxatives,pain control Patient still has significant rectal pain specially when pulses bowels and also protrusion on and off-will need surgical follow-up. Quality Stroke Does the patient have a stroke diagnosis?: No VTE Prior VTE?: No VTE Risk Level:: Medical - moderate - high VTE Device Contraindication: N/A - Device Ordered VTE Drug Contraindication: Treatment Not Indicated
--- NOTE | 2021-06-04 12:14 | PC.NURSE ---
Pt has signs of wetness despite stoddard placement. Removed 10cc from stoddard catheter balloon, balloon reinflated with 10cc. Placed balloon over bladder neck. Irrigated stoddard cath with 40cc sterile saline. Removed 40 cc after irrigation. New secure cath applied to pt left leg and ensured no coils or kinks in catheter. Will monitor stoddard drainage and function.
--- NOTE | 2021-06-04 12:25 | MHC.CM.PN ---
per rounds pt may have prolapse surgery no dc date at this time
--- NOTE | 2021-06-04 12:30 | PM.PNGS ---
Subjective Subjective Date of Service: 06/04/21 Interval history: Asked to re-evaluate patient this morning. Overall the patient seems more comfortable, complaining more of left and right flank pain then pelvic pain. She was found to be completely soaked with urine despite having recently being cleaned up with clean gown. Patient feels she is leaking urine around the catheter. Physical Exam Vital Signs: Vital Signs: Last Vital Signs Temp 98.2 F 06/04/21 11: Pulse 67 06/04/21 11:22 Resp 18 06/04/21 11:22 BP 140/86 H 06/04/21 11:22 Pulse Ox 94 06/04/21 11:22 Body Mass Index 20.5 Const: General: alert and tired appearing Nutritional Appearance: thin Orientation/consciousness: patient oriented x3 Resp: Effort & Inspection: normal respiratory effort, no cough and no respiratory distress GI: Inspection: Yes normal to inspection Palpation (GI): Soft to palpation, Tenderness to palpation present (GI) (Bilateral flank) and not rigid Percussion: Yes normal to percussion Auscultation: normal bowel sounds Rectal Exam - Female: visual inspection normal (No prolapse identified, no bleeding, no tenderness) and No Rectal prolapse Skin: General skin exam: no rashes or lesions noted Neuro: General: patient oriented x3 Objective Data Active Medications Acetaminophen (Acetaminophen 325 Mg Tablet) 650 mg PO Q6H [facility] Last Admin: 06/04/21 06:00 Dose: 650 mg Documented by: VIVI Albuterol Sulfate (Albuterol Sulfate (0.083%) 2.5 Mg/3 Ml Vial.Neb) 2.5 mg INHALE ONCE PRN PRN Reason: Wheezing Bupropion HCl (Bupropion Hcl Xl 300 Mg Tab.Er.24h) 300 mg PO DAILY [facility] Last Admin: 06/04/21 09:40 Dose: 300 mg Documented by: RON Docusate Sodium (Docusate Sodium 100 Mg Capsule) 100 mg PO BID [facility] Last Admin: 06/04/21 09:40 Dose: 100 mg Documented by: RON Fluoxetine HCl (Fluoxetine Hcl 20 Mg Capsule) 40 mg PO BEDTIME [facility] Last Admin: 06/03/21 20:54 Dose: 40 mg Documented by: VIVI Hydromorphone HCl (Hydromorphone Hcl 0.5 Mg/0.5 Ml Syringe) 0.25 mg IVPUSH Q5M PRN; Protocol PRN Reason: Pain, Severe (Pain Scale 7-10) Hydromorphone HCl (Hydromorphone Hcl 0.5 Mg/0.5 Ml Syringe) 0.5 mg IVPUSH Q6H [facility]; Protocol Last Admin: 06/04/21 09:41 Dose: 0.5 mg Documented by: RON Promethazine HCl 12.5 mg/ (Sodium Chloride) 50.5 mls @ 202 mls/hr IV ONCE PRN PRN Reason: Nausea and Vomiting Lidocaine (Lidocaine 4 % Patch Adh..Patch) 1 patch TRANSDERMA DAILY [facility]; Protocol Last Admin: 06/04/21 09:42 Dose: 1 patch Documented by: RON Melatonin (Melatonin 3 Mg Tablet) 6 mg PO BEDTIME PRN PRN Reason: Insomnia Last Admin: 05/29/21 19:41 Dose: 6 mg Documented by: ZEE Methylphenidate HCl (Methylphenidate Hcl 10 Mg Tablet) 20 mg PO 0600,1000,1400,1800 [facility] [place] Last Admin: 06/04/21 09:40 Dose: 20 mg Documented by: RON Ondansetron HCl (Ondansetron Hcl 4 Mg/2 Ml Vial) 4 mg IVPUSH Q8H PRN PRN Reason: Nausea and Vomiting Last Admin: 05/30/21 21:06 Dose: 4 mg Documented by: MAHAMED Oxybutynin Chloride (Oxybutynin Chloride Er 5 Mg Tab.Er.24) 5 mg PO BEDTIME [facility] Last Admin: 06/03/21 20:54 Dose: 5 mg Documented by: VIVI Pharmacy Consult (Consult Rx Perform Med Rec) 1 each MISCELLANE ONCE PRN PRN Reason: Consult order Polyethylene Glycol (Polyethylene Glycol 3350 17 Gm Powd.Pack) 17 gm PO DAILY [facility] Last Admin: 06/04/21 09:40 Dose: 17 gm Documented by: RON Sodium Chloride (0.9 % Sodium Chloride Flush 3 Ml Syringe) 3 ml IVFLUSH QSHIFT [facility] Last Admin: 06/04/21 09:40 Dose: 3 ml Documented by: RON Trazodone HCl (Trazodone Hcl 100 Mg Tablet) 200 mg PO BEDTIME [facility] [place] Last Admin: 06/03/21 20:55 Dose: 200 mg Documented by: VIVI Labs CBC & Chem 7: 06/04/21 08:28 06/04/21 08:28 Labs: Laboratory Results - last 24 hr 06/04/21 06/04/21 08:27 08:28 Anion Gap 12 Estim Creat Clear Calc 24.5 Estimated GFR 39 Random Glucose 116 H Calcium 8.4 Blood Type O Positive Antibody Screen NEGATIVE Procedures Date of Service Date of Service: 06/04/21 Progress Note: A&P Assessment and plan (1) Rectal prolapse: Status: Acute Assessment and Plan: 70-year-old female patient with a known history of rectal prolapse complaining today of bilateral flank pain. Patient is reported to have had a bowel movement without significant prolapse or bleeding. Examination today reveals no rectal prolapse with normal sphincter tone. Patient with probable grade 2 rectal prolapse, reduces spontaneously. Her abdominal pain appears to be more related to the genitourinary issues. No surgical intervention recommended for the rectal prolapse at this time. Fall Risk Details Current Medications: Current Medications Acetaminophen (Acetaminophen 325 Mg Tablet) 650 mg PO Q6H [facility] [place] Last Admin: 06/04/21 06:00 Dose: 650 mg Documented by: Albuterol Sulfate (Albuterol Sulfate (0.083%) 2.5 Mg/3 Ml Vial.Neb) 2.5 mg INHALE ONCE PRN PRN Reason: Wheezing Bupropion HCl (Bupropion Hcl Xl 300 Mg Tab.Er.24h) 300 mg PO DAILY [facility] Last Admin: 06/04/21 09:40 Dose: 300 mg Documented by: Docusate Sodium (Docusate Sodium 100 Mg Capsule) 100 mg PO BID [facility] Last Admin: 06/04/21 09:40 Dose: 100 mg Documented by: Fluoxetine HCl (Fluoxetine Hcl 20 Mg Capsule) 40 mg PO BEDTIME [facility] [place] Last Admin: 06/03/21 20:54 Dose: 40 mg Documented by: Hydromorphone HCl (Hydromorphone Hcl 0.5 Mg/0.5 Ml Syringe) 0.25 mg IVPUSH Q5M PRN; Protocol PRN Reason: Pain, Severe (Pain Scale 7-10) Hydromorphone HCl (Hydromorphone Hcl 0.5 Mg/0.5 Ml Syringe) 0.5 mg IVPUSH Q6H [facility]; Protocol Last Admin: 06/04/21 09:41 Dose: 0.5 mg Documented by: Promethazine HCl 12.5 mg/ (Sodium Chloride) 50.5 mls @ 202 mls/hr IV ONCE PRN PRN Reason: Nausea and Vomiting Lidocaine (Lidocaine 4 % Patch Adh..Patch) 1 patch TRANSDERMA DAILY [facility] [place]; Protocol Last Admin: 06/04/21 09:42 Dose: 1 patch Documented by: Melatonin (Melatonin 3 Mg Tablet) 6 mg PO BEDTIME PRN PRN Reason: Insomnia Last Admin: 05/29/21 19:41 Dose: 6 mg Documented by: Methylphenidate HCl (Methylphenidate Hcl 10 Mg Tablet) 20 mg PO 0600,1000,1400,1800 [facility] [place] Last Admin: 06/04/21 09:40 Dose: 20 mg Documented by: Ondansetron HCl (Ondansetron Hcl 4 Mg/2 Ml Vial) 4 mg IVPUSH Q8H PRN PRN Reason: Nausea and Vomiting Last Admin: 05/30/21 21:06 Dose: 4 mg Documented by: Oxybutynin Chloride (Oxybutynin Chloride Er 5 Mg Tab.Er.24) 5 mg PO BEDTIME [facility] [place] Last Admin: 06/03/21 20:54 Dose: 5 mg Documented by: Pharmacy Consult (Consult Rx Perform Med Rec) 1 each MISCELLANE ONCE PRN PRN Reason: Consult order Polyethylene Glycol (Polyethylene Glycol 3350 17 Gm Powd.Pack) 17 gm PO DAILY [facility] [place] Last Admin: 06/04/21 09:40 Dose: 17 gm Documented by: Sodium Chloride (0.9 % Sodium Chloride Flush 3 Ml Syringe) 3 ml IVFLUSH QSHIFT [facility] Last Admin: 06/04/21 09:40 Dose: 3 ml Documented by: Trazodone HCl (Trazodone Hcl 100 Mg Tablet) 200 mg PO BEDTIME [facility] Last Admin: 06/03/21 20:55 Dose: 200 mg Documented by: Time Spent With Patient Time: Total time spent is greater than 50% in coordination of care (as documented) at patient's floor/unit and/or counseling patient: Time with patient: 15 - 24 minutes Quality Stroke Does the patient have a stroke diagnosis?: No VTE Prior VTE?: No VTE Risk Level:: Medical - moderate - high VTE Device Contraindication: N/A - Device Ordered VTE Drug Contraindication: Treatment Not Indicated
[2021-06-04] MEDS: ALPRAZolam 0.5 MG TABLET PO (15:19)
[2021-06-04 15:27] VITALS: BP 126/78; PULSE 84; RESP 20; TEMP 36.8; O2SAT 94
[2021-06-04 19:32] VITALS: BP 135/86; PULSE 77; RESP 20; TEMP 36.1; O2SAT 91
[2021-06-04] MEDS: FLUoxetine HCl 20 MG CAPSULE 40 MG PO (20:45)
[2021-06-04] MEDS: traZODone HCL 100 MG TABLET 200 MG PO (20:46)
--- NOTE | 2021-06-04 22:39 | P.PNNP_ITS ---
Subjective Subjective Date of Service: 06/04/21 Interval history: Pt c/o Pain Urine leak around stoddard Physical Exam Vital Signs: Vital Signs: Last Vital Signs Temp 96.9 F 06/04/21 19:32 Pulse 77 06/04/21 19:32 Resp 20 06/04/21 19:32 BP 135/86 06/04/21 19:32 Pulse Ox 91 L 06/04/21 19:32 Body Mass Index 20.5 Const General:?alert and tired appearing Nutritional Appearance:?thin Orientation/consciousness:?patient oriented x3 Resp Effort & Inspection:?normal respiratory effort, no cough and no respiratory distress GI Inspection:?Yes normal to inspection Palpation (GI):?Soft to palpation, Tenderness to palpation present (GI) (Bilateral flank) and not rigid Percussion:?Yes normal to percussion Auscultation:?normal bowel sounds Rectal Exam - Female:?visual inspection normal (No prolapse identified, no ble eding, no tenderness) and No Rectal prolapse Skin General skin exam:?no rashes or lesions noted Neuro General:?patient oriented x3 Objective Data Labs CBC & Chem 7: 06/04/21 08:28 06/04/21 08:28 Labs: Laboratory Results - last 24 hr 06/04/21 06/04/21 06/04/21 08:27 08:28 08:28 Hgb 12.3 Hct 38.8 Sodium 139 Potassium 4.6 Chloride 103 Carbon Dioxide 29 Anion Gap 12 BUN 28 H Creatinine 1.34 Estim Creat Clear Calc 24.5 Estimated GFR 39 Random Glucose 116 H Calcium 8.4 Blood Type O Positive Antibody Screen NEGATIVE Procedures Date of Service Date of Service: 06/04/21 Assessment & Plan Assessment and plan (1) Acute kidney injury: Status: Acute (2) Hydronephrosis: Status: Acute Assessment and Plan: 70yo F with WANDER High-grade UPJ obstruction/hydronephrosis of L kidney, biliary ductal dilation w ith abrupt narrowing s/p stent Creatinine better with IVF Urology.f/u Thx Dr. Fletcher Assessment and Plan: 70yo F with anxiety, depression, hx subdural hematoma presented with worsening ataxia, generalized weakness and fall without LOC, abd pain found to have high-grade UPJ obstruction/hydronephrosis of L kidney, biliary ductal dilation with abrupt narrowing 1. L hydronephrosis/UPJ obstruction with question of accessory L renal artery as cause - Lasix renogram done -s/p stent Has hematuria Pain control with lidocaine patch and Tylenol, dilaudid adjusted -watch for sedation and respiratory status renal us-seems hydronephrosis improving in comparsion to previous ct scan Urology woibyr-kg-wh oxybutnin for ureter spasm, urology follow-up for hematuria as well as urine leaking around the catheter. 2. biliary dilation- GI consulted- appears chronic dating back to 2005, no further w/u indicated 3. ataxia/tremor- Neuro consulted, attributable to chronic microangiopathy and generalized cerebral volume loss, no further workup indicated 4. 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 Improving with h ydration Lasix renogram as above-1. Minimal delay in the right renal perfusion but otherwise normal cortical function and excretion with normal response to Lasix. The right kidney contributes 99% of total renal function. ? No left renal perfusion seen. There is delayed? to no cortical uptake seen. No response to Lasix. 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 ? WANDER improving with hydration.? Had stent placed 05/31 ? Yesterday had pinkish urine today has pinkish urine again with clots ?urology follow-up pending- communication sent to use urology. 5.mood disorder- bupropion, fluoxetine, trazodone, methylphenidate, lorazepam 6. rectal prolapse:? seen by surgery recommended laxatives,pain control Patient still has significant rectal pain specially when pulses bowels and also protrusion on and off-will need surgical follow-up. Time Spent With Patient Time: Total time spent is greater than 50% in coordination of care (as documented) at patient's floor/unit and/or counseling patient: Progress Note: Quality Stroke Does the patient have a stroke diagnosis?: No
[2021-06-04 23:21] VITALS: PULSE 66
[2021-06-05 04:00] VITALS: BP 136/74; PULSE 67; RESP 18; TEMP 36.8; O2SAT 93
[2021-06-05] MEDS: Methylphenidate HCl 10 MG TABLET 20 MG PO ×2 (06:04→09:38)
[2021-06-05] MEDS: HYDROmorphone HCl 0.5 MG/0.5 ML SYRINGE IVPUSH ×2 (06:04→09:23)
[2021-06-05] MEDS: Acetaminophen 325 MG TABLET 650 MG PO (06:04)
[2021-06-05 06:51] LABS: Anion Gap 13 (12-20); Blood Urea Nitrogen 26 mg/dL (9-16); Calcium 8.5 mg/dL (8.4-10.2); Carbon Dioxide 26 mmol/L (22-29); Chloride 107 mmol/L (96-108); Creatinine Clr Calc Pharmacy 23.9; Estimated Glomerular Filt Rate 38; Glucose Random 102 mg/dL (60-115); Potassium 4.8 mmol/L (3.3-5.1); Sodium 141 mmol/L (135-145)
[2021-06-05 07:46] VITALS: BP 159/84; PULSE 77; RESP 18; TEMP 36.7; O2SAT 92
[2021-06-05] MEDS: 0.9 % Sodium Chloride Flush 3 ML SYRINGE IVFLUSH (09:21)
[2021-06-05] MEDS: buPROPion HCl XL 300 MG TAB.ER.24H PO (09:21)
[2021-06-05] MEDS: Lidocaine 4 % Patch ADH..PATCH 1 PATCH TRANSDERMA (09:21)
[2021-06-05 11:38] VITALS: BP 127/66; PULSE 82; RESP 20; TEMP 36.6; O2SAT 94
--- NOTE | 2021-06-05 12:31 | MHC.CM.PN ---
pt had a bed for today at [facility] pt now wants to go home with son md says mpt does not need a vna
--- NOTE | 2021-06-05 12:37 | PM.DS ---
DS: Providers Provider Date of Service: 06/05/21 Date of admission: 05/25/21 23:32 Primary care physician: Tuan Nguyen MD Consults: 05/25/21 23:31 Consult to Neurology Routine Consulting Provider: [facility] Reason for consultation: unsteady, tremors/twitching/falls Consult to Urology Routine Consulting Provider: Je Chávez Reason for consultation: severe hydronephrosis; abd pain 05/25/21 23:46 Consult to Gastroenterology Routine Consulting Provider: José Luis Shields Reason for consultation: prominent dilatation of the CBD which demonstrates abrupt narrowing. 05/29/21 08:12 Consult to Nephrology Routine Consulting Provider: Erik Ovalle Reason for consultation: wander Has provider been notified: No 06/01/21 11:22 Consult to General Surgery Routine Consulting Provider: Gian Armstrong Reason for consultation: rectal prolapse DS: Diagnosis Discharge Diagnosis (1) Acute kidney injury: Status: Acute (2) Hydronephrosis: Status: Acute DS: Summary Hospital Course Hospital Course: admission HPI Chief Complaint: Generalized weakness 70-year-old female with a past medical history of anxiety, depression, history of subdural hematoma, falls presented to the hospital today with a chief complaint of generalized weakness/abdominal pain. Most of the history obtained from the patient and patient's son at bedside.? Reportedly patient has been having generalized weakness for the past few days but today she noticed to be very weak and was unsteady and had a fall at home.? Unwitnessed.? Denies any head strike or loss of consciousness.? Followed by patient is on when up status to check on her and then she had another fall but did not fell down he as he had her from falling. Mentions that patient has intermittent episodes of tremors/twitching but today did noted to be more pronounced; patient appeared to be unsteady on gait; Complains of abdominal pain going on for few days now but today noted to be slightly increased.? Denies any difficulty with urination.? Denies any cough or sputum production.? Denies any chest pain or palpitations. Patient denies taking extra doses of her home medications. Review of all other systems is negative except mentioned above ER course: For ER team patient moving all extremities equally; CT head and CT neck showed no acute findings; CT abdomen showed severe hydronephrosis and intrahepatic and extrahepatic biliary ductal dilatation; also noted to have twitching/tremors; admitted to the hospital for further management. Hoospital coruse: # Patient presented with WANDER on CKD initial creatinine of 1. 47 and noted to have bilateral hydronephrosis, Serum creatine worsened on 05/29 to 1.95, she had a renal scan done with Lasix on 05/26 showing 1. Minimal delay in the right renal perfusion but otherwise normal cortical function and excretion with normal response to Lasix. The right kidney contributes 99% of total renal function. ? 2. No left renal perfusion seen. There is delayed? to no cortical uptake seen. No response to Lasix. 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 On 05/30, Dr Chávez performed cystoscopy, bilateral retrograde, bilateral stent placement and subsequently her renal function has gradually improved to presently Creatine of 1.37 as of today 06/05. Post cystocscopy hematuria has resolved. She has been followed by Nephrology and is cleared for discharged as WANDER has resolved. Treated with oxybutynin for bladder spasm # biliary dilation- GI consulted- appears chronic dating back to 2005, no further w/u indicated # Ataxia/tremor- Neuro consulted, attributable to chronic microangiopathy and generalized cerebral volume loss, no further workup indicated, she is doing well at moment with ambulation # Rectal prolapse:? seen by surgery recommended laxatives and pain control, no indication for procedure at this time and will follow up with surgery (Dr. Armstrong) on outpatient basis, overall pain is controlled, and will prescribed oral oxycodone #Mood disorder- bupropion, fluoxetine, trazodone, methylphenidate, lorazepam Patient was offered to go to short term rehab and initially agreable but now prefer going home with son and specifically prefers going home today, will remove follwy, ambulate and then discharge.. She should follow up with Dr. Chávez for further management of her stents. Time Spent with Patient Time attestation: Total time spent providing and/or coordinating discharge services: Discharge coordination time: Greater than 30 minutes Quality: Stroke Does the patient have a stroke diagnosis?: No Physical Exam Vital Signs: Vital Signs: Last Vital Signs Temp 97.9 F 06/05/21 11:38 Pulse 82 06/05/21 11:38 Resp 20 06/05/21 11:38 BP 127/66 06/05/21 11:38 Pulse Ox 94 06/05/21 11:38 Body Mass Index 20.5 DS: Data Data Completed and Pending Labs on day of discharge: Laboratory Results - last 24 hr 06/05/21 06:10 Sodium 141 Potassium 4.8 Chloride 107 Carbon Dioxide 26 Anion Gap 13 BUN 26 H Creatinine 1.37 Estim Creat Clear Calc 23.9 Estimated GFR 38 Random Glucose 102 Calcium 8.5 Discharge Plan Discharge Anticipated Discharge Date/Time: 06/05/21 12:54 Patient Disposition: Home Health Service Discharge Diagnosis: renal failure, hydronephrosis Referrals: Tuan Nguyen MD [Primary Care Provider] - 1 Week Discharge Medications: New oxycodone 5 mg Tablet 5 mg PO Q6H PRN (Reason: Pain, Severe (Pain Scale 7-10)) Qty: 20 RF: 0 lidocaine [Lidocaine Pain Relief] 4 % Adhesive Patch,Medicated 1 patch transdermal DAILY Qty: 14 RF: 0 polyethylene glycol 3350 17 gram Powder In Packet 17 g PO DAILY Qty: 30 RF: 0 docusate sodium 100 mg Capsule 100 mg PO BID Qty: 60 RF: 0 oxybutynin chloride 5 mg Tablet Extended Release 24hr 5 mg PO BEDTIME Qty: 30 RF: 0 Continued methylphenidate HCl 20 mg tablet 1 tab PO QID RF: 0 lorazepam 0.5 mg tablet 0.5 mg PO DAILY PRN (Reason: Anxiety) RF: 0 trazodone 100 mg tablet 2 tab PO BEDTIME RF: 0 bupropion HCl 300 mg tablet extended release 24 hr 1 tab PO QAM RF: 0 fluoxetine 40 mg capsule 1 cap PO BEDTIME RF: 0 Discharge Orders: Discharge Order (Routine); Ordered 06/05/21 Ordered By: Narayan Lagunas Diet: advance to usual diet Activity on Discharge: As tolerated Stand Alone Forms: Patient Portal Discharge page Care Plan Goals: pain controll with rectal prolapse, improved kidney function Health Concerns: renal failure, hydronephrosis, rectal prolapse Plan of Treatment: Follow up with Dr. Chávez for stent managment follow up with Dr. Burleson for rectal prolapse follow up with your PCP for all other issues Take oxycodone as directed for pain and Assessment: as above Patient Instructions: Cystoscopy (GEN), Urethral Stent Placement (GEN)
[2021-06-05] MEDS: oxyCODONE HCl Immed Release 5 MG TABLET PO (12:53)
--- NOTE | 2021-06-05 13:02 | W.MHC.F2F ---
Service Date Service Date: 06/05/21 Reasons for Services Reason for [facility]: medication management Reason for physical therapy: home safety and mobility, therapeutic exercises and gait/transfer training Homebound: Leaving the home is medically contraindicated at this time without the asist of a device and/or another person due th the listed conditions above and below. Homebound supporting statement: homebound due to generalized weakness, deconditioned, unsteady gait, declined rehab and therefore needs the assitance of another person Certification: Based on the above findings, I certify that this patient is confined to the home and needs intermittent [facility] care, physical therapy and/or speech therapy, or continues to need occupational therapy. The patient is under my care, and I have initiated the establishment of the plan of care. The patient will be followed by a physician who will periodically review the plan of care.
--- NOTE | 2021-06-05 13:06 | PC.NURSE ---
richi esquivel'tana per Dr. Lagunas request
--- NOTE | 2021-06-05 16:11 | PC.NURSE ---
Late [id number]: Patient voided in BR post stoddard removal. (did not measure per requested, but went suffucuent amount per patient). Dr. Lagunas aware and approved discharge home. Patient refusing SNF but ambulated in hallway with PT. Able to fully dress herself without assistance and amb to BR.
== END 2021-06-05 15:19 | disposition home health service (06) | DRG 661 ==
LOC: HO.ED 20:52 → HO.EDOVER 23:40 → HO.IMC 05-26 14:12
PROVIDERS: Family Medicine; Internal Medicine; Urology; Admitting Provider Hospitalist; Emergency Provider Emergency Medicine; PCP Internal Medicine; Visit Provider Internal Medicine
PROC: 0T788DZ Dilation of Bilateral Ureters with Intraluminal Device, Via Natural or Artificial Opening Endoscopic (ICD-10-PCS; principal; 2021-05-30 16:30)
DX: N13.0 Hydronephrosis with ureteropelvic junction obstruction (principal); N17.9 Acute kidney failure, unspecified; N18.4 Chronic kidney disease, stage 4 (severe); F41.9 Anxiety disorder, unspecified; K62.2 Anal prolapse; I49.3 Ventricular premature depolarization; F32.9 Major depressive disorder, single episode, unspecified; Z87.442 Personal history of urinary calculi; R26.81 Unsteadiness on feet; Z23 Encounter for immunization; Z20.822 Contact with and (suspected) exposure to COVID-19; Z79.899 Other long term (current) drug therapy
CPT/HCPCS: 36415; 70450; 71045; 74018; 74176; 76775; 78708; 80048; 80053; 81001; 83690; 84484; 85014; 85018; 85025; 85027; 85379; 86850; 86900; 86901; 87635; 90686; 96374; 96375; 97110; 97116; 97162; 97166; 97530; 97535; 99285; A9539; C1758; C1769; C2617; J0131; J1170; J1940; J1956; J2060; J2250; J2405; J3010; Q9967

== ENCOUNTER 2021-06-14 12:20 | Outpatient (REF) | payer MEDICARE, OTHER, SELFPAY ==
[2021-06-14 13:51] LABS: MANUAL DIFF FLAG NO
[2021-06-14 14:01] LABS: Basophils Absolute Auto 0.1 X10*3/uL (0.0-0.2); Basophils Percent Auto 0.9 % (0-2); Eosinophils Absolute Auto 0.1 X10*3/uL (0.0-0.4); Eosinophils Percent Auto 2.3 % (0-4); Hematocrit 39.6 % (37.0-47.0); Hemoglobin 12.3 g/dl (12.0-16.0); Imm Gran Abs Auto 0.02 X10*3/uL (0.00-0.03); Imm Gran Pct Auto 0.3 % (0.0-0.4); Lymphocytes Absolute Auto 0.7 X10*3/uL (1.2-4.9); Lymphocytes Percent Auto 12.4 % (20-40); Mean Corpuscular HGB Conc 31.1 g/dl (31.0-35.0); Mean Corpuscular Hemoglobin 29.8 pg (27.0-33.0); Mean Corpuscular Volume 95.9 fL (80.0-98.0); Mean Platelet Volume 9.6 fL (9.4-12.3); Monocytes Absolute Auto 0.2 X10*3/uL (0.1-1.2); Neutrophils Absolute Auto 4.6 x10*3/uL (2.0-8.3); Neutrophils Percent Auto 80.1 % (45-73); Platelet Count 343 X10*3/uL (160-400); Red Blood Count 4.13 X10*6/uL (4.20-5.50); Red Cell Distribution Width 13.4 % (11.0-16.0); White Blood Count 5.7 X10*3/uL (4.8-10.8)
[2021-06-14 14:10] LABS: Appearance Urine HAZY; Color Urine YELLOW; Glucose Urine UA NEG (NEG); Leukocyte Esterase Urine 1+ (NEG); Nitrite Urine POS (NEG); UACC Culture Trigger YES; Urine Blood 3+ (NEG); Urine Ketones NEG (NEG); Urine Protein 2+ MG/DL (NEG-TRACE)
[2021-06-14 14:33] LABS: Bacteria Urine 3+ /LPF; Squamous Epithelial Cell Urine 2+ /LPF
[2021-06-14 14:34] LABS: Mucus Urine 2+ /LPF
[2021-06-14 14:36] LABS: Alanine Aminotransferase 24 U/L (0-31); Albumin Level 3.7 g/dL (3.5-5.0); Alkaline Phosphatase 155 U/L (39-117); Anion Gap 14 (12-20); Aspartate Amino Transferase 16 U/L (5-31); Bilirubin Total 0.4 mg/dL (0.0-1.0); Blood Urea Nitrogen 27 mg/dL (9-16); C Reactive Protein 0.14 mg/dL (< or = 0.50); Calcium 8.6 mg/dL (8.4-10.2); Carbon Dioxide 22 mmol/L (22-29); Chloride 107 mmol/L (96-108); Estimated Glomerular Filt Rate 28; Glucose Fasting 102 mg/dL (60-99); Potassium 4.7 mmol/L (3.3-5.1); Sodium 138 mmol/L (135-145)
== END 2021-06-14 12:21 | disposition home or self-care (01) ==
LOC: HO.10HDL 12:20
PROVIDERS: Visit Provider Internal Medicine
DX: R10.11 Right upper quadrant pain (principal); J44.9 Chronic obstructive pulmonary disease, unspecified; N18.9 Chronic kidney disease, unspecified; Z96.0 Presence of urogenital implants
CPT/HCPCS: 36415; 80053; 81001; 81003; 85025; 86140; 87086; 87088; 87186

== ENCOUNTER → 2021-06-25 09:59 | Outpatient (BNVA) | payer MEDICARE, OTHER, SELFPAY | PROVIDERS: PCP Internal Medicine; Referring Provider Internal Medicine; Visit Provider Surgery | DX: K63.2 Fistula of intestine (principal) | CPT/HCPCS: 46600; 99202 ==

== ENCOUNTER 2021-06-29 14:18 | Emergency (ER) | payer MEDICARE, OTHER, SELFPAY ==
--- NOTE | ~2021-06-29 | US_ITS ---
EXAMINATION: US RETROPERITONEAL LIMITED (RENAL ONLY) CLINICAL INFORMATION: Evaluate for hydronephrosis after stent placement. COMPARISON: Renal ultrasound from 06/03/2021. KUB from 06/29/2021. Abdomen CT from 05/25/2021. TECHNIQUE: Sonographic imaging of the kidneys. FINDINGS: RIGHT KIDNEY: 10.8 x 3.8 x 3.5 cm (SAG x AP x TRV). The renal cortex remains diffusely hyperechoic, suggestive of parenchymal renal disease. No nephrolithiasis or hydronephrosis. 0.9 cm simple cortical cyst of the lower pole. Renal imaging follow-up is not recommended for simple cysts. LEFT KIDNEY: 7.5 x 4.1 x 3 cm (SAG x AP x TRV the mildly atrophied kidney has slightly hyperechoic cortex. No renal stones are seen. There is a 1 cm benign cortical cyst of the lower pole. No imaging follow-up recommended. The hydronephrosis has improved compared 06/03/2021 (and is markedly improved compared to 05/25/2021). Although the renal pelvis remains dilated, there is no significant dilatation of the calyces. The proximal segment of the left ureteral stent is visualized. US/US renal BI IMPRESSION: * No evidence of renal calculi. * The hyperechoic appearance of renal cortices is suggestive of parenchymal renal disease. * Although moderate residual left pelviectasis is present, there is no significant residual caliectasis. The hydronephrosis has improved compared to 06/03/2021.
--- NOTE | ~2021-06-29 | XR_ITS ---
EXAMINATION: XR ABDOMEN KUB CLINICAL INDICATION: Ureteral stent position COMPARISON: 06/03/2021 TECHNIQUE: AP view of the abdomen. FINDINGS: Bilateral ureteral stents are in place with unchanged positioning when compared to prior radiograph. The left stent is more superiorly positioned in the right, unchanged. No suspicious calcifications. Degenerative changes throughout the spine. Nonobstructive bowel gas pattern. 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 XR/XR KUB IMPRESSION: Unchanged positioning of bilateral ureteral stents when compared to prior.
[2021-06-29 14:40] VITALS: BP 144/89; PULSE 86; RESP 18; TEMP 36.8; O2SAT 99; BMI 19.5
--- NOTE | 2021-06-29 16:57 | ED_ITS ---
HPI - General Adult General Chief complaint: General Medical Stated complaint: Multiple complaints Time Seen by Provider: 06/29/21 16:57 Source: patient Mode of arrival: ambulatory Limitations: no limitations History of Present Illness HPI narrative: Patient with recent bilateral ureteral stents, staph UTI and rectal prolapse. Patient bilateral flank pain, patient has no pain medication for the stents. Patient with rectal pain from the prolapse. Patients pain is constant Onset (ago): day(s) Location: back and abdomen Radiation: back and abdomen Severity: moderate Quality: sharp Pain Consistency: constant Relieving factors: none Related Data Home Medications Medication Instructions Recorded Confirmed bupropion HCl 300 mg 24 hr tablet, 1 tab PO QAM 07/06/20 06/25/21 extended release lorazepam 0.5 mg tablet 0.5 mg PO DAILY PRN 07/06/20 06/25/21 methylphenidate HCl 20 mg tablet 1 tab PO QID 07/06/20 06/25/21 trazodone 100 mg tablet 2 tab PO BEDTIME 07/06/20 06/25/21 fluoxetine 40 mg capsule 1 cap PO BEDTIME 05/25/21 06/25/21 Previous Rx's Medication Instructions Recorded docusate sodium 100 mg capsule 100 mg PO BID #60 cap 06/05/21 lidocaine 4 % topical patch 1 patch TRANSDERMAL DAILY #14 ea 06/05/21 (Lidocaine Pain Relief) oxybutynin chloride 5 mg 5 mg PO BEDTIME #30 tab 06/05/21 tablet,extended release 24 hr oxycodone 5 mg tablet 5 mg PO Q6H PRN #20 tab 06/05/21 polyethylene glycol 3350 17 gram 17 g PO DAILY #30 ea 06/05/21 oral powder packet sodium,potassium,mag sulfates 17.5 See Rx Instructions PO .COMPLEX 06/25/21 gram-3.13 gram-1.6 gram oral soln #354 ml (Suprep Bowel Prep Kit) tramadol 50 mg tablet 50 mg PO TID PRN #14 tab 06/29/21 Allergies Allergy/AdvReac Type Severity Reaction Status Date / Time Iodinated Contrast Media AdvReac Mild UNABLE TO Verified 06/29/21 14:40 [IV CONTRAST] SPEAK Review of Systems Constitutional: Constitutional: Reports no additional constitutional complaints Eyes: Eyes: Reports no additional eye complaints ENT: Denies dizziness Cardiovascular: Cardiovascular: Reports no additional cardiovascular complaints Respiratory: Respiratory: Reports as per HPI Gastrointestinal: Gastrointestinal: Reports no additional gastrointestinal complaints Genitourinary: Genitourinary: Reports no additional female genitourinary complaints Musculoskeletal: Musculoskeletal: Reports no additional musculoskeletal complaints Integumentary/Breasts: Skin/Breast: Denies rash Neurologic: Reports system reviewed and no additional complaints, except as documented, Denies dizziness and Denies Sensory deficit (Neuro) Psychiatric: Psychiatric: Denies anxiety PMFSH Past Medical History Medical History Anxiety Brain bleed Depression FHx: cholecystectomy History of lipoma Peptic ulcer Rectal prolapse Rectal prolapse Surgical History History of hand surgery Social History Social History Household Members: Family Housing: [facility] Do you presently have visiting nurse or other home services: No Patient Tobacco Use Status: Never used Tobacco Advance Directives: No Advance Directives Information Provided: Yes service: No Current occupational status: retired and disabled Physical Exam Vital Signs: Vital Signs: Last Vital Signs Temp 98.3 F 06/29/21 14:40 Pulse 86 06/29/21 14:40 Resp 18 06/29/21 14:40 BP 144/89 H 06/29/21 14:40 Pulse Ox 99 06/29/21 14:40 BMI result Body Mass Index 19.5 Const: Nutritional Appearance: malnourished Orientation/consciousness: oriented to person and patient oriented x3 Limitations: no limitations HENMT: Head: Yes normal to inspection Ears: external ears normal General nose exam: Normal external nose present Mouth: Normal oral and palatal mucosa present and oropharynx normal Throat: Yes posterior oropharynx normal Eyes: General: appearance normal, both eyes and all related structures Neck: Other: supple Neck: Yes normal visual inspection Chest: Chest palpation & inspection: normal inspection of the chest Resp: Auscultation: clear to auscultation bilaterally Cardio: Other: 3/6 HEAVENLY Jugular venous distension: no JVD Rate: regular r ate Rhythm: regular rhythm GI: Inspection: Yes normal to inspection Palpation (GI): Soft to palpation, nontender and No hepatosplenomegaly present Auscultation: normal bowel sounds : Other: rectum not prolapsed General: Yes no CVA tenderness Back/Spine/Pelvis: Back: no CVA tenderness Skin: General skin exam: no rashes or lesions noted Neuro: General: oriented to person and patient oriented x3 Cranial nerves: Yes CN's II-XII intact bilaterally Motor exam (neuro): 5/5 motor strength present throughout Sensory Exam: No Sensory deficit (Neuro) Extrem: General: Yes normal to inspection Psych: Appearance: grossly normal Course Reevaluation(s) Reevaluation #1: urine looks normal, renal function is improved, KUB shows stents to be in the right place, Us shows no hydronephrosis will dc on tramadol Time: 20:06 Medical Decision Making Lab Data Result diagrams: 06/29/21 18:40 06/29/21 18:40 Labs: Lab Results 06/29/21 06/29/21 06/29/21 Range/Units 16:26 18:40 18:40 WBC 5.6 (4.8-10.8) X10*3/uL RBC 3.67 L (4.20-5.50) X10*6/uL Hgb 11.4 L (12.0-16.0) g/dl Hct 34.7 L (37.0-47.0) % MCV 94.6 (80.0-98.0) fL MCH 31.1 (27.0-33.0) pg MCHC 32.9 (31.0-35.0) g/dl RDW 14.5 (11.0-16.0) % Plt Count 225 D (160-400) X10*3/uL MPV 9.4 (9.4-12.3) fL Immature Gran % (Auto) 0.4 (0.0-0.4) % Neut % (Auto) 64.1 (45-73) % Lymph % (Auto) 22.5 (20-40) % [place] % (Auto) 7.3 (2-11) % Eos % (Auto) 5.0 H (0-4) % Baso % (Auto) 0.7 (0-2) % Lymph # (Auto) 1.3 (1.2-4.9) X10*3/uL [place] # (Auto) 0.4 (0.1-1.2) X10*3/uL Eos # (Auto) 0.3 (0.0-0.4) X10*3/uL Baso # (Auto) 0.0 (0.0-0.2) X10*3/uL Abs Immat Gran (auto) 0.02 (0.00-0.03) X10*3/uL Absolute Neuts (auto) 3.6 (2.0-8.3) x10*3/uL Absolute Nucleated RBC 0.000 (0.0-0.012) X10*3/uL Nucleated RBC % (auto) 0.0 (0.0-0.2) /100WBC Sodium 138 (135-145) mmol/L Potassium 5.2 H (3.3-5.1) mmol/L Chloride 108 (96-108) mmol/L Carbon Dioxide 23 (22-29) mmol/L Anion Gap 12 (12-20) BUN 34 H (9-16) mg/dL Creatinine 1.42 H (0.5-1.4) mg/dL Estim Creat Clear Calc 25.6 Estimated GFR 36 Random Glucose 79 (60-115) mg/dL Calcium 8.6 (8.4-10.2) mg/dL Total Bilirubin 0.4 (0.0-1.0) mg/dL AST 16 (5-31) U/L ALT 14 (0-31) U/L Alkaline Phosphatase 92 D (39-117) U/L Total Protein 5.5 L (6.5-8.0) g/dL Albumin 3.4 L (3.5-5.0) g/dL Urine Color YELLOW Urine Appearance HAZY Urine pH 6.0 (5.0-8.0) Ur Specific [place] 1.025 (1.005-1.025) Urine Protein 1+ H (NEG-TRACE) MG/DL Urine Glucose (UA) NEG (NEG) MG/DL Urine Ketones NEG (NEG) MG/DL Urine Blood 1+ H (NEG) Urine Nitrite NEG (NEG) Ur Leukocyte Esterase TRACE H (NEG) Urine RBC 0-2 (0) /HPF Urine WBC 0-2 (0-4) /HPF Ur Squamous Epith Cells 1+ /LPF Urine Bacteria 1+ /LPF Urine Yeast 1+ /HPF Imaging Data renal US: Radiologist's impression: FINDINGS: RIGHT KIDNEY: 10.8 x 3.8 x 3.5 cm (SAG x AP x TRV). The renal cortex remains diffusely hyperechoic, suggestive of parenchymal renal disease. No nephrolithiasis or hydronephrosis. 0.9 cm simple cortical cyst of the lower pole. Renal imaging follow-up is not recommended for simple cysts. LEFT KIDNEY: 7.5 x 4.1 x 3 cm (SAG x AP x TRV the mildly atrophied kidney has slightly hyperechoic cortex. No renal stones are seen. There is a 1 cm benign cortical cyst of the lower pole. No imaging follow-up recommended. The hydronephrosis has improved compared 06/03/2021 (and is markedly improved compared to 05/25/2021). Although the renal pelvis remains dilated, there is no significant dilatation of the calyces. The proximal segment of the left ureteral stent is visualized. US/US renal BI IMPRESSION: *? No evidence of renal calculi. *? The hyperechoic appearance of renal cortices is suggestive of parenchymal renal disease. *? Although moderate residual left pelviectasis is present, there is no significant residual caliectasis. The hydronephrosis has improved compared to 06/03/2021. Abdominal x-ray: Radiologist's impression: FINDINGS: Bilateral ureteral stents are in place with unchanged positioning when compared to prior radiograph. The left stent is more superiorly positioned in the right, unchanged. No suspicious calcifications. Degenerative changes throughout the spine. Nonobstructive bowel gas pattern. 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 XR/XR KUB IMPRESSION: Unchanged positioning of bilateral ureteral stents when compared to prior. ? Discharge Plan Discharge Clinical Impression: Bilateral flank pain Abdominal pain Qualifiers: Abdominal location: unspecified location Qualified Code(s): R10.9 - Unspecified abdominal pain Patient Disposition: Home, Self-Care Instructions: Abdominal Pain (ED) Prescriptions: New tramadol 50 mg tablet 50 mg PO TID PRN (Reason: pain) Qty: 14 RF: 0 No Action methylphenidate HCl 20 mg tablet 1 tab PO QID RF: 0 lorazepam 0.5 mg tablet 0.5 mg PO DAILY PRN (Reason: Anxiety) RF: 0 trazodone 100 mg tablet 2 tab PO BEDTIME RF: 0 bupropion HCl 300 mg tablet extended release 24 hr 1 tab PO QAM RF: 0 fluoxetine 40 mg capsule 1 cap PO BEDTIME RF: 0 lidocaine [Lidocaine Pain Relief] 4 % Adhesive Patch,Medicated 1 patch transdermal DAILY Qty: 14 RF: 0 polyethylene glycol 3350 17 gram Powder In Packet 17 g PO DAILY Qty: 30 RF: 0 docusate sodium 100 mg Capsule 100 mg PO BID Qty: 60 RF: 0 oxybutynin chloride 5 mg Tablet Extended Release 24hr 5 mg PO BEDTIME Qty: 30 RF: 0 oxycodone 5 mg Tablet 5 mg PO Q6H PRN (Reason: Pain, Severe (Pain Scale 7-10)) Qty: 20 RF: 0 Suprep Bowel Prep Kit 17.5-3.13-1.6 gram recon soln See Rx Instructions PO .COMPLEX Qty: 354 RF: 0 Referrals: Tuan Nguyen MD [Primary Care Provider] - 1 week Je Chávez MD [Physician] - 3 days
[2021-06-29 17:37] LABS: Appearance Urine HAZY; Color Urine YELLOW; Glucose Urine UA NEG (NEG); Leukocyte Esterase Urine TRACE (NEG); Nitrite Urine NEG (NEG); Specific Gravity - Urine 1.025 (1.005-1.025); UACC Culture Trigger YES; Urine Blood 1+ (NEG); Urine Ketones NEG (NEG); Urine Protein 1+ MG/DL (NEG-TRACE)
[2021-06-29 17:51] LABS: Bacteria Urine 1+ /LPF; RBC Urine 0-2 /HPF (0); Squamous Epithelial Cell Urine 1+ /LPF; WBC Urine 0-2 /HPF (0-4)
[2021-06-29 18:45] LABS: MANUAL DIFF FLAG NO
[2021-06-29 19:01] LABS: Alanine Aminotransferase 14 U/L (0-31); Albumin Level 3.4 g/dL (3.5-5.0); Alkaline Phosphatase 92 U/L (39-117); Anion Gap 12 (12-20); Aspartate Amino Transferase 16 U/L (5-31); Bilirubin Total 0.4 mg/dL (0.0-1.0); Blood Urea Nitrogen 34 mg/dL (9-16); Calcium 8.6 mg/dL (8.4-10.2); Carbon Dioxide 23 mmol/L (22-29); Chloride 108 mmol/L (96-108); Creatinine Clr Calc Pharmacy 25.6; Estimated Glomerular Filt Rate 36; Glucose Random 79 mg/dL (60-115); Potassium 5.2 mmol/L (3.3-5.1); Sodium 138 mmol/L (135-145); Total Protein 5.5 g/dL (6.5-8.0)
--- NOTE | 2021-06-29 19:30 | PC.NURSE ---
IN ROOM FOR EVAL. PT UNSURE IF SHE WANTS PAIN MEDS AND WAS WITNESSED WASTED D/T NO IV.
[2021-06-29 19:36] LABS: Basophils Percent Auto 0.7 % (0-2); Eosinophils Absolute Auto 0.3 X10*3/uL (0.0-0.4); Hematocrit 34.7 % (37.0-47.0); Hemoglobin 11.4 g/dl (12.0-16.0); Imm Gran Abs Auto 0.02 X10*3/uL (0.00-0.03); Imm Gran Pct Auto 0.4 % (0.0-0.4); Lymphocytes Absolute Auto 1.3 X10*3/uL (1.2-4.9); Lymphocytes Percent Auto 22.5 % (20-40); Mean Corpuscular HGB Conc 32.9 g/dl (31.0-35.0); Mean Corpuscular Hemoglobin 31.1 pg (27.0-33.0); Mean Corpuscular Volume 94.6 fL (80.0-98.0); Mean Platelet Volume 9.4 fL (9.4-12.3); Monocytes Absolute Auto 0.4 X10*3/uL (0.1-1.2); Monocytes Percent Auto 7.3 % (2-11); Neutrophils Absolute Auto 3.6 x10*3/uL (2.0-8.3); Neutrophils Percent Auto 64.1 % (45-73); Platelet Count 225 X10*3/uL (160-400); Red Blood Count 3.67 X10*6/uL (4.20-5.50); Red Cell Distribution Width 14.5 % (11.0-16.0); White Blood Count 5.6 X10*3/uL (4.8-10.8)
[2021-06-29 19:45] VITALS: BP 148/81; PULSE 84; RESP 16; O2SAT 97
[2021-06-29 20:14] VITALS: RESP 16
[2021-06-29] MEDS: Morphine Sulfate 4 MG/ML CARTRIDGE IVPUSH (20:14)
[2021-06-29 20:18] VITALS: BP 142/83; PULSE 86; RESP 16; O2SAT 97
--- NOTE | 2021-06-29 20:22 | PC.NURSE ---
PT RATING PAIN 03/23 VO FROM FOR MORPHINE TO BE GIVEN IM INSTEAD IV. PT MEDICATED FOR PAIN, VS OBTAINED. PT GIVEN WRITTEN PRESCRIPTION TO PT. PT VERBALIZED U/S OF D/C INSTRUCTIONS AND LEFT ED AMB WITH STEADY EVEN GAIT TO WR.
== END 2021-06-29 20:28 | disposition home or self-care (01) ==
PROVIDERS: Emergency Provider Emergency Medicine; PCP Internal Medicine
DX: R10.9 Unspecified abdominal pain (principal); Z79.899 Other long term (current) drug therapy
CPT/HCPCS: 36415; 74018; 76775; 80053; 81001; 85025; 87086; 96374; 99283; 99284; J2270

== ENCOUNTER → 2021-07-04 09:59 | Outpatient (BNVA) | payer MEDICARE, OTHER, SELFPAY | PROVIDERS: PCP Internal Medicine; Visit Provider Urology | DX: N17.9 Acute kidney failure, unspecified (principal) | CPT/HCPCS: 52310 ==

== ENCOUNTER 2021-07-11 09:12 | Inpatient (IN) | payer MEDICARE, OTHER, SELFPAY ==
[2021-07-11] VITALS (7 sets, daily range): BP systolic 90–116; BP diastolic 46–74; PULSE 81–96; RESP 18–26; TEMP 36.4–36.7; O2SAT 92–96; BMI 19.5
--- NOTE | ~2021-07-11 | CT_ITS ---
EXAMINATION: CT ABDOMEN AND PELVIS WITHOUT CONTRAST CLINICAL INFORMATION: Abdominal pain, diarrhea, rectal bleeding. COMPARISON: CT abdomen/pelvis dated from 07/11/2021. TECHNIQUE: Multidetector volumetric imaging was performed from the superior aspect of the liver through the pubic symphysis. Sagittal and coronal reformatted images were obtained on the technologist's workstation. This CT examination was performed using dose optimization techniques as appropriate, variously including the following: *Automated exposure control *Adjustment of mA and/or kV according to patient size (this includes techniques or standardized protocols for targeted exams where dose is matched to indication/reason for exam; i.e. extremities or head) *Use of iterative reconstruction technique DLP: 352 mGy-cm FINDINGS: LUNG BASES: Increased amount of bilateral pleural fluid with also increased airspace opacities in the right greater than left lung bases. There is new interlobular septal thickening and somewhat tree-in-bud opacities in the right middle and lower lobes. Cardiomegaly with coronary, valvular and aortic atherosclerotic calcifications. LIVER, GALLBLADDER, AND BILIARY TREE: The noncontrast liver is normal in size, typical attenuation without definite focal abnormalities. There is redemonstration of similar degree of moderate intrahepatic and severe extrahepatic biliary ductal dilatation with a CBD at measures up to 1.3 cm in maximum diameter. The gallbladder is not definitely identified and could be surgically absent. PANCREAS: The pancreas is difficult to accurately define and assessed in the absence of intravenous contrast and decreased retroperitoneal fat. However, accounting for these limitations, there is similar degree of dilatation of the main pancreatic duct at the level of the pancreatic head and proximal body measuring up to 0.6 cm. SPLEEN: Unremarkable. ADRENAL GLANDS: Poorly visualized. KIDNEYS AND URETERS: Redemonstration of marked cortical atrophy of the left kidney with severe chronic hydronephrosis. The right kidney is grossly unremarkable. BLADDER: Underdistended and suboptimally assessed. GASTROINTESTINAL TRACT: Evaluation for gastrointestinal bleeding is essentially nondiagnostic due to the presence of hyperattenuating oral contrast throughout the bowel. The rectum is entirely decompressed and not well evaluated. There is no evidence of bowel obstruction, pneumatosis or free air. On sagittal views, there appears to be some degree of tricompartmental pelvic descent. ABDOMINAL WALL: Anasarca, similar to prior. Small volume of ascites is unchanged. LYMPH NODES: Suboptimal evaluation in the absence of intravenous contrast and decreased intra-abdominal fat. VASCULAR: Redemonstration of vascular clips in the epigastric region. Extensive atherosclerotic disease. The abdominal aorta is of normal diameter. PELVIC VISCERA: The uterus and adnexa are not entirely well delineated and suboptimally visualized. No definite pelvic masses are identified. OSSEOUS STRUCTURES: Severe thoracolumbar spondylosis with bilateral L5 pars defects and chronic anterolisthesis of L5 on S1. Marked degenerative changes in both hips, right greater than left with extensive subcortical cystic changes. No acute or aggressive osseous abnormalities. CT/CT abdomen pelvis wo con IMPRESSION: The lack of intravenous contrast limits evaluation of the solid visceral organs. Furthermore, examination of gastrointestinal bleeding is essentially nondiagnostic given the presence of hyperattenuating oral contrast throughout the bowel and the absence of intravenous contrast. If indicated, consider correlation with a colonoscopy. No retroperitoneal hematomas are identified. No evidence of bowel obstruction, pneumatosis or free air. Suspect tricompartmental pelvic descent. Correlate clinically for the presence of a rectal prolapse. Moderate to severe intrahepatic and extrahepatic biliary ductal dilatation is unchanged. Similarly, mild dilatation of the proximal pancreatic duct is stable. Chronic marked left-sided hydronephrosis with associated cortical atrophy. There are increased bilateral pleural effusions with worsening bibasilar airspace opacities concerning for progression of volume overload or a superimposed acute infectious/inflammatory process. Clinical correlation is needed.
--- NOTE | ~2021-07-11 | XR_ITS ---
EXAMINATION: XR CHEST CLINICAL INFORMATION: Left pneumothorax COMPARISON: Multiple prior examinations most recent chest x-ray performed same day at 2:15 AM TECHNIQUE: Frontal view of the chest was obtained. FINDINGS: Endotracheal tube tip at 1.3 cm above arlene. Enteric tube noted extending below the diaphragm with the tip outside the [id number] the exam. Lungs and pleural spaces: There is a persistent small left pneumothorax slightly decreased in size compared to prior. Persistent bilateral patchy areas of consolidation throughout both lungs unchanged. Calcification of the dorsal aorta. Cardiac mediastinal silhouette otherwise unremarkable. Surgical clips overlie the epigastric region. Persistent density noted in the stomach lumen related to prior CT oral contrast administration. XR/XR chest 1V IMPRESSION: Slight decrease in size in left sided pneumothorax compared with x-ray performed earlier same day. Persistent extensive bilateral airspace disease unchanged. Endotracheal tube 1.3 cm above arlene.
--- NOTE | ~2021-07-11 | CT_ITS ---
EXAMINATION: CT ABDOMEN AND PELVIS WITHOUT CONTRAST CLINICAL INFORMATION: Left lower abdominal pain. Rule out small bowel obstruction. COMPARISON: CT abdomen/pelvis dated from 05/25/2021. TECHNIQUE: Multidetector volumetric imaging was performed from the superior aspect of the liver through the pubic symphysis. Sagittal and coronal reformatted images were obtained on the technologist's workstation. This CT examination was performed using dose optimization techniques as appropriate, variously including the following: *Automated exposure control *Adjustment of mA and/or kV according to patient size (this includes techniques or standardized protocols for targeted exams where dose is matched to indication/reason for exam; i.e. extremities or head) *Use of iterative reconstruction technique DLP: 281 mGy-cm FINDINGS: LUNG BASES: Increased left greater than right bibasilar airspace opacities with also increase bronchial wall thickening and mosaic attenuation of the lung parenchyma. Cardiomegaly with trace amount of pericardial fluid. Coronary, valvular and aortic atherosclerotic calcifications. Similar mild shifting of the cardiomediastinal silhouette to the left with associated decreased left-sided lung volumes and elevation of the left hemidiaphragm. LIVER, GALLBLADDER, AND BILIARY TREE: The noncontrast liver is normal in size and shape without definite focal abnormalities. There is redemonstration of moderate intrahepatic and severe extrahepatic biliary ductal dilatation without significant change since May with a CBD that measures up to 1.4 cm in maximum diameter and that ends abruptly in the periampullary region. The gallbladder is not definitely identified and could be surgically absent. PANCREAS: Difficult to accurately delineate in the absence of intravenous contrast. The main pancreatic duct is dilated up to approximately 0.6 cm at the level of the pancreatic head and proximal body which is similar to prior. SPLEEN: Unremarkable. ADRENAL GLANDS: Poorly visualized. KIDNEYS AND URETERS: Redemonstration of cortical thinning of the left kidney with chronic marked hydronephrosis. The right kidney is grossly unremarkable. BLADDER: Underdistended and limitedly assessed. GASTROINTESTINAL TRACT: Evaluation of the bowel is markedly limited given underdistention, motion, lack of contrast and decreased intra-abdominal/mesenteric fat. Accounting for these limitations, no disproportional dilated loops of bowel are identified to suspect a bowel obstruction. ABDOMINAL WALL: Decreased subcutaneous fat and mild anasarca. There is also trace volume of ascites, similar to prior. LYMPH NODES: Suboptimal evaluation in the absence of intravenous contrast and decreased abdominal fat. VASCULAR: Extensive atherosclerotic disease. No evidence of abdominal aortic aneurysm. Redemonstration of similar clips in the upper abdomen adjacent to the aorta. PELVIC VISCERA: The uterus and adnexa are not well delineated and suboptimally visualized in this examination. OSSEOUS STRUCTURES: Severe thoracolumbar spondylosis with bilateral L5 pars defects and chronic anterolisthesis of L5 on S1. Marked degenerative changes in both hips, right greater than left with extensive subcortical cystic changes. No acute or aggressive osseous abnormalities. CT/CT abdomen pelvis wo con IMPRESSION: The lack of intravenous contrast limits evaluation of the solid visceral organs and bowel. Accounting for these limitations, there are not findings to suggest a bowel obstruction. There is redemonstration of moderate to severe intra and extrahepatic biliary ductal dilatation with also dilatation of the pancreatic duct for which further evaluation with a MR/MRCP or EUS is indicated if not already obtained. Again noted chronic cortical thinning and marked hydronephrosis of the left kidney. There are increased bibasilar airspace opacities and bronchial wall thickening raising the possibility of an atypical infectious or inflammatory process in the proper clinical context. Alternatively, this could be related with worsening atelectasis.
--- NOTE | ~2021-07-11 | XR_ITS ---
EXAMINATION: XR CHEST CLINICAL INFORMATION: Follow-up Covid. Follow-up pneumothorax. COMPARISON: July 17, 2021 TECHNIQUE: AP portable view of the chest was obtained. FINDINGS: Endotracheal tube tip lies approximately 2.5 cm above the arlene. Enteric catheter seen traversing to the stomach. There is again noted to be bilateral interstitial and airspace disease without significant change from prior study. The tiny left apical pneumothorax is not definitely identified and there is no increase in size of possible pneumothorax. Heart normal size. No evidence of pulmonary edema. XR/XR chest 1V IMPRESSION: Stable diffuse bilateral lung disease. No pneumothorax identified.
--- NOTE | ~2021-07-11 | XR_ITS ---
EXAMINATION: XR CHEST CLINICAL INFORMATION: Follow-up pneumothorax COMPARISON: Previous chest x-ray and chest CT July TECHNIQUE: Frontal view of the chest was obtained. FINDINGS: There is an endotracheal tube with tip 3 5 cm above the arlene. There is a nasogastric tube projects over the stomach. Tip is not seen. Cardiac and mediastinal contours are stable. There is diffuse airspace disease, greatest at the lung bases. This does not appear changed. There is a small left pneumothorax not appreciably changed. There is no right pneumothorax. There is no pleural effusion. There are degenerative changes of the spine and scoliosis. XR/XR chest 1V IMPRESSION: Satisfactory lesion of endotracheal tube. Nasogastric tube projects over stomach, tip not seen. No change in bilateral airspace small left pneumothorax exams.
--- NOTE | ~2021-07-11 | XR_ITS ---
EXAMINATION: XR CHEST CLINICAL INFORMATION: Shortness of breath. COMPARISON: Chest radiograph dated from 05/25/2021. TECHNIQUE: AP view of the chest was obtained. FINDINGS: Stable appearance of the cardiomediastinal silhouette with similar asymmetric elevation of the left hemidiaphragm. Epigastric surgical clips are again noted. There is increased interstitial prominence throughout the lungs with suggestion of multifocal hazy airspace opacities. No pleural effusions or pneumothorax. No acute osseous abnormalities. XR/XR chest 1V IMPRESSION: Multifocal airspace opacities with increased interstitial prominence concerning for a diffuse atypical infectious or inflammatory process.
--- NOTE | ~2021-07-11 | US_ITS ---
EXAMINATION: US VENOUS ULTRASOUND WITH DOPPLER LOWER EXTREMITY, BILATERAL CLINICAL INFORMATION: Covid. High d-dimer. Rule out PE. COMPARISON: None TECHNIQUE: Ultrasound of the deep veins is performed from the hip to the calf with compression sonography and color and pulse Doppler assessment. Spectral analysis with color-flow imaging is performed. FINDINGS: RIGHT: There is normal venous compression and respiratory variation and augmented flow. The visualized common femoral vein, superficial femoral vein, profunda femoral vein, popliteal vein, and the trifurcation region shows no evidence of deep venous thrombosis. There is no significant popliteal fossa cyst. LEFT: There is normal venous compression and respiratory variation and augmented flow. The visualized common femoral vein, superficial femoral vein, profunda femoral vein, popliteal vein, and the trifurcation region shows no evidence of deep venous thrombosis. There is no significant popliteal fossa cyst. Is almost made of thrombus within a edge stainer machine vein communicating within the posterior tibial vein without entering the posterior tibial vein. If the patient's symptoms persist, followup ultrasound in 5 days 7 days might be of value to exclude proximal propagation from a non-visualized calf vein. US/US venous duplex LE BI IMPRESSION: No DVT demonstrated in the bilateral lower extremity. There is thrombus within a edge stainer machine vein to the left posterior tibial which does not enter the posterior tibial vein.
--- NOTE | ~2021-07-11 | CT_ITS ---
EXAMINATION: CT chest wo con. CLINICAL INFORMATION: Hypoxia COMPARISON: No prior CT available for comparison. TECHNIQUE: Multidetector volumetric CT imaging of the chest was done. Axial MIP volume rendering provided. Sagittal and coronal reformatted images were obtained. This CT examination was performed using dose optimization techniques as appropriate, variously including the following: *Automated exposure control *Adjustment of mA and/or kV according to patient size (this includes techniques or standardized protocols for targeted exams where dose is matched to indication/reason for exam; i.e. extremities or head) *Use of iterative reconstruction technique CONTRAST: Noncontrasted study. DLP: 233 mGy-cm FINDINGS: PHOTOGRAPHY MANAGER: LINES/TUBES: Endotracheal tube tip is at the arlene, this needs to be pulled back about 5 cm. LUNGS: There is diffuse heterogeneous interstitial airspace also ossification, patchy dense consolidations especially over the lower lobes right more than left, interlobular septal thickening suggesting probably degree of pulmonary edema. With a probably superimposed infiltrates. AIRWAYS: Airways otherwise are clear. PLEURA: There is a small left apical pneumothorax correlate with the finding seen on the chest x-ray. Bilateral small pleural effusions. MEDIASTINUM AND CESAR: Evaluation for adenopathy is limited on this noncontrasted study. No pneumomediastinum. There is gastric tube passing below the diaphragm into the stomach. No mediastinal mass. VESSELS: HEART AND PERICARDIUM: Thoracic aorta is normal in size. Heart is borderline enlarged. There are coronary calcification. No significant pericardial effusion. Pulmonary arteries are normal in size. LOWER NECK, AXILLA: The visualized thyroid gland is unremarkable. No axillary mass or adenopathy. VISUALIZED ABDOMEN: Unremarkable CHEST WALL AND BONES: No chest wall mass. The visualized bony thorax is within normal limits. CT/CT chest wo con IMPRESSION: *ENDOTRACHEAL TUBE TIP IS AT THE ARLENE, RECOMMEND PULLING BACK ABOUT 5 CM. *Diffuse airspace groundglass opacification, with dense consolidation with air bronchogram at lower lobes right more than left, this is suggesting diffuse infiltrates or edema . *Redemonstration of Small left pneumothorax. *Cardiomegaly and diffuse interlobular septal thickening suggesting pulmonary edema, mild pleural effusions.. (Referring physician staff is being called, to be alerted of the above findings and recommendations.)
--- NOTE | ~2021-07-11 | XR_ITS ---
EXAMINATION: XR CHEST CLINICAL INFORMATION: ET/OG tube COMPARISON: 07/12/2021 TECHNIQUE: Frontal view of the chest was obtained. FINDINGS: Endotracheal tube extends approximately 0.5 cm into the right mainstem bronchus. Enteric tube tip lies in the region of the proximal stomach with side-port in the region of the gastroesophageal junction. There are increasing heterogeneous opacity throughout both lungs. There is a small left apical pneumothorax which is new from prior. Streaky retrocardiac opacity noted at the left base, which may represent atelectasis. Possible trace left pleural effusion. The cardiomediastinal silhouette is stable. Calcification is present at the aortic arch. Degenerative changes are noted in the spine. XR/XR chest 1V IMPRESSION: 1. Endotracheal tube tip extends approximately 0.5 cm into the right mainstem bronchus. 2. Enteric tube tip in the region of the proximal stomach with side-port in the region of the gastroesophageal junction. 3. Small left apical pneumothorax, new from prior. 4. Increasing heterogeneous opacities throughout both lungs. This critical result was discussed with Rowan Luque on 07/15/2021 3:23 AM, and it was ascertained that the content and urgency of the report was understood at the time of direct communication.
--- NOTE | ~2021-07-11 | XR_ITS ---
EXAMINATION: XR CHEST CLINICAL INFORMATION: Follow up atypical pneumonia versus CHF. COMPARISON: Chest radiograph dated from 07/11/2021. TECHNIQUE: AP view of the chest was obtained. FINDINGS: Unchanged appearance of the cardiomediastinal silhouette. Multifocal airspace opacities and interstitial prominence is not significantly changed since yesterday. No pleural effusions or pneumothorax. No acute osseous abnormalities. Midline upper abdominal surgical clips are redemonstrated. XR/XR chest 1V IMPRESSION: Multifocal airspace opacities and interstitial prominence are stable since yesterday.
--- NOTE | 2021-07-11 10:20 | ECG_ITS ---
Test Reason : ABD PAIN Blood Pressure : / mmHG Vent. Rate : 090 BPM Atrial Rate : 090 BPM P-R Int : 130 ms QRS Dur : 070 ms QT Int : 390 ms P-R-T Axes : 080 010 069 degrees QTc Int : 477 ms Sinus rhythm with frequent Premature ventricular complexes Otherwise normal ECG When compared with ECG of 03-JUN-2021 16:35, No significant change was found Referred By: Cee Thakur Electronically Signed By:David Parmar
--- NOTE | 2021-07-11 10:23 | ED.GENADULT ---
HPI - General Adult General Chief complaint: General Medical Stated complaint: diff breathing Time Seen by Provider: 07/11/21 10:19 Source: patient and family (Son) Mode of arrival: ambulatory Limitations: no limitations History of Present Illness HPI narrative: 70-year-old female came in for evaluation of abdominal pain. Abdominal pain started 3-4 days ago described as dull aching pain that is constant., pain mostly in the left lower quadrant, radiates to the back, pain is associated with bloody mucus stool, patient had a history of rectal prolapse that she follow with Dr. Ellington, patient stated that she was able to push the rectum back but is getting more difficult to reduce now. Patient declined urinary symptoms. patient s/p bilateral ureteric stent removal by Dr. Chávez. Patient also complaining of shortness of breath mostly at nighttime, patient unable to lay flat at night time complaining of orthopnea and exertional dyspnea. Related Data Home Medications Medication Instructions Recorded Confirmed bupropion HCl 300 mg 24 hr tablet, 1 tab PO QAM 07/06/20 07/11/21 extended release trazodone 100 mg tablet 100 - 200 mg PO BEDTIME 07/06/20 07/11/21 fluoxetine 40 mg capsule 40 mg PO BEDTIME 05/25/21 07/11/21 fluoxetine 10 mg capsule 10 mg PO DAILY 07/04/21 07/11/21 acetaminophen 500 mg tablet 500 mg PO Q6H PRN 07/11/21 07/11/21 aspirin 325 mg tablet 325 mg PO DAILY 07/11/21 07/11/21 naproxen sodium 220 mg tablet 220 mg PO BID PRN 07/11/21 07/11/21 (Aleve) Previous Rx's Medication Instructions Recorded lidocaine 4 % topical patch 1 patch TRANSDERMAL DAILY #14 ea 06/05/21 (Lidocaine Pain Relief) oxybutynin chloride 5 mg 5 mg PO BEDTIME #30 tab 06/05/21 tablet,extended release 24 hr Allergies Allergy/AdvReac Type Severity Reaction Status Date / Time Iodinated Contrast Media AdvReac Mild UNABLE TO Verified 07/04/21 10:05 [IV CONTRAST] SPEAK Review of Systems Review of Systems: All other systems are reviewed and are negative Constitutional: Reports as per HPI and Reports no additional constitutional complaints Eyes: Reports as per HPI and Reports no additional eye complaints Reports system reviewed and no additional complaints, except as documented Cardiovascular: Reports as per HPI and Reports no additional cardiovascular complaints Respiratory: Reports as per HPI and Reports no additional respiratory complaints Gastrointestinal: Reports as per HPI and Reports no additional gastrointestinal complaints Genitourinary: Reports no additional female genitourinary complaints Musculoskeletal: Reports no additional musculoskeletal complaints Skin/Breast: Reports system reviewed and no additional complaints, except as docu Psychiatric: Reports no additional psychiatric complaints Endocrine: Reports no additional endocrine complaints Hematologic/Lymphatic: Reports no additional hematologic/lymphatic complaints Allergic/Immunologic: Reports no additional allergic/immunologic complaints Reports system reviewed and no additional complaints, except as documented and Reports Abnormal speech present [facility] Past Medical History Medical History Anxiety Brain bleed Depression FHx: cholecystectomy History of lipoma Peptic ulcer Rectal prolapse Rectal prolapse Surgical History History of hand surgery Social History Social History Household Members: Family Housing: [facility] Do you presently have visiting nurse or other home services: No Alcohol intake: never Patient Tobacco Use Status: Current everyday Tobacco user Use of substances other than those prescribed or required for medical reasons: No Advance Directives: Yes Advance Directives Information Provided: Yes Advance Directives on File: No service: No Current occupational status: retired and disabled Physical Exam Vital Signs: Vital Signs: Last Vital Signs Temp 97.8 F 07/11/21 19:35 Pulse 81 07/11/21 19:35 Resp 20 07/11/21 19:35 BP 93/54 L 07/11/21 19:35 Pulse Ox 96 07/11/21 19:35 BMI result Body Mass Index 19.5 Vital signs have been reviewed as appeared to be correct. Blood pressure normal. Heart rate normal. Respiration rate normal. Temperature normal. Oxygen saturation normal. Appearance: Alert. Oriented X3. No acute distress. Head: Normal external exam. Normocephalic. Atraumatic. No Irving signs noted. No raccoon eyes noted Eyes: PERRLA. EOMI. Conjunctiva and sclera normal. Eyelids normal. ENT: TM's Normal. Pharynx normal. Uvula midline. Moist mucous membranes. No trismus noted. No drooling noted. No muffled voice noted. Neck: Normal inspection. Neck supple. FROM. No adenopathy. Thyroid Normal. No meningeal signs. No neck mass noted. CVS: Normal heart rate and rhythm. Heart sound normal. No murmurs noted. Pulses normal throughout. Respiratory: No respiratory distress. Painless inspiration. Breath sounds normal. No wheezes/rales/rhonchi noted. Chest nontender. No accessory muscle usage noted or decreased air movement noted. Abdomen: Left lower quadrant tenderness, no guarding, no rebound tenderness, Bowel sounds normal in all 4 quadrants. No distention noted. No organomegaly noted. No visible injury noted. Rectal exam: No rectal prolapse, stool is brown with no obvious bleeding.gauiac positive. Back: No CVA tenderness. Full range of motion noted. Skin: Skin warm and dry. Normal skin color. Normal skin turgor. No rashes/lesions/lacerations noted. Extremities: No lower extremity edema. Extremities exhibit normal range of motion. Extremities nontender. Neuro: Oriented X 3. Cranial nerve exam: II-XII are grossly intact No motor deficit. No sensory deficit. Reflexes normal. Course Course Course Narrative: Assessment and plan. 70-year-old female came in for evaluation of abdominal pain patient with history of rectal prolapse, abdominal exam showed some tenderness mostly in the left lower quadrant, patient has a normal white count. CT of the abdomen pelvis show no acute pathology, Dr. Armstrong reviewed the CT no concern of acute pathology. Patient's abdominal in pain is better. Shortness of breath mostly a nighttime when she is laying supine or with exertion, patient has congestive heart failure. Will give the patient Lasix/nitro. Lactic acidosis likely to be chronic secondary to congestive heart failure, 1st lactic acidosis 4 now is trending down to 2.5 no suspicion for infectious process, still awaiting for UA. elevated troponin to consult cardiology as in patient. patient may need re-stenting if BUN/Cr keep worsening. Medical Decision Making Lab Data Lab results reviewed: Yes I reviewed the patient's lab results. Result diagrams: 07/11/21 11:04 07/11/21 11:04 Labs: Lab Results 07/11/21 07/11/21 07/11/21 Range/Units 10:59 11:04 11:04 WBC 7.4 (4.8-10.8) X10*3/uL RBC 3.52 L (4.20-5.50) X10*6/uL Hgb 10.6 L (12.0-16.0) g/dl Hct 32.7 L (37.0-47.0) % MCV 92.9 (80.0-98.0) fL MCH 30.1 (27.0-33.0) pg MCHC 32.4 (31.0-35.0) g/dl RDW 14.6 (11.0-16.0) % Plt Count 131 L D (160-400) X10*3/uL MPV 9.8 (9.4-12.3) fL Immature Gran % (Auto) Cancelled Neut % (Auto) Cancelled Lymph % (Auto) Cancelled Storey % (Auto) Cancelled Eos % (Auto) Cancelled Baso % (Auto) Cancelled Lymph # (Auto) Cancelled Storey # (Auto) Cancelled Eos # (Auto) Cancelled Baso # (Auto) Cancelled Abs Immat Gran (auto) Cancelled Absolute Neuts (auto) Cancelled Absolute Nucleated RBC 0.000 (0.0-0.012) X10*3/uL Nucleated RBC % (auto) 0.0 (0.0-0.2) /100WBC Neutrophils % (Manual) 77 H (45-73) % Band Neutrophils % 16 H (3-5) % Lymphocytes % (Manual) 1 L (20-40) % Monocytes % (Manual) 5 (2-11) % Eosinophils % (Manual) 1 (0-4) % Abs Neuts (Manual) 6.9 (2.0-8.3) X10*3/uL Lymphocytes # (Manual) 0.1 L (1.2-4.9) X10*3/uL Monocytes # (Manual) 0.4 (0.1-1.2) X10*3/uL Eosinophils # (Manual) 0.1 (0.0-0.4) X10*3/uL Toxic Vacuolation PRESENT Platelet Estimate SLIGHTLY DECREASED (NORMAL) Plt Morphology Comment NORMAL RBC Morphology NOTED Ovalocytes 1+ (5-14) /OIF Grady Cells 3+ (>5) /OIF Schistocytes 1+ (0-2) /OIF Sodium 136 (135-145) mmol/L Potassium 3.5 D (3.3-5.1) mmol/L Chloride 101 (96-108) mmol/L Carbon Dioxide 20 L (22-29) mmol/L Anion Gap 19 (12-20) BUN 40 H (9-16) mg/dL Creatinine 2.40 H (0.5-1.4) mg/dL Estim Creat Clear Calc 15.1 Estimated GFR 20 Random Glucose 71 (60-115) mg/dL Lactic Acid (0.5-2.0) mmol/L Lactic Acid F/U @ 2Hr (0.5-2.0) mmol/L Calcium 8.8 (8.4-10.2) mg/dL Total Bilirubin 0.4 (0.0-1.0) mg/dL Direct Bilirubin 0.4 (0.0-0.5) mg/dL AST 40 H D (5-31) U/L ALT 30 (0-31) U/L Alkaline Phosphatase 158 H D (39-117) U/L Troponin I High Sens (<3.5-17.0) ng/L B-Natriuretic Peptide (<100) pg/mL Total Protein 5.1 L (6.5-8.0) g/dL Albumin 3.0 L (3.5-5.0) g/dL Lipase 16 (8-78) U/L Stool Occult Blood POSITIVE (NEGATIVE) Influenza Type A (PCR) (Negative) Influenza Type B (PCR) (Negative) RSV RNA Qual (PCR) (Negative) SARS-CoV-2 RNA (RT-PCR) (Negative) 07/11/21 07/11/21 07/11/21 Range/Units 11:04 11:04 11:07 WBC (4.8-10.8) X10*3/uL RBC (4.20-5.50) X10*6/uL Hgb (12.0-16.0) g/dl Hct (37.0-47.0) % MCV (80.0-98.0) fL MCH (27.0-33.0) pg MCHC (31.0-35.0) g/dl RDW (11.0-16.0) % Plt Count (160-400) X10*3/uL MPV (9.4-12.3) fL Immature Gran % (Auto) Neut % (Auto) Lymph % (Auto) Storey % (Auto) Eos % (Auto) Baso % (Auto) Lymph # (Auto) Storey # (Auto) Eos # (Auto) Baso # (Auto) Abs Immat Gran (auto) Absolute Neuts (auto) Absolute Nucleated RBC (0.0-0.012) X10*3/uL Nucleated RBC % (auto) (0.0-0.2) /100WBC Neutrophils % (Manual) (45-73) % Band Neutrophils % (3-5) % Lymphocytes % (Manual) (20-40) % Monocytes % (Manual) (2-11) % Eosinophils % (Manual) (0-4) % Abs Neuts (Manual) (2.0-8.3) X10*3/uL Lymphocytes # (Manual) (1.2-4.9) X10*3/uL Monocytes # (Manual) (0.1-1.2) X10*3/uL Eosinophils # (Manual) (0.0-0.4) X10*3/uL Toxic Vacuolation Platelet Estimate (NORMAL) Plt Morphology Comment RBC Morphology Ovalocytes /OIF Rutledge Cells /OIF Schistocytes /OIF Sodium (135-145) mmol/L Potassium (3.3-5.1) mmol/L Chloride (96-108) mmol/L Carbon Dioxide (22-29) mmol/L Anion Gap (12-20) BUN (9-16) mg/dL Creatinine (0.5-1.4) mg/dL Estim Creat Clear Calc Estimated GFR Random Glucose (60-115) mg/dL Lactic Acid 4.0 H* (0.5-2.0) mmol/L Lactic Acid F/U @ 2Hr (0.5-2.0) mmol/L Calcium (8.4-10.2) mg/dL Total Bilirubin (0.0-1.0) mg/dL Direct Bilirubin (0.0-0.5) mg/dL AST (5-31) U/L ALT (0-31) U/L Alkaline Phosphatase (39-117) U/L Troponin I High Sens (<3.5-17.0) ng/L B-Natriuretic Peptide 2498 H (<100) pg/mL Total Protein (6.5-8.0) g/dL Albumin (3.5-5.0) g/dL Lipase (8-78) U/L Stool Occult Blood (NEGATIVE) Influenza Type A (PCR) NEGATIVE (Negative) Influenza Type B (PCR) NEGATIVE (Negative) RSV RNA Qual (PCR) NEGATIVE (Negative) SARS-CoV-2 RNA (RT-PCR) NEGATIVE (Negative) 07/11/21 07/11/21 Range/Units 13:43 14:42 WBC (4.8-10.8) X10*3/uL RBC (4.20-5.50) X10*6/uL Hgb (12.0-16.0) g/dl Hct (37.0-47.0) % MCV (80.0-98.0) fL MCH (27.0-33.0) pg MCHC (31.0-35.0) g/dl RDW (11.0-16.0) % Plt Count (160-400) X10*3/uL MPV (9.4-12.3) fL Immature Gran % (Auto) Neut % (Auto) Lymph % (Auto) Storey % (Auto) Eos % (Auto) Baso % (Auto) Lymph # (Auto) Storey # (Auto) Eos # (Auto) Baso # (Auto) Abs Immat Gran (auto) Absolute Neuts (auto) Absolute Nucleated RBC (0.0-0.012) X10*3/uL Nucleated RBC % (auto) (0.0-0.2) /100WBC Neutrophils % (Manual) (45-73) % Band Neutrophils % (3-5) % Lymphocytes % (Manual) (20-40) % Monocytes % (Manual) (2-11) % Eosinophils % (Manual) (0-4) % Abs Neuts (Manual) (2.0-8.3) X10*3/uL Lymphocytes # (Manual) (1.2-4.9) X10*3/uL Monocytes # (Manual) (0.1-1.2) X10*3/uL Eosinophils # (Manual) (0.0-0.4) X10*3/uL Toxic Vacuolation Platelet Estimate (NORMAL) Plt Morphology Comment RBC Morphology Ovalocytes /OIF Grady Cells /OIF Schistocytes /OIF Sodium (135-145) mmol/L Potassium (3.3-5.1) mmol/L Chloride (96-108) mmol/L Carbon Dioxide (22-29) mmol/L Anion Gap (12-20) BUN (9-16) mg/dL Creatinine (0.5-1.4) mg/dL Estim Creat Clear Calc Estimated GFR Random Glucose (60-115) mg/dL Lactic Acid (0.5-2.0) mmol/L Lactic Acid F/U @ 2Hr 2.5 H* (0.5-2.0) mmol/L Calcium (8.4-10.2) mg/dL Total Bilirubin (0.0-1.0) mg/dL Direct Bilirubin (0.0-0.5) mg/dL AST (5-31) U/L ALT (0-31) U/L Alkaline Phosphatase (39-117) U/L Troponin I High Sens 188.4 H* (<3.5-17.0) ng/L B-Natriuretic Peptide (<100) pg/mL Total Protein (6.5-8.0) g/dL Albumin (3.5-5.0) g/dL Lipase (8-78) U/L Stool Occult Blood (NEGATIVE) Influenza Type A (PCR) (Negative) Influenza Type B (PCR) (Negative) RSV RNA Qual (PCR) (Negative) SARS-CoV-2 RNA (RT-PCR) (Negative) Imaging Data CT scan - abdomen: Attestation: I personally reviewed and interpreted this imaging study as follows: Radiologist's impression: The lack of intravenous contrast limits evaluation of the solid visceral organs and bowel. Accounting for these limitations, there are not findings to suggest a bowel obstruction. ? There is redemonstration of moderate to severe intra and extrahepatic biliary ductal dilatation with also dilatation of the pancreatic duct for which further evaluation with a MR/MRCP or EUS is indicated if not already obtained. ? Again noted chronic cortical thinning and marked hydronephrosis of the left kidney. ? There are increased bibasilar airspace opacities and bronchial wall thickening raising the possibility of an atypical infectious or inflammatory process in the proper clinical context. Alternatively, this could be related with worsening atelectasis. ? ECG Data Attestation: I personally reviewed and interpreted this ECG as follows: Interpretation: Normal sinus rhythm at 90 beats per minute, frequent PVCs, normal intervals, no ST-T changes. Discharge Plan Discharge Clinical Impression: Rectal prolapse, Abdominal pain, Congestive heart failure, Elevated troponin, Acute on chronic renal insufficiency Patient Disposition: Admitted As Inpatient
[2021-07-11] MEDS: ondansetron HCL 4 MG/2 ML VIAL IVPUSH (11:07)
[2021-07-11] MEDS: 0.9 % Sodium Chloride 1,000 ML 999 ML IV (11:07)
[2021-07-11] MEDS: Morphine Sulfate 2 MG/ML CARTRIDGE 1 MG IVPUSH (11:08)
[2021-07-11 11:17] LABS: OBS Int Ctl Valid YES; OBS1 POSITIVE (NEGATIVE)
[2021-07-11 11:18] LABS: Hematocrit 32.7 % (37.0-47.0); Hemoglobin 10.6 g/dl (12.0-16.0); Mean Corpuscular HGB Conc 32.4 g/dl (31.0-35.0); Mean Corpuscular Hemoglobin 30.1 pg (27.0-33.0); Mean Corpuscular Volume 92.9 fL (80.0-98.0); Red Blood Count 3.52 X10*6/uL (4.20-5.50); Red Cell Distribution Width 14.6 % (11.0-16.0)
[2021-07-11 11:22] LABS: WBC ABN SCTR FOR CBC 1
[2021-07-11 11:35] LABS: Alanine Aminotransferase 30 U/L (0-31); Alkaline Phosphatase 158 U/L (39-117); Anion Gap 19 (12-20); Aspartate Amino Transferase 40 U/L (5-31); Bilirubin Direct 0.4 mg/dL (0.0-0.5); Bilirubin Total 0.4 mg/dL (0.0-1.0); Blood Urea Nitrogen 40 mg/dL (9-16); Calcium 8.8 mg/dL (8.4-10.2); Carbon Dioxide 20 mmol/L (22-29); Chloride 101 mmol/L (96-108); Creatinine Clr Calc Pharmacy 15.1; Estimated Glomerular Filt Rate 20; Glucose Random 71 mg/dL (60-115); Lipase 16 U/L (8-78); Potassium 3.5 mmol/L (3.3-5.1); Sodium 136 mmol/L (135-145); Total Protein 5.1 g/dL (6.5-8.0)
[2021-07-11 11:39] LABS: B Type Natriuretic Peptide 2498 pg/mL (<100)
[2021-07-11 11:49] LABS: Band Neutrophils Percent 16 % (3-5); Eosinophils Percent Manual 1 % (0-4); Lymphocytes Percent Manual 1 % (20-40); Monocytes Percent Manual 5 % (2-11); Neutrophils Percent Manual 77 % (45-73)
[2021-07-11 11:50] LABS: RBC Morphology NOTED
[2021-07-11 11:57] LABS: Burr Cells 3+ (>5) /OIF; Ovalocytes 1+ (5-14) /OIF; Platelet Estimate SLIGHTLY DECREASED (NORMAL); Platelet Morphology Comment NORMAL; Schistocytes 1+ (0-2) /OIF; Toxic Vacuolation PRESENT
[2021-07-11 11:59] LABS: Eosinophils Absolute Manual 0.1 X10*3/uL (0.0-0.4); Lymphocytes Absolute Manual 0.1 X10*3/uL (1.2-4.9); Mean Platelet Volume 9.8 fL (9.4-12.3); Monocytes Absolute Manual 0.4 X10*3/uL (0.1-1.2); Neutrophils Absolute Manual 6.9 X10*3/uL (2.0-8.3); Platelet Count 131 X10*3/uL (160-400); White Blood Count 7.4 X10*3/uL (4.8-10.8)
[2021-07-11 12:02] LABS: Influenza A PCR NEGATIVE (Negative); Influenza B PCR NEGATIVE (Negative); Resp Syncy Virus RNA Qual PCR NEGATIVE (Negative); SARS COV2 PCR INHOUSE NEGATIVE (Negative)
[2021-07-11 13:13] LABS: Reflex Lactate? Lactic Acid Added
--- NOTE | 2021-07-11 13:19 | PHA.MEDREC ---
Pharmacy Consult ? Medication Reconciliation Pharmacy has completed the medication reconciliation. Patient reports she no longer takes Ativan or oxybutynin. Family member does not believe that patient is taking her methylphenidate. It was last filled 05/23/2021 for 20 mg take QID x 30 days. Family member reports there is still a full bottle at home. Amrita Balderrama, PharmD
[2021-07-11] MEDS: HYDROmorphone HCl 1 MG/ML SYRINGE IVPUSH (13:34)
[2021-07-11 14:09] LABS: ~Lactic Acid-LAB USE ONLY 2.5 mmol/L (0.5-2.0)
[2021-07-11 15:14] LABS: Troponin-I High Sensitivity 188.4 ng/L (<3.5-17.0)
[2021-07-11] MEDS: Furosemide 20 MG/2 ML VIAL IVPUSH (15:29)
[2021-07-11] MEDS: Nitroglycerin 2 % Oint 1 GM Packet 0.5 INCH TRANSDERMA (15:30)
[2021-07-11 15:46] LABS: Reflex Lactate? 2 Y
--- NOTE | 2021-07-11 16:13 | P.HPHOSP_ITS ---
History of Present Illness Date of Service: 07/11/21 Chief Complaint: abdominal pain, rectal bleeding, shortness of breath a 70 years old lady with PMH of rectal prolapse, SAH, depression, peptic ulcer, who presents to the hospital with worsening shortness of breath and abdominal pain associated with rectal prolapse and bleeding. The patient reported that for the last 3-4 days she is having abdominal pain mo re to the left side, dull in nature, radiating all over her abdomen and mainly to her back associated with bloody stool and difficulty to place the prolapse back in place. Her symptoms were associated with chills but she did not check fevers. She also complain of worsening shortness of breath mainly when laying down for the last 2 weeks or so associated with upper respiratory symptoms few days ago and some sore throat. She has infrequent cough. She does not wear oxygen at home. She ambulate without using any equipments with reported 1 fall last year. Five days ago she went to urology clinic and bilateral stents were removed. In the emergency found to have drop in her hemoglobin level and platelets, increase lactic acid, troponin and BNP. X-ray concerning for possible atypical infiltrates or CHF picture. Admitted for further evaluation and treatment. Review of Systems Review of Systems: Complaining of chills and generalized weakness chest tightness, palpitation shortness of breath, cough abdominal pain, back pain, No urinary symptoms No reported wounds PMFSH Medical History Anxiety Brain bleed Depression FHx: cholecystectomy History of lipoma Peptic ulcer Rectal prolapse Rectal prolapse Pertinent family history: HTN in mother Surgical History History of hand surgery Social History Household Members: Family Housing: Condominium Do you presently have visiting nurse or other home services: No Alcohol intake: never Patient Tobacco Use Status: Current everyday Tobacco user Use of substances other than those prescribed or required for medical reasons: No Advance Directives: Yes Advance Directives Information Provided: Yes Advance Directives on File: No service: No Current occupational status: retired and disabled Meds Allergies Allergy/AdvReac Type Severity Reaction Status Date / Time Iodinated Contrast Media AdvReac Mild UNABLE TO Verified 07/04/21 10:05 [IV CONTRAST] SPEAK Active Medications: Current Medications Pharmacy Consult (Consult Rx Perform Med Rec) 1 each MISCELLANE ONCE PRN PRN Reason: Consult order Home Medications Medication Instructions Recorded Confirmed Last Taken Type bupropion HCl 300 mg 24 hr tablet, 1 tab PO QAM 07/06/20 07/11/21 05/24/21 History extended release trazodone 100 mg tablet 100 - 200 mg PO BEDTIME 07/06/20 07/11/21 05/24/21 History fluoxetine 40 mg capsule 40 cap PO BEDTIME 05/25/21 07/11/21 05/24/21 History fluoxetine 10 mg capsule 10 mg PO DAILY 07/04/21 07/11/21 Unknown History acetaminophen 500 mg tablet 500 mg PO Q6H PRN 07/11/21 07/11/21 Unknown History aspirin 325 mg tablet 325 mg PO DAILY 07/11/21 07/11/21 Unknown History naproxen sodium 220 mg tablet 220 mg PO BID PRN 07/11/21 07/11/21 Unknown History (Aleve) Physical Exam Vital Signs and Narrative: Vital Signs: Last Vital Signs Temp 97.9 F 07/11/21 09:34 Pulse 87 07/11/21 15:35 Resp 18 07/11/21 14:35 BP 100/52 L 07/11/21 15:35 Pulse Ox 95 07/11/21 15:35 BMI result Body Mass Index 19.5 Const: Other: Constitutional : Alert, oriented, looks chronically sick Neck : Normal inspection, Supple Cardiovascular : RRR, S1 S2, no lower extremity edema Respiratory : fair bilateral air entry, bilateral basal crackles, nowheezes or rhonchi Gastrointestinal: soft, lax, generalized tenderness more noted in epigastric area and left lower quadrant, no surgical signs Skin : Warm, Dry Neurological : Alert & oriented x3, No focal deficit noted Results Labs CBC and Chem 7: 07/11/21 11:04 07/11/21 11:04 Labs: Laboratory Results - last 24 hr 07/11/21 07/11/21 07/11/21 10:59 11:04 11:04 MCV 92.9 MCH 30.1 MCHC 32.4 RDW 14.6 Plt Count 131 L D MPV 9.8 Immature Gran % (Auto) Cancelled Neut % (Auto) Cancelled Lymph % (Auto) Cancelled [place] % (Auto) Cancelled Eos % (Auto) Cancelled Baso % (Auto) Cancelled Lymph # (Auto) Cancelled [place] # (Auto) Cancelled Eos # (Auto) Cancelled Baso # (Auto) Cancelled Abs Immat Gran (auto) Cancelled Absolute Neuts (auto) Cancelled Absolute Nucleated RBC 0.000 Nucleated RBC % (auto) 0.0 Neutrophils % (Manual) 77 H Band Neutrophils % 16 H Lymphocytes % (Manual) 1 L Monocytes % (Manual) 5 Eosinophils % (Manual) 1 Abs Neuts (Manual) 6.9 Lymphocytes # (Manual) 0.1 L Monocytes # (Manual) 0.4 Eosinophils # (Manual) 0.1 Toxic Vacuolation PRESENT Platelet Estimate SLIGHTLY DECREASED Plt Morphology Comment NORMAL RBC Morphology NOTED Ovalocytes 1+ (5-14) [place] Cells 3+ (>5) Schistocytes 1+ (0-2) Anion Gap 19 Estim Creat Clear Calc 15.1 Estimated GFR 20 Random Glucose 71 Lactic Acid Lactic Acid F/U @ 2Hr Calcium 8.8 Total Bilirubin 0.4 Direct Bilirubin 0.4 AST 40 H D ALT 30 Alkaline Phosphatase 158 H D Troponin I High Sens B-Natriuretic Peptide Total Protein 5.1 L Albumin 3.0 L Lipase 16 Stool Occult Blood POSITIVE Influenza Type A (PCR) Influenza Type B (PCR) RSV RNA Qual (PCR) SARS-CoV-2 RNA (RT-PCR) 07/11/21 07/11/21 07/11/21 11:04 11:04 11:07 MCV MCH MCHC RDW Plt Count MPV Immature Gran % (Auto) Neut % (Auto) Lymph % (Auto) [place] % (Auto) Eos % (Auto) Baso % (Auto) Lymph # (Auto) [place] # (Auto) Eos # (Auto) Baso # (Auto) Abs Immat Gran (auto) Absolute Neuts (auto) Absolute Nucleated RBC Nucleated RBC % (auto) Neutrophils % (Manual) Band Neutrophils % Lymphocytes % (Manual) Monocytes % (Manual) Eosinophils % (Manual) Abs Neuts (Manual) Lymphocytes # (Manual) Monocytes # (Manual) Eosinophils # (Manual) Toxic Vacuolation Platelet Estimate Plt Morphology Comment RBC Morphology Ovalocytes [place] Cells Schistocytes Anion Gap Estim Creat Clear Calc Estimated GFR Random Glucose Lactic Acid 4.0 H* Lactic Acid F/U @ 2Hr Calcium Total Bilirubin Direct Bilirubin AST ALT Alkaline Phosphatase Troponin I High Sens B-Natriuretic Peptide 2498 H Total Protein Albumin Lipase Stool Occult Blood Influenza Type A (PCR) NEGATIVE Influenza Type B (PCR) NEGATIVE RSV RNA Qual (PCR) NEGATIVE SARS-CoV-2 RNA (RT-PCR) NEGATIVE 07/11/21 07/11/21 13:43 14:42 MCV MCH MCHC RDW Plt Count MPV Immature Gran % (Auto) Neut % (Auto) Lymph % (Auto) [place] % (Auto) Eos % (Auto) Baso % (Auto) Lymph # (Auto) [place] # (Auto) Eos # (Auto) Baso # (Auto) Abs Immat Gran (auto) Absolute Neuts (auto) Absolute Nucleated RBC Nucleated RBC % (auto) Neutrophils % (Manual) Band Neutrophils % Lymphocytes % (Manual) Monocytes % (Manual) Eosinophils % (Manual) Abs Neuts (Manual) Lymphocytes # (Manual) Monocytes # (Manual) Eosinophils # (Manual) Toxic Vacuolation Platelet Estimate Plt Morphology Comment RBC Morphology Ovalocytes [place] Cells Schistocytes Anion Gap Estim Creat Clear Calc Estimated GFR Random Glucose Lactic Acid Lactic Acid F/U @ 2Hr 2.5 H* Calcium Total Bilirubin Direct Bilirubin AST ALT Alkaline Phosphatase Troponin I High Sens 188.4 H* B-Natriuretic Peptide Total Protein Albumin Lipase Stool Occult Blood Influenza Type A (PCR) Influenza Type B (PCR) RSV RNA Qual (PCR) SARS-CoV-2 RNA (RT-PCR) Imaging Radiologist's Impressions: Impressions Abdomen/Pelvis CT 07/11/21 12:24 IMPRESSION: The lack of intravenous contrast limits evaluation of the solid visceral organs and bowel. Accounting for these limitations, there are not findings to suggest a bowel obstruction. There is redemonstration of moderate to severe intra and extrahepatic biliary ductal dilatation with also dilatation of the pancreatic duct for which further evaluation with a MR/MRCP or EUS is indicated if not already obtained. Again noted chronic cortical thinning and marked hydronephrosis of the left kidney. There are increased bibasilar airspace opacities and bronchial wall thickening raising the possibility of an atypical infectious or inflammatory process in the proper clinical context. Alternatively, this could be related with worsening atelectasis. Chest X-Ray 07/11/21 14:22 IMPRESSION: Multifocal airspace opacities with increased interstitial prominence concerning for a diffuse atypical infectious or inflammatory process. Assessment and Plan (1) [id number] kidney injury: Status: Acute (2) Hydronephrosis, left: Status: Acute (3) Acute on chronic blood loss anemia: Status: Acute (4) Rectal prolapse: Status: Acute (5) GI bleed: Status: Acute (6) Lactic acidosis: Status: Acute (7) Thrombocytopenia: Status: Acute a 70 years old lady with PMH of rectal prolapse, SAH, depression, peptic ulcer, who presents to the hospital with worsening shortness of breath and abdominal pain associated with rectal prolapse and bleeding. acute kidney injury on CKD 3 Creatinine worsened to 2.4 from baseline of 1.4 Likely secondary to obstruction CT scan showed hydronephrosis on the left kidney To get urology intervention elevated troponin EKG not showing any ST or T-wave changes No reported chest pain Troponin at 188, to follow Repeat EKG for any chest pain Acute on chronic blood-loss anemia Secondary to GI bleed, rectal blood labs Hemoglobin dropped to 10 from baseline of almost 12 Reporting fresh blood and epigastric pain Hold aspirin and naproxen Start pantoprazole IV and Carafate to get surgery and GI evaluation Elevated BNP CXR concerning for atypical infection, could be CHF picture Received IV Lasix in the emergency To check viral panel To check procalcitonin Repeat x-ray in the morning lactic acidosis type 2, not due to sepsis received IV fluid with good response , normalized Pyelonephritis Likely secondary to obstruction Pending urine culture Started on ceftriaxone Thrombocytopenia Drop in platelets Likely secondary to bleeding and medications To monitor DVT PPX SCDs Quality Stroke Does the patient have a stroke diagnosis?: No VTE Prior VTE?: No VTE Risk Level:: Medical - moderate - high VTE Device Contraindication: Treatment Not Indicated VTE Drug Contraindication: Treatment Not Indicated
[2021-07-11 16:29] LABS: ~Lactic Acid-LAB USE ONLY 1.9 mmol/L (0.5-2.0)
--- NOTE | 2021-07-11 16:45 | P.CONGS_ITS ---
History of Present Illness Consult details Consult date: 07/11/21 Narrative: 70-year-old female patient presenting with complaints of diffuse abdominal pain especially in the right upper quadrant radiating to the right back. Pain is associated with nausea, vomiting, and profuse diarrhea which is occasionally bloody. The symptoms seem to begin around [place] and have progressed since then. She reports the pain comes in waves but never goes away completely. She does feel improved slightly when in a position. She has a prior history of rectal prolapse which is currently reduced. It has become more difficult to reduce due to the diarrhea. She reports previous abdominal s urgery for a cholecystectomy and gastric ulcers. She denies a previous history of abdominal pain such as this. A CT abdomen and pelvis was obtained in the emergency department which revealed dilation of the intra, extra hepatic ducts as well as pancreatic duct. No bowel obstruction was identified. MRCP is recommended. Review of Systems Review of Systems: Yes all other systems are reviewed and are negative Constitutional: Constitutional: Reports anorexia, Denies chills, Denies fever(s) and Reports weakness Cardiovascular: Cardiovascular: Reports chest pain, Denies irregular heart rhythm, Denies palpitations and Reports dyspnea Respiratory: Respiratory: Denies cough, Denies pain on inspiration and Reports dyspnea Gastrointestinal: Gastrointestinal: Reports abdominal pain, Reports hematochezia, Denies constipation, Reports diarrhea, Reports nausea and Reports vomiting Musculoskeletal: Musculoskeletal: Reports back pain Neurologic: Reports weakness Psychiatric: Psychiatric: Reports depression Endocrine: Endocrine: Denies palpitations PMFSH Past Medical History Medical History Anxiety Brain bleed Depression FHx: cholecystectomy History of lipoma Peptic ulcer Rectal prolapse Rectal prolapse Surgical History Surgical History History of hand surgery Social History Social History Household Members: Family Housing: Condominium Do you presently have visiting nurse or other home services: No Alcohol intake: never Patient Tobacco Use Status: Current everyday Tobacco user Use of substances other than those prescribed or required for medical reasons: No Advance Directives: Yes Advance Directives Information Provided: Yes Advance Directives on File: No service: No Current occupational status: retired and disabled Meds Allergies Allergy/AdvReac Type Severity Reaction Status Date / Time Iodinated Contrast Media AdvReac Mild UNABLE TO Verified 07/04/21 10:05 [IV CONTRAST] SPEAK Active Medications: Current Medications Acetaminophen (Acetaminophen 325 Mg Tablet) 650 mg PO Q6H PRN PRN Reason: Pain, Mild (Pain Scale 1-3) Bupropion HCl (Bupropion Hcl Xl 300 Mg Tab.Er.24h) 300 mg PO DAILY [facility] Fluoxetine HCl (Fluoxetine Hcl 10 Mg Capsule) 10 mg PO DAILY [facility] Fluoxetine HCl (Fluoxetine Hcl 20 Mg Capsule) 40 mg PO BEDTIME [facility] Hydromorphone HCl (Hydromorphone Hcl 0.5 Mg/0.5 Ml Syringe) 0.5 mg IVPUSH Q4H PRN; Protocol PRN Reason: Pain, Severe (Pain Scale 7-10) Ceftriaxone Sodium 1 gm/ (Sodium Chloride) 50 mls @ 100 mls/hr IV Q24H [facility] Azithromycin 500 mg/ Sodium (Chloride) 250 mls @ 125 mls/hr IV Q24H [facility] Lidocaine (Lidocaine 4 % Patch Adh..Patch) 2 patch TRANSDERMA DAILY [facility]; Protocol Ondansetron HCl (Ondansetron Hcl 4 Mg/2 Ml Vial) 4 mg IVPUSH Q8H PRN PRN Reason: Nausea and Vomiting Oxybutynin Chloride (Oxybutynin Chloride Er 5 Mg Tab.Er.24) 5 mg PO BEDTIME [facility] Pantoprazole Sodium (Pantoprazole Sodium 40 Mg/10 Ml Vial) 40 mg IVPUSH BID@0630,1630 [facility] Pharmacy Consult (Consult Rx Perform Med Rec) 1 each MISCELLANE ONCE PRN PRN Reason: Consult order Sodium Chloride (0.9 % Sodium Chloride Flush 3 Ml Syringe) 3 ml IVFLUSH QSHIFT [facility] Sucralfate (Sucralfate 1 Gm Tablet) 1 gm PO BIDAC [facility] Trazodone HCl (Trazodone Hcl 100 Mg Tablet) 100 mg PO BEDTIME [facility] Home Medications Medication Instructions Recorded Confirmed Last Taken Type bupropion HCl 300 mg 24 hr tablet, 1 tab PO QAM 07/06/20 07/11/21 05/24/21 History extended release trazodone 100 mg tablet 100 - 200 mg PO BEDTIME 07/06/20 07/11/21 05/24/21 History fluoxetine 40 mg capsule 40 mg PO BEDTIME 11/07/0307/11/21 05/24/21 History fluoxetine 10 mg capsule 10 mg PO DAILY 07/04/21 07/11/21 Unknown History acetaminophen 500 mg tablet 500 mg PO Q6H PRN 07/11/21 07/11/21 Unknown History aspirin 325 mg tablet 325 mg PO DAILY 07/11/21 07/11/21 Unknown History naproxen sodium 220 mg tablet 220 mg PO BID PRN 07/11/21 07/11/21 Unknown History (Aleve) Physical Exam Vital Signs: Vital Signs: Last Vital Signs Temp 97.9 F 07/11/21 09:34 Pulse 87 07/11/21 15:35 Resp 18 07/11/21 14:35 BP 100/52 L 07/11/21 15:35 Pulse Ox 95 07/11/21 15:35 BMI result Body Mass Index 19.5 Const: General: cooperative and ill appearing Nutritional Appearance: thin Orientation/consciousness: patient oriented x3 Limitations: no limitations HENMT: Head: Yes normocephalic and Yes atraumatic Ears: hearing grossly normal bilaterally Neck: Neck: Yes trachea midline, Yes supple and Yes no JVD Resp: Effort & Inspection: normal respiratory effort, no audible wheezes, no cough and no respiratory distress Auscultation: clear to auscultation bilaterally, no crackles and no rales Cardio: Jugular venous distension: no JVD Rate: regular rate Rhythm: regular rhythm Heart sounds: S1 normal heart sound present and S2 normal heart sound present GI: Palpation (GI): Soft to palpation and Tenderness to palpation present (GI) in the LLQ, in the RLQ, in the LUQ and in the RUQ Percussion: Yes dullness to percussion Auscultation: Absent bowel sounds Rectal Exam - Female: No Rectal prolapse Skin: General skin exam: no rashes or lesions noted Neuro: General: patient oriented x3 Extrem: General: No edema Results Labs Result diagrams: 07/11/21 11:04 07/11/21 11:04 Labs: Abnormal lab results 07/11/21 07/11/21 07/11/21 Range/Units 11:04 11:04 11:04 RBC 3.52 L (4.20-5.50) X10*6/uL Hgb 10.6 L (12.0-16.0) g/dl Hct 32.7 L (37.0-47.0) % Plt Count 131 L D (160-400) X10*3/uL Neutrophils % (Manual) 77 H (45-73) % Band Neutrophils % 16 H (3-5) % Lymphocytes % (Manual) 1 L (20-40) % Lymphocytes # (Manual) 0.1 L (1.2-4.9) X10*3/uL Carbon Dioxide 20 L (22-29) mmol/L BUN 40 H (9-16) mg/dL Creatinine 2.40 H (0.5-1.4) mg/dL Lactic Acid 4.0 H* (0.5-2.0) mmol/L Lactic Acid F/U @ 2Hr (0.5-2.0) mmol/L AST 40 H D (5-31) U/L Alkaline Phosphatase 158 H D (39-117) U/L Troponin I High Sens (<3.5-17.0) ng/L B-Natriuretic Peptide (<100) pg/mL Total Protein 5.1 L (6.5-8.0) g/dL Albumin 3.0 L (3.5-5.0) g/dL 07/11/21 07/11/21 07/11/21 Range/Units 11:04 13:43 14:42 RBC (4.20-5.50) X10*6/uL Hgb (12.0-16.0) g/dl Hct (37.0-47.0) % Plt Count (160-400) X10*3/uL Neutrophils % (Manual) (45-73) % Band Neutrophils % (3-5) % Lymphocytes % (Manual) (20-40) % Lymphocytes # (Manual) (1.2-4.9) X10*3/uL Carbon Dioxide (22-29) mmol/L BUN (9-16) mg/dL Creatinine (0.5-1.4) mg/dL Lactic Acid (0.5-2.0) mmol/L Lactic Acid F/U @ 2Hr 2.5 H* (0.5-2.0) mmol/L AST (5-31) U/L Alkaline Phosphatase (39-117) U/L Troponin I High Sens 188.4 H* (<3.5-17.0) ng/L B-Natriuretic Peptide 2498 H (<100) pg/mL Total Protein (6.5-8.0) g/dL Albumin (3.5-5.0) g/dL Short CBC 07/11/21 Range/Units 11:04 WBC 7.4 (4.8-10.8) X10*3/uL Hgb 10.6 L (12.0-16.0) g/dl Hct 32.7 L (37.0-47.0) % Plt Count 131 L D (160-400) X10*3/uL BMP 07/11/21 11:04 Sodium 136 Potassium 3.5 D Chloride 101 Carbon Dioxide 20 L BUN 40 H Creatinine 2.40 H Calcium 8.8 Liver Function 07/11/21 Range/Units 11:04 Total Bilirubin 0.4 (0.0-1.0) mg/dL Direct Bilirubin 0.4 (0.0-0.5) mg/dL AST 40 H D (5-31) U/L ALT 30 (0-31) U/L Alkaline Phosphatase 158 H D (39-117) U/L Albumin 3.0 L (3.5-5.0) g/dL All other labs normal. Assessment and Plan (1) Rectal prolapse: Status: Acute (2) Abdominal pain: Status: Acute 70-year-old female patient with history of rectal prolapse presenting now with a 5 day history of abdominal pain located diffusely in the abdomen but mostly in the upper right extending into the right back. Pain is associated with nausea, vomiting, decreased appetite, and occasional bloody stool. Initial laboratories revealed a normal WBC but decreased H&H and platelet count. CT abdomen and pelvis is difficult to read due to lack of contrast however there is no evidence of a bowel obstruction or free air. Marked dilation of the bile ducts and pancreatic duct is noted. This should further be evaluated with ERCP or MRCP. Recommend GI consultation for further evaluation. I will follow along during this hospitalization. Procedures Date of Service Date of Service: 07/11/21
[2021-07-11 17:57] LABS: Procalcitonin 54.83 ng/mL
[2021-07-11 18:00] LABS: Troponin-I High Sensitivity 217.7 ng/L (<3.5-17.0)
[2021-07-11] MEDS: 0.9 % Sodium Chloride Flush 3 ML SYRINGE IVFLUSH (18:27)
[2021-07-11] MEDS: Pantoprazole Sodium 40 MG/10 ML VIAL IVPUSH (18:27)
[2021-07-11] MEDS: Sucralfate 1 GM TABLET PO (18:28)
[2021-07-11] MEDS: cefTRIAXone sodium 1 GM in 0.9 % Sodium Chloride 50 ML IV (18:28)
[2021-07-11] MEDS: Azithromycin 500 MG in 0.9 % Sodium Chloride 250 ML 125 MG IV (19:41)
[2021-07-11] MEDS: HYDROmorphone HCl 0.5 MG/0.5 ML SYRINGE IVPUSH (21:03)
[2021-07-11] MEDS: FLUoxetine HCl 20 MG CAPSULE 40 MG PO (21:03)
[2021-07-11] MEDS: traZODone HCL 100 MG TABLET PO (21:03)
[2021-07-12] VITALS: BP 98/57; PULSE 83; RESP 18; TEMP 36.6; O2SAT 83
--- NOTE | 2021-07-12 | ECG_ITS ---
Test Reason : DIFFICULTY BREATHING Blood Pressure : / mmHG Vent. Rate : 085 BPM Atrial Rate : 085 BPM P-R Int : 126 ms QRS Dur : 072 ms QT Int : 398 ms P-R-T Axes : 044 -03 032 degrees QTc Int : 473 ms Sinus rhythm with occasional Premature ventricular complexes Possible Left atrial enlargement Borderline ECG When compared with ECG of 11-JUL-2021 11:46, No significant changes seen Referred By: Derrick Rincon Electronically Signed By:David Parmar
[2021-07-12 04:23] VITALS: BP 99/45; PULSE 80; RESP 20; TEMP 36.7; O2SAT 94
[2021-07-12] MEDS: Sucralfate 1 GM TABLET PO ×2 (06:17→16:49)
[2021-07-12] MEDS: Pantoprazole Sodium 40 MG/10 ML VIAL IVPUSH ×2 (06:17→16:49)
--- NOTE | 2021-07-12 06:21 | PC.NURSE ---
Pt medicated per MAR Pt tolerated well Will continue to monitor
[2021-07-12 06:28] VITALS: RESP 17
[2021-07-12] MEDS: HYDROmorphone HCl 0.5 MG/0.5 ML SYRINGE IVPUSH ×3 (06:28→18:47)
[2021-07-12 07:14] LABS: Hemoglobin 10.4 g/dl (12.0-16.0); Mean Corpuscular HGB Conc 32.5 g/dl (31.0-35.0); Mean Corpuscular Hemoglobin 30.5 pg (27.0-33.0); Mean Corpuscular Volume 93.8 fL (80.0-98.0); Mean Platelet Volume 10.2 fL (9.4-12.3); Platelet Count 144 X10*3/uL (160-400); Red Blood Count 3.41 X10*6/uL (4.20-5.50); Red Cell Distribution Width 15.4 % (11.0-16.0); White Blood Count 13.4 X10*3/uL (4.8-10.8)
[2021-07-12 07:48] LABS: B Type Natriuretic Peptide 2644 pg/mL (<100)
[2021-07-12 08:05] LABS: Anion Gap 15 (12-20); Blood Urea Nitrogen 55 mg/dL (9-16); Calcium 7.8 mg/dL (8.4-10.2); Carbon Dioxide 22 mmol/L (22-29); Chloride 105 mmol/L (96-108); Creatinine Clr Calc Pharmacy 10.7; Estimated Glomerular Filt Rate 13; Glucose Random 68 mg/dL (60-115); Potassium 4.6 mmol/L (3.3-5.1); Sodium 137 mmol/L (135-145)
--- NOTE | 2021-07-12 08:45 | P.EN_ITS ---
Event Note Date of Service: 07/12/21 Event Note: GI Consult-Full note dictated-Hx via patient(limited), RN, and EMR Imp: 70 yo female with multiple medical issues presenting with reported increasing left-sided abdominal pain, diarrhea, and rectal bleeding described as bright red , as well as worsening renal function and anemia. Her CT without any contrast did not reveal any significant GI abnormalities, but the study was suboptimal as per the report. Her abdominal exam reveals tenderness on the left side with some guarding, but BS are present and presently nondistended. She has been on some recent antibiotics in relation to recent issues with recent ureteral stent placement. Diff dx: Colitis-infectious-? C. diff given her clinical history- Rec: Repeat CT with oral contrast, follow abdominal exam, stool specs ordered but not sent as yet(she hasn't had any further BM's overnight), surgery consu lt(done), follow renal function. Will hold off on sigmoidoscopy/colonoscopy for now given her clinical exam. May need to broaden her antibiotic coverage to include intra-abdominal pathogens and C.diff. Check stool specs when available. Thanks.
[2021-07-12] MEDS: 0.9 % Sodium Chloride Flush 3 ML SYRINGE IVFLUSH (09:14)
[2021-07-12] MEDS: Lidocaine 4 % Patch ADH..PATCH 2 PATCH TRANSDERMA (09:14)
[2021-07-12] MEDS: buPROPion HCl XL 300 MG TAB.ER.24H PO (09:14)
[2021-07-12] MEDS: FLUoxetine HCl 10 MG CAPSULE PO (09:14)
[2021-07-12] MEDS: Lactated Ringers 1,000 ML 80 ML IVCONT ×2 (09:16→21:30)
--- NOTE | 2021-07-12 09:37 | CONS_ITS ---
DATE OF SERVICE: 07/12/2021 REASON FOR CONSULTATION: Diarrhea, abdominal pain, and rectal bleeding. HISTORY OF PRESENT ILLNESS: This has been obtained from the patient who is not a particularly reliable historian, but also obtained from the medical record and her nurse. The patient is a 70-year-old female with multiple medical problems including renal insufficiency and congestive heart failure, presenting with what she describes as increasing left-sided abdominal pain, diarrhea, and rectal bleeding. She had recently been in the hospital for issues including some renal problems in relation to ureteral obstruction which required placement of bilateral stents by Dr. Chávez. She describes that they were recently removed. She has been on some antibiotics at home in relation to possible UTIs and/or the recent ureteral obstructions. She does describe some chronic abdominal issues, but over the past several days has been having increasing left-sided abdominal pain. She describes diarrhea, which was yellow or brown, but associated with bright red blood. The pain was worsening, which prompted her visit to the ER. She has had some vomiting, but no hematemesis nor coffee-grounds emesis. She does not think she has ever had a colonoscopy. She lives by herself and denies any ill contacts. She denies the use of any chronic NSAIDs. She is not on any blood thinners other than a daily aspirin according to the medication list. Since admission here, she has had some increasing abdominal pain on the left side, but has had no further bowel movements or bleeding overnight. She did have a CT scan yesterday without any oral nor IV contrast, which was negative for any specific GI pathology, but the report describes there was a suboptimal study due to no oral contrast. PRESENT MEDICATIONS: Include IV azithromycin, Wellbutrin, IV ceftriaxone, fluoxetine, Dilaudid p.r.n., lidocaine patch, Zofran p.r.n., oxybutynin, pantoprazole, sucralfate, and trazodone. PAST MEDICAL HISTORY: She describes a cholecystectomy, tubal ligation, and some type of ulcer surgery in the duodenum. Her medical issues include renal insufficiency with recent bilateral hydronephrosis requiring ureteral stents which were recently removed as per the patient, congestive heart failure, depression, rectal prolapse, hand surgery, subarachnoid hemorrhage. She denies any history of [place] or diabetes. SOCIAL HISTORY: She does smoke. She denies alcohol use. She lives by herself. FAMILY HISTORY: Noncontributory. PHYSICAL EXAMINATION: GENERAL: The patient is an alert, pleasant, but chronically ill-appearing female. She does appear to have lost weight. SKIN: Warm and dry. Nonjaundiced. HEENT: Anicteric sclerae. CARDIAC: Normal S1, S2. ABDOMEN: Soft, nondistended. Bowel sounds are present. However she does have fairly significant tenderness along the left side of the abdomen with guarding. REVIEW OF SYSTEMS: CONSTITUTIONAL: She reports that her appetite has been somewhat poor. She has fatigue. SKIN: Without jaundice. CARDIAC: No chest pain. PULMONARY: No coughing or hemoptysis. GASTROINTESTINAL: As above. LABORATORY DATA: Her white blood cell count was 7.4 yesterday and today is 13.4, hemoglobin 10.4 today, which is stable compared to yesterday 10.6. On June 29, her hemoglobin was 11.4. Her platelet count 144,000 today. Normal electrolytes. BUN 55, creatinine 3.4. Total bilirubin 0.4, AST 40, ALT 30, albumin 3.0, alkaline phosphatase 158, lipase 16. She had a CT scan of her abdomen yesterday without oral or IV contrast and it is described as a somewhat suboptimal study. She does have chronic dilatation of the biliary tree, which has been seen on previous studies. There is no evidence of any pancreatic mass. GI tract is difficult to evaluate according to the report due to underdistention, motion, and lack of contrast. There was no free air. IMPRESSION: Given the patient's clinical history, I would be most concerned about some type of colitis such as C difficile given her recent history of antibiotics. Ischemic colitis could be another possibility. At the present time given her tenderness on exam and the suboptimal CT scan, I have ordered a repeat CT scan with oral contrast on a stat basis. Stool specimens have already been ordered for C difficile and culture, but has not yet been sent as she has not had any further bowel movements. She will have followup laboratories. She obviously needs further followup from the renal standpoint. She might need re-evaluation for ureteral stent placement if she has recurrent hydronephrosis. At this point, I do not think she is a candidate for sigmoidoscopy nor colonoscopy given the degree of abdominal tenderness on her exam. She may need broader antibiotic coverage to cover any intraabdominal pathogens and/or C difficile as well. I shall follow the patient with you. MD LENKA Reza/STEVEN / [phone]
--- NOTE | 2021-07-12 10:12 | MHC.CM.PN ---
Addendum entered by Madison Hernandez 07/12/21 16:10: PATIENT IS ACITVE WITH [facility] FOR HOME PHYSICAL THERAPY AND RN SKILLS Original Note: PATIENT LIVES ALONE BUT HER SON/HCP (ON FILE AND VERIFIED) STAYS AT THE HOME FREQUENTLY TO ASSIST WITH TRANSPORT OR ASSISTANCE AROUND THE HOME. PATIENT DOES NOT WANT ANY REFERRALS TO SNF FACILITIES. SHE STATES THAT SHE IS ACTIVE WITH A [facility] BUT IS NOT SURE THE NAME OF IT. SHE DOES AGREE TO RESUMING [facility] UPON DISCHARGE. IMM 07/12 IN CHART PATIENT ALSO REPORTS BEING VACCINATED AGAINST COVID-19 BUT HER SON TOOK HER WALLET HOME AND SHE DOES NOT REMEMBER THE BRAND OR DATES.
--- NOTE | 2021-07-12 11:07 | P.PNIM_ITS ---
Subjective Subjective Date of Service: 07/12/21 Interval History: The patient was seen and evaluated this morning Laying in bed, feels More tired and out of energy Small amount of blood noticed, difficult to push the prolapse back kidney function worsening No reported other overnight events. Review of Systems Complaining of chills and generalized weakness chest tightness, palpitation shortness of breath, cough abdominal pain, back pain, No urinary symptoms No reported wounds Physical Exam Vital Signs: Vital Signs: Last Vital Signs Temp 98.0 F 07/12/21 04:23 Pulse 80 07/12/21 04:23 Resp 17 07/12/21 06:28 BP 99/45 L 07/12/21 04:23 Pulse Ox 94 07/12/21 04:23 BMI result Body Mass Index 19.5 Const: Other: Constitutional : Alert, oriented, looks chronically sick Neck : Normal inspection, Supple Cardiovascular : RRR, S1 S2, no lower extremity edema Respiratory : fair bilateral air entry, no clear basal crackles, no wheezes or rhonchi Gastrointestinal: soft, lax, generalized tenderness more noted in epigastric area and left lower quadrant, no surgical signs Skin : Warm, Dry Neurological : Alert & oriented x3, No focal deficit noted Objective Data Active Medications Acetaminophen (Acetaminophen 325 Mg Tablet) 650 mg PO Q6H PRN PRN Reason: Pain, Mild (Pain Scale 1-3) Bupropion HCl (Bupropion Hcl Xl 300 Mg Tab.Er.24h) 300 mg PO DAILY [facility] [place] Last Admin: 07/12/21 09:14 Dose: 300 mg Documented by: LESVIA Fluoxetine HCl (Fluoxetine Hcl 10 Mg Capsule) 10 mg PO DAILY [facility] [place] Last Admin: 07/12/21 09:14 Dose: 10 mg Documented by: LESVIA Fluoxetine HCl (Fluoxetine Hcl 20 Mg Capsule) 40 mg PO BEDTIME [facility] [place] Last Admin: 07/11/21 21:03 Dose: 40 mg Documented by: MAHAMED Hydromorphone HCl (Hydromorphone Hcl 0.5 Mg/0.5 Ml Syringe) 0.5 mg IVPUSH Q4H PRN; Protocol PRN Reason: Pain, Severe (Pain Scale 7-10) Last Admin: 07/12/21 06:28 Dose: 0.5 mg Documented by: LEFTY Ceftriaxone Sodium 1 gm/ (Sodium Chloride) 50 mls @ 100 mls/hr IV Q24H [facility] [place] Last Infusion: 07/11/21 19:50 Dose: 0 mls/hr Documented by: MAHAMED Lactated Ringer's (Lr) 1,000 mls @ 80 mls/hr IVCONT .[id number] [facility] [place] Last Admin: 07/12/21 09:16 Dose: 80 mls/hr Documented by: LESVIA Doxycycline Hyclate 100 mg/ (Sodium Chloride) 250 mls @ 166.67 mls/hr IV Q12H [facility] [place] Lidocaine (Lidocaine 4 % Patch Adh..Patch) 2 patch TRANSDERMA DAILY [facility] [place]; Protocol Last Admin: 07/12/21 09:14 Dose: 2 patch Documented by: LESVIA Ondansetron HCl (Ondansetron Hcl 4 Mg/2 Ml Vial) 4 mg IVPUSH Q8H PRN PRN Reason: Nausea and Vomiting Oxybutynin Chloride (Oxybutynin Chloride Er 5 Mg Tab.Er.24) 5 mg PO BEDTIME [facility] [place] Last Admin: 07/11/21 22:33 Dose: Not Given Documented by: MAHAMED Non-Admin Reason: Patient Refused Pantoprazole Sodium (Pantoprazole Sodium 40 Mg/10 Ml Vial) 40 mg IVPUSH BID@0630,1630 [facility] [place] Last Admin: 07/12/21 06:17 Dose: 40 mg Documented by: LEFTY Pharmacy Consult (Consult Rx Perform Med Rec) 1 each MISCELLANE ONCE PRN PRN Reason: Consult order Sodium Chloride (0.9 % Sodium Chloride Flush 3 Ml Syringe) 3 ml IVFLUSH QSHIFT [facility] [place] Last Admin: 07/12/21 09:14 Dose: 3 ml Documented by: LESVIA Sucralfate (Sucralfate 1 Gm Tablet) 1 gm PO BIDAC [facility] [place] Last Admin: 07/12/21 06:17 Dose: 1 gm Documented by: LEFTY Trazodone HCl (Trazodone Hcl 100 Mg Tablet) 100 mg PO BEDTIME [facility] [place] Last Admin: 07/11/21 21:03 Dose: 100 mg Documented by: MAHAMED Labs CBC & Chem 7: 07/12/21 06:52 07/12/21 06:52 Labs: Laboratory Results - last 24 hr 07/11/21 07/11/2107/11/21 10:59 11:04 11:04 MCV 92.9 MCH 30.1 MCHC 32.4 RDW 14.6 Plt Count 131 L D MPV 9.8 Immature Gran % (Auto) Cancelled Neut % (Auto) Cancelled Lymph % (Auto) Cancelled Jerome % (Auto) Cancelled Eos % (Auto) Cancelled Baso % (Auto) Cancelled Lymph # (Auto) Cancelled Jerome # (Auto) Cancelled Eos # (Auto) Cancelled Baso # (Auto) Cancelled Abs Immat Gran (auto) Cancelled Absolute Neuts (auto) Cancelled Absolute Nucleated RBC 0.000 Nucleated RBC % (auto) 0.0 Neutrophils % (Manual) 77 H Band Neutrophils % 16 H Lymphocytes % (Manual) 1 L Monocytes % (Manual) 5 Eosinophils % (Manual) 1 Abs Neuts (Manual) 6.9 Lymphocytes # (Manual) 0.1 L Monocytes # (Manual) 0.4 Eosinophils # (Manual) 0.1 Toxic Vacuolation PRESENT Platelet Estimate SLIGHTLY DECREASED Plt Morphology Comment NORMAL RBC Morphology NOTED Ovalocytes 1+ (5-14) Grady Cells 3+ (>5) Schistocytes 1+ (0-2) Anion Gap 19 Estim Creat Clear Calc 15.1 Estimated GFR 20 Random Glucose 71 Lactic Acid Lactic Acid F/U @ 2Hr Lactic Acid F/U @ 4Hr Calcium 8.8 Total Bilirubin 0.4 Direct Bilirubin 0.4 AST 40 H D ALT 30 Alkaline Phosphatase 158 H D Troponin I High Sens B-Natriuretic Peptide Total Protein 5.1 L Albumin 3.0 L Lipase 16 Procalcitonin Stool Occult Blood POSITIVE Influenza Type A (PCR) Influenza Type B (PCR) RSV RNA Qual (PCR) SARS-CoV-2 RNA (RT-PCR) 07/11/21 07/11/21 07/11/21 11:04 11:04 11:07 MCV MCH MCHC RDW Plt Count MPV Immature Gran % (Auto) Neut % (Auto) Lymph % (Auto) Jerome % (Auto) Eos % (Auto) Baso % (Auto) Lymph # (Auto) Jerome # (Auto) Eos # (Auto) Baso # (Auto) Abs Immat Gran (auto) Absolute Neuts (auto) Absolute Nucleated RBC Nucleated RBC % (auto) Neutrophils % (Manual) Band Neutrophils % Lymphocytes % (Manual) Monocytes % (Manual) Eosinophils % (Manual) Abs Neuts (Manual) Lymphocytes # (Manual) Monocytes # (Manual) Eosinophils # (Manual) Toxic Vacuolation Platelet Estimate Plt Morphology Comment RBC Morphology Ovalocytes [place] Cells Schistocytes Anion Gap Estim Creat Clear Calc Estimated GFR Random Glucose Lactic Acid 4.0 H* Lactic Acid F/U @ 2Hr Lactic Acid F/U @ 4Hr Calcium Total Bilirubin Direct Bilirubin AST ALT Alkaline Phosphatase Troponin I High Sens B-Natriuretic Peptide 2498 H Total Protein Albumin Lipase Procalcitonin Stool Occult Blood Influenza Type A (PCR) NEGATIVE Influenza Type B (PCR) NEGATIVE RSV RNA Qual (PCR) NEGATIVE SARS-CoV-2 RNA (RT-PCR) NEGATIVE 07/11/21 07/11/21 07/11/21 13:43 14:42 16:09 MCV MCH MCHC RDW Plt Count MPV Immature Gran % (Auto) Neut % (Auto) Lymph % (Auto) Jerome % (Auto) Eos % (Auto) Baso % (Auto) Lymph # (Auto) Jerome # (Auto) Eos # (Auto) Baso # (Auto) Abs Immat Gran (auto) Absolute Neuts (auto) Absolute Nucleated RBC Nucleated RBC % (auto) Neutrophils % (Manual) Band Neutrophils % Lymphocytes % (Manual) Monocytes % (Manual) Eosinophils % (Manual) Abs Neuts (Manual) Lymphocytes # (Manual) Monocytes # (Manual) Eosinophils # (Manual) Toxic Vacuolation Platelet Estimate Plt Morphology Comment RBC Morphology Ovalocytes Grady Cells Schistocytes Anion Gap Estim Creat Clear Calc Estimated GFR Random Glucose Lactic Acid Lactic Acid F/U @ 2Hr 2.5 H* Lactic Acid F/U @ 4Hr 1.9 Calcium Total Bilirubin Direct Bilirubin AST ALT Alkaline Phosphatase Troponin I High Sens 188.4 H* B-Natriuretic Peptide Total Protein Albumin Lipase Procalcitonin Stool Occult Blood Influenza Type A (PCR) Influenza Type B (PCR) RSV RNA Qual (PCR) SARS-CoV-2 RNA (RT-PCR) 07/11/21 07/11/21 07/12/21 17:09 17:09 06:52 MCV MCH MCHC RDW Plt Count MPV Immature Gran % (Auto) Neut % (Auto) Lymph % (Auto) Jerome % (Auto) Eos % (Auto) Baso % (Auto) Lymph # (Auto) Jerome # (Auto) Eos # (Auto) Baso # (Auto) Abs Immat Gran (auto) Absolute Neuts (auto) Absolute Nucleated RBC Nucleated RBC % (auto) Neutrophils % (Manual) Band Neutrophils % Lymphocytes % (Manual) Monocytes % (Manual) Eosinophils % (Manual) Abs Neuts (Manual) Lymphocytes # (Manual) Monocytes # (Manual) Eosinophils # (Manual) Toxic Vacuolation Platelet Estimate Plt Morphology Comment RBC Morphology Ovalocytes Grady Cells Schistocytes Anion Gap Estim Creat Clear Calc Estimated GFR Random Glucose Lactic Acid Lactic Acid F/U @ 2Hr Lactic Acid F/U @ 4Hr Calcium Total Bilirubin Direct Bilirubin AST ALT Alkaline Phosphatase Troponin I High Sens 217.7 H* B-Natriuretic Peptide 2644 H Total Protein Albumin Lipase Procalcitonin 54.83 Stool Occult Blood Influenza Type A (PCR) Influenza Type B (PCR) RSV RNA Qual (PCR) SARS-CoV-2 RNA (RT-PCR) 07/12/21 07/12/21 06:52 06:52 MCV 93.8 MCH 30.5 MCHC 32.5 RDW 15.4 Plt Count 144 L MPV 10.2 Immature Gran % (Auto) Neut % (Auto) Lymph % (Auto) Jerome % (Auto) Eos % (Auto) Baso % (Auto) Lymph # (Auto) Jerome # (Auto) Eos # (Auto) Baso # (Auto) Abs Immat Gran (auto) Absolute Neuts (auto) Absolute Nucleated RBC 0.000 Nucleated RBC % (auto) 0.0 Neutrophils % (Manual) Band Neutrophils % Lymphocytes % (Manual) Monocytes % (Manual) Eosinophils % (Manual) Abs Neuts (Manual) Lymphocytes # (Manual) Monocytes # (Manual) Eosinophils # (Manual) Toxic Vacuolation Platelet Estimate Plt Morphology Comment RBC Morphology Ovalocytes [place] Cells Schistocytes Anion Gap 15 Estim Creat Clear Calc 10.7 Estimated GFR 13 Random Glucose 68 Lactic Acid Lactic Acid F/U @ 2Hr Lactic Acid F/U @ 4Hr Calcium 7.8 L D Total Bilirubin Direct Bilirubin AST ALT Alkaline Phosphatase Troponin I High Sens B-Natriuretic Peptide Total Protein Albumin Lipase Procalcitonin Stool Occult Blood Influenza Type A (PCR) Influenza Type B (PCR) RSV RNA Qual (PCR) SARS-CoV-2 RNA (RT-PCR) Assessment and Plan (1) Elevated troponin: Status: Acute (2) Acute on chronic renal insufficiency: Status: Acute (3) Thrombocytopenia: Status: Acute (4) GI bleed: Status: Acute (5) Acute on chronic blood loss anemia: Status: Acute (6) Hydronephrosis, left: Status: Acute Assessment and Plan: a 70 years old lady with PMH of rectal prolapse, SAH, depression, peptic ulcer, who presents to the hospital with worsening shortness of breath and abdominal pain associated with rectal prolapse and bleeding. acute kidney injury on CKD 3 Creatinine worsened to 3.4 from baseline of 1.4 Likely secondary to obstruction CT scan showed hydronephrosis on the left kidney urology consult placed, urologist to see the patient tomorrow morning as no coverage for today elevated troponin EKG not showing any ST or T-wave changes No reported chest pain Troponin at 188, repeated to 120. Flat. Repeat EKG for any chest pain Acute on chronic blood-loss anemia Secondary to GI bleed, rectal blood labs Hemoglobin dropped to 10 from baseline of almost 12 Reporting fresh blood and epigastric pain Hold aspirin and naproxen continue pantoprazole IV and Carafate GI input appreciated, to do CT abdomen with oral contrast, check C diff Surgery input appreciated, no obstruction Dilated bile ducts No clear obstruction , LFT stable GI evaluation Elevated BNP CXR concerning for atypical infection, could be CHF picture Received IV Lasix in the emergency To check viral panel To check procalcitonin Repeat x-ray in the morning lactic acidosis resolved Pyelonephritis elevated WBCs Likely secondary to obstruction Pending urine culture, had previous culture positive for strep epidermidis Continue ceftriaxone and doxycycline Thrombocytopenia Drop in platelets Likely secondary to bleeding and medications stable around 140, To monitor DVT PPX SCDs Quality Stroke Does the patient have a stroke diagnosis?: No VTE Prior VTE?: No VTE Risk Level:: Medical - moderate - high VTE Device Contraindication: Treatment Not Indicated VTE Drug Contraindication: Treatment Not Indicated
[2021-07-12] MEDS: Doxycycline Hyclate 100 MG in 0.9 % Sodium Chloride 250 ML 166.67 MG IV (11:24)
[2021-07-12 11:29] VITALS: BP 98/50; PULSE 82; RESP 19; O2SAT 93
--- NOTE | 2021-07-12 11:30 | PC.NURSE ---
Medicated as per [facility] orders. Pt sleeping at this time, Awaiting bed assignment, call escalona within reach. Will continue to monitor.
[2021-07-12 12:33] LABS: Adenovirus PCR Not Detected (Not Detect.); Bordetella parapertussis PCR Not Detected (Not Detect.); Bordetella pertussis PCR Not Detected (Not Detect.); Chlamydia pneumoniae PCR Not Detected (Not Detect.); Coronavirus 229E PCR Not Detected (Not Detect.); Coronavirus HKU1 PCR Not Detected (Not Detect.); Coronavirus NL63 PCR Not Detected (Not Detect.); Coronavirus OC43 PCR Not Detected (Not Detect.); Human metapneumovirus PCR Not Detected (Not Detect.); Influenza A PCR Not Detected (Not Detect.); Influenza B PCR Not Detected (Not Detect.); Mycoplasma pneumoniae PCR Not Detected (Not Detect.); Parainfluenza 1 PCR Not Detected (Not Detect.); Parainfluenza 2 PCR Not Detected (Not Detect.); Parainfluenza 3 PCR Not Detected (Not Detect.); Parainfluenza 4 PCR Not Detected (Not Detect.); RSV PCR Not Detected (Not Detect.); Rhino/Enterovirus PCR Not Detected (Not Detect.)
[2021-07-12] MEDS: Barium Sulfate Oral (Mocha) 450 ML ORAL.SUSP 900 ML PO (12:45)
[2021-07-12] MEDS: metroNIDAZOLE/NS 500 MG/100 ML PIGGYBACK 100 MG IV ×2 (13:14→21:30)
[2021-07-12 14:31] LABS: SARS-CoV-2 PCR Detected (Not Detect.)
--- NOTE | 2021-07-12 15:02 | PC.NURSE ---
Pt tested COVID +, moved to Isolation room at this time.
[2021-07-12 15:54] VITALS: BP 101/49; PULSE 75; RESP 17; TEMP 36.4; O2SAT 94
[2021-07-12] MEDS: cefTRIAXone sodium 1 GM in 0.9 % Sodium Chloride 50 ML IV (16:49)
[2021-07-12] MEDS: dexAMETHasone sod phosphate 4 MG/ML VIAL 6 MG IVPUSH (18:07)
[2021-07-12 19:53] VITALS: BP 126/67; PULSE 84; RESP 22; TEMP 36.7; O2SAT 92
[2021-07-12] MEDS: Morphine Sulfate 4 MG/ML CARTRIDGE IVPUSH (20:21)
--- NOTE | 2021-07-12 20:48 | PM.CNNEP ---
History of Present Illness Reason for Consult Consult date: 07/12/21 Reason for consult: WANDER Chief Complaint Chief complaint: abd pain,rectal bleeding History of Present Illness Narrative: 70 years old lady with PMH of rectal prolapse, SAH, depression, peptic ulcer, who presents to the hospital with worsening shortness of breath and abdominal pain associated with rectal prolapse and bleeding.? The patient reported that for the last 3-4 days she is having abdominal pain more to the left side, dull in nature, radiating all over her abdomen and mainly to her back associated with bloody stool and difficulty to place the prolapse back in place.? Her symptoms were associated with chills but she did not check fevers. CAlled to see for renal failure Pt seen and examined in ER at 12:10 PM Review of Systems Review of Systems Unable to obtain [facility] Past Medical History Medical History Anxiety Brain bleed Depression FHx: cholecystectomy History of lipoma Peptic ulcer Rectal prolapse Rectal prolapse Surgical History Surgical History History of hand surgery Social History Social History Household Members: Children Housing: Unknown / Unable to assess Do you presently have visiting nurse or other home services: No Unable to assess alcohol history related to: Unable to respond Alcohol intake: never Patient Tobacco Use Status: Current everyday Tobacco user Advance Directives Date on File: 07/13/21 service: No Current occupational status: retired and disabled Meds Allergies Allergy/AdvReac Type Severity Reaction Status Date / Time Iodinated Contrast Media AdvReac Mild UNABLE TO Verified 07/04/21 10:05 [IV CONTRAST] SPEAK Active Medications: Current Medications Acetaminophen (Acetaminophen 325 Mg Tablet) 650 mg PO Q6H PRN PRN Reason: Pain, Mild (Pain Scale 1-3) Al Hydroxide/Mg Hydroxide (Magnesium Hydrox/Alum Hydrox 30 Ml Oral.Susp) 15 ml PO Q6H PRN PRN Reason: heartburn Bupropion HCl (Bupropion Hcl Xl 300 Mg Tab.Er.24h) 300 mg PO DAILY [facility] Last Admin: 07/12/21 09:14 Dose: 300 mg Documented by: Dexamethasone Sodium Phosphate (Dexamethasone Sod Phosphate 4 Mg/Ml Vial) 6 mg IVPUSH DAILY [facility] Last Admin: 07/12/21 18:07 Dose: 6 mg Documented by: Fluoxetine HCl (Fluoxetine Hcl 10 Mg Capsule) 10 mg PO DAILY [facility] Last Admin: 07/12/21 09:14 Dose: 10 mg Documented by: Fluoxetine HCl (Fluoxetine Hcl 20 Mg Capsule) 40 mg PO BEDTIME [facility] Last Admin: 07/11/21 21:03 Dose: 40 mg Documented by: Hydromorphone HCl (Hydromorphone Hcl 0.5 Mg/0.5 Ml Syringe) 0.5 mg IVPUSH Q4H PRN; Protocol PRN Reason: Pain, Severe (Pain Scale 7-10) Last Admin: 07/12/21 18:47 Dose: 0.5 mg Documented by: Ceftriaxone Sodium 1 gm/ (Sodium Chloride) 50 mls @ 100 mls/hr IV Q24H [facility] Last Admin: 07/12/21 16:49 Dose: 100 mls/hr Documented by: Lactated Ringer's (Lr) 1,000 mls @ 80 mls/hr IVCONT .[id number] [facility] Last Infusion: 07/12/21 12:03 Dose: 80 mls/hr Documented by: Metronidazole (Flagyl) 500 mg in 100 mls @ 100 mls/hr IV Q8H [facility] Last Infusion: 07/12/21 15:26 Dose: Infused Documented by: Lidocaine (Lidocaine 4 % Patch Adh..Patch) 2 patch TRANSDERMA DAILY [facility]; Protocol Last Admin: 07/12/21 09:14 Dose: 2 patch Documented by: Ondansetron HCl (Ondansetron Hcl 4 Mg/2 Ml Vial) 4 mg IVPUSH Q8H PRN PRN Reason: Nausea and Vomiting Oxybutynin Chloride (Oxybutynin Chloride Er 5 Mg Tab.Er.24) 5 mg PO BEDTIME [facility] Last Admin: 07/11/21 22:33 Dose: Not Given Documented by: Pantoprazole Sodium (Pantoprazole Sodium 40 Mg/10 Ml Vial) 40 mg IVPUSH BID@0630,1630 [facility] Last Admin: 07/12/21 16:49 Dose: 40 mg Documented by: Pharmacy Consult (Consult Rx Perform Med Rec) 1 each MISCELLANE ONCE PRN PRN Reason: Consult order Sodium Chloride (0.9 % Sodium Chloride Flush 3 Ml Syringe) 3 ml IVFLUSH QSHIFT [facility] Last Admin: 07/12/21 15:26 Dose: Not Given Documented by: Sucralfate (Sucralfate 1 Gm Tablet) 1 gm PO BIDAC [facility] Last Admin: 07/12/21 16:49 Dose: 1 gm Documented by: Trazodone HCl (Trazodone Hcl 100 Mg Tablet) 100 mg PO BEDTIME [facility] Last Admin: 07/11/21 21:03 Dose: 100 mg Documented by: Home Medications Medication Instructions Recorded Confirmed Last Taken Type bupropion HCl 300 mg 24 hr tablet, 1 tab PO QAM 07/06/20 07/11/21 05/24/21 History extended release trazodone 100 mg tablet 100 - 200 mg PO BEDTIME 07/06/20 07/11/21 05/24/21 History fluoxetine 40 mg capsule 40 mg PO BEDTIME 05/25/21 07/11/21 05/24/21 History fluoxetine 10 mg capsule 10 mg PO DAILY 07/04/21 07/11/21 Unknown History acetaminophen 500 mg tablet 500 mg PO Q6H PRN 07/11/21 07/11/21 Unknown History aspirin 325 mg tablet 325 mg PO DAILY 07/11/21 07/11/21 Unknown History naproxen sodium 220 mg tablet 220 mg PO BID PRN 07/11/21 07/11/21 Unknown History (Aleve) Physical Exam Vital Signs: Last Vital Signs Temp 98.0 F 07/12/21 19:53 Pulse 84 07/12/21 19:53 Resp 22 H 07/12/21 19:53 BP 126/67 07/12/21 19:53 Pulse Ox 92 07/12/21 19:53 BMI result Body Mass Index 19.5 Neck Neck: Yes no meningeal signs and Yes no JVD Resp Effort & Inspection: normal respiratory effort Cardio Jugular venous distension: no JVD Palpation: no palpable S3 and no palpable S4 Heart sounds: no murmurs GI Inspection: Yes normal to inspection Palpation (GI): Soft to palpation and Tenderness to palpation present (GI) Skin General skin exam: no rashes or lesions noted Neuro General: no meningeal signs Motor exam (neuro): no asterixis Results Lab Results Result Diagrams: 07/17/21 07:47 07/17/21 07:47 Lab results: Chemistry 07/11/21 07/12/21 11:04 06:52 Sodium 136 137 Potassium 3.5 D 4.6 D Carbon Dioxide 20 L 22 BUN 40 H 55 H Creatinine 2.40 H 3.39 H Calcium 8.8 7.8 L D Hematology 07/11/21 07/12/21 11:04 06:52 WBC 7.4 13.4 H Hgb 10.6 L 10.4 L Plt Count 131 L D 144 L Assessment and Plan (1) Acute on chronic renal insufficiency: Status: Acute WANDER super imposed on CKD WANDER most likely from ischemic ATN h/o Chr hydro Suggest Keep I > O Keep SBP > 100 No indication for dialysis yet Prognosis guarded Procedures Date of Service Date of Service: 07/12/21
[2021-07-12 21:04] LABS: Troponin-I High Sensitivity 237.7 ng/L (<3.5-17.0)
[2021-07-12] MEDS: FLUoxetine HCl 20 MG CAPSULE 40 MG PO (21:31)
[2021-07-12] MEDS: traZODone HCL 100 MG TABLET PO (21:31)
[2021-07-13] VITALS (20 sets, daily range): BP systolic 91–148; BP diastolic 58–78; PULSE 79–91; RESP 16–29; TEMP 36.4–37.2; O2SAT 87–99
[2021-07-13] MEDS: metroNIDAZOLE/NS 500 MG/100 ML PIGGYBACK 100 MG IV ×3 (05:45→20:23)
[2021-07-13] MEDS: Sucralfate 1 GM TABLET PO (06:18)
[2021-07-13] MEDS: Pantoprazole Sodium 40 MG/10 ML VIAL IVPUSH ×2 (06:18→15:33)
[2021-07-13 06:56] LABS: Hematocrit 35.8 % (37.0-47.0); Hemoglobin 11.2 g/dl (12.0-16.0); Mean Corpuscular HGB Conc 31.3 g/dl (31.0-35.0); Mean Corpuscular Hemoglobin 30.1 pg (27.0-33.0); Mean Corpuscular Volume 96.2 fL (80.0-98.0); Mean Platelet Volume 10.4 fL (9.4-12.3); Platelet Count 140 X10*3/uL (160-400); Red Blood Count 3.72 X10*6/uL (4.20-5.50); Red Cell Distribution Width 15.8 % (11.0-16.0); White Blood Count 16.6 X10*3/uL (4.8-10.8)
[2021-07-13 07:38] LABS: Anion Gap 17 (12-20); Blood Urea Nitrogen 70 mg/dL (9-16); C Reactive Protein 32.34 mg/dL (< or = 0.50); Carbon Dioxide 21 mmol/L (22-29); Chloride 104 mmol/L (96-108); Creatinine Clr Calc Pharmacy 8.3; Estimated Glomerular Filt Rate 10; Glucose Random 108 mg/dL (60-115); Lactate Dehydrogenase 278 U/L (122-220); Sodium 137 mmol/L (135-145)
[2021-07-13] MEDS: 0.9 % Sodium Chloride Flush 3 ML SYRINGE IVFLUSH ×2 (10:25→12:12)
[2021-07-13] MEDS: Lidocaine 4 % Patch ADH..PATCH 2 PATCH TRANSDERMA (10:25)
[2021-07-13] MEDS: dexAMETHasone sod phosphate 4 MG/ML VIAL 6 MG IVPUSH (10:25)
[2021-07-13] MEDS: buPROPion HCl XL 300 MG TAB.ER.24H PO (10:26)
[2021-07-13] MEDS: FLUoxetine HCl 10 MG CAPSULE PO (10:26)
[2021-07-13] MEDS: Lactated Ringers 1,000 ML 80 ML IVCONT (10:29)
[2021-07-13] MEDS: HYDROmorphone HCl 0.5 MG/0.5 ML SYRINGE IVPUSH (10:33)
[2021-07-13] MEDS: LORazepam 2 MG/ML VIAL 1 MG IVPUSH (11:45)
[2021-07-13 11:54] LABS: ABG Base Excess -7.2 mmol/L; ABG HCO3 20 mmol/L (22-26); ABG pCO2 47 mmHg (32-45); ABG pCO2 TC 46 mmHg (32-45); ABG pH 7.23 (7.35-7.45); ABG pH TC 7.23 (7.35-7.45); ABG pO2 233 mmHg (83-108); ABG pO2 TC 232 (83-108)
[2021-07-13] MEDS: cefEPime HCl 1 GM in 0.9 % Sodium Chloride 50 ML IV (12:00)
[2021-07-13 12:38] LABS: Alanine Aminotransferase 26 U/L (0-31); Albumin Level 2.6 g/dL (3.5-5.0); Alkaline Phosphatase 136 U/L (39-117); Anion Gap 14 (12-20); Aspartate Amino Transferase 23 U/L (5-31); Bilirubin Total 0.4 mg/dL (0.0-1.0); Blood Urea Nitrogen 77 mg/dL (9-16); Calcium 7.8 mg/dL (8.4-10.2); Carbon Dioxide 23 mmol/L (22-29); Chloride 103 mmol/L (96-108); Estimated Glomerular Filt Rate 10; Glucose Random 101 mg/dL (60-115); Potassium 4.9 mmol/L (3.3-5.1); Sodium 135 mmol/L (135-145); Total Protein 4.8 g/dL (6.5-8.0)
[2021-07-13 12:39] LABS: B Type Natriuretic Peptide 1349 pg/mL (<100)
[2021-07-13 12:41] LABS: Appearance Urine HAZY; Color Urine YELLOW; Glucose Urine UA NEG (NEG); Leukocyte Esterase Urine 2+ (NEG); Nitrite Urine NEG (NEG); PH 5.5 (5.0-8.0); Specific Gravity - Urine 1.025 (1.005-1.025); UACC Culture Trigger YES; Urine Blood NEG (NEG); Urine Ketones NEG (NEG); Urine Protein 1+ MG/DL (NEG-TRACE)
[2021-07-13 12:53] LABS: RBC Urine 0 /HPF (0)
[2021-07-13 12:54] LABS: Mucus Urine 1+ /LPF; Renal Epithelial Cells Urine 1+ /LPF; Squamous Epithelial Cell Urine 1+ /LPF
[2021-07-13 13:05] LABS: ABG Refer to POC result
--- NOTE | 2021-07-13 13:13 | P.PNCC_ITS ---
Subjective Subjective Date of Service: 07/13/21 Interval History: 70-year-old lady with underlying history of rectal prolapse, depression, peptic also, remote subarachnoid hemorrhage, peptic ulcer disease, chronic hydronephrosis status post recent removal of ureteral stents admitted on 07/11/2021 with 3-4 day history of left-sided abdominal pain. Patient has had CT imaging demonstrating dilated pancreatic and gallbladder /pancreatic ducts with no obstructing stone noted. She also is noted to have chronic left- sided hydronephrosis and worsening renal function. Patient has been initially hospitalized on general medical howell and evaluated by General surgery, Gastroenterology, Urology, and Nephrology with consideration for MRCP. Patient also was noted to have Gram-negative bacteremia and be COVID-19 positive and on 07/13/2021 her oxygen requirements significantly worsened and she required initiation of positive pressure ventilation and transferred to intensive care unit. Critical Care Time (minutes): 60 Physical Exam Vital Signs: Vital Signs: Last Vital Signs Temp 98.6 F 07/13/21 12:00 Pulse 85 07/13/21 12:00 Resp 18 07/13/21 12:00 BP 91/58 L 07/13/21 12:00 Pulse Ox 91 L 07/13/21 08:00 BMI result Body Mass Index 19.5 Const: General: no acute distress and lethargic ( arousable) Orientation/consciousness: lethargic ( arousable) Eyes: Sclerae: sclerae normal EOM: EOMs intact bilaterally Neck: Neck: Yes no lymphadenopathy, Yes trachea midline and Yes supple Resp: Effort & Inspection: normal respiratory effort and no respiratory distress Auscultation: crackles ( diffuse bilateral) Cardio: Rate: regular rate Rhythm: regular rhythm Heart sounds: no gallops, no murmurs and no rubs GI: Palpation (GI): Soft to palpation and Other GI palpation findings present ( mild left-sided, no rebound, no guarding) Auscultation: normal bowel sounds Extrem: General: No clubbing, No cyanosis and Yes pedal edema ( 1+ bilateral) Objective Data Labs CBC & Chem 7: 07/13/21 06:42 07/13/21 12:03 Labs: Laboratory Results - last 24 hr 07/12/21 07/12/21 07/13/21 12:21 20:23 06:42 WBC 16.6 H RBC 3.72 L Hgb 11.2 L Hct 35.8 L MCV 96.2 MCH 30.1 MCHC 31.3 RDW 15.8 Plt Count 140 L MPV 10.4 Absolute Nucleated RBC 0.000 Nucleated RBC % (auto) 0.0 O2 Saturation ABG pH at Pt Temp ABG pH (Temp Correct) ABG pCO2 at Pt Temp ABG pCO2 (Temp Corrct ABG pO2 at Pt Temp ABG pO2 (Temp Correct ABG HCO3 ABG Base Excess (Actual) Sodium Potassium Chloride Carbon Dioxide Anion Gap BUN Creatinine Estim Creat Clear Calc Estimated GFR Random Glucose Calcium Total Bilirubin AST ALT Alkaline Phosphatase Lactate Dehydrogenase Troponin I High Sens 237.7 H* C-Reactive Protein B-Natriuretic Peptide Total Protein Albumin Urine Color Urine Appearance Urine pH Ur Specific [place] Urine Protein Urine Glucose (UA) Urine Ketones Urine Blood Urine Nitrite Ur Leukocyte Esterase Urine RBC Urine WBC Ur Squamous Epith Cells Ur Renal Epithelial Cell Urine Bacteria Urine Mucus Ur Random Sodium Respiratory Panel [place] See Note Adenovirus (Rapid PCR) Not Detected B.pert (TEM-PCR) Not Detected B.parapertussis DNA PCR Not Detected C. pneumoniae DNA (PCR) Not Detected Coronavirus OC43 (PCR) Not Detected Coronavirus HKU1 (PCR) Not Detected Coronavirus 229E (PCR) Not Detected Coronavirus NL63 (PCR) Not Detected Human Metapneumovir PCR Not Detected Influenza A (RT-PCR) Not Detected Influenza B (RT-PCR) Not Detected M. pneumoniae (PCR) Not Detected Parainfluenza 1 (PCR) Not Detected Parainfluenza 2 (PCR) Not Detected Parainfluenza 3 (PCR) Not Detected Parainfluenza 4 (PCR) Not Detected RSV (PCR) Not Detected Entero/Rhino (PCR) Not Detected SARS-CoV-2 RNA (RT-PCR) Detected A 07/13/21 07/13/21 07/13/21 06:42 11:48 12:03 WBC RBC Hgb Hct MCV MCH MCHC RDW Plt Count MPV Absolute Nucleated RBC Nucleated RBC % (auto) O2 Saturation 99.0 ABG pH at Pt Temp 7.23 L ABG pH (Temp Correct) 7.23 L ABG pCO2 at Pt Temp 47 H ABG pCO2 (Temp Corrct 46 H ABG pO2 at Pt Temp 233 H ABG pO2 (Temp Correct 232 H ABG HCO3 20 L ABG Base Excess (Actual) -7.2 Sodium 137 135 Potassium 5.0 4.9 Chloride 104 103 Carbon Dioxide 21 L 23 Anion Gap 17 14 BUN 70 H 77 H Creatinine 4.33 H* 4.51 H* Estim Creat Clear Calc 8.3 8.0 Estimated GFR 10 10 Random Glucose 108 101 Calcium 8.0 L 7.8 L Total Bilirubin 0.4 AST 23 D ALT 26 Alkaline Phosphatase 136 H Lactate Dehydrogenase 278 H Troponin I High Sens C-Reactive Protein 32.34 H B-Natriuretic Peptide Total Protein 4.8 L Albumin 2.6 L Urine Color Urine Appearance Urine pH Ur Specific [place] Urine Protein Urine Glucose (UA) Urine Ketones Urine Blood Urine Nitrite Ur Leukocyte Esterase Urine RBC Urine WBC Ur Squamous Epith Cells Ur Renal Epithelial Cell Urine Bacteria Urine Mucus Ur Random Sodium Respiratory Panel [place] Adenovirus (Rapid PCR) B.pert (TEM-PCR) B.parapertussis DNA PCR C. pneumoniae DNA (PCR) Coronavirus OC43 (PCR) Coronavirus HKU1 (PCR) Coronavirus 229E (PCR) Coronavirus NL63 (PCR) Human Metapneumovir PCR Influenza A (RT-PCR) Influenza B (RT-PCR) M. pneumoniae (PCR) Parainfluenza 1 (PCR) Parainfluenza 2 (PCR) Parainfluenza 3 (PCR) Parainfluenza 4 (PCR) RSV (PCR) Entero/Rhino (PCR) SARS-CoV-2 RNA (RT-PCR) 07/13/21 07/13/21 07/13/21 12:03 12:23 12:23 WBC RBC Hgb Hct MCV MCH MCHC RDW Plt Count MPV Absolute Nucleated RBC Nucleated RBC % (auto) O2 Saturation ABG pH at Pt Temp ABG pH (Temp Correct) ABG pCO2 at Pt Temp ABG pCO2 (Temp Corrct ABG pO2 at Pt Temp ABG pO2 (Temp Correct ABG HCO3 ABG Base Excess (Actual) Sodium Potassium Chloride Carbon Dioxide Anion Gap BUN Creatinine Estim Creat Clear Calc Estimated GFR Random Glucose Calcium Total Bilirubin AST ALT Alkaline Phosphatase Lactate Dehydrogenase Troponin I High Sens C-Reactive Protein B-Natriuretic Peptide 1349 H Total Protein Albumin Urine Color YELLOW Urine Appearance HAZY Urine pH 5.5 Ur Specific [place] 1.025 Urine Protein 1+ H Urine Glucose (UA) NEG Urine Ketones NEG Urine Blood NEG Urine Nitrite NEG Ur Leukocyte Esterase 2+ H Urine RBC 0 Urine WBC 15-29 H Ur Squamous Epith Cells 1+ Ur Renal Epithelial Cell 1+ Urine Bacteria NONE Urine Mucus 1+ Ur Random Sodium 21.0 Respiratory Panel [place] Adenovirus (Rapid PCR) B.pert (TEM-PCR) B.parapertussis DNA PCR C. pneumoniae DNA (PCR) Coronavirus OC43 (PCR) Coronavirus HKU1 (PCR) Coronavirus 229E (PCR) Coronavirus NL63 (PCR) Human Metapneumovir PCR Influenza A (RT-PCR) Influenza B (RT-PCR) M. pneumoniae (PCR) Parainfluenza 1 (PCR) Parainfluenza 2 (PCR) Parainfluenza 3 (PCR) Parainfluenza 4 (PCR) RSV (PCR) Entero/Rhino (PCR) SARS-CoV-2 RNA (RT-PCR) Microbiology Microbiology Results: Microbiology 07/11/21 11:03 Blood - Venous Blood Culture - Preliminary Gram negative cr 07/11/21 11:04 Blood - Venous Blood Culture - Preliminary Gram negative cr Progress Note: A&P Assessment and plan (1) Gram-negative bacteremia: Status: Acute (2) Hydronephrosis, left: Status: Acute (3) [id number] kidney injury: Status: Acute (4) Acute respiratory distress syndrome (ARDS) due to COVID-19 virus: Status: Acute (5) Acute respiratory failure with hypoxia: Status: Acute Assessment and Plan: Assessment: 70-year-old lady with history of chronic left-sided hydroureteronephrosis, subarachnoid hemorrhage rectal prolapse ulcer disease admitted with left-sided abdominal pain with hospital course further complicated by Gram-negative bacteremia and acute hypoxic respiratory failure secondary to COVID-19 now requiring CPAP support. Plan: Neuro: No acute issues. Cardiac: No acute issues. Underlying history of chronic diastolic congestive heart failure. Pulmonary: Acute hypoxic respiratory failure secondary to COVID-19 ARDS now requiring BiPAP support. Continue to titrate off as tolerated. Renal: Acute on chronic renal failure. Nephrology and Urology service care appreciated. Chronic left-sided hydronephrosis. No indication for intervention per Urology at this time. Non oliguric. Continue to monitor renal indices and urine output. May require dialysis. Endo: No acute issues. GI: Evaluated by Gastroenterology And General surgery services, no indication for acute intervention. Possible underlying microscopic or infectious colitis. Started on empiric Flagyl. ID: gram-negative bacteremia with GI or source. Cultures pending. Continues on empiric cefepime and metronidazole. Heme/Onc: No acute issues. Psych: No acute issues. Miscellaneous: No acute issues. Prophylaxis: intermittent pneumatic compression Diet: Regular Critical care time spent: 60 minutes Quality Stroke Does the patient have a stroke diagnosis?: No VTE Prior VTE?: No VTE Risk Level:: Medical - moderate - high VTE Device Contraindication: Treatment Not Indicated VTE Drug Contraindication: Treatment Not Indicated
[2021-07-13 13:43] LABS: Chloride Urine Random < 20.0 mmol/L
--- NOTE | 2021-07-13 14:43 | P.PNUR_ITS ---
Subjective Subjective Date of Service: 07/13/21 Interval history: Patient currently in ICU Known to Urology Stent being placed last month with question of hydronephrosis. No improvement noted in creatinine. Stented been removed. Re-presented to hospital with Gram-negative infection Imaging shows chronic changes on left side UA showed white cells but was nitrite negative Recommend calculation of FENA determine pre renal, renal, post renal cause of current changes Angulo catheter is in place allowing drainage Physical Exam Vital Signs: Vital Signs: Last Vital Signs Temp 98.6 F 07/13/21 12:00 Pulse 81 07/13/21 14:00 Resp 17 07/13/21 14:00 BP 120/70 07/13/21 14:00 Pulse Ox 95 07/13/21 14:00 BMI result Body Mass Index 19.5 Const: General: cooperative, healthy appearing, comfortable and no acute distress Orientation/consciousness: patient oriented x3 HENMT: Face and sinus: Yes normal facial exam Mouth: moist mucous membranes Neck: Neck: Yes normal visual inspection, Yes full ROM and Yes trachea midline Chest: Chest palpation & inspection: normal inspection of the chest Resp: Effort & Inspection: normal respiratory effort, able to speak in complete sentences and no respiratory distress GI: Inspection: Yes normal to inspection Back/Spine/Pelvis: Cervical Spine: normal cervical lordosis Thoracic/Lumbar Spine: thoracic and lumbar spine normal to inspection Skin: General skin exam: no rashes or lesions noted Neuro: General: patient oriented x3, tone normal and moves all extremities Extrem: General: Yes normal to inspection and Yes capillary refill normal Urology Results Labs CBC & Chem 7: 07/13/21 06:42 07/13/21 12:03 Labs: Laboratory Results - last 24 hr 07/12/21 07/13/21 07/13/21 20:23 06:42 06:42 WBC 16.6 H RBC 3.72 L Hgb 11.2 L Hct 35.8 L MCV 96.2 MCH 30.1 MCHC 31.3 RDW 15.8 Plt Count 140 L MPV 10.4 Absolute Nucleated RBC 0.000 Nucleated RBC % (auto) 0.0 O2 Saturation ABG pH at Pt Temp ABG pH (Temp Correct) ABG pCO2 at Pt Temp ABG pCO2 (Temp Corrct ABG pO2 at Pt Temp ABG pO2 (Temp Correct ABG HCO3 ABG Base Excess (Actual) Sodium 137 Potassium 5.0 Chloride 104 Carbon Dioxide 21 L Anion Gap 17 BUN 70 H Creatinine 4.33 H* Estim Creat Clear Calc 8.3 Estimated GFR 10 Random Glucose 108 Calcium 8.0 L Total Bilirubin AST ALT Alkaline Phosphatase Lactate Dehydrogenase 278 H Troponin I High Sens 237.7 H* C-Reactive Protein 32.34 H B-Natriuretic Peptide Total Protein Albumin Urine Color Urine Appearance Urine pH Ur Specific [place] Urine Protein Urine Glucose (UA) Urine Ketones Urine Blood Urine Nitrite Ur Leukocyte Esterase Urine RBC Urine WBC Ur Squamous Epith Cells Ur Renal Epithelial Cell Urine Bacteria Urine Mucus Ur Random Sodium Ur Random Chloride 07/13/21 07/13/21 07/13/21 11:48 12:03 12:03 WBC RBC Hgb Hct MCV MCH MCHC RDW Plt Count MPV Absolute Nucleated RBC Nucleated RBC % (auto) O2 Saturation 99.0 ABG pH at Pt Temp 7.23 L ABG pH (Temp Correct) 7.23 L ABG pCO2 at Pt Temp 47 H ABG pCO2 (Temp Corrct 46 H ABG pO2 at Pt Temp 233 H ABG pO2 (Temp Correct 232 H ABG HCO3 20 L ABG Base Excess (Actual) -7.2 Sodium 135 Potassium 4.9 Chloride 103 Carbon Dioxide 23 Anion Gap 14 BUN 77 H Creatinine 4.51 H* Estim Creat Clear Calc 8.0 Estimated GFR 10 Random Glucose 101 Calcium 7.8 L Total Bilirubin 0.4 AST 23 D ALT 26 Alkaline Phosphatase 136 H Lactate Dehydrogenase Troponin I High Sens C-Reactive Protein B-Natriuretic Peptide 1349 H Total Protein 4.8 L Albumin 2.6 L Urine Color Urine Appearance Urine pH Ur Specific [place] Urine Protein Urine Glucose (UA) Urine Ketones Urine Blood Urine Nitrite Ur Leukocyte Esterase Urine RBC Urine WBC Ur Squamous Epith Cells Ur Renal Epithelial Cell Urine Bacteria Urine Mucus Ur Random Sodium Ur Random Chloride 07/13/21 07/13/21 12:23 12:23 WBC RBC Hgb Hct MCV MCH MCHC RDW Plt Count MPV Absolute Nucleated RBC Nucleated RBC % (auto) O2 Saturation ABG pH at Pt Temp ABG pH (Temp Correct) ABG pCO2 at Pt Temp ABG pCO2 (Temp Corrct ABG pO2 at Pt Temp ABG pO2 (Temp Correct ABG HCO3 ABG Base Excess (Actual) Sodium Potassium Chloride Carbon Dioxide Anion Gap BUN Creatinine Estim Creat Clear Calc Estimated GFR Random Glucose Calcium Total Bilirubin AST ALT Alkaline Phosphatase Lactate Dehydrogenase Troponin I High Sens C-Reactive Protein B-Natriuretic Peptide Total Protein Albumin Urine Color YELLOW Urine Appearance HAZY Urine pH 5.5 Ur Specific [place] 1.025 Urine Protein 1+ H Urine Glucose (UA) NEG Urine Ketones NEG Urine Blood NEG Urine Nitrite NEG Ur Leukocyte Esterase 2+ H Urine RBC 0 Urine WBC 15-29 H Ur Squamous Epith Cells 1+ Ur Renal Epithelial Cell 1+ Urine Bacteria NONE Urine Mucus 1+ Ur Random Sodium 21.0 Ur Random Chloride < 20.0 Progress Note: A&P Assessment and plan (1) Gram-negative bacteremia: Status: Acute (2) [id number] kidney injury: Status: Acute (3) Hydronephrosis: Status: Acute Assessment and Plan: continue to follow for evidence of renal infection Fall Risk Details Current Medications: Current Medications Acetaminophen (Acetaminophen 325 Mg Tablet) 650 mg PO Q6H PRN PRN Reason: Pain, Mild (Pain Scale 1-3) Al Hydroxide/Mg Hydroxide (Magnesium Hydrox/Alum Hydrox 30 Ml Oral.Susp) 15 ml PO Q6H PRN PRN Reason: heartburn Dexamethasone Sodium Phosphate (Dexamethasone Sod Phosphate 4 Mg/Ml Vial) 6 mg IVPUSH DAILY [facility] Last Admin: 07/13/21 10:25 Dose: 6 mg Documented by: Hydromorphone HCl (Hydromorphone Hcl 0.5 Mg/0.5 Ml Syringe) 0.5 mg IVPUSH Q4H PRN; Protocol PRN Reason: Pain, Severe (Pain Scale 7-10) Last Admin: 07/13/21 10:33 Dose: 0.5 mg Documented by: Metronidazole (Flagyl) 500 mg in 100 mls @ 100 mls/hr IV Q8H [facility] Last Infusion: 07/13/21 13:00 Dose: Infused Documented by: Cefepime HCl 1 gm/ Sodium (Chloride) 50 mls @ 100 mls/hr IV Q24H [facility] Last Infusion: 07/13/21 12:30 Dose: Infused Documented by: Albumin Human (Kedbumin 25 %) 100 mls @ 100 mls/hr IV Q6H [facility] Stop: 07/14/21 08:59 Lidocaine (Lidocaine 4 % Patch Adh..Patch) 2 patch TRANSDERMA DAILY [facility]; Protocol Last Admin: 07/13/21 10:25 Dose: 2 patch Documented by: Lorazepam (Lorazepam 2 Mg/Ml Vial) 1 mg IVPUSH Q4H PRN PRN Reason: Anxiety Last Admin: 07/13/21 11:45 Dose: 1 mg Documented by: Ondansetron HCl (Ondansetron Hcl 4 Mg/2 Ml Vial) 4 mg IVPUSH Q8H PRN PRN Reason: Nausea and Vomiting Oxybutynin Chloride (Oxybutynin Chloride Er 5 Mg Tab.Er.24) 5 mg PO BEDTIME [facility] Last Admin: 07/12/21 21:31 Dose: 5 mg Documented by: Pantoprazole Sodium (Pantoprazole Sodium 40 Mg/10 Ml Vial) 40 mg IVPUSH BID@0630,1630 [facility] Last Admin: 07/13/21 06:18 Dose: 40 mg Documented by: Pharmacy Consult (Consult Rx Perform Med Rec) 1 each MISCELLANE ONCE PRN PRN Reason: Consult order Sodium Chloride (0.9 % Sodium Chloride Flush 3 Ml Syringe) 3 ml IVFLUSH QSHIFT [facility] Last Admin: 07/13/21 12:12 Dose: 3 ml Documented by: Sucralfate (Sucralfate 1 Gm Tablet) 1 gm PO BIDAC [facility] Last Admin: 07/13/21 06:18 Dose: 1 gm Documented by: Trazodone HCl (Trazodone Hcl 100 Mg Tablet) 100 mg PO BEDTIME [facility] Last Admin: 07/12/21 21:31 Dose: 100 mg Documented by: Time Spent With Patient Time: Total time spent is greater than 50% in coordination of care (as documented) at patient's floor/unit and/or counseling patient: Time with patient: less than 15 minutes Progress Note: Quality Stroke Does the patient have a stroke diagnosis?: No
[2021-07-13] MEDS: Albumin Human 25 % 100 ML IV ×2 (15:35→20:19)
--- NOTE | 2021-07-13 18:15 | PC.NURSE ---
pt transfered from ed overflow on cpap. pt able to state where she is, anxious on arrival. IVP ativan given with good effect, pt tolerating cpap at this time. sofi q2hrMD updated family.
--- NOTE | 2021-07-13 18:38 | P.PNNP_ITS ---
Subjective Subjective Date of Service: 07/17/21 Interval history: Events noted UO noted Physical Exam Vital Signs: Vital Signs: Last Vital Signs Temp 98.8 F 07/13/21 18:00 Pulse 85 07/13/21 18:00 Resp 20 07/13/21 18:00 BP 105/64 07/13/21 18:00 Pulse Ox 96 07/13/21 18:00 BMI result Body Mass Index 19.5 ill appearing Neck: Neck: Yes supple Cardio: Jugular venous distension: no JVD Heart sounds: no rubs Objective Data Labs CBC & Chem 7: 07/17/21 07:47 07/17/21 07:47 Labs: Laboratory Results - last 24 hr 07/12/21 07/13/21 07/13/21 20:23 06:42 06:42 WBC 16.6 H RBC 3.72 L Hgb 11.2 L Hct 35.8 L MCV 96.2 MCH 30.1 MCHC 31.3 RDW 15.8 Plt Count 140 L MPV 10.4 Absolute Nucleated RBC 0.000 Nucleated RBC % (auto) 0.0 O2 Saturation ABG pH at Pt Temp ABG pH (Temp Correct) ABG pCO2 at Pt Temp ABG pCO2 (Temp Corrct ABG pO2 at Pt Temp ABG pO2 (Temp Correct ABG HCO3 ABG Base Excess (Actual) Sodium 137 Potassium 5.0 Chloride 104 Carbon Dioxide 21 L Anion Gap 17 BUN 70 H Creatinine 4.33 H* Estim Creat Clear Calc 8.3 Estimated GFR 10 Random Glucose 108 Calcium 8.0 L Total Bilirubin AST ALT Alkaline Phosphatase Lactate Dehydrogenase 278 H Troponin I High Sens 237.7 H* C-Reactive Protein 32.34 H B-Natriuretic Peptide Total Protein Albumin Urine Color Urine Appearance Urine pH Ur Specific [place] Urine Protein Urine Glucose (UA) Urine Ketones Urine Blood Urine Nitrite Ur Leukocyte Esterase Urine RBC Urine WBC Ur Squamous Epith Cells Ur Renal Epithelial Cell Urine Bacteria Urine Mucus Ur Random Sodium Ur Random Chloride 07/13/21 07/13/21 07/13/21 11:48 12:03 12:03 WBC RBC Hgb Hct MCV MCH MCHC RDW Plt Count MPV Absolute Nucleated RBC Nucleated RBC % (auto) O2 Saturation 99.0 ABG pH at Pt Temp 7.23 L ABG pH (Temp Correct) 7.23 L ABG pCO2 at Pt Temp 47 H ABG pCO2 (Temp Corrct 46 H ABG pO2 at Pt Temp 233 H ABG pO2 (Temp Correct 232 H ABG HCO3 20 L ABG Base Excess (Actual) -7.2 Sodium 135 Potassium 4.9 Chloride 103 Carbon Dioxide 23 Anion Gap 14 BUN 77 H Creatinine 4.51 H* Estim Creat Clear Calc 8.0 Estimated GFR 10 Random Glucose 101 Calcium 7.8 L Total Bilirubin 0.4 AST 23 D ALT 26 Alkaline Phosphatase 136 H Lactate Dehydrogenase Troponin I High Sens C-Reactive Protein B-Natriuretic Peptide 1349 H Total Protein 4.8 L Albumin 2.6 L Urine Color Urine Appearance Urine pH Ur Specific [place] Urine Protein Urine Glucose (UA) Urine Ketones Urine Blood Urine Nitrite Ur Leukocyte Esterase Urine RBC Urine WBC Ur Squamous Epith Cells Ur Renal Epithelial Cell Urine Bacteria Urine Mucus Ur Random Sodium Ur Random Chloride 07/13/21 07/13/21 12:23 12:23 WBC RBC Hgb Hct MCV MCH MCHC RDW Plt Count MPV Absolute Nucleated RBC Nucleated RBC % (auto) O2 Saturation ABG pH at Pt Temp ABG pH (Temp Correct) ABG pCO2 at Pt Temp ABG pCO2 (Temp Corrct ABG pO2 at Pt Temp ABG pO2 (Temp Correct ABG HCO3 ABG Base Excess (Actual) Sodium Potassium Chloride Carbon Dioxide Anion Gap BUN Creatinine Estim Creat Clear Calc Estimated GFR Random Glucose Calcium Total Bilirubin AST ALT Alkaline Phosphatase Lactate Dehydrogenase Troponin I High Sens C-Reactive Protein B-Natriuretic Peptide Total Protein Albumin Urine Color YELLOW Urine Appearance HAZY Urine pH 5.5 Ur Specific [place] 1.025 Urine Protein 1+ H Urine Glucose (UA) NEG Urine Ketones NEG Urine Blood NEG Urine Nitrite NEG Ur Leukocyte Esterase 2+ H Urine RBC 0 Urine WBC 15-29 H Ur Squamous Epith Cells 1+ Ur Renal Epithelial Cell 1+ Urine Bacteria NONE Urine Mucus 1+ Ur Random Sodium 21.0 Ur Random Chloride < 20.0 Microbiology Microbiology Results: Microbiology 07/11/21 11:04 Blood - Venous Blood Culture - Final Prevotella species 07/11/21 11:03 Blood - Venous Blood Culture - Final Prevotella species Procedures Date of Service Date of Service: 07/13/21 Assessment & Plan Assessment and plan (1) Acute renal injury: Status: Acute Assessment and Plan: WANDER superimposed on CKD Chronic left hydro with cortical thinning Right kidney without obstruction and echogenic Gram negative urosepsis Check FeNa Ordered urine Na/Cr Keep I >O for now Watch urine output No absolute indication for dialysis yet Continue antibiotics Time Spent With Patient Time: Total time spent is greater than 50% in coordination of care (as documented) at patient's floor/unit and/or counseling patient: Time with patient: 25 - 35 minutes Progress Note: Quality Stroke Does the patient have a stroke diagnosis?: No
[2021-07-13 21:04] LABS: Creatinine Urine 74.47 mg/dL
[2021-07-13 21:06] LABS: Total Protein Urine Random 64 mg/dL (<12)
[2021-07-14] VITALS (30 sets, daily range): BP systolic 132–170; BP diastolic 81–100; PULSE 23–104; RESP 20–30; TEMP 36.3–37.1; O2SAT 87–99; BMI 20.7
[2021-07-14] MEDS: 0.9 % Sodium Chloride Flush 3 ML SYRINGE IVFLUSH (01:03)
--- NOTE | 2021-07-14 01:32 | PC.NURSE ---
Assumed care of pt at 1900. Pt in bed with HOB up at least 30 degrees. Cpap facemask on at 10/50% O2. Pt lethargic but arousable to voice and touch. Does not follow commands. Mildly anxious with nsg interventions and will have spastic/twitching motion of extremities. Calm at rest. No resp distress. O2 decreased to 40%. Urine output low, 0-40 ml/hr. Provider aware and no interventions at this time. Vitals/rhythm stable.
[2021-07-14] MEDS: Albumin Human 25 % 100 ML IV ×2 (01:47→08:18)
[2021-07-14] MEDS: LORazepam 2 MG/ML VIAL 0.5 MG IVPUSH ×4 (02:51→23:33)
--- NOTE | 2021-07-14 03:08 | PC.NURSE ---
Pt became resltless and pulled off CPAP mask and was trying to climb OOB. Assisted BTB and reoriented pt to her surroundings and why she was here. She was restless and resp rate up to 30's. Ativan 0.5 mg IV given with good effect. Pt repositioned in bed with HOB up. Resp therapist in and pt put on High Flow O2 at 100% and 55 L. pt tolerating High Flow O2 better than the mask.
[2021-07-14] MEDS: metroNIDAZOLE/NS 500 MG/100 ML PIGGYBACK 100 MG IV ×2 (05:27→12:55)
[2021-07-14] MEDS: Pantoprazole Sodium 40 MG/10 ML VIAL IVPUSH ×2 (05:29→14:17)
[2021-07-14 05:34] LABS: VBG HCO3 18 mmol/L (22-26); VBG pCO2 38 mmHg; VBG pH 7.27 (7.32-7.43); VBG pO2 81 mmHg
[2021-07-14 05:36] LABS: Venous Blood Gas Refer to POC result
[2021-07-14 06:04] LABS: Hematocrit 31.9 % (37.0-47.0); Hemoglobin 10.4 g/dl (12.0-16.0); Mean Corpuscular HGB Conc 32.6 g/dl (31.0-35.0); Mean Corpuscular Hemoglobin 30.6 pg (27.0-33.0); Mean Corpuscular Volume 93.8 fL (80.0-98.0); Mean Platelet Volume 11.2 fL (9.4-12.3); Platelet Count 121 X10*3/uL (160-400); Red Cell Distribution Width 15.5 % (11.0-16.0); WBC ABN SCTR FOR CBC 1
--- NOTE | 2021-07-14 06:14 | PC.NURSE ---
Pt restless, climbing OOB. Has [employer] camera in room and bed alarm on. Assisted BTB and explained to her to call for the nurse if she needs anything. She is short of breath with activity and desats to 70%. O2 sats improve quickly back to 90 s. Pt was switched back to High flow O2 at 100% and 55L. Non rebreather mask on top of that as pt is a mouth breather. Ativan 0.5 mg IV given and pt is resting at present with eyes closed. Difficult to assess pt's orientation as she does not answer questions appropriately and doesn't follow commands.
[2021-07-14 06:27] LABS: Albumin Level 3.8 g/dL (3.5-5.0); Anion Gap 21 (12-20); Blood Urea Nitrogen 93 mg/dL (9-16); Calcium 8.4 mg/dL (8.4-10.2); Carbon Dioxide 18 mmol/L (22-29); Chloride 105 mmol/L (96-108); Creatinine Clr Calc Pharmacy 7.7; Estimated Glomerular Filt Rate 9; Glucose Random 98 mg/dL (60-115); Magnesium 2.5 mg/dL (1.6-2.6); Phosphorus 4.7 mg/dL (2.7-4.5); Potassium 4.7 mmol/L (3.3-5.1); Sodium 139 mmol/L (135-145)
[2021-07-14 06:32] LABS: Band Neutrophils Percent 7 % (3-5); Dohle Bodies PRESENT; Large Platelet PRESENT; Lymphocytes Absolute Manual 0.2 X10*3/uL (1.2-4.9); Lymphocytes Percent Manual 1 % (20-40); Neutrophils Absolute Manual 18.8 X10*3/uL (2.0-8.3); Neutrophils Percent Manual 92 % (45-73); Platelet Estimate SLIGHTLY DECREASED (NORMAL); Platelet Morphology Comment NOTED; RBC Morphology NORMAL
[2021-07-14 06:33] LABS: Toxic Granulation PRESENT; Toxic Vacuolation PRESENT
[2021-07-14] MEDS: Lidocaine 4 % Patch ADH..PATCH 2 PATCH TRANSDERMA (08:19)
[2021-07-14] MEDS: dexAMETHasone sod phosphate 4 MG/ML VIAL 6 MG IVPUSH (08:20)
[2021-07-14] MEDS: Sucralfate 1 GM TABLET PO (08:20)
[2021-07-14] MEDS: HYDROmorphone HCl 0.5 MG/0.5 ML SYRINGE IVPUSH (08:22)
[2021-07-14] MEDS: cefEPime HCl 1 GM in 0.9 % Sodium Chloride 50 ML IV (10:49)
--- NOTE | 2021-07-14 11:22 | PM.UROPN ---
Subjective Subjective Date of Service: 07/14/21 Interval history: continued high creatinine Continued elevated white count Culture result shows Prevotella septicemia given positive COVID status likely bacterial pneumonia over growth Urine culture negative Calculated FeNA consistent with pre renal causes of acute on chronic renal injury happy to continue to participate in her care if acute urologic insult identified Physical Exam Vital Signs: Vital Signs: Last Vital Signs Temp 98.4 F 07/14/21 11:00 Pulse 100 07/14/21 11:00 Resp 21 H 07/14/21 11:00 BP 139/82 07/14/21 11:00 Pulse Ox 94 07/14/21 11:00 BMI result Body Mass Index 20.7 Const: General: ill appearing Nutritional Appearance: cachectic Chest: Chest palpation & inspection: normal inspection of the chest Resp: Effort & Inspection: decreased respiratory effort Urology Results Labs CBC & Chem 7: 07/14/21 05:49 07/14/21 05:49 Labs: Laboratory Results - last 24 hr 07/13/21 07/13/21 07/13/21 11:48 12:03 12:03 WBC RBC Hgb Hct MCV MCH MCHC RDW Plt Count MPV Immature Gran % (Auto) Neut % (Auto) Lymph % (Auto) [place] % (Auto) Eos % (Auto) Baso % (Auto) Lymph # (Auto) [place] # (Auto) Eos # (Auto) Baso # (Auto) Abs Immat Gran (auto) Absolute Neuts (auto) Absolute Nucleated RBC Nucleated RBC % (auto) Neutrophils % (Manual) Band Neutrophils % Lymphocytes % (Manual) Abs Neuts (Manual) Lymphocytes # (Manual) Toxic Granulation Toxic Vacuolation Dohle Bodies Platelet Estimate Large Platelets Plt Morphology Comment RBC Morphology O2 Saturation 99.0 ABG pH at Pt Temp 7.23 L ABG pH (Temp Correct) 7.23 L ABG pCO2 at Pt Temp 47 H ABG pCO2 (Temp Corrct 46 H ABG pO2 at Pt Temp 233 H ABG pO2 (Temp Correct 232 H ABG HCO3 20 L ABG Base Excess (Actual) -7.2 VBG pH VBG pCO2 VBG pO2 VBG HCO3 VBG O2 Saturation VBG Base Excess Sodium 135 Potassium 4.9 Chloride 103 Carbon Dioxide 23 Anion Gap 14 BUN 77 H Creatinine 4.51 H* Estim Creat Clear Calc 8.0 Estimated GFR 10 Random Glucose 101 Calcium 7.8 L Phosphorus Magnesium Total Bilirubin 0.4 AST 23 D ALT 26 Alkaline Phosphatase 136 H B-Natriuretic Peptide 1349 H Total Protein 4.8 L Albumin 2.6 L Urine Color Urine Appearance Urine pH Ur Specific [place] Urine Protein Urine Glucose (UA) Urine Ketones Urine Blood Urine Nitrite Ur Leukocyte Esterase Urine RBC Urine WBC Ur Squamous Epith Cells Ur Renal Epithelial Cell Urine Bacteria Urine Mucus U Random Total Protein Ur Random Sodium Ur Random Chloride Urine Creatinine 07/13/21 07/13/21 07/13/21 12:23 12:23 20:43 WBC RBC Hgb Hct MCV MCH MCHC RDW Plt Count MPV Immature Gran % (Auto) Neut % (Auto) Lymph % (Auto) [place] % (Auto) Eos % (Auto) Baso % (Auto) Lymph # (Auto) [place] # (Auto) Eos # (Auto) Baso # (Auto) Abs Immat Gran (auto) Absolute Neuts (auto) Absolute Nucleated RBC Nucleated RBC % (auto) Neutrophils % (Manual) Band Neutrophils % Lymphocytes % (Manual) Abs Neuts (Manual) Lymphocytes # (Manual) Toxic Granulation Toxic Vacuolation Dohle Bodies Platelet Estimate Large Platelets Plt Morphology Comment RBC Morphology O2 Saturation ABG pH at Pt Temp ABG pH (Temp Correct) ABG pCO2 at Pt Temp ABG pCO2 (Temp Corrct ABG pO2 at Pt Temp ABG pO2 (Temp Correct ABG HCO3 ABG Base Excess (Actual) VBG pH VBG pCO2 VBG pO2 VBG HCO3 VBG O2 Saturation VBG Base Excess Sodium Potassium Chloride Carbon Dioxide Anion Gap BUN Creatinine Estim Creat Clear Calc Estimated GFR Random Glucose Calcium Phosphorus Magnesium Total Bilirubin AST ALT Alkaline Phosphatase B-Natriuretic Peptide Total Protein Albumin Urine Color YELLOW Urine Appearance HAZY Urine pH 5.5 Ur Specific [place] 1.025 Urine Protein 1+ H Urine Glucose (UA) NEG Urine Ketones NEG Urine Blood NEG Urine Nitrite NEG Ur Leukocyte Esterase 2+ H Urine RBC 0 Urine WBC 15-29 H Ur Squamous Epith Cells 1+ Ur Renal Epithelial Cell 1+ Urine Bacteria NONE Urine Mucus 1+ U Random Total Protein Ur Random Sodium 21.0 21.0 Ur Random Chloride < 20.0 Urine Creatinine 74.47 07/13/21 07/14/21 07/14/21 20:43 05:28 05:49 WBC RBC Hgb Hct MCV MCH MCHC RDW Plt Count MPV Immature Gran % (Auto) Neut % (Auto) Lymph % (Auto) [place] % (Auto) Eos % (Auto) Baso % (Auto) Lymph # (Auto) [place] # (Auto) Eos # (Auto) Baso # (Auto) Abs Immat Gran (auto) Absolute Neuts (auto) Absolute Nucleated RBC Nucleated RBC % (auto) Neutrophils % (Manual) Band Neutrophils % Lymphocytes % (Manual) Abs Neuts (Manual) Lymphocytes # (Manual) Toxic Granulation Toxic Vacuolation Dohle Bodies Platelet Estimate Large Platelets Plt Morphology Comment RBC Morphology O2 Saturation ABG pH at Pt Temp ABG pH (Temp Correct) ABG pCO2 at Pt Temp ABG pCO2 (Temp Corrct ABG pO2 at Pt Temp ABG pO2 (Temp Correct ABG HCO3 ABG Base Excess (Actual) VBG pH 7.27 L VBG pCO2 38 VBG pO2 81 VBG HCO3 18 L VBG O2 Saturation 92.0 VBG Base Excess -8.0 Sodium 139 Potassium 4.7 Chloride 105 Carbon Dioxide 18 L Anion Gap 21 H BUN 93 H D Creatinine 4.73 H* Estim Creat Clear Calc 7.7 Estimated GFR 9 Random Glucose 98 Calcium 8.4 D Phosphorus 4.7 H Magnesium 2.5 Total Bilirubin AST ALT Alkaline Phosphatase B-Natriuretic Peptide Total Protein Albumin 3.8 D Urine Color Urine Appearance Urine pH Ur Specific [place] Urine Protein Urine Glucose (UA) Urine Ketones Urine Blood Urine Nitrite Ur Leukocyte Esterase Urine RBC Urine WBC Ur Squamous Epith Cells Ur Renal Epithelial Cell Urine Bacteria Urine Mucus U Random Total Protein 64 H Ur Random Sodium Ur Random Chloride Urine Creatinine 07/14/21 05:49 WBC 19.0 H RBC 3.40 L Hgb 10.4 L Hct 31.9 L MCV 93.8 MCH 30.6 MCHC 32.6 RDW 15.5 Plt Count 121 L MPV 11.2 Immature Gran % (Auto) Cancelled Neut % (Auto) Cancelled Lymph % (Auto) Cancelled [place] % (Auto) Cancelled Eos % (Auto) Cancelled Baso % (Auto) Cancelled Lymph # (Auto) Cancelled [place] # (Auto) Cancelled Eos # (Auto) Cancelled Baso # (Auto) Cancelled Abs Immat Gran (auto) Cancelled Absolute Neuts (auto) Cancelled Absolute Nucleated RBC 0.000 Nucleated RBC % (auto) 0.0 Neutrophils % (Manual) 92 H Band Neutrophils % 7 H Lymphocytes % (Manual) 1 L Abs Neuts (Manual) 18.8 H Lymphocytes # (Manual) 0.2 L Toxic Granulation PRESENT Toxic Vacuolation PRESENT Dohle Bodies PRESENT Platelet Estimate SLIGHTLY DECREASED Large Platelets PRESENT Plt Morphology Comment NOTED RBC Morphology NORMAL O2 Saturation ABG pH at Pt Temp ABG pH (Temp Correct) ABG pCO2 at Pt Temp ABG pCO2 (Temp Corrct ABG pO2 at Pt Temp ABG pO2 (Temp Correct ABG HCO3 ABG Base Excess (Actual) VBG pH VBG pCO2 VBG pO2 VBG HCO3 VBG O2 Saturation VBG Base Excess Sodium Potassium Chloride Carbon Dioxide Anion Gap BUN Creatinine Estim Creat Clear Calc Estimated GFR Random Glucose Calcium Phosphorus Magnesium Total Bilirubin AST ALT Alkaline Phosphatase B-Natriuretic Peptide Total Protein Albumin Urine Color Urine Appearance Urine pH Ur Specific [place] Urine Protein Urine Glucose (UA) Urine Ketones Urine Blood Urine Nitrite Ur Leukocyte Esterase Urine RBC Urine WBC Ur Squamous Epith Cells Ur Renal Epithelial Cell Urine Bacteria Urine Mucus U Random Total Protein Ur Random Sodium Ur Random Chloride Urine Creatinine Progress Note: A&P Assessment and plan (1) Hydronephrosis: Status: Acute (2) Acute respiratory failure with hypoxia: Status: Acute (3) Acute respiratory distress syndrome (ARDS) due to COVID-19 virus: Status: Acute (4) Gram-negative bacteremia: Status: Acute (5) [id number] kidney injury: Status: Acute Assessment and Plan: continue medical indicated care Targeted antibiotics Nephrology input for renal injury Angulo catheter should remain Fall Risk Details Current Medications: Current Medications Acetaminophen (Acetaminophen 325 Mg Tablet) 650 mg PO Q6H PRN PRN Reason: Pain, Mild (Pain Scale 1-3) Al Hydroxide/Mg Hydroxide (Magnesium Hydrox/Alum Hydrox 30 Ml Oral.Susp) 15 ml PO Q6H PRN PRN Reason: heartburn Dexamethasone Sodium Phosphate (Dexamethasone Sod Phosphate 4 Mg/Ml Vial) 6 mg IVPUSH DAILY [facility] Last Admin: 07/14/21 08:20 Dose: 6 mg Documented by: Hydromorphone HCl (Hydromorphone Hcl 0.5 Mg/0.5 Ml Syringe) 0.5 mg IVPUSH Q4H PRN; Protocol PRN Reason: Pain, Severe (Pain Scale 7-10) Last Admin: 07/14/21 08:22 Dose: 0.5 mg Documented by: Metronidazole (Flagyl) 500 mg in 100 mls @ 100 mls/hr IV Q8H [facility] Last Infusion: 07/14/21 06:38 Dose: Infused Documented by: Cefepime HCl 1 gm/ Sodium (Chloride) 50 mls @ 100 mls/hr IV Q24H [facility] Last Admin: 07/14/21 10:49 Dose: 100 mls/hr Documented by: Lidocaine (Lidocaine 4 % Patch Adh..Patch) 2 patch TRANSDERMA DAILY [facility]; Protocol Last Admin: 07/14/21 08:19 Dose: 2 patch Documented by: Lorazepam (Lorazepam 2 Mg/Ml Vial) 0.5 mg IVPUSH Q4H PRN PRN Reason: Anxiety Last Admin: 07/14/21 10:49 Dose: 0.5 mg Documented by: Ondansetron HCl (Ondansetron Hcl 4 Mg/2 Ml Vial) 4 mg IVPUSH Q8H PRN PRN Reason: Nausea and Vomiting Oxybutynin Chloride (Oxybutynin Chloride Er 5 Mg Tab.Er.24) 5 mg PO BEDTIME [facility] Last Admin: 07/13/21 21:28 Dose: Not Given Documented by: Pantoprazole Sodium (Pantoprazole Sodium 40 Mg/10 Ml Vial) 40 mg IVPUSH BID@0630,1630 [facility] Last Admin: 07/14/21 05:29 Dose: 40 mg Documented by: Pharmacy Consult (Consult Rx Perform Med Rec) 1 each MISCELLANE ONCE PRN PRN Reason: Consult order Sodium Chloride (0.9 % Sodium Chloride Flush 3 Ml Syringe) 3 ml IVFLUSH QSHIFT [facility] Last Admin: 07/14/21 10:49 Dose: Not Given Documented by: Sucralfate (Sucralfate 1 Gm Tablet) 1 gm PO BIDAC [facility] Last Admin: 07/14/21 08:20 Dose: 1 gm Documented by: Trazodone HCl (Trazodone Hcl 100 Mg Tablet) 100 mg PO BEDTIME [facility] Last Admin: 07/13/21 21:28 Dose: Not Given Documented by: Time Spent With Patient Time: Total time spent is greater than 50% in coordination of care (as documented) at patient's floor/unit and/or counseling patient: Time with patient: less than 15 minutes Progress Note: Quality Stroke Does the patient have a stroke diagnosis?: No
--- NOTE | 2021-07-14 12:30 | PM.CCPN ---
Subjective Subjective Date of Service: 07/14/21 Interval History: 70-year-old lady with underlying history of rectal prolapse, depression, peptic also, remote subarachnoid hemorrhage, peptic ulcer disease, chronic hydronephrosis status post recent removal of ureteral stents admitted on 07/11/2021 with 3-4 day history of left-sided abdominal pain. Patient has had CT imaging demonstrating dilated pancreatic and gallbladder /pancreatic ducts with no obstructing stone noted. She also is noted to have chronic left-sided hydronephrosis and worsening renal function. Patient has been initially hospitalized on general medical howell and evaluated by General surgery, Gastroenterology, Urology, and Nephrology with consideration for MRCP. Patient also was noted to have Gram-negative bacteremia and be COVID-19 positive and on 07/13/2021 her oxygen requirements significantly worsened and she required initiation of positive pressure ventilation and transferred to intensive care unit. No events overnight. Continues to be on CPAP/high-flow. Critical Care Time (minutes): 45 Physical Exam Vital Signs: Vital Signs: Last Vital Signs Temp 98.4 F 07/14/21 12:00 Pulse 97 07/14/21 12:00 Resp 24 H 07/14/21 12:01 BP 153/93 H 07/14/21 12:00 Pulse Ox 96 07/14/21 12:00 BMI result Body Mass Index 20.7 Const: General: no acute distress and lethargic ( Arousable, anxious) Orientation/consciousness: lethargic ( Arousable, anxious) Eyes: Sclerae: sclerae normal EOM: EOMs intact bilaterally Neck: Neck: Yes no lymphadenopathy, Yes trachea midline and Yes supple Resp: Effort & Inspection: normal respiratory effort ( on CPAP) and no respiratory distress Auscultation: crackles ( diffuse bilateral) Cardio: Rate: regular rate Rhythm: regular rhythm Heart sounds: no gallops, no murmurs and no rubs GI: Palpation (GI): Soft to palpation and Other GI palpation findings present ( mild, left-sided tenderness, no rebound) Auscultation: normal bowel sounds Extrem: General: No clubbing, No cyanosis and Yes pedal edema ( trace bilateral) Objective Data Labs CBC & Chem 7: 07/14/21 05:49 07/14/21 05:49 Labs: Laboratory Results - last 24 hr 07/13/21 07/13/21 07/13/21 12:03 12:03 12:23 WBC RBC Hgb Hct MCV MCH MCHC RDW Plt Count MPV Immature Gran % (Auto) Neut % (Auto) Lymph % (Auto) [place] % (Auto) Eos % (Auto) Baso % (Auto) Lymph # (Auto) [place] # (Auto) Eos # (Auto) Baso # (Auto) Abs Immat Gran (auto) Absolute Neuts (auto) Absolute Nucleated RBC Nucleated RBC % (auto) Neutrophils % (Manual) Band Neutrophils % Lymphocytes % (Manual) Abs Neuts (Manual) Lymphocytes # (Manual) Toxic Granulation Toxic Vacuolation Dohle Bodies Platelet Estimate Large Platelets Plt Morphology Comment RBC Morphology VBG pH VBG pCO2 VBG pO2 VBG HCO3 VBG O2 Saturation VBG Base Excess Sodium 135 Potassium 4.9 Chloride 103 Carbon Dioxide 23 Anion Gap 14 BUN 77 H Creatinine 4.51 H* Estim Creat Clear Calc 8.0 Estimated GFR 10 Random Glucose 101 Calcium 7.8 L Phosphorus Magnesium Total Bilirubin 0.4 AST 23 D ALT 26 Alkaline Phosphatase 136 H B-Natriuretic Peptide 1349 H Total Protein 4.8 L Albumin 2.6 L Urine Color YELLOW Urine Appearance HAZY Urine pH 5.5 Ur Specific [place] 1.025 Urine Protein 1+ H Urine Glucose (UA) NEG Urine Ketones NEG Urine Blood NEG Urine Nitrite NEG Ur Leukocyte Esterase 2+ H Urine RBC 0 Urine WBC 15-29 H Ur Squamous Epith Cells 1+ Ur Renal Epithelial Cell 1+ Urine Bacteria NONE Urine Mucus 1+ U Random Total Protein Ur Random Sodium Ur Random Chloride Urine Creatinine 07/13/21 07/13/21 07/13/21 12:23 20:43 20:43 WBC RBC Hgb Hct MCV MCH MCHC RDW Plt Count MPV Immature Gran % (Auto) Neut % (Auto) Lymph % (Auto) [place] % (Auto) Eos % (Auto) Baso % (Auto) Lymph # (Auto) [place] # (Auto) Eos # (Auto) Baso # (Auto) Abs Immat Gran (auto) Absolute Neuts (auto) Absolute Nucleated RBC Nucleated RBC % (auto) Neutrophils % (Manual) Band Neutrophils % Lymphocytes % (Manual) Abs Neuts (Manual) Lymphocytes # (Manual) Toxic Granulation Toxic Vacuolation Dohle Bodies Platelet Estimate Large Platelets Plt Morphology Comment RBC Morphology VBG pH VBG pCO2 VBG pO2 VBG HCO3 VBG O2 Saturation VBG Base Excess Sodium Potassium Chloride Carbon Dioxide Anion Gap BUN Creatinine Estim Creat Clear Calc Estimated GFR Random Glucose Calcium Phosphorus Magnesium Total Bilirubin AST ALT Alkaline Phosphatase B-Natriuretic Peptide Total Protein Albumin Urine Color Urine Appearance Urine pH Ur Specific [place] Urine Protein Urine Glucose (UA) Urine Ketones Urine Blood Urine Nitrite Ur Leukocyte Esterase Urine RBC Urine WBC Ur Squamous Epith Cells Ur Renal Epithelial Cell Urine Bacteria Urine Mucus U Random Total Protein 64 H Ur Random Sodium 21.0 21.0 Ur Random Chloride < 20.0 Urine Creatinine 74.47 07/14/21 07/14/21 07/14/21 05:28 05:49 05:49 WBC 19.0 H RBC 3.40 L Hgb 10.4 L Hct 31.9 L MCV 93.8 MCH 30.6 MCHC 32.6 RDW 15.5 Plt Count 121 L MPV 11.2 Immature Gran % (Auto) Cancelled Neut % (Auto) Cancelled Lymph % (Auto) Cancelled [place] % (Auto) Cancelled Eos % (Auto) Cancelled Baso % (Auto) Cancelled Lymph # (Auto) Cancelled [place] # (Auto) Cancelled Eos # (Auto) Cancelled Baso # (Auto) Cancelled Abs Immat Gran (auto) Cancelled Absolute Neuts (auto) Cancelled Absolute Nucleated RBC 0.000 Nucleated RBC % (auto) 0.0 Neutrophils % (Manual) 92 H Band Neutrophils % 7 H Lymphocytes % (Manual) 1 L Abs Neuts (Manual) 18.8 H Lymphocytes # (Manual) 0.2 L Toxic Granulation PRESENT Toxic Vacuolation PRESENT Dohle Bodies PRESENT Platelet Estimate SLIGHTLY DECREASED Large Platelets PRESENT Plt Morphology Comment NOTED RBC Morphology NORMAL VBG pH 7.27 L VBG pCO2 38 VBG pO2 81 VBG HCO3 18 L VBG O2 Saturation 92.0 VBG Base Excess -8.0 Sodium 139 Potassium 4.7 Chloride 105 Carbon Dioxide 18 L Anion Gap 21 H BUN 93 H D Creatinine 4.73 H* Estim Creat Clear Calc 7.7 Estimated GFR 9 Random Glucose 98 Calcium 8.4 D Phosphorus 4.7 H Magnesium 2.5 Total Bilirubin AST ALT Alkaline Phosphatase B-Natriuretic Peptide Total Protein Albumin 3.8 D Urine Color Urine Appearance Urine pH Ur Specific [place] Urine Protein Urine Glucose (UA) Urine Ketones Urine Blood Urine Nitrite Ur Leukocyte Esterase Urine RBC Urine WBC Ur Squamous Epith Cells Ur Renal Epithelial Cell Urine Bacteria Urine Mucus U Random Total Protein Ur Random Sodium Ur Random Chloride Urine Creatinine Microbiology Microbiology Results: Microbiology 07/13/21 12:20 Urine clean catch - Urine parmar top Urine Culture - Final No growth. 07/11/21 11:04 Blood - Venous Blood Culture - Final Prevotella species 07/11/21 11:03 Blood - Venous Blood Culture - Final Prevotella species Progress Note: A&P Assessment and plan (1) Acute respiratory failure with hypoxia: Status: Acute (2) Acute respiratory distress syndrome (ARDS) due to COVID-19 virus: Status: Acute (3) Gram-negative bacteremia: Status: Acute (4) Thrombocytopenia: Status: Acute (5) [id number] kidney injury: Status: Acute (6) Hydronephrosis, left: Status: Acute Assessment and Plan: Assessment: 70-year-old lady with history of chronic left-sided hydroureteronephrosis, subarachnoid hemorrhage rectal prolapse ulcer disease admitted with left-sided abdominal pain with hospital course further complicated by Gram-negative bacteremia and acute hypoxic respiratory failure secondary to COVID-19 now requiring CPAP support. Plan: Neuro: No acute issues. Cardiac: No acute issues. Underlying history of chronic diastolic congestive heart failure. Pulmonary: Acute hypoxic respiratory failure secondary to COVID-19 ARDS now requiring BiPAP support. Continue to titrate off as tolerated. Renal: Acute on chronic renal failure. Nephrology and Urology service care appreciated. Chronic left-sided hydronephrosis. No indication for intervention per Urology at this time. Non oliguric. Continue to monitor renal indices and urine output. May require dialysis. Endo: No acute issues. GI: Evaluated by Gastroenterology And General surgery services, no indication for acute intervention. Possible underlying microscopic or infectious colitis. Started on empiric Flagyl. ID: Gram-negative bacteremia with likely source. Switch cefepime/Flagyl to Zosyn Heme/Onc: No acute issues. Psych: No acute issues. Miscellaneous: No acute issues. Prophylaxis: intermittent pneumatic compression Diet: Regular Critical care time spent: 45 minutes Quality Stroke Does the patient have a stroke diagnosis?: No VTE Prior VTE?: No VTE Risk Level:: Medical - moderate - high VTE Device Contraindication: Treatment Not Indicated VTE Drug Contraindication: Treatment Not Indicated
[2021-07-14] MEDS: Piperacillin Sodium/Tazobactam 2.25 GM in 0.9 % Sodium Chloride 50 ML IV ×2 (14:17→21:44)
--- NOTE | 2021-07-14 15:11 | MHC.CM.PN ---
Pt has been transferred to ICU for CPAP support secondary to COVID. Initial d/c plan was for a return to home with son, existing VNA and possible O2 should she need it. CM to follow for changes in d/c plan.
--- NOTE | 2021-07-14 16:43 | P.PNNP_ITS ---
Subjective Subjective Date of Service: 07/14/21 Interval history: Events noted note appreciated Continues to be on CPAP/high-flow. Physical Exam Vital Signs: Vital Signs: Last Vital Signs Temp 98.2 F 07/14/21 16:00 Pulse 89 07/14/21 16:00 Resp 20 07/14/21 16:40 BP 145/87 H 07/14/21 16:00 Pulse Ox 96 07/14/21 16:00 BMI result Body Mass Index 20.7 Const: Other: Constitutional : Alert, oriented, looks chronically sick Neck : Normal inspection, Supple Cardiovascular : RRR, S1 S2, no lower extremity edema Respiratory : fair bilateral air entry, no clear basal crackles, no wheezes or rhonchi Gastrointestinal: soft, lax, generalized tenderness more noted in epigastric area and left lower quadrant, no surgical signs Skin : Warm, Dry Neurological : Alert & oriented x3, No focal deficit noted General: cooperative, healthy appearing, comfortable, no acute distress, ill appearing and lethargic ( Arousable, anxious) Nutritional Appearance: cachectic and thin Orientation/consciousness: patient oriented x3 and lethargic ( Arousable, anxious) Limitations: no limitations HENMT: Head: Yes normocephalic and Yes atraumatic Ears: hearing grossly normal bilaterally Face and sinus: Yes normal facial exam Mouth: moist mucous membranes Eyes: Sclerae: sclerae normal EOM: EOMs intact bilaterally Neck: Neck: Yes normal visual inspection, Yes full ROM, Yes no lymphadenop athy, Yes no meningeal signs, Yes trachea midline, Yes supple and Yes no JVD Chest: Chest palpation & inspection: normal inspection of the chest Resp: Effort & Inspection: normal respiratory effort ( on CPAP), able to speak in complete sentences, no audible wheezes, no cough, decreased respiratory effort and no respiratory distress Auscultation: clear to auscultation bilaterally, crackles ( diffuse bilateral) and no rales Cardio: Jugular venous distension: no JVD Palpation: no palpable S3 and no palpable S4 Rate: regular rate Rhythm: regular rhythm Heart sounds: S1 normal heart sound present, S2 normal heart sound present, no gallops, no murmurs and no rubs GI: Inspection: Yes normal to inspection Palpation (GI): Soft to palpation, Tenderness to palpation present (GI) in the LLQ, in the RLQ, in the LUQ and in t he RUQ and Other GI palpation findings present ( mild, left-sided tenderness, no rebound) Percussion: Yes dullness to percussion Auscultation: normal bowel sounds and Absent bowel sounds Rectal Exam - Female: No Rectal prolapse Back/Spine/Pelvis: Cervical Spine: normal cervical lordosis Thoracic/Lumbar Spine: thoracic and lumbar spine normal to inspection Skin: General skin exam: no rashes or lesions noted Neuro: General: patient oriented x3, tone normal, moves all extremities and no meningeal signs Motor exam (neuro): no asterixis Extrem: General: Yes normal to inspection, Yes capillary refill normal, No clubbing, No cyanosis, No edema and Yes pedal edema ( trace bilateral) Objective Data Labs CBC & Chem 7: 07/14/21 05:49 07/14/21 05:49 Labs: Laboratory Results - last 24 hr 07/13/21 07/13/21 07/14/21 20:43 20:43 05:28 WBC RBC Hgb Hct MCV MCH MCHC RDW Plt Count MPV Immature Gran % (Auto) Neut % (Auto) Lymph % (Auto) [place] % (Auto) Eos % (Auto) Baso % (Auto) Lymph # (Auto) [place] # (Auto) Eos # (Auto) Baso # (Auto) Abs Immat Gran (auto) Absolute Neuts (auto) Absolute Nucleated RBC Nucleated RBC % (auto) Neutrophils % (Manual) Band Neutrophils % Lymphocytes % (Manual) Abs Neuts (Manual) Lymphocytes # (Manual) Toxic Granulation Toxic Vacuolation Dohle Bodies Platelet Estimate Large Platelets Plt Morphology Comment RBC Morphology VBG pH 7.27 L VBG pCO2 38 VBG pO2 81 VBG HCO3 18 L VBG O2 Saturation 92.0 VBG Base Excess -8.0 Sodium Potassium Chloride Carbon Dioxide Anion Gap BUN Creatinine Estim Creat Clear Calc Estimated GFR Random Glucose Calcium Phosphorus Magnesium Albumin U Random Total Protein 64 H Ur Random Sodium 21.0 Urine Creatinine 74.47 07/14/21 07/14/21 05:49 05:49 WBC 19.0 H RBC 3.40 L Hgb 10.4 L Hct 31.9 L MCV 93.8 MCH 30.6 MCHC 32.6 RDW 15.5 Plt Count 121 L MPV 11.2 Immature Gran % (Auto) Cancelled Neut % (Auto) Cancelled Lymph % (Auto) Cancelled [place] % (Auto) Cancelled Eos % (Auto) Cancelled Baso % (Auto) Cancelled Lymph # (Auto) Cancelled [place] # (Auto) Cancelled Eos # (Auto) Cancelled Baso # (Auto) Cancelled Abs Immat Gran (auto) Cancelled Absolute Neuts (auto) Cancelled Absolute Nucleated RBC 0.000 Nucleated RBC % (auto) 0.0 Neutrophils % (Manual) 92 H Band Neutrophils % 7 H Lymphocytes % (Manual) 1 L Abs Neuts (Manual) 18.8 H Lymphocytes # (Manual) 0.2 L Toxic Granulation PRESENT Toxic Vacuolation PRESENT Dohle Bodies PRESENT Platelet Estimate SLIGHTLY DECREASED Large Platelets PRESENT Plt Morphology Comment NOTED RBC Morphology NORMAL VBG pH VBG pCO2 VBG pO2 VBG HCO3 VBG O2 Saturation VBG Base Excess Sodium 139 Potassium 4.7 Chloride 105 Carbon Dioxide 18 L Anion Gap 21 H BUN 93 H D Creatinine 4.73 H* Estim Creat Clear Calc 7.7 Estimated GFR 9 Random Glucose 98 Calcium 8.4 D Phosphorus 4.7 H Magnesium 2.5 Albumin 3.8 D U Random Total Protein Ur Random Sodium Urine Creatinine Microbiology Microbiology Results: Microbiology 07/13/21 12:20 Urine clean catch - Urine parmar top Urine Culture - Final No growth. 07/11/21 11:04 Blood - Venous Blood Culture - Final Prevotella species 07/11/21 11:03 Blood - Venous Blood Culture - Final Prevotella species Procedures Date of Service Date of Service: 07/14/21 Assessment & Plan Assessment and plan (1) Acute respiratory failure with hypoxia: Status: Acute (2) Acute respiratory distress syndrome (ARDS) due to COVID-19 virus: Status: Acute (3) Gram-negative bacteremia: Status: Acute (4) Thrombocytopenia: Status: Acute (5) Ggpwz-da-thvgfqt kidney injury: Status: Acute (6) Hydronephrosis, left: Status: Acute Assessment and Plan: Assessment: 70-year-old lady with history of chronic left-sided hydroureteronephrosis, subarachnoid hemorrhage rectal prolapse ulcer disease admitted with left-sided abdominal pain with hospital course further complicated by Gram-negative bacteremia and acute hypoxic respiratory failure secondary to COVID-19 now requiring CPAP support. WANDER superimposed on CKD Chronic left hydro with urosepsis Right kidney is echogenic Low urien sodium suggestive of hypoperfusion Probaly progressed to aTN Watch I/Os No indication for dialysis yet Keep SBP > 100 Avoid hypotension Time Spent With Patient Time: Total time spent is greater than 50% in coordination of care (as documented) at patient's floor/unit and/or counseling patient: Time with patient: 15 - 24 minutes Progress Note: Quality Stroke Does the patient have a stroke diagnosis?: No
[2021-07-15] VITALS (33 sets, daily range): BP systolic 84–162; BP diastolic 54–96; PULSE 67–97; RESP 16–33; TEMP 35–38.4; O2SAT 79–100; BMI 20.7
[2021-07-15] MEDS: 0.9 % Sodium Chloride Flush 3 ML SYRINGE IVFLUSH ×3 (00:45→14:30)
[2021-07-15] MEDS: dexmedeTOMIDidine HCL/NS 400 MCG/100 ML INFUS..BTL 12.05 MCG IVCONT (01:10)
--- NOTE | 2021-07-15 01:44 | W.PM.CCHP ---
Procedures Date of Service Date of Service: 07/15/21 Intubation Intubation Comments: Patient with acute respiratory refractory to CPAP, requiring emergent intubation for hypoxemia. Patient intubated with 7.5 cuffed ET tube under glide scope guidance with visualization of vocal cords, without immediate complications. ET tube position verified with Chest XRAY. Consent for Procedure: Emergent-no informed consent obtained Time out performed: Yes Sedative: etomidate Mg given: 20 Laryngoscope: fiber optic video scope ET tube size: 7.5 ET tube uncuffed: No Tube secured depth (cm): 23 Tube secured location: lips Tube placement confirmation: visualized tube passing through cords, equal breath sounds bilaterally and no breath sounds over epigastrium Patient tolerated procedure: well and no complications Intubation complications: none
[2021-07-15] MEDS: Phenylephrine HCL 20 MG in 0.9 % Sodium Chloride 250 ML 18.22 MG IVCONT ×2 (02:00→17:16)
[2021-07-15] MEDS: Ketamine HCl 500 MG/5 ML VIAL 50 MG IVPUSH (02:11)
[2021-07-15] MEDS: Etomidate 20 MG/10 ML VIAL IVPUSH (02:11)
[2021-07-15] MEDS: propofoL 1,000 MG/100 ML VIAL 14.46 MG IVCONT ×4 (02:45→20:29)
--- NOTE | 2021-07-15 05:00 | PC.NURSE ---
Upon initial assessment at 1900- pt on CPAP, not tolerating well. Pt was pulling at the mask and very restless. Pt alert and oriented x3 but is not understanding her current medical situation. Pt does not always respond appropriately to questions. Initially pt LS had fine crackles in the lower bases bilaterally and were clear in the upper sheehan. Pt did take off mask at approximately 0110 and she desatted into the 50s. Pt was then intubated and vented approximately 0120. Pt has a 7.5cm tube that was at 25 at the lip and was repositioned to 23cm at the lip. Pt is on AC with a rate of 18, Volume of 350, 60% o2, and Peep of 5 and she is satting in the mid 90s. LS at this time are clear in the right and diminished on the left, mostly in the left upper field. Pt is sedated with propofol and is on phenlyephrine to maintain MAP > 65. OGT placed and clamped. Pupils are sluggish but equal and reactive. NSR on tele. Angulo with approximately 30-50ml output per hour. Skin intact- bruising noted.
[2021-07-15 05:53] LABS: VBG Base Excess -6.4 mmol/L; VBG HCO3 18 mmol/L (22-26); VBG pCO2 36 mmHg; VBG pH 7.32 (7.32-7.43); VBG pO2 44 mmHg
[2021-07-15] MEDS: Piperacillin Sodium/Tazobactam 2.25 GM in 0.9 % Sodium Chloride 50 ML IV ×3 (06:15→21:19)
[2021-07-15] MEDS: Chlorhexidine Gluc Oral Rinse 15 ML MOUTHWASH BUCCAL ×3 (06:16→21:19)
[2021-07-15] MEDS: Pantoprazole Sodium 40 MG/10 ML VIAL IVPUSH (06:16)
[2021-07-15 06:17] LABS: Basophils Percent Auto 0.1 % (0-2); Eosinophils Percent Auto 0.1 % (0-4); Hematocrit 29.7 % (37.0-47.0); Hemoglobin 9.5 g/dl (12.0-16.0); Imm Gran Abs Auto 0.34 X10*3/uL (0.00-0.03); Imm Gran Pct Auto 1.5 % (0.0-0.4); Lymphocytes Absolute Auto 0.6 X10*3/uL (1.2-4.9); Lymphocytes Percent Auto 2.5 % (20-40); MANUAL DIFF FLAG SCAN; Mean Corpuscular Hemoglobin 29.8 pg (27.0-33.0); Mean Corpuscular Volume 93.1 fL (80.0-98.0); Mean Platelet Volume 11.3 fL (9.4-12.3); Monocytes Absolute Auto 0.7 X10*3/uL (0.1-1.2); NRBC Pct Auto 0.1 /100WBC (0.0-0.2); Neutrophils Absolute Auto 20.4 x10*3/uL (2.0-8.3); Neutrophils Percent Auto 92.8 % (45-73); Platelet Count 123 X10*3/uL (160-400); Red Blood Count 3.19 X10*6/uL (4.20-5.50); Red Cell Distribution Width 15.8 % (11.0-16.0); SCAN SMEAR FLAG 1
[2021-07-15 06:36] LABS: Albumin Level 3.2 g/dL (3.5-5.0); Anion Gap 19 (12-20); Blood Urea Nitrogen 111 mg/dL (9-16); Calcium 8.2 mg/dL (8.4-10.2); Carbon Dioxide 18 mmol/L (22-29); Chloride 112 mmol/L (96-108); Creatinine Clr Calc Pharmacy 8.1; Estimated Glomerular Filt Rate 10; Glucose Random 100 mg/dL (60-115); Magnesium 2.6 mg/dL (1.6-2.6); Phosphorus 4.5 mg/dL (2.7-4.5); Potassium 4.2 mmol/L (3.3-5.1); Sodium 145 mmol/L (135-145)
[2021-07-15 06:42] LABS: SLIDE REVIEW VERIFIED
[2021-07-15] MEDS: dexAMETHasone sod phosphate 4 MG/ML VIAL 6 MG IVPUSH (08:26)
[2021-07-15 08:55] LABS: Venous Blood Gas Refer to POC result
[2021-07-15] MEDS: Cisatracurium Besylate 20 MG/10 ML VIAL 10 MG IVPUSH (09:06)
[2021-07-15] MEDS: fentaNYL citrate/NS 1,000 MCG/100 ML PLAST..BAG 5 MCG IVCONT ×2 (09:18→21:50)
[2021-07-15] MEDS: Albumin Human 25 % 100 ML IV ×3 (09:26→20:43)
[2021-07-15] MEDS: Cisatracurium Besylate 100 MG in 0.9 % Sodium Chloride 40 ML IVCONT (09:59)
--- NOTE | 2021-07-15 10:42 | PC.NURSE ---
Addendum entered by Amalia Mukherjee RN 07/15/21 17:48: PHENYLEPHRINE GTT RESTARTED - SEE EMAR. THIS RN SPOKE AT LENGTH WITH PTS SON/HCP ALLIE ABOUT CURRENT STATUS. CODE STATUS CHANGED TO DNR - MD AWARE. Addendum entered by Amalia Mukherjee RN 07/15/21 15:48: NIMBEX GTT TURNED OFF AT [address] WILL CONTINUE TO MONITOR. Original Note: PTS 02 SAT DROPPED RAPIDLY TO 60S AND SUSTAINING. 02 INCREASED FROM 60% TO 100%. RT CALLED BEDSIDE. NIMBEX GTT STARTED - SEE EMAR. NO CHANGE TO 02 SAT. MD CALLED BEDSIDE WHILE RT MANUALLY BAGGING PT. BLOODY INLINE SECRETIONS NOTED. MD NOTIFIED. SETUP FOR EMERGENT BEDSIDE BRONCH. VENT SETTINGS ADJUSTED TO: AC 16/350/8/100%. CURRENT [address] SCAN ON HOLD UNTIL PT BECOMES STABLE FOR TRANSFER. WILL CONTINUE TO MONITOR.
--- NOTE | 2021-07-15 11:51 | PM.PNNEP ---
Subjective Subjective Date of Service: 07/16/21 Interval history: Events noted Intubated Physical Exam Vital Signs: Vital Signs: Last Vital Signs Temp 100.0 F 07/15/21 11:00 Pulse 90 07/15/21 11:00 Resp 20 07/15/21 11:00 BP 131/67 07/15/21 11:00 Pulse Ox 96 07/15/21 11:00 BMI result Body Mass Index 20.7 Const: Other: Constitutional : Alert, oriented, looks chronically sick Neck : Normal inspection, Supple Cardiovascular : RRR, S1 S2, no lower extremity edema Respiratory : fair bilateral air entry, no clear basal crackles, no wheezes or rhonchi Gastrointestinal: soft, lax, generalized tenderness more noted in epigastric area and left lower quadrant, no surgical signs Skin : Warm, Dry Neurological : Alert & oriented x3, No focal deficit noted General: cooperative, healthy appearing, comfortable, no acute distress, ill appearing and lethargic ( Arousable, anxious) Nutritional Appearance: cachectic and thin Orientation/consciousness: patient oriented x3 and lethargic ( Arousable, anxious) Limitations: no limitations HENMT: Head: Yes normocephalic and Yes atraumatic Ears: hearing grossly normal bilaterally Face and sinus: Yes normal facial exam Mouth: moist mucous membranes Eyes: Sclerae: sclerae normal EOM: EOMs intact bilaterally Neck: Neck: Yes normal visual inspection, Yes full ROM, Yes no lymphadenopathy, Yes no meningeal signs, Yes trachea midline, Yes supple and Yes no JVD Chest: Chest palpation & inspection: normal inspection of the chest Resp: Effort & Inspection: normal respiratory effort ( on CPAP), able to speak in complete sentences, no audible wheezes, no cough, decreased respiratory effort and no respiratory distress Auscultation: clear to auscultation bilaterally, crackles ( diffuse bilateral) and no rales Cardio: Jugular venous distension: no JVD Palpation: no palpable S3 and no palpable S4 Rate: regular rate Rhythm: regular rhythm Heart sounds: S1 normal heart sound present, S2 normal heart sound present, no gallops, no murmurs and no rubs GI: Inspection: Yes normal to inspection Palpation (GI): Soft to palpation, Tenderness to palpation present (GI) in the LLQ, in the RLQ, in the LUQ and in the RUQ and Other GI palpation findings present ( mild, left-sided tenderness, no rebound) Percussion: Yes dullness to percussion Auscultation: normal bowel sounds and Absent bowel sounds Rectal Exam - Female: No Rectal prolapse Back/Spine/Pelvis: Cervical Spine: normal cervical lordosis Thoracic/Lumbar Spine: thoracic and lumbar spine normal to inspection Skin: General skin exam: no rashes or lesions noted Neuro: General: patient oriented x3, tone normal, moves all extremities and no meningeal signs Motor exam (neuro): no asterixis Extrem: General: Yes normal to inspection, Yes capillary refill normal, No clubbing, No cyanosis, No edema and Yes pedal edema ( trace bilateral) Objective Data Labs CBC & Chem 7: 07/16/21 05:15 07/16/21 05:15 Labs: Laboratory Results - last 24 hr 07/15/21 07/15/21 07/15/21 05:45 05:49 05:49 WBC 22.0 H RBC 3.19 L Hgb 9.5 L Hct 29.7 L MCV 93.1 MCH 29.8 MCHC 32.0 RDW 15.8 Plt Count 123 L MPV 11.3 Immature Gran % (Auto) 1.5 H Neut % (Auto) 92.8 H Lymph % (Auto) 2.5 L [place] % (Auto) 3.0 Eos % (Auto) 0.1 Baso % (Auto) 0.1 Lymph # (Auto) 0.6 L [place] # (Auto) 0.7 Eos # (Auto) 0.0 Baso # (Auto) 0.0 Abs Immat Gran (auto) 0.34 H Absolute Neuts (auto) 20.4 H Absolute Nucleated RBC 0.020 H Nucleated RBC % (auto) 0.1 Smear Tech's Comments VERIFIED VBG pH 7.32 VBG pCO2 36 VBG pO2 44 VBG HCO3 18 L VBG O2 Saturation 63.0 VBG Base Excess -6.4 Sodium 145 Potassium 4.2 Chloride 112 H Carbon Dioxide 18 L Anion Gap 19 BUN 111 H Creatinine 4.48 H* Estim Creat Clear Calc 8.1 Estimated GFR 10 Random Glucose 100 Calcium 8.2 L Phosphorus 4.5 Magnesium 2.6 Albumin 3.2 L Microbiology Microbiology Results: Microbiology 07/13/21 12:20 Urine clean catch - Urine parmar top Urine Culture - Final No growth. 07/11/21 11:04 Blood - Venous Blood Culture - Final Prevotella species 07/11/21 11:03 Blood - Venous Blood Culture - Final Prevotella species Procedures Date of Service Date of Service: 07/15/21 Assessment & Plan Assessment and plan (1) Acute respiratory failure with hypoxia: Status: Acute (2) Acute respiratory distress syndrome (ARDS) due to COVID-19 virus: Status: Acute (3) Gram-negative bacteremia: Status: Acute (4) Thrombocytopenia: Status: Acute (5) Grtbo-uc-nnfezjz kidney injury: Status: Acute (6) Hydronephrosis, left: Status: Acute Assessment and Plan: Assessment: 70-year-old lady with history of chronic left-sided hydroureteronephrosis, subarachnoid hemorrhage rectal prolapse ulcer disease admitted with left-sided abdominal pain with hospital course further complicated by Gram-negative bacteremia and acute hypoxic respiratory failure secondary to COVID-19 now requiring CPAP support. WANDER superimposed on CKD Chronic left hydro with urosepsis Right kidney is echogenic Low urine sodium suggestive of hypoperfusion Probaly progressed to aTN Watch I/Os No indication for dialysis yet Keep SBP > 100 Avoid hypotension Time Spent With Patient Time: Total time spent is greater than 50% in coordination of care (as documented) at patient's floor/unit and/or counseling patient: Time with patient: 15 - 24 minutes Progress Note: Quality Stroke Does the patient have a stroke diagnosis?: No
--- NOTE | 2021-07-15 12:09 | P.PCNCC_ITS ---
Procedures Date of Service Date of Service: 07/15/21 Bronchoscopy Bronchoscopy Comments: Emergent flexible bronchoscopy with flexible bronchoscope performed secondary to refractory hypoxemia through the ET tube. Large central airway secretion with blood clots suction does with improvement in oxygenation. Bronchoscope advanced through the tracheobronchial tree with suctioning of small amount of clear mucus with friable mucosa visualized underneath. Patient to lerated procedure well. Consent for Procedure: Emergent-no informed consent obtained
--- NOTE | 2021-07-15 12:22 | PM.CCPN ---
Subjective Subjective Date of Service: 07/15/21 Interval History: ICU day 3 for acute hypoxic respiratory failure, COVID-19 ARDS, Gram-negative bacteremia, colitis 70-year-old lady with underlying history of rectal prolapse, depression, peptic also, remote subarachnoid hemorrhage, peptic ulcer disease, chronic hydronephrosis status post recent removal of ureteral stents admitted on 07/11/2021 with 3-4 day history of left-sided abdominal pain. Patient has had CT imaging demonstrating dilated pancreatic and gallbladder /pancreatic ducts with no obstructing stone noted. She also is noted to have chronic left-sided hydronephrosis and worsening renal function. Patient has been initially hospitalized on general medical howell and evaluated by General surgery, Gastroenterology, Urology, and Nephrology with consideration for MRCP. Patient also was noted to have Gram-negative bacteremia and be COVID-19 positive and on 07/13/2021 her oxygen requirements significantly worsened and she required initiation of positive pressure ventilation and transfer to intensive care unit. Her oxygen requirements continue to escalate requiring intubation on 07/15/2021, further complicated by small left-sided pneumothorax and refractory hypoxemia requiring bronchoscopy with secretion clearance on 07/15/2021. Overnight requiring intubation and ventilatory support. Critical Care Time (minutes): 60 Physical Exam Vital Signs: Vital Signs: Last Vital Signs Temp 99.9 F 07/15/21 12:00 Pulse 89 07/15/21 12:00 Resp 19 07/15/21 12:00 BP 133/66 07/15/21 12:00 Pulse Ox 98 07/15/21 12:00 BMI result Body Mass Index 20.7 Const: General: no acute distress and other (Sedated on the vent) Eyes: Sclerae: sclerae normal EOM: EOMs intact bilaterally Neck: Neck: Yes no lymphadenopathy, Yes trachea midline and Yes supple Resp: Auscultation: crackles (Diffuse bilateral) Cardio: Rate: regular rate Rhythm: regular rhythm Heart sounds: no gallops, no murmurs and no rubs GI: Palpation (GI): Soft to palpation and Other GI palpation findings present ( Nontender) Auscultation: normal bowel sounds Extrem: General: No clubbing, No cyanosis and Yes pedal edema (Trace bilateral) Objective Data Labs CBC & Chem 7: 07/15/21 05:49 07/15/21 05:49 Labs: Laboratory Results - last 24 hr 07/15/21 07/15/21 07/15/21 05:45 05:49 05:49 WBC 22.0 H RBC 3.19 L Hgb 9.5 L Hct 29.7 L MCV 93.1 MCH 29.8 MCHC 32.0 RDW 15.8 Plt Count 123 L MPV 11.3 Immature Gran % (Auto) 1.5 H Neut % (Auto) 92.8 H Lymph % (Auto) 2.5 L [place] % (Auto) 3.0 Eos % (Auto) 0.1 Baso % (Auto) 0.1 Lymph # (Auto) 0.6 L [place] # (Auto) 0.7 Eos # (Auto) 0.0 Baso # (Auto) 0.0 Abs Immat Gran (auto) 0.34 H Absolute Neuts (auto) 20.4 H Absolute Nucleated RBC 0.020 H Nucleated RBC % (auto) 0.1 Smear Tech's Comments VERIFIED VBG pH 7.32 VBG pCO2 36 VBG pO2 44 VBG HCO3 18 L VBG O2 Saturation 63.0 VBG Base Excess -6.4 Sodium 145 Potassium 4.2 Chloride 112 H Carbon Dioxide 18 L Anion Gap 19 BUN 111 H Creatinine 4.48 H* Estim Creat Clear Calc 8.1 Estimated GFR 10 Random Glucose 100 Calcium 8.2 L Phosphorus 4.5 Magnesium 2.6 Albumin 3.2 L Microbiology Microbiology Results: Microbiology 07/13/21 12:20 Urine clean catch - Urine parmar top Urine Culture - Final No growth. 07/11/21 11:04 Blood - Venous Blood Culture - Final Prevotella species 07/11/21 11:03 Blood - Venous Blood Culture - Final Prevotella species Progress Note: A&P Assessment and plan (1) Pneumothorax on left: Status: Acute (2) Hydronephrosis: Status: Acute (3) Acute respiratory failure with hypoxia: Status: Acute (4) Acute respiratory distress syndrome (ARDS) due to COVID-19 virus: Status: Acute (5) Gram-negative bacteremia: Status: Acute (6) Colitis: Status: Acute (7) Thrombocytopenia: Status: Acute (8) Tkgex-po-gegahxq kidney injury: Status: Acute (9) Congestive heart failure: Status: Acute Assessment and Plan: Assessment: 70-year-old lady with history of chronic left-sided hydroureteronephrosis, subarachnoid hemorrhage rectal prolapse ulcer disease admitted with left-sided abdominal pain with hospital course further complicated by Gram-negative bacteremia and acute hypoxic respiratory failure secondary to COVID-19 now requiring ventilatory support. Plan: Neuro: No acute issues. Cardiac: No acute issues. Underlying history of chronic diastolic congestive heart failure. Pulmonary: Acute hypoxic respiratory failure secondary to COVID-19 ARDS now requiring ventilatory support. Continue to titrate off as tolerated. Left-sided pneumothorax, stable on follow-up images. CT chest is pending. Renal: Acute on chronic renal failure. Nephrology and Urology service care appreciated. Chronic left-sided hydronephrosis. No indication for intervention per Urology at this time. Non oliguric. Continue to monitor renal indices and urine output. May require dialysis. Endo: No acute issues. GI: Evaluated by Gastroenterology and General surgery services, no indication for acute intervention. Possible underlying microscopic or infectious colitis. Continues on Zosyn. ID: Gram-negative bacteremia with source. Continue Zosyn. Heme/Onc: No acute issues. Psych: No acute issues. Miscellaneous: No acute issues. Prophylaxis: intermittent pneumatic compression, ppi Diet: Tube feeds Critical care time spent: 60 minutes Quality Stroke Does the patient have a stroke diagnosis?: No VTE Prior VTE?: No VTE Risk Level:: Medical - moderate - high VTE Device Contraindication: Treatment Not Indicated VTE Drug Contraindication: Treatment Not Indicated
[2021-07-16] VITALS (26 sets, daily range): BP systolic 98–130; BP diastolic 63–83; PULSE 77–93; RESP 15–22; TEMP 35.1–38.5; O2SAT 86–98; BMI 21.7
[2021-07-16] MEDS: Albumin Human 25 % 100 ML IV (02:51)
[2021-07-16] MEDS: propofoL 1,000 MG/100 ML VIAL 14.46 MG IVCONT ×2 (02:51→08:11)
--- NOTE | 2021-07-16 04:19 | PC.NURSE ---
Assumed care at 1900. Upon initial assessment pt is intubated with a 7.5 tube at 21cm at the lip. AC R-16, V-350, 50% o2, Peep of 8. Later in the night oxygen was put to 55% to improve sats from 90%. Sat picked up to mid 90s. Pt LS are dim throughout. At the 0400 assessment it was noted that pt has a left sided friction rub. It is most likely more audible due to positioning. Neurologically the patient is sedated. Pupils are perrl but constricted. Pt is Normal sinus on the monitor, no edema noted. Pt has an OG tube on promote feeds at 40ml/hr. Residuals have been approximately 30mls. No BM, BS are hypoactive. Pt does have a stoddard with output 40-60mls an hour. Pt is weak. Skin on right arm has bruising in the medial elbow region. Pt also does not have much protection on bony surfaces. Coccyx was reddish/pink and blanchable, pt has been repositioned multiple times with barrier cream applied to protect the skin integrity. No pressure wounds at this time.
[2021-07-16] MEDS: Acetaminophen 325 MG TABLET 650 MG PO (04:54)
[2021-07-16] MEDS: Phenylephrine HCL 20 MG in 0.9 % Sodium Chloride 250 ML 18.22 MG IVCONT (04:54)
[2021-07-16 05:21] LABS: VBG HCO3 18 mmol/L (22-26); VBG pCO2 39 mmHg; VBG pH 7.28 (7.32-7.43); VBG pO2 40 mmHg
[2021-07-16 05:24] LABS: Venous Blood Gas Refer to POC result
[2021-07-16 05:45] LABS: MANUAL DIFF FLAG NO
[2021-07-16 05:48] LABS: Basophils Percent Auto 0.1 % (0-2); Eosinophils Percent Auto 0.2 % (0-4); Hematocrit 27.5 % (37.0-47.0); Hemoglobin 8.8 g/dl (12.0-16.0); Imm Gran Abs Auto 0.21 X10*3/uL (0.00-0.03); Imm Gran Pct Auto 1.8 % (0.0-0.4); Lymphocytes Absolute Auto 0.7 X10*3/uL (1.2-4.9); Lymphocytes Percent Auto 6.1 % (20-40); Mean Corpuscular Hemoglobin 30.7 pg (27.0-33.0); Mean Corpuscular Volume 95.8 fL (80.0-98.0); Mean Platelet Volume 11.3 fL (9.4-12.3); Monocytes Absolute Auto 0.4 X10*3/uL (0.1-1.2); Monocytes Percent Auto 3.6 % (2-11); Neutrophils Absolute Auto 10.3 x10*3/uL (2.0-8.3); Neutrophils Percent Auto 88.2 % (45-73); Red Blood Count 2.87 X10*6/uL (4.20-5.50); Red Cell Distribution Width 15.9 % (11.0-16.0); White Blood Count 11.7 X10*3/uL (4.8-10.8)
[2021-07-16 05:53] LABS: Platelet Count 97 X10*3/uL (160-400)
[2021-07-16] MEDS: Piperacillin Sodium/Tazobactam 2.25 GM in 0.9 % Sodium Chloride 50 ML IV ×3 (05:58→23:18)
[2021-07-16] MEDS: Chlorhexidine Gluc Oral Rinse 15 ML MOUTHWASH BUCCAL ×3 (05:58→23:18)
[2021-07-16] MEDS: Pantoprazole Sodium 40 MG/10 ML VIAL IVPUSH (05:58)
[2021-07-16 06:05] LABS: Alanine Aminotransferase 14 U/L (0-31); Albumin Level 4.2 g/dL (3.5-5.0); Alkaline Phosphatase 100 U/L (39-117); Anion Gap 19 (12-20); Aspartate Amino Transferase 12 U/L (5-31); Bilirubin Total 0.5 mg/dL (0.0-1.0); Blood Urea Nitrogen 116 mg/dL (9-16); Calcium 8.5 mg/dL (8.4-10.2); Carbon Dioxide 20 mmol/L (22-29); Chloride 114 mmol/L (96-108); Creatinine Clr Calc Pharmacy 9.4; Estimated Glomerular Filt Rate 11; Glucose Random 107 mg/dL (60-115); Magnesium 2.8 mg/dL (1.6-2.6); Phosphorus 4.1 mg/dL (2.7-4.5); Potassium 4.7 mmol/L (3.3-5.1); Sodium 148 mmol/L (135-145); Total Protein 5.9 g/dL (6.5-8.0)
[2021-07-16] MEDS: dexAMETHasone sod phosphate 4 MG/ML VIAL 6 MG IVPUSH (08:11)
[2021-07-16] MEDS: 0.9 % Sodium Chloride Flush 3 ML SYRINGE IVFLUSH ×3 (08:11→23:19)
[2021-07-16] MEDS: Sodium Zirconium Cyclosilicate 10 GM POWD.PACK PO ×3 (10:15→23:18)
--- NOTE | 2021-07-16 10:39 | MHC.CLN ---
RE: CONSULT PT IS INTUBATED AND SEDATED RECOMMEND NEPRO AT MAX GOAL RATE 25ML/HR WITH 240CC FREE WATER FLSUHSES Q 6 HRS TO PROVIDE 1080KCALS (1462KCALS WITH SEDATION; 29KCALS/KG), 49G PROTEIN, 1396CC TOTAL WATER FROM FORMULA AND FLUSHES (28ML/KG) START FORMULA AT 20ML/HR AND INCREASE BY 10ML UNTIL MAX GOAL IS ACHIEVED MONITOR TOLERANCE, RESIDUALS AND LYTES
--- NOTE | 2021-07-16 11:30 | PM.PNNEP ---
Subjective Subjective Date of Service: 07/17/21 Interval history: Events noted UO increased Physical Exam Vital Signs: Vital Signs: Last Vital Signs Temp 100.4 F 07/16/21 11:00 Pulse 90 07/16/21 11:00 Resp 17 07/16/21 11:00 BP 101/63 07/16/21 11:00 Pulse Ox 87 L 07/16/21 11:00 BMI result Body Mass Index 21.7 Const: Other: Intubated Neck : Normal inspection, Supple Cardiovascular : RRR, S1 S2, no lower extremity edema Respiratory : fair bilateral air entry, no clear basal crackles, no wheezes or rhonchi Gastrointestinal: soft, lax, generalized tenderness more noted in epigastric area and left lower quadrant, no surgical signs Skin : Warm, Dry Neurological : No focal deficit noted HENMT: Head: Yes normocephalic and Yes atraumatic Ears: hearing grossly normal bilaterally Face and sinus: Yes normal facial exam Mouth: moist mucous membranes Eyes: Sclerae: sclerae normal EOM: EOMs intact bilaterally Neck: Neck: Yes normal visual inspection, Yes full ROM, Yes no lymphadenopathy, Yes no meningeal signs, Yes trachea midline, Yes supple and Yes no JVD Chest: Chest palpation & inspection: normal inspection of the chest Resp: Effort & Inspection: normal respiratory effort ( on CPAP), able to speak in complete sentences, no audible wheezes, no cough, decreased respiratory effort and no respiratory distress Auscultation: clear to auscultation bilaterally, crackles ( diffuse bilateral) and no rales Cardio: Jugular venous distension: no JVD Palpation: no palpable S3 and no palpable S4 Rate: regular rate Rhythm: regular rhythm Heart sounds: S1 normal heart sound present, S2 normal heart sound present, no gallops, no murmurs and no rubs GI: Inspection: Yes normal to inspection Palpation (GI): Soft to palpation, Tenderness to palpation present (GI) in the LLQ, in the RLQ, in the LUQ and in the RUQ and Other GI palpation findings present ( mild, left-sided tenderness, no rebound) Percussion: Yes dullness to percussion Auscultation: normal bowel sounds and Absent bowel sounds Rectal Exam - Female: No Rectal prolapse Back/Spine/Pelvis: Cervical Spine: normal cervical lordosis Thoracic/Lumbar Spine: thoracic and lumbar spine normal to inspection Skin: General skin exam: no rashes or lesions noted Neuro: General: tone normal, moves all extremities and no meningeal signs Motor exam (neuro): no asterixis Extrem: General: Yes normal to inspection, Yes capillary refill normal, No clubbing, No cyanosis, No edema and Yes pedal edema ( trace bilateral) Objective Data Labs CBC & Chem 7: 07/17/21 07:47 07/17/21 07:47 Labs: Laboratory Results - last 24 hr 07/16/21 07/16/21 07/16/21 05:14 05:15 05:15 WBC 11.7 H RBC 2.87 L Hgb 8.8 L Hct 27.5 L MCV 95.8 MCH 30.7 MCHC 32.0 RDW 15.9 Plt Count 97 L MPV 11.3 Immature Gran % (Auto) 1.8 H Neut % (Auto) 88.2 H Lymph % (Auto) 6.1 L [place] % (Auto) 3.6 Eos % (Auto) 0.2 Baso % (Auto) 0.1 Lymph # (Auto) 0.7 L [place] # (Auto) 0.4 Eos # (Auto) 0.0 Baso # (Auto) 0.0 Abs Immat Gran (auto) 0.21 H Absolute Neuts (auto) 10.3 H Absolute Nucleated RBC 0.000 Nucleated RBC % (auto) 0.0 VBG pH 7.28 L VBG pCO2 39 VBG pO2 40 VBG HCO3 18 L VBG O2 Saturation 62.0 VBG Base Excess -7.0 Sodium 148 H Potassium 4.7 Chloride 114 H Carbon Dioxide 20 L Anion Gap 19 BUN 116 H Creatinine 3.87 H Estim Creat Clear Calc 9.4 Estimated GFR 11 Random Glucose 107 Calcium 8.5 Phosphorus 4.1 Magnesium 2.8 H Total Bilirubin 0.5 AST 12 D ALT 14 Alkaline Phosphatase 100 D Total Protein 5.9 L D Albumin 4.2 D Microbiology Microbiology Results: Microbiology 07/13/21 12:20 Urine clean catch - Urine parmar top Urine Culture - Final No growth. 07/11/21 11:04 Blood - Venous Blood Culture - Final Prevotella species 07/11/21 11:03 Blood - Venous Blood Culture - Final Prevotella species Procedures Date of Service Date of Service: 07/16/21 Assessment & Plan Assessment and plan (1) Acute respiratory failure with hypoxia: Status: Acute (2) Acute respiratory distress syndrome (ARDS) due to COVID-19 virus: Status: Acute (3) Gram-negative bacteremia: Status: Acute (4) Thrombocytopenia: Status: Acute (5) [id number] kidney injury: Status: Acute (6) Hydronephrosis, left: Status: Acute Assessment and Plan: Assessment: 70-year-old lady with history of chronic left-sided hydroureteronephrosis, subarachnoid hemorrhage rectal prolapse ulcer disease admitted with left-sided abdominal pain with hospital course further complicated by Gram-negative bacteremia and acute hypoxic respiratory failure secondary to COVID-19 now requiring CPAP support. WANDER superimposed on CKD Chronic left hydro with urosepsis Right kidney is echogenic Low urine sodium suggestive of hypoperfusion Probaly progressed to aTN UO increased and creatinine is trending down. Watch I/Os No indication for dialysis yet Keep SBP > 100 Avoid hypotension Time Spent With Patient Time: Total time spent is greater than 50% in coordination of care (as documented) at patient's floor/unit and/or counseling patient: Time with patient: 15 - 24 minutes Progress Note: Quality Stroke Does the patient have a stroke diagnosis?: No
--- NOTE | 2021-07-16 12:01 | MHC.CM.PN ---
Pt continues in ICU on ventilatory support secondary to COVID: Per discussion with ICU care team, pt had been vocal about not wanting aggressive management or prolonged life supportive measures. This was confirmed with pt's brother and HCP, Steven. KIM to contact pt's HCP/brother today to discuss goals of care as pt is quite ill. CM to follow - pt had refused STR placement in past but was accepting of VNA.
[2021-07-16] MEDS: propofoL 1,000 MG/100 ML VIAL 11.57 MG IVCONT (17:18)
--- NOTE | 2021-07-16 20:26 | PM.CCPN ---
Subjective Subjective Date of Service: 07/16/21 Interval History: Mrs. Blackmon was admitted to the ICU on July 13 because of hypoxemic respiratory failure secondary to COVID pneumonia. The patient is a 70-year-old woman with underlying history of rectal prolapse, depression, PUD, remote subarachnoid hemorrhage, chronic left hydronephrosis 2? 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 The left kidney is nonfunctional.? Status post recent removal of bilateral ureteral stents about Jul 06.? She?s had a previous cholecystectomy, and prior ulcer surgery.? The patient last tested negative for COVID on 05/26/2021.? She lives by herself.? The patient?s son is her HCP The patient presented to the ED on Jul 11 with 3-4 day history of left-sided abdominal and back pain, with diarrhea and rectal bleeding. ?She was also c/o SOB and orthopnea x 2 weeks, w a few days worth of URI sx. In the ED, sat was 93% on room air (baseline high 90?s on RA).? WBC 7.4, plat 131 (usually normal), BUN/creat 40/2.4, BNP 2400, lactate 4.0.? Chest x-ray showed mild diffuse bilateral increased interstitial prominence suggestive of atypical infectious/inflammatory process.? Initial COVID PCR was negative.? Abdominal CT showed chronic moderate to severe intra and extrahepatic biliary ductal dilatation, with dilatation of the pancreatic duct, with no obstructing stone noted, w chronic left hydronephrosis.? The lung bases showed very mild localized airspace opacities. She was admitted to Medicine and evaluated by general surgery, gastroenterology, urology, and nephrology.? MRCP was considered.? She was given ceftriaxone and doxycycline.? By the night of admission, the patient required supplemental oxygen.? Full resp virus panel the next day was positive for COVID PCR.? Both sets of blood cultures from admission grew Gram-negative rods -- beta-lactamase producing Prevotella.? Antibiotics were changed to cefepime, and empiric Flagyl was added. Her oxygenation worsened and by Jul 13 she was transferred to ICU for CPAP.? Her renal indices worsened.? Cefepime/Flagyl was changed to Zosyn in view of the GNR bacteremia with a likely source.? She was intubated early on Jul 15 bec of worsening hypoxemia.? The post intubation film shows much worse bilat disease, with a left apical pneumothorax. ?She underwent bronchoscopy yesterday because of refractory hypoxemia.? Large central airway secretions and blood clots were suctioned, with subsequent drop in her FiO2 from 100% to 50%.? The post bronchoscopy chest x-ray showed substantial resolution of the apical pneumothorax.? Chest CT later yesterday showed (my reading) diffuse bilateral disease not classic for COVID, along with significant underlying bullous disease, jesse in the apices.? There is a tiny apical pneumothorax and also a small right basilar pneumothorax. Today she?s sedated on just propofol 25ug.? She had a sedation holiday and became agitated and moving around, but did not become interactive.? Tmax 101.3?.? HR 81, BP 104/70.? On AC 16/350/50%/+8, RR is 17, Ve 6.5L, PIP 22cm, ETCO2 28mm, Sat 96%.? Central venous blood gas this morning showed 7.28/39/-7.? PER, about 3mm.? She has 3cm bulging JVD at 30?.? Abdomen is benign.? She has no pretibial edema, probably 1+ central edema. LABORATORY DATA:? Below.? Notably, white count is down to 11.7.? Plat down to 97K.? Na up to 148.? BUN up sl to 116, creat down to 3.8.? Phos down to 4.1. IMPRESSION: 1. Underlying CKD 2? left UPJ obstruction, w a nonfxning left kidney. 2. Diminutive stature. ?Serum albumins suggest underlying protein calorie malnutrition, at least mild, if not moderate.? Continue tube feeds. 3. ? Significant underlying chronic lung disease. 4. Bilat COVID pneumonia.? Estimating her symptom onset date from the information presented above is difficult.? Probably somewhere in the range of Jun 27 to Jul 08.? Currently only on Decadron.? I will add ivermectin and the [facility] protocol agents. 5. Hypoxemic resp failure w ARDS.? 2? to above.? Surprisingly FiO2 is down to 50%. 6. Small right pneumothorax.? Follow. 7. Acute on CKD.? Her chemistries don?t indicated the need for HD just yet, but she?ll likely get there.? Starting Lokelma prophylactically.? Change tube feed to Nepro. 8. Marked JVD.? ? poss of significant RHF.? Needs an echo. 9. Rectal prolapse.? Nothing to do at this time. 10. Chronic biliary tree dilatation.? Also noting to do at this time. 11. ID:? Gram-negative bacteremia with presumed source.? Continue Zosyn. Prognosis is grim.? 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 aMgalis spoke with him today about her renal fxn and he was very clear that dialysis is out of the question.? I will talk with him tomorrow hopefully. Critical care time (including ext d/w Dr. Whaley, and full chart review and hosp course summary):? 90+ min. Critical Care Time (minutes): 90 Physical Exam Vital Signs: Vital Signs: Last Vital Signs Temp 99.9 F 07/16/21 20:00 Pulse 81 07/16/21 20:00 Resp 17 07/16/21 20:00 BP 104/70 07/16/21 20:00 Pulse Ox 98 07/16/21 20:00 BMI result Body Mass Index 21.7 Objective Data Labs CBC & Chem 7: 07/16/21 05:15 07/16/21 05:15 Labs: Laboratory Results - last 24 hr 07/16/21 07/16/21 07/16/21 05:14 05:15 05:15 WBC 11.7 H RBC 2.87 L Hgb 8.8 L Hct 27.5 L MCV 95.8 MCH 30.7 MCHC 32.0 RDW 15.9 Plt Count 97 L MPV 11.3 Immature Gran % (Auto) 1.8 H Neut % (Auto) 88.2 H Lymph % (Auto) 6.1 L [place] % (Auto) 3.6 Eos % (Auto) 0.2 Baso % (Auto) 0.1 Lymph # (Auto) 0.7 L [place] # (Auto) 0.4 Eos # (Auto) 0.0 Baso # (Auto) 0.0 Abs Immat Gran (auto) 0.21 H Absolute Neuts (auto) 10.3 H Absolute Nucleated RBC 0.000 Nucleated RBC % (auto) 0.0 VBG pH 7.28 L VBG pCO2 39 VBG pO2 40 VBG HCO3 18 L VBG O2 Saturation 62.0 VBG Base Excess -7.0 Sodium 148 H Potassium 4.7 Chloride 114 H Carbon Dioxide 20 L Anion Gap 19 BUN 116 H Creatinine 3.87 H Estim Creat Clear Calc 9.4 Estimated GFR 11 Random Glucose 107 Calcium 8.5 Phosphorus 4.1 Magnesium 2.8 H Total Bilirubin 0.5 AST 12 D ALT 14 Alkaline Phosphatase 100 D Total Protein 5.9 L D Albumin 4.2 D Microbiology Microbiology Results: Microbiology 07/13/21 12:20 Urine clean catch - Urine parmar top Urine Culture - Final No growth. 07/11/21 11:04 Blood - Venous Blood Culture - Final Prevotella species 07/11/21 11:03 Blood - Venous Blood Culture - Final Prevotella species Quality Stroke Does the patient have a stroke diagnosis?: No VTE Prior VTE?: No VTE Risk Level:: Medical - moderate - high VTE Device Contraindication: Treatment Not Indicated VTE Drug Contraindication: Treatment Not Indicated Critical Care Time Critical Care Time (minutes): 90
[2021-07-16] MEDS: propofoL 1,000 MG/100 ML VIAL 5.78 MG IVCONT (23:28)
[2021-07-17] VITALS (31 sets, daily range): BP systolic 100–152; BP diastolic 60–94; PULSE 67–769; RESP 14–27; TEMP 34.7–37.7; O2SAT 5–98; BMI 20.9
--- NOTE | 2021-07-17 | ECG_ITS ---
Test Reason : increased hr Blood Pressure : / mmHG Vent. Rate : 106 BPM Atrial Rate : 000 BPM P-R Int : 000 ms QRS Dur : 070 ms QT Int : 344 ms P-R-T Axes : 000 013 -37 degrees QTc Int : 456 ms Normal sinus rhythm with bursts of atrial fluuter with RVR Low voltage QRS Abnormal ECG When compared to the previous EKG of Burst of atrial flutter is present Referred By: Anel Macdonald Electronically Signed By:JONATHON FRANKLIN MD
[2021-07-17] MEDS: fentaNYL citrate/NS 1,000 MCG/100 ML PLAST..BAG 2.5 MCG IVCONT (05:16)
[2021-07-17] MEDS: Piperacillin Sodium/Tazobactam 2.25 GM in 0.9 % Sodium Chloride 50 ML IV ×3 (05:16→21:17)
[2021-07-17] MEDS: Chlorhexidine Gluc Oral Rinse 15 ML MOUTHWASH BUCCAL ×3 (05:16→21:17)
[2021-07-17] MEDS: Pantoprazole Sodium 40 MG/10 ML VIAL IVPUSH (05:25)
[2021-07-17] MEDS: propofoL 1,000 MG/100 ML VIAL 7.23 MG IVCONT ×2 (05:25→17:08)
[2021-07-17 07:54] LABS: VBG Base Excess -5.3 mmol/L; VBG HCO3 19 mmol/L (22-26); VBG pCO2 36 mmHg; VBG pH 7.34 (7.32-7.43); VBG pO2 90 mmHg
[2021-07-17 08:11] LABS: Hematocrit 28.2 % (37.0-47.0); Mean Corpuscular HGB Conc 31.9 g/dl (31.0-35.0); Mean Corpuscular Hemoglobin 29.9 pg (27.0-33.0); Mean Corpuscular Volume 93.7 fL (80.0-98.0); Mean Platelet Volume 11.4 fL (9.4-12.3); Platelet Count 114 X10*3/uL (160-400); Red Blood Count 3.01 X10*6/uL (4.20-5.50); Red Cell Distribution Width 16.1 % (11.0-16.0); White Blood Count 13.7 X10*3/uL (4.8-10.8)
[2021-07-17] MEDS: Heparin Sodium,Porcine 5,000 UNIT/ML VIAL 5000 UNIT SUBCUT ×2 (08:23→20:09)
[2021-07-17] MEDS: Sodium Zirconium Cyclosilicate 10 GM POWD.PACK PO ×3 (08:23→20:09)
[2021-07-17] MEDS: methylPREDNISolone Sod Succ 125 MG/2 ML VIAL 60 MG IVPUSH ×2 (08:24→20:08)
[2021-07-17] MEDS: 0.9 % Sodium Chloride Flush 3 ML SYRINGE IVFLUSH (08:26)
[2021-07-17 08:30] LABS: B Type Natriuretic Peptide 883 pg/mL (<100)
[2021-07-17 08:35] LABS: Anion Gap 15 (12-20); Blood Urea Nitrogen 124 mg/dL (9-16); C Reactive Protein 6.94 mg/dL (< or = 0.50); Calcium 8.4 mg/dL (8.4-10.2); Carbon Dioxide 21 mmol/L (22-29); Chloride 118 mmol/L (96-108); Creatinine Clr Calc Pharmacy 11.9; D Dimer High Sensitivity 3903 NG/ML; Estimated Glomerular Filt Rate 15; Glucose Random 127 mg/dL (60-115); Lactate Dehydrogenase 297 U/L (122-220); Magnesium 2.6 mg/dL (1.6-2.6); Phosphorus 4.1 mg/dL (2.7-4.5); Potassium 4.2 mmol/L (3.3-5.1); Sodium 150 mmol/L (135-145)
[2021-07-17 08:45] LABS: Ferritin 289 ng/mL (10-250)
[2021-07-17 08:48] LABS: Procalcitonin 6.81 ng/mL
[2021-07-17 09:21] LABS: Venous Blood Gas Refer to POC result
--- NOTE | 2021-07-17 10:04 | PM.PNNEP ---
Subjective Subjective Date of Service: 07/18/21 Interval history: Events noted Physical Exam Vital Signs: Vital Signs: Last Vital Signs Temp 99.3 F 07/17/21 10:00 Pulse 79 07/17/21 10:00 Resp 16 07/17/21 10:00 BP 112/66 07/17/21 10:00 Pulse Ox 97 07/17/21 10:00 BMI result Body Mass Index 20.9 Const: Other: Intubated Neck : Normal inspection, Supple Cardiovascular : RRR, S1 S2, no lower extremity edema Respiratory : fair bilateral air entry, no clear basal crackles, no wheezes or rhonchi Gastrointestinal: soft, lax, generalized tenderness more noted in epigastric area and left lower quadrant, no surgical signs Skin : Warm, Dry Neurological : No focal deficit noted Objective Data Labs CBC & Chem 7: 07/18/21 05:17 07/18/21 05:17 Labs: Laboratory Results - last 24 hr 07/17/21 07/17/21 07/17/21 07:47 07:47 07:47 WBC 13.7 H RBC 3.01 L Hgb 9.0 L Hct 28.2 L MCV 93.7 MCH 29.9 MCHC 31.9 RDW 16.1 H Plt Count 114 L MPV 11.4 Absolute Nucleated RBC 0.000 Nucleated RBC % (auto) 0.0 D-Dimer High Sensitivty 3903 VBG pH VBG pCO2 VBG pO2 VBG HCO3 VBG O2 Saturation VBG Base Excess Sodium 150 H Potassium 4.2 Chloride 118 H Carbon Dioxide 21 L Anion Gap 15 BUN 124 H Creatinine 3.05 H Estim Creat Clear Calc 11.9 Estimated GFR 15 Random Glucose 127 H Calcium 8.4 Phosphorus 4.1 Magnesium 2.6 Ferritin 289 H Lactate Dehydrogenase 297 H C-Reactive Protein 6.94 H B-Natriuretic Peptide Procalcitonin 07/17/21 07/17/21 07/17/21 07:47 07:47 07:48 WBC RBC Hgb Hct MCV MCH MCHC RDW Plt Count MPV Absolute Nucleated RBC Nucleated RBC % (auto) D-Dimer High Sensitivty VBG pH 7.34 VBG pCO2 36 VBG pO2 90 VBG HCO3 19 L VBG O2 Saturation 95.0 VBG Base Excess -5.3 Sodium Potassium Chloride Carbon Dioxide Anion Gap BUN Creatinine Estim Creat Clear Calc Estimated GFR Random Glucose Calcium Phosphorus Magnesium Ferritin Lactate Dehydrogenase C-Reactive Protein B-Natriuretic Peptide 883 H Procalcitonin 6.81 Microbiology Microbiology Results: Microbiology 07/13/21 12:20 Urine clean catch - Urine parmar top Urine Culture - Final No growth. 07/11/21 11:04 Blood - Venous Blood Culture - Final Prevotella species 07/11/21 11:03 Blood - Venous Blood Culture - Final Prevotella species Procedures Date of Service Date of Service: 07/17/21 Assessment & Plan Assessment and plan (1) Acute on chronic renal insufficiency: Status: Acute Assessment and Plan: WANDER super imposed on CKD WANDER most likely from ischemic ATN h/o Chr hydro Creatinine is trending down! Suggest Keep I > O Keep SBP > 100 No indication for dialysis yet Prognosis guarded Time Spent With Patient Time: Total time spent is greater than 50% in coordination of care (as documented) at patient's floor/unit and/or counseling patient: Time with patient: 15 - 24 minutes Progress Note: Quality Stroke Does the patient have a stroke diagnosis?: No
[2021-07-17] MEDS: Aspirin Enteric Coated 81 MG TABLET.DR PO (10:34)
[2021-07-17] MEDS: fluvoxaMINE Maleate 50 MG TABLET PO (10:34)
[2021-07-17] MEDS: Ascorbic Acid 500 MG TABLET PO (10:34)
[2021-07-17] MEDS: Cholecalciferol (Vitamin D3) 25 MCG TABLET 50 MCG PO (10:34)
[2021-07-17] MEDS: Thiamine HCL 100 MG TABLET 200 MG PO (10:34)
--- NOTE | 2021-07-17 11:53 | P.CDIC_ITS ---
CDI Concurrent Query Documentation Clarification: PHYSICIAN'S DOCUMENTATION REQUEST Date of Query: 07/17/21 1156 Patient Name: Herminia Blackmon Admit Date: 07/11/21 Dear Doctor, A review of the medical record indicates additional documentation may be needed. Please review below and update the documentation accordingly. Risk Factors/Clinical Indicators/Treatments Nephrology note: 07/13-Gram negative urosepsis. ICU note: 07/14 -Gram negative bacteremia w GI source, switch cefepime to zosyn. Possible microscopic or infectious colitis. Nephrology note: 07/15-Chronic left hydro w urosepsis. WBC 13.4/19.2 LA 4.0 RR Temp 97.5/100.6/101.0 ICU note: 07/17-Both sets of blood cultures from admit grew GNR, beta-Lactamose producing Prevotella, antibiotics were changed to Zosyn in view of GNR bacteremia w a likely source . Based on the above, could you clarify in the Progress Notes the appropriate diagnosis, if significant, that supports the above abnormalities and additional evaluation, monitoring, and/or treatment rendered: * Sepsis (gram negative bacteremia) due to an infectious etiology * Gram negative Bacteremia * Other (please specify) * Unable to determine Use of terms such as suspected, likely, concern for, or probable (associated with a specific diagnosis that is being evaluated, monitored, or treated as if it exists) are acceptable and can be coded in the inpatient setting, when documented at the time of discharge. Thank you, Lyndsay García [facility], CDIS Extension: [phone] Please use your independent medical judgment in providing your response. THIS QUERY IS PART OF THE PERMANENT MEDICAL RECORD Provider Response: Other Other Diagnosis: Gram-negative bacteremia.
--- NOTE | 2021-07-17 16:00 | CA_ITS ---
Transthoracic Echocardiogram Patient (Last, First, Middle): Herminia Blackmon H Gender: Female Date of : 1950 Age: 70 Procedure Date: 07/17/2021 Procedure Type: Transthoracic Echocardiogram Location: ICU Height: 152.4 cm Weight: 48.08 kg BSA: 1.43 m2 Heart Rate: bpm BP: 116 / 65 mmHg Physician Assistant Surgery: Referring MD: John Alanis MD Ingot Passer: Rocky Villegas MD Symptoms: hypoxemia with acute renal failure. Rule out RHF Study Quality: Good ECG Rhythm: Sinus Conclusions: - 1. Normal LV systolic function with mild LVH with impaired relaxation filling pattern 2. RV appears to be mildly enlarged on some views 3. Limited cardiac valvular Doppler 4. Trivial pericardial effusion Findings Left Ventricle Normal left ventricular size and systolic function. There is mildly increased left ventricular wall thickness. The visually estimated ejection fraction is between 60-65%. Spectral Doppler is indicative of an impaired relaxation filling pattern. E/E prime ratio is between 8 and 15 consistent with indeterminate filling pressures. There is moderate septal asymmetric hypertrophy. Right Ventricle Mildly increased right ventricular cavity size. There is borderline right ventricular systolic function. Atria The left atrium is normal in size. Interatrial shunt cannot be excluded. The right atrium was not well visualized. Aortic Valve The aortic valve structure and function is likely normal. Mitral Valve Normal mitral valve structure and function. There is mild mitral annular calcification. Pericardium/Pleural There is a trivial circumferential pericardial effusion. Measurements 2D Linear Measurements IVSd: 1.33 0.6-0.9/0.6-1.0 cm LVIDd: 1.90 3.9-5.3/4.2-5.9 cm LVIDd Index: 1.33 2.4-3.2/2.2-3.1 cm/m2 LVIDs: 1.16 2.0-3.6 cm LVPWd: 1.28 0.7-1.1 cm LV Mass: 88.27 67-162/88-224 g LV Mass Index: 61.73 43-95/49-115 g/m2 Mitral Valve MV Pk E: 0.77 MV PK A: 1.12 MV Decel Time: 236.00 E/A: 0.70 E'Lateral: 6.09 E'Medial: 4.90 E/E' Med: 15.70 E/E' Lat: 12.60 PHT: 69.00 MVA PHT: 3.19 Decel [place]: 3.24 Diastolic Function MV Pk E: 0.77 MV Pk A: 1.12 E/A: 0.70 E'Medial: 4.90 E/E' Med: 15.70 E' Laterial: 6.09 E/E' Lat: 12.60 Tricuspid Valve TR Pk Nick: 2.62 TR Pk Grad: 27.00 Updated in Other Vendor System with Status of Final Rocky Villegas MD electronically signed on 07/17/2021 4:40:12 PM with status of Final
--- NOTE | 2021-07-17 17:54 | PC.NURSE ---
pt has been restless since care assumed at 1500. pt throwing legs to l side bed, in restraints and unable to get out of bed. this rn at bedside, both l arm ivs appear to have had infusions dripping all over pt linen and arm. infiltrated ivs removed, new iv access gained in l arm. pt now presently has all infusions going in and pt appears much more comfortable in bed, no obvious agitation. resp rate improved.
--- NOTE | 2021-07-17 19:47 | PM.CCPN ---
Subjective Subjective Date of Service: 07/17/21 Interval History: Mrs. Blackmon was admitted to the ICU on July 13 because of hypoxemic respiratory failure secondary to COVID pneumonia. The patient is a 70-year-old woman with underlying history of rectal prolapse, depression, PUD, remote subarachnoid hemorrhage, chronic left hydronephrosis 2? 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 The left kidney is nonfunctional.? Status post recent removal of bilateral ureteral stents about Jul 06.? She?s had a previous cholecystectomy, and prior ulcer surgery.? The patient last tested negative for COVID on 05/26/2021.? She lives by herself.? The patient?s son is her HCP The patient presented to the ED on Jul 11 with 3-4 day history of left-sided abdominal and back pain, with diarrhea and rectal bleeding. ?She was also c/o SOB and orthopnea x 2 weeks, w a few days worth of URI sx. In the ED, sat was 93% on room air (baseline high 90?s on RA).? WBC 7.4, plat 131 (usually normal), BUN/creat 40/2.4, BNP 2400, lactate 4.0.? Chest x-ray showed mild diffuse bilateral increased interstitial prominence suggestive of atypical infectious/inflammatory process.? Initial COVID PCR was negative.? Abdominal CT showed chronic moderate to severe intra and extrahepatic biliary ductal dilatation, with dilatation of the pancreatic duct, with no obstructing stone noted, w chronic left hydronephrosis.? The lung bases showed very mild localized airspace opacities. She was admitted to Medicine and evaluated by general surgery, gastroenterology, urology, and nephrology.? MRCP was considered.? She was given ceftriaxone and doxycycline.? By the night of admission, the patient required supplemental oxygen.? Full resp virus panel the next day was positive for COVID PCR.? Both sets of blood cultures from admission grew Gram-negative rods -- beta-lactamase producing Prevotella.? Antibiotics were changed to cefepime, and empiric Flagyl was added. Her oxygenation worsened and by Jul 13 she was transferred to ICU for CPAP.? Her renal indices worsened.? Cefepime/Flagyl was changed to Zosyn in view of the GNR bacteremia with a likely source.? She was intubated early on Jul 15 of worsening hypoxemia.? The post intubation film shows much worse bilat disease, with a left apical pneumothorax.? She underwent bronchoscopy because of refractory hypoxemia.? Large central airway secretions and blood clots were suctioned, with subsequent drop in her FiO2 from 100% to 50%.? The post bronchoscopy chest x-ray showed substantial resolution of the apical pneumothorax.? Chest CT later showed (my reading) diffuse bilateral disease not classic for COVID, along with significant underlying bullous disease, jesse in the apices.? There was a tiny apical pneumothorax and also a small right basilar pneumothorax. Today she was sedated on propofol 25ug and fentanyl 25ug.? Central venous blood gas this morning showed 7.34/36/-5. ?We got her onto PSV 10/50%/+8, RR was about 16, Vt 500, Ve 8-9L, SpO2 96-98%.? When we turned the propofol off, she definitely woke up, eyes wide open, swinging her arms and legs all over, but noninteractive.? We put her back on the propofol.? Afebrile today, HR 70?s SR.? BP about 130/70. LABORATORY DATA:? Below.? Notably, white count up to 13.? Plat up.? Na up to 150.? BUN up to 124, creat down to 3.0.? K down to 4.2, bicarb 21, Phos steady at 4.1.? DDimer up to 3903, Ferritin 289, LDH [address], CRP way down 6.9, BNP down 883, PCT way down 6.8 ECHO showed normal LV function with mild LVH.? RV appears mildly enlarged.? Inferior vena cava not visualized. IMPRESSION: 1. Underlying CKD 2? left UPJ obstruction, w a nonfxning left kidney. 2. Diminutive stature.? Serum albumins suggest underlying protein calorie malnutrition, at least mild, if not moderate.? Continue tube feeds. 3. ? Significant underlying chronic lung disease. 4. Bilat COVID pneumonia.? Estimating her symptom onset date from the information presented above is difficult.? Probably somewhere in the range of Jun 27 to Jul 08.? Was on Decadron.? This morning changed to solu-medrol and added ivermectin and the [facility] protocol agents. 5. Hypoxemic resp failure w ARDS.? 2? to above.? FiO2 is down to 50%.? Didn?t do too bad w today?s first PSV trial.? We?ll change propofol to Precedex, see if she?s less delirious on that. 6. Small left pneumothorax is unchanged. 7. Acute on CKD.? Her chemistries don?t indicated the need for HD just yet, but she?ll likely get there.? Started Lokelma prophylactically, changed tube feed to Nepro, helping to control potassium. 8. RHF on echo, as suggested by marked JVD.? ? Do we need to r/o PE, jesse given bump in DDimer.? But BNP is down.? Check troponins and LE duplex US. 9. Rectal prolapse.? Nothing to do at this time. 10. Chronic biliary tree dilatation.? Also noting to do at this time. 11. ID:? Gram-negative bacteremia with presumed source.? Continuing Zosyn. Prognosis is grim.? The son is very clear that she would never want exterminator mechanical support, and has established DNR status.? Magalis spoke with him yesterday about her renal fxn and he was very clear that dialysis is out of the question.? I did not get a chance to talk with him today.? Possibly tomorrow. Critical Care Time (minutes): 60 Physical Exam Vital Signs: Vital Signs: Last Vital Signs Temp 99.0 F 07/17/21 18:48 Pulse 82 07/17/21 18:48 Resp 17 07/17/21 18:48 BP 105/71 07/17/21 18:48 Pulse Ox 98 07/17/21 18:48 BMI result Body Mass Index 20.9 Objective Data Labs CBC & Chem 7: 07/17/21 07:47 07/17/21 07:47 Labs: Laboratory Results - last 24 hr 07/17/21 07/17/21 07/17/21 07:47 07:47 07:47 WBC 13.7 H RBC 3.01 L Hgb 9.0 L Hct 28.2 L MCV 93.7 MCH 29.9 MCHC 31.9 RDW 16.1 H Plt Count 114 L MPV 11.4 Absolute Nucleated RBC 0.000 Nucleated RBC % (auto) 0.0 D-Dimer High Sensitivty 3903 VBG pH VBG pCO2 VBG pO2 VBG HCO3 VBG O2 Saturation VBG Base Excess Sodium 150 H Potassium 4.2 Chloride 118 H Carbon Dioxide 21 L Anion Gap 15 BUN 124 H Creatinine 3.05 H Estim Creat Clear Calc 11.9 Estimated GFR 15 Random Glucose 127 H Calcium 8.4 Phosphorus 4.1 Magnesium 2.6 Ferritin 289 H Lactate Dehydrogenase 297 H C-Reactive Protein 6.94 H B-Natriuretic Peptide Procalcitonin 07/17/21 07/17/21 07/17/21 07:47 07:47 07:48 WBC RBC Hgb Hct MCV MCH MCHC RDW Plt Count MPV Absolute Nucleated RBC Nucleated RBC % (auto) D-Dimer High Sensitivty VBG pH 7.34 VBG pCO2 36 VBG pO2 90 VBG HCO3 19 L VBG O2 Saturation 95.0 VBG Base Excess -5.3 Sodium Potassium Chloride Carbon Dioxide Anion Gap BUN Creatinine Estim Creat Clear Calc Estimated GFR Random Glucose Calcium Phosphorus Magnesium Ferritin Lactate Dehydrogenase C-Reactive Protein B-Natriuretic Peptide 883 H Procalcitonin 6.81 Microbiology Microbiology Results: Microbiology 07/13/21 12:20 Urine clean catch - Urine parmar top Urine Culture - Final No growth. 07/11/21 11:04 Blood - Venous Blood Culture - Final Prevotella species 07/11/21 11:03 Blood - Venous Blood Culture - Final Prevotella species Quality Stroke Does the patient have a stroke diagnosis?: No VTE Prior VTE?: No VTE Risk Level:: Medical - moderate - high VTE Device Contraindication: Treatment Not Indicated VTE Drug Contraindication: Treatment Not Indicated
[2021-07-17] MEDS: Melatonin 3 MG TABLET 6 MG PO (20:08)
[2021-07-17] MEDS: Atorvastatin Calcium 20 MG TABLET PO (20:08)
[2021-07-17] MEDS: dilTIAZem HCL 50 MG/10 ML VIAL 10 MG IVPUSH (20:29)
--- NOTE | 2021-07-17 20:29 | PM.CCN ---
Critical Care Event Note Summary Date of Service: 07/17/21 <Anel Macdonald PA-C - Last Filed: 07/17/21 23:48> Code activated: No <Anel Macdonald PA-C - Last Filed: 07/17/21 23:48> Narrative: Pt's HR suddenly jumped up from 80's to 120-130's, looked irregular. EKG revealed Afib with RVR at 128BPM. Gave 10mg IV push cardizem. Pt has no hx of afib. Rate went down to 95-105, rhythm changed to aflutter for a while then back to afib. Gave 5mg IV push cardizem. Dr Alanis still in office, discussed, he advised esmolol drip, change propofol to precedex. HR consistently in the high 90's to low 100's, EKG shows mix of NSR/a flutter/afib. Spoke with pt's son to get consent for TLC, he declined at this time as his mother's wishes were for non-invasive treatment and after talking to Dr Alanis at length this evening, he is considering INFORMATION TECHNOLOGY PROJECT MANAGER for his mom. <Anel Macdonald PA-C - Last Filed: 07/17/21 23:48> Critical Care Time (minutes): 30 <Anel Macdonald PA-C - Last Filed: 07/17/21 23:48> Critical Care Time Critical Care Time (minutes): 30 <John Alanis MD - Last Filed: 07/18/21 20:31>
[2021-07-17] MEDS: dilTIAZem HCL 50 MG/10 ML VIAL IVPUSH (20:47)
[2021-07-17] MEDS: Esmolol HCl/NaCl Iso 2,500 MG/250 ML IV.SOLN 14.55 MG IVCONT (21:38)
[2021-07-17] MEDS: dexmedeTOMIDidine HCL/NS 400 MCG/100 ML INFUS..BTL 6.06 MCG IVCONT (21:40)
[2021-07-17] MEDS: Dextrose 5 % 1,000 ML 75 ML IVCONT (22:38)
--- NOTE | 2021-07-17 22:38 | PM.CCPN ---
Subjective Subjective Date of Service: 07/17/21 Interval History: This evening I spoke at length with the patient's HCP, her son Liam. We discussed the patient's course, her current problems -- mostly respiratory and renal -- and her short and intermediate accountant prognosis, jesse in regards to what would be expected to be a long, arduous, burdensome, possibly even painful rehabilitation. He is doubtful that she would want that. In fact, he told me that she wouldn't have wanted all the life support that she's already undergone. He is considering comfort measures only. And he definitely says no to dialysis. And he declined a central line. I told him to take his time deciding. He will get back to us. Critical Care Time (minutes): 45 Physical Exam Vital Signs: Vital Signs: Last Vital Signs Temp 99.3 F 07/17/21 22:00 Pulse 107 H 07/17/21 22:00 Resp 15 07/17/21 22:00 BP 100/66 07/17/21 22:00 Pulse Ox 97 07/17/21 22:00 BMI result Body Mass Index 20.9 Objective Data Labs CBC & Chem 7: 07/18/21 05:17 07/18/21 05:17 Labs: Laboratory Results - last 24 hr 07/17/21 07/17/21 07/17/21 07:47 07:47 07:47 WBC 13.7 H RBC 3.01 L Hgb 9.0 L Hct 28.2 L MCV 93.7 MCH 29.9 MCHC 31.9 RDW 16.1 H Plt Count 114 L MPV 11.4 Absolute Nucleated RBC 0.000 Nucleated RBC % (auto) 0.0 D-Dimer High Sensitivty 3903 VBG pH VBG pCO2 VBG pO2 VBG HCO3 VBG O2 Saturation VBG Base Excess Sodium 150 H Potassium 4.2 Chloride 118 H Carbon Dioxide 21 L Anion Gap 15 BUN 124 H Creatinine 3.05 H Estim Creat Clear Calc 11.9 Estimated GFR 15 Random Glucose 127 H Calcium 8.4 Phosphorus 4.1 Magnesium 2.6 Ferritin 289 H Lactate Dehydrogenase 297 H C-Reactive Protein 6.94 H B-Natriuretic Peptide Procalcitonin 07/17/21 07/17/21 07/17/21 07:47 07:47 07:48 WBC RBC Hgb Hct MCV MCH MCHC RDW Plt Count MPV Absolute Nucleated RBC Nucleated RBC % (auto) D-Dimer High Sensitivty VBG pH 7.34 VBG pCO2 36 VBG pO2 90 VBG HCO3 19 L VBG O2 Saturation 95.0 VBG Base Excess -5.3 Sodium Potassium Chloride Carbon Dioxide Anion Gap BUN Creatinine Estim Creat Clear Calc Estimated GFR Random Glucose Calcium Phosphorus Magnesium Ferritin Lactate Dehydrogenase C-Reactive Protein B-Natriuretic Peptide 883 H Procalcitonin 6.81 Microbiology Microbiology Results: Microbiology 07/13/21 12:20 Urine clean catch - Urine parmar top Urine Culture - Final No growth. 07/11/21 11:04 Blood - Venous Blood Culture - Final Prevotella species 07/11/21 11:03 Blood - Venous Blood Culture - Final Prevotella species Quality Stroke Does the patient have a stroke diagnosis?: No VTE Prior VTE?: No VTE Risk Level:: Medical - moderate - high VTE Device Contraindication: Treatment Not Indicated VTE Drug Contraindication: Treatment Not Indicated Critical Care Time Critical Care Time (minutes): 60
[2021-07-18] VITALS (29 sets, daily range): BP systolic 92–123; BP diastolic 46–70; PULSE 64–110; RESP 9–21; TEMP 34.8–38.9; O2SAT 86–96; BMI 21.5
[2021-07-18] MEDS: dexmedeTOMIDidine HCL/NS 400 MCG/100 ML INFUS..BTL 16.98 MCG IVCONT (03:11)
[2021-07-18] MEDS: fentaNYL citrate/NS 1,000 MCG/100 ML PLAST..BAG 5 MCG IVCONT (03:30)
[2021-07-18 05:36] LABS: VBG Base Excess -3.8 mmol/L; VBG HCO3 20 mmol/L (22-26); VBG pCO2 34 mmHg; VBG pH 7.38 (7.32-7.43); VBG pO2 50 mmHg
[2021-07-18 05:37] LABS: Venous Blood Gas Refer to POC result
[2021-07-18 05:40] LABS: Hematocrit 27.7 % (37.0-47.0); Hemoglobin 8.7 g/dl (12.0-16.0); Mean Corpuscular HGB Conc 31.4 g/dl (31.0-35.0); Mean Corpuscular Hemoglobin 29.5 pg (27.0-33.0); Mean Corpuscular Volume 93.9 fL (80.0-98.0); Mean Platelet Volume 11.7 fL (9.4-12.3); Platelet Count 145 X10*3/uL (160-400); Red Blood Count 2.95 X10*6/uL (4.20-5.50); Red Cell Distribution Width 15.6 % (11.0-16.0)
[2021-07-18 05:57] LABS: Albumin Level 3.2 g/dL (3.5-5.0); Anion Gap 15 (12-20); Blood Urea Nitrogen 122 mg/dL (9-16); Calcium 8.2 mg/dL (8.4-10.2); Carbon Dioxide 21 mmol/L (22-29); Chloride 117 mmol/L (96-108); Estimated Glomerular Filt Rate 18; Glucose Random 169 mg/dL (60-115); Magnesium 2.5 mg/dL (1.6-2.6); Phosphorus 4.4 mg/dL (2.7-4.5); Sodium 149 mmol/L (135-145)
[2021-07-18 06:00] LABS: Troponin-I High Sensitivity 32.6 ng/L (<3.5-17.0)
[2021-07-18] MEDS: Chlorhexidine Gluc Oral Rinse 15 ML MOUTHWASH BUCCAL ×3 (06:18→21:33)
[2021-07-18] MEDS: Piperacillin Sodium/Tazobactam 2.25 GM in 0.9 % Sodium Chloride 50 ML IV ×3 (06:18→21:33)
[2021-07-18] MEDS: Pantoprazole Sodium 40 MG/10 ML VIAL IVPUSH (06:18)
--- NOTE | 2021-07-18 06:45 | PC.NURSE ---
Shift eval: Patient on esmolol drip r/t rapid afib that started on prev shift. at 0120 patient converted to SR 60's to 70's. Patient restless, increased sedation - see MAR drug titrations. Patient son called - plan for end of life care - [facility], [facility]. Son came in to see patient at bedside at approx 0300, here for over an hour - educated about PPE & ensured patient safety. Emotional support given. Patient plans to come back with sister one final time. Patient much more calm after sedation increased. Still cough & gag & opening eyes.
[2021-07-18] MEDS: Sodium Zirconium Cyclosilicate 10 GM POWD.PACK PO ×2 (07:24→20:18)
[2021-07-18] MEDS: 0.9 % Sodium Chloride Flush 3 ML SYRINGE IVFLUSH (07:24)
[2021-07-18] MEDS: Cholecalciferol (Vitamin D3) 25 MCG TABLET 50 MCG PO (07:25)
[2021-07-18] MEDS: fluvoxaMINE Maleate 50 MG TABLET PO (07:25)
[2021-07-18] MEDS: Aspirin Enteric Coated 81 MG TABLET.DR PO (07:25)
[2021-07-18] MEDS: Ascorbic Acid 500 MG TABLET PO (07:25)
[2021-07-18] MEDS: Thiamine HCL 100 MG TABLET 200 MG PO (07:26)
[2021-07-18] MEDS: methylPREDNISolone Sod Succ 125 MG/2 ML VIAL 60 MG IVPUSH ×2 (07:26→20:22)
[2021-07-18] MEDS: Heparin Sodium,Porcine 5,000 UNIT/ML VIAL 5000 UNIT SUBCUT ×2 (07:26→20:21)
[2021-07-18] MEDS: dexmedeTOMIDidine HCL/NS 400 MCG/100 ML INFUS..BTL 18.19 MCG IVCONT ×3 (08:40→20:18)
--- NOTE | 2021-07-18 09:34 | MHC.CLN ---
F/U PT REMAINS INTUBATED AND SEDATED PT RECEIVING NEPRO AT MAX GOAL RATE 25ML/HR WITH 240CC FREE WATER FLUSHES Q 6 HRS PROVIDES 1080KCALS, 49G PROTEIN, 1396CC TOTAL WATER FROM FORMULA AND FLUSHES (28ML/KG) MONITOR TOLERANCE, RESIDUALS AND LYTES POSSIBLE SEED CONE PICKER PER FAMILY FOLLOWING WITH TEAM
--- NOTE | 2021-07-18 10:14 | PM.PNNEP ---
Subjective Subjective Date of Service: 07/19/21 Interval history: Events noted Cr is trending down Physical Exam Vital Signs: Vital Signs: Last Vital Signs Temp 101.8 F H 07/18/21 10:00 Pulse 64 07/18/21 10:00 Resp 20 07/18/21 10:00 BP 106/51 L 07/18/21 10:00 Pulse Ox 92 07/18/21 10:00 BMI result Body Mass Index 21.5 Const: Other: Intubated Neck : Normal inspection, Supple Cardiovascular : RRR, S1 S2, no lower extremity edema Respiratory : fair bilateral air entry, no clear basal crackles, no wheezes or rhonchi Gastrointestinal: soft, lax, generalized tenderness more noted in epigastric area and left lower quadrant, no surgical signs Skin : Warm, Dry Neurological : No focal deficit noted Objective Data Labs CBC & Chem 7: 07/19/21 05:28 07/19/21 05:28 Labs: Laboratory Results - last 24 hr 07/18/21 07/18/21 07/18/21 05:17 05:17 05:17 WBC 13.0 H RBC 2.95 L Hgb 8.7 L Hct 27.7 L MCV 93.9 MCH 29.5 MCHC 31.4 RDW 15.6 Plt Count 145 L D MPV 11.7 Absolute Nucleated RBC 0.000 Nucleated RBC % (auto) 0.0 VBG pH VBG pCO2 VBG pO2 VBG HCO3 VBG O2 Saturation VBG Base Excess Sodium 149 H Potassium 4.0 Chloride 117 H Carbon Dioxide 21 L Anion Gap 15 BUN 122 H Creatinine 2.59 H Estim Creat Clear Calc 14.0 Estimated GFR 18 Random Glucose 169 H Calcium 8.2 L Phosphorus 4.4 Magnesium 2.5 Troponin I High Sens 32.6 H D Albumin 3.2 L D 07/18/21 05:30 WBC RBC Hgb Hct MCV MCH MCHC RDW Plt Count MPV Absolute Nucleated RBC Nucleated RBC % (auto) VBG pH 7.38 VBG pCO2 34 VBG pO2 50 VBG HCO3 20 L VBG O2 Saturation 80.0 VBG Base Excess -3.8 Sodium Potassium Chloride Carbon Dioxide Anion Gap BUN Creatinine Estim Creat Clear Calc Estimated GFR Random Glucose Calcium Phosphorus Magnesium Troponin I High Sens Albumin Microbiology Microbiology Results: Microbiology 07/13/21 12:20 Urine clean catch - Urine parmar top Urine Culture - Final No growth. 07/11/21 11:04 Blood - Venous Blood Culture - Final Prevotella species 07/11/21 11:03 Blood - Venous Blood Culture - Final Prevotella species Procedures Date of Service Date of Service: 07/18/21 Assessment & Plan Assessment and plan (1) Acute respiratory failure with hypoxia: Status: Acute (2) Acute respiratory distress syndrome (ARDS) due to COVID-19 virus: Status: Acute (3) Gram-negative bacteremia: Status: Acute (4) Thrombocytopenia: Status: Acute (5) [id number] kidney injury: Status: Acute (6) Hydronephrosis, left: Status: Acute Assessment and Plan: Assessment: 70-year-old lady with history of chronic left-sided hydroureteronephrosis, subarachnoid hemorrhage rectal prolapse ulcer disease admitted with left-sided abdominal pain with hospital course further complicated by Gram-negative bacteremia and acute hypoxic respiratory failure secondary to COVID-19 now requiring CPAP support. WANDER superimposed on CKD Chronic left hydro with urosepsis Right kidney is echogenic Low urine sodium suggestive of hypoperfusion Probably progressed to aTN UO increased and creatinine is trending down. Currently in recovery phase Watch I/Os No indication for dialysis Keep SBP > 100 Avoid hypotension Hypernatremia due to free water deficit Replace with hypotonic fludis Time Spent With Patient Time: Total time spent is greater than 50% in coordination of care (as documented) at patient's floor/unit and/or counseling patient: Time with patient: 15 - 24 minutes Progress Note: Quality Stroke Does the patient have a stroke diagnosis?: No
[2021-07-18] MEDS: Dextrose 5 % 1,000 ML 75 ML IVCONT (11:54)
--- NOTE | 2021-07-18 14:19 | P.PNCC_ITS ---
Subjective Subjective Date of Service: 07/18/21 Interval History: Mrs. Blackmon was admitted to the ICU on July 13 because of hypoxemic respiratory failure secondary to COVID pneumonia. The patient is a 70-year-old woman with underlying history of rectal prolapse, depression, PUD, remote subarachnoid hemorrhage, chronic left hydronephrosis 2? 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 The left kidney is nonfunctional.? Status post recent removal of bilateral ureteral stents about Jul 06.? She?s had a previous cholecystectomy, and prior ulcer surgery.? The patient last tested negative for COVID on 05/26/2021.? She lives by herself.? The patient?s son is her HCP The patient presented to the ED on Jul 11 with 3-4 day history of left-sided abdominal and back pain, with diarrhea and rectal bleeding. ?She was also c/o SOB and orthopnea x 2 weeks, w a few days worth of URI sx. In the ED, sat was 93% on room air (baseline high 90?s on RA).? WBC 7.4, plat 131 (usually normal), BUN/creat 40/2.4, BNP 2400, lactate 4.0.? Chest x-ray showed mild diffuse bilateral increased interstitial prominence suggestive of atypical infectious/inflammatory process.? Initial COVID PCR was negative.? Abdominal CT showed chronic moderate to severe intra and extrahepatic biliary ductal dilatation, with dilatation of the pancreatic duct, with no obstructing stone noted, w chronic left hydronephrosis.? The lung bases showed very mild localized airspace opacities. She was admitted to Medicine and evaluated by general surgery, gastroenterology, urology, and nephrology.? MRCP was considered.? She was given ceftriaxone and doxycycline.? By the night of admission, the patient required supplemental oxygen.? Full resp virus panel the next day was positive for COVID PCR.? Both sets of blood cultures from admission grew Gram-negative rods -- beta-lactamase producing Prevotella.? Antibiotics were changed to cefepime, and empiric Flagyl was added. Her oxygenation worsened and by Jul 13 she was transferred to ICU for CPAP.? Her renal indices worsened.? Cefepime/Flagyl was changed to Zosyn in view of the GNR bacteremia with a likely source.? She was intubated early on Jul 15 bec of worsening hypoxemia.? The post intubation film shows much worse bilat disease, with a left apical pneumothorax.? She underwent bronchoscopy because of refractory hypoxemia.? Large central airway secretions and blood clots were suctioned, with subsequent drop in her FiO2 from 100% to 50%.? The post bronchoscopy chest x-ray showed substantial resolution of the apical pneumothorax.? Chest CT later showed (my reading) diffuse bilateral disease not classic for COVID, along with significant underlying bullous disease, jesse in the apices.? There was a tiny apical pneumothorax and also a small right basilar pneumothorax. During sedation holiday from the propofol yesterday, the patient woke up, became agitated and very active in bed, eyes open, but 100% non interactive.? No tracking and no response to confrontation.? We switched her last night from propofol to Precedex.? During sedation holiday today, exact same wake up pattern.? With the Precedex off, HR 70s, SR w PACs, BP 101/54.? Tmax 102.? On AC 14/350/40%/+8, RR was 20-29, Ve 10-12L, PIP 20cm, SpO2 88%.? VBG this morning showed 7.38/34/-3. I&O: Urine output > 50cc/hr. LABORATORY DATA:? Below.? Notably, sodium down to 149 on the D5W.? BUN steady 122, creatinine down further to 2.5, potassium down to 4.0, bicarb steady 21, phosphorus up slightly to 4.4.? Trop 32. Chest x-ray yesterday showed no change in her pulmonary infiltrates.? Lower extremity venous duplex today showed no DVT.? A thrombus within a supervisor ride assembly vein to the left posterior tibial vein, which does not enter the posterior tibial vein was noted. MICROBIOLOGY:? Last blood cultures were on July 11, as noted above.? Last urine culture on July 13 was negative.? There are no sputum cultures. ECHO showed normal LV function with mild LVH.? RV appears mildly enlarged.? Inferior vena cava not visualized. IMPRESSION: 1. Underlying CKD. ?2? left UPJ obstruction, w a nonfxning left kidney. 2. Diminutive stature.? Serum albumins suggest underlying protein calorie malnutrition, at least mild, if not moderate.? Continue Nepro tube feeds. 3. ? Significant underlying chronic lung disease. 4. Bilat COVID pneumonia.? Estimating her symptom onset date from the information presented above is difficult.? Probably somewhere in the range of Jun 27 to Jul 08.? Treated w Decadron.? Yesterday changed to solu-medrol and added ivermectin and the [facility] protocol agents. 5. Hypoxemic resp failure w ARDS.? 2? to above.? FiO2 is down to 40%.? Unable to do PSV trials today because of delirium. 6. Small left pneumothorax is unchanged on last CXR yesterday.? Recheck tomorrow. 7. Acute on CKD.? Amazingly, her creat is improving dramatically.? Lokelma and Nepro helping to keep her potassium in check. 8. Hypernatremia.? On D5W. 9. RHF on echo, as suggested by marked JVD.? ? Do we need to r/o PE, jesse given bump in DDimer.? But BNP is down.? Troponin is low, LE duplex negative.? Reasonably sufficient to r/o PE. 10. Rectal prolapse.? Nothing to do at this time. 11. Chronic biliary tree dilatation.? Also noting to do at this time. 12. ID:? Gram-negative bacteremia with presumed source.? Continuing Zosyn. Prognosis is grim.? The son is very clear that she would never want retirement mechanical support, and has established DNR status.? And no dialysis.? I spoke with him at length last night.? He is leaning towards comfort measures.? He spoke with the patient's nurse today, will call back tomorrow.? I believe he is waiting for family members to gather. Critical Care Time (minutes): 60 Physical Exam Vital Signs: Vital Signs: Last Vital Signs Temp 101.7 F H 07/18/21 14:00 Pulse 73 07/18/21 14:00 Resp 18 07/18/21 14:00 BP 101/54 L 07/18/21 14:00 Pulse Ox 90 L 07/18/21 14:00 BMI result Body Mass Index 21.5 Objective Data Labs CBC & Chem 7: 07/18/21 05:17 07/18/21 05:17 Labs: Laboratory Results - last 24 hr 07/18/21 07/18/21 07/18/21 05:17 05:17 05:17 WBC 13.0 H RBC 2.95 L Hgb 8.7 L Hct 27.7 L MCV 93.9 MCH 29.5 MCHC 31.4 RDW 15.6 Plt Count 145 L D MPV 11.7 Absolute Nucleated RBC 0.000 Nucleated RBC % (auto) 0.0 VBG pH VBG pCO2 VBG pO2 VBG HCO3 VBG O2 Saturation VBG Base Excess Sodium 149 H Potassium 4.0 Chloride 117 H Carbon Dioxide 21 L Anion Gap 15 BUN 122 H Creatinine 2.59 H Estim Creat Clear Calc 14.0 Estimated GFR 18 Random Glucose 169 H Calcium 8.2 L Phosphorus 4.4 Magnesium 2.5 Troponin I High Sens 32.6 H D Albumin 3.2 L D 07/18/21 05:30 WBC RBC Hgb Hct MCV MCH MCHC RDW Plt Count MPV Absolute Nucleated RBC Nucleated RBC % (auto) VBG pH 7.38 VBG pCO2 34 VBG pO2 50 VBG HCO3 20 L VBG O2 Saturation 80.0 VBG Base Excess -3.8 Sodium Potassium Chloride Carbon Dioxide Anion Gap BUN Creatinine Estim Creat Clear Calc Estimated GFR Random Glucose Calcium Phosphorus Magnesium Troponin I High Sens Albumin Microbiology Microbiology Results: Microbiology 07/13/21 12:20 Urine clean catch - Urine parmar top Urine Culture - Final No growth. 07/11/21 11:04 Blood - Venous Blood Culture - Final Prevotella species 07/11/21 11:03 Blood - Venous Blood Culture - Final Prevotella species Quality Stroke Does the patient have a stroke diagnosis?: No VTE Prior VTE?: No VTE Risk Level:: Medical - moderate - high VTE Device Contraindication: Treatment Not Indicated VTE Drug Contraindication: Treatment Not Indicated Critical Care Time Critical Care Time (minutes): 60
[2021-07-18] MEDS: fentaNYL citrate/NS 1,000 MCG/100 ML PLAST..BAG 10 MCG IVCONT (15:15)
--- NOTE | 2021-07-18 15:36 | MHC.CM.PN ---
Discharge planning remains undetermined at this time: has had several conversations with Liam pt's son who continues to support non invasive measures and is considering SYSTEM ADMINISTRATOR status. CM to support family and follow for d/c needs
--- NOTE | 2021-07-18 17:20 | PC.NURSE ---
COVID (+) Remains intubated, sedated on Fentanyl and precedex. AC Vent settings throughout the day 14/350/40/8. 7.5 ETT/ 22 @ LL. Scant amount of light brown inline secretions. SpO2 ranging from 87-92. Feeds running per orders at goal. No BM today. Angulo draining good amounts clear yellow urine. Remains restrained bilaterally at the wrists. Sedation cut in half x2 hrs. Patient became restless and unable to follow commands. Dr. Alanis satisfied with length of vacation. No PSV trial done today. Son updated over telephone. PLAN: terminally wean patient off vent 07/19/21 once family is present.
[2021-07-18] MEDS: Atorvastatin Calcium 20 MG TABLET PO (20:22)
[2021-07-18] MEDS: Melatonin 3 MG TABLET 6 MG PO (20:22)
--- NOTE | 2021-07-18 21:28 | PHA.PROG ---
Admission Date/Time: July 11, 2021 16:07 Indication: Respiratory Infection Weight in k.1 kg Adjusted body weight in Kg: [place] body weight in Kg: Obesity Dosing Indication % IBW: Serum Creatinine - Last 168 Hours 07/12/21 07/13/21 07/13/21 06:52 06:42 12:03 Creatinine 3.39 H 4.33 H* 4.51 H* 07/14/21 07/15/21 07/16/21 05:49 05:49 05:15 Creatinine 4.73 H* 4.48 H* 3.87 H 07/17/21 07/18/21 07:47 05:17 Creatinine 3.05 H 2.59 H Estimated CrCl and GFR - Last 168 Hours 07/12/21 07/13/21 07/13/21 06:52 06:42 12:03 Estim Creat Clear Calc 10.7 8.3 8.0 Estimated GFR 13 10 10 07/14/21 07/15/21 07/16/21 05:49 05:49 05:15 Estim Creat Clear Calc 7.7 8.1 9.4 Estimated GFR 9 10 11 07/17/21 07/18/21 07:47 05:17 Estim Creat Clear Calc 11.9 14.0 Estimated GFR 15 18 Vancomycin Loading Dose: 750 x1 Current Vancomycin Dosing Regimen: 500 mg q24h Vancomycin Monitoring using AUC goal of 400 - 600 range with trough as surrogate marker: auc 549; trough 19.6 Date and Time for next Vancomycin Level to be drawn: draw random at 07/19/21 at 2000 Pharmacist Comments on Vancomycin Plan: Will draw prior to each dose in setting of fluctuating renal function. PT IS NOT PURSUING DIALYSIS Vancomycin dosing will take advantage of [employer] as a clinical decision support tool that uses Bayesian modeling to calculate individual patient's pharmacokinetic parameters and forecast the patient's drug concentration time course with the target goal AUC 24 range of 400 - 600 mg/L/hr.
[2021-07-18 21:38] LABS: Lactic Acid 1.7 mmol/L (0.5-2.0)
[2021-07-18 22:00] LABS: Appearance Urine CLOUDY; Color Urine YELLOW; Glucose Urine UA NEG (NEG); Leukocyte Esterase Urine 3+ (NEG); Nitrite Urine NEG (NEG); Specific Gravity - Urine 1.015 (1.005-1.025); Urine Blood 1+ (NEG); Urine Ketones NEG (NEG); Urine Protein 1+ MG/DL (NEG-TRACE)
[2021-07-18 22:20] LABS: Bacteria Urine 4+ /LPF; Mucus Urine 1+ /LPF; RBC Urine 0 /HPF (0); Squamous Epithelial Cell Urine 1+ /LPF; WBC Urine TNTC /HPF (0-4)
[2021-07-18 22:21] LABS: WBC Clumps Urine NOTED
[2021-07-18] MEDS: vancomycin HCL 750 MG in 0.9 % Sodium Chloride 250 ML 265 MG IV (22:51)
[2021-07-18] MEDS: Esmolol HCl/NaCl Iso 2,500 MG/250 ML IV.SOLN 7.28 MG IVCONT (22:52)
[2021-07-19] VITALS (20 sets, daily range): BP systolic 92–116; BP diastolic 48–64; PULSE 62–90; RESP 12–25; TEMP 34.9–39; O2SAT 90–96; BMI 22.4
[2021-07-19] MEDS: fentaNYL citrate/NS 1,000 MCG/100 ML PLAST..BAG 15 MCG IVCONT ×2 (00:11→12:04)
[2021-07-19] MEDS: 0.9 % Sodium Chloride Flush 3 ML SYRINGE IVFLUSH ×3 (00:13→13:19)
[2021-07-19] MEDS: Dextrose 5 % 1,000 ML 75 ML IVCONT ×2 (00:13→12:04)
[2021-07-19] MEDS: dexmedeTOMIDidine HCL/NS 400 MCG/100 ML INFUS..BTL 18.19 MCG IVCONT ×3 (01:35→10:54)
[2021-07-19] MEDS: Midazolam HCl/PF 2 MG/2 ML VIAL IVPUSH (03:58)
[2021-07-19] MEDS: Piperacillin Sodium/Tazobactam 2.25 GM in 0.9 % Sodium Chloride 50 ML IV ×2 (05:04→13:18)
[2021-07-19] MEDS: Chlorhexidine Gluc Oral Rinse 15 ML MOUTHWASH BUCCAL ×2 (05:04→13:18)
[2021-07-19 05:36] LABS: VBG Base Excess -4.9 mmol/L; VBG HCO3 18 mmol/L (22-26); VBG pCO2 26 mmHg; VBG pH 7.43 (7.32-7.43); VBG pO2 57 mmHg
[2021-07-19] MEDS: fentaNYL citrate/NS 1,000 MCG/100 ML PLAST..BAG 17.5 MCG IVCONT (05:41)
[2021-07-19 05:45] LABS: Venous Blood Gas Refer to POC result
[2021-07-19 06:04] LABS: Hematocrit 26.4 % (37.0-47.0); Hemoglobin 8.1 g/dl (12.0-16.0); Mean Corpuscular HGB Conc 30.7 g/dl (31.0-35.0); Mean Corpuscular Hemoglobin 29.9 pg (27.0-33.0); Mean Corpuscular Volume 97.4 fL (80.0-98.0); Mean Platelet Volume 11.4 fL (9.4-12.3); Platelet Count 208 X10*3/uL (160-400); Red Blood Count 2.71 X10*6/uL (4.20-5.50); Red Cell Distribution Width 15.1 % (11.0-16.0)
[2021-07-19 06:23] LABS: Anion Gap 16 (12-20); Blood Urea Nitrogen 114 mg/dL (9-16); C Reactive Protein 2.71 mg/dL (< or = 0.50); Calcium 7.8 mg/dL (8.4-10.2); Carbon Dioxide 18 mmol/L (22-29); Chloride 114 mmol/L (96-108); Creatinine Clr Calc Pharmacy 15.5; Estimated Glomerular Filt Rate 20; Glucose Random 171 mg/dL (60-115); Lactate Dehydrogenase 383 U/L (122-220); Magnesium 2.3 mg/dL (1.6-2.6); Phosphorus 4.6 mg/dL (2.7-4.5); Potassium 3.8 mmol/L (3.3-5.1); Sodium 144 mmol/L (135-145)
[2021-07-19 06:33] LABS: Ferritin 516 ng/mL (10-250)
[2021-07-19 06:36] LABS: D Dimer High Sensitivity 2156 NG/ML
[2021-07-19] MEDS: Heparin Sodium,Porcine 5,000 UNIT/ML VIAL 5000 UNIT SUBCUT (07:16)
[2021-07-19] MEDS: Thiamine HCL 100 MG TABLET 200 MG PO (07:17)
[2021-07-19] MEDS: Cholecalciferol (Vitamin D3) 25 MCG TABLET 50 MCG PO (07:17)
[2021-07-19] MEDS: methylPREDNISolone Sod Succ 125 MG/2 ML VIAL 60 MG IVPUSH (07:17)
[2021-07-19] MEDS: Aspirin Enteric Coated 81 MG TABLET.DR PO (07:18)
[2021-07-19] MEDS: Ascorbic Acid 500 MG TABLET PO (07:18)
[2021-07-19] MEDS: fluvoxaMINE Maleate 50 MG TABLET PO (07:18)
[2021-07-19 07:22] LABS: Procalcitonin 2.04 ng/mL
[2021-07-19] MEDS: QUEtiapine Fumarate 50 MG TABLET PO (09:42)
[2021-07-19] MEDS: Sodium Zirconium Cyclosilicate 10 GM POWD.PACK PO (09:43)
--- NOTE | 2021-07-19 10:24 | P.PNNP_ITS ---
Subjective Subjective Date of Service: 07/19/21 Interval history: Events noted Physical Exam Vital Signs: Vital Signs: Last Vital Signs Temp 101.3 F H 07/19/21 10:00 Pulse 90 07/19/21 10:00 Resp 25 H 07/19/21 10:00 BP 116/60 07/19/21 10:00 Pulse Ox 92 07/19/21 09:00 BMI result Body Mass Index 22.4 Const: Other: Intubated Neck : Normal inspection, Supple Cardiovascular : RRR, S1 S2, no lower extremity edema Respiratory : fair bilateral air entry, no clear basal crackles, no wheezes or rhonchi Gastrointestinal: soft, lax, generalized tenderness more noted in epigastric area and left lower quadrant, no surgical signs Skin : Warm, Dry Neurological : No focal deficit noted Objective Data Labs CBC & Chem 7: 07/19/21 05:28 07/19/21 05:28 Labs: Laboratory Results - last 24 hr 07/18/21 07/18/21 07/19/21 21:17 Unknown 05:28 WBC 13.0 H RBC 2.71 L Hgb 8.1 L Hct 26.4 L MCV 97.4 MCH 29.9 MCHC 30.7 L RDW 15.1 Plt Count 208 D MPV 11.4 Absolute Nucleated RBC 0.000 Nucleated RBC % (auto) 0.0 D-Dimer High Sensitivty VBG pH VBG pCO2 VBG pO2 VBG HCO3 VBG O2 Saturation VBG Base Excess Sodium Potassium Chloride Carbon Dioxide Anion Gap BUN Creatinine Estim Creat Clear Calc Estimated GFR Random Glucose Lactic Acid 1.7 Calcium Phosphorus Magnesium Ferritin Lactate Dehydrogenase C-Reactive Protein Procalcitonin Urine Color YELLOW Urine Appearance CLOUDY Urine pH 6.0 Ur Specific [place] 1.015 Urine Protein 1+ H Urine Glucose (UA) NEG Urine Ketones NEG Urine Blood 1+ H Urine Nitrite NEG Ur Leukocyte Esterase 3+ H Urine RBC 0 Urine WBC TNTC H Urine WBC Clumps NOTED Ur Squamous Epith Cells 1+ Urine Bacteria 4+ Urine Mucus 1+ 07/19/21 07/19/21 07/19/21 05:28 05:28 05:29 WBC RBC Hgb Hct MCV MCH MCHC RDW Plt Count MPV Absolute Nucleated RBC Nucleated RBC % (auto) D-Dimer High Sensitivty 2156 VBG pH VBG pCO2 VBG pO2 VBG HCO3 VBG O2 Saturation VBG Base Excess Sodium 144 Potassium 3.8 Chloride 114 H Carbon Dioxide 18 L Anion Gap 16 BUN 114 H Creatinine 2.36 H Estim Creat Clear Calc 15.5 Estimated GFR 20 Random Glucose 171 H Lactic Acid Calcium 7.8 L Phosphorus 4.6 H Magnesium 2.3 Ferritin 516 H Lactate Dehydrogenase 383 H C-Reactive Protein 2.71 H Procalcitonin 2.04 Urine Color Urine Appearance Urine pH Ur Specific [place] Urine Protein Urine Glucose (UA) Urine Ketones Urine Blood Urine Nitrite Ur Leukocyte Esterase Urine RBC Urine WBC Urine WBC Clumps Ur Squamous Epith Cells Urine Bacteria Urine Mucus 07/19/21 05:29 WBC RBC Hgb Hct MCV MCH MCHC RDW Plt Count MPV Absolute Nucleated RBC Nucleated RBC % (auto) D-Dimer High Sensitivty VBG pH 7.43 VBG pCO2 26 VBG pO2 57 VBG HCO3 18 L VBG O2 Saturation 86.0 VBG Base Excess -4.9 Sodium Potassium Chloride Carbon Dioxide Anion Gap BUN Creatinine Estim Creat Clear Calc Estimated GFR Random Glucose Lactic Acid Calcium Phosphorus Magnesium Ferritin Lactate Dehydrogenase C-Reactive Protein Procalcitonin Urine Color Urine Appearance Urine pH Ur Specific [place] Urine Protein Urine Glucose (UA) Urine Ketones Urine Blood Urine Nitrite Ur Leukocyte Esterase Urine RBC Urine WBC Urine WBC Clumps Ur Squamous Epith Cells Urine Bacteria Urine Mucus Microbiology Microbiology Results: Microbiology 07/18/21 21:44 Sputum - Suctioned Gram Stain - Final 07/13/21 12:20 Urine clean catch - Urine parmar top Urine Culture - Final No growth. 07/11/21 11:04 Blood - Venous Blood Culture - Final Prevotella species 07/11/21 11:03 Blood - Venous Blood Culture - Final Prevotella species Procedures Date of Service Date of Service: 07/19/21 Assessment & Plan Assessment and plan (1) Acute respiratory failure with hypoxia: Status: Acute (2) Acute respiratory distress syndrome (ARDS) due to COVID-19 virus: Status: Acute (3) Gram-negative bacteremia: Status: Acute (4) Thrombocytopenia: Status: Acute (5) [id number] kidney injury: Status: Acute (6) Hydronephrosis, left: Status: Acute Assessment and Plan: Assessment: 70-year-old lady with history of chronic left-sided hydroureteronephrosis, subarachnoid hemorrhage rectal prolapse ulcer disease admitted with left-sided abdominal pain with hospital course further complicated by Gram-negative bacteremia and acute hypoxic respiratory failure secondary to COVID-19 now requiring CPAP support. WANDER superimposed on CKD Chronic left hydro with urosepsis Right kidney is echogenic Low urine sodium suggestive of hypoperfusion Probably progressed to aTN UO increased and creatinine is trending down. Currently in recovery phase Watch I/Os No indication for dialysis Keep SBP > 100 Avoid hypotension Hypernatremia due to free water deficit Replace with hypotonic fluids Na back to normal Time Spent With Patient Time: Total time spent is greater than 50% in coordination of care (as documented) at patient's floor/unit and/or counseling patient: Time with patient: 15 - 24 minutes Progress Note: Quality Stroke Does the patient have a stroke diagnosis?: No
--- NOTE | 2021-07-19 10:30 | MHC.CM.PN ---
Patient remains intubated/vented in ICU. Per Dr Alanis, patient's sister will come to see patient and then the patient will be a terminal wean. Continue to monitor for d/c needs.
[2021-07-19 11:12] LABS: Leukocytes Stool Qualitative NEGATIVE (NEGATIVE)
[2021-07-19 12:08] LABS: CDiff Gene PCR NEGATIVE (Negative)
--- NOTE | 2021-07-19 13:24 | PM.CCPN ---
Subjective Subjective Date of Service: 07/19/21 Interval History: Mrs. Blackmon was admitted to the ICU on July 13 because of hypoxemic respiratory failure secondary to COVID pneumonia. The patient is a 70-year-old woman with underlying history of rectal prolapse, depression, PUD, remote subarachnoid hemorrhage, chronic left hydronephrosis 2? 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 The left kidney is nonfunctional.? Status post recent removal of bilateral ureteral stents about Jul 06.? She?s had a previous cholecystectomy, and prior ulcer surgery.? The patient last tested negative for COVID on 05/26/2021.? She lives by herself.? The patient?s son is her HCP The patient presented to the ED on Jul 11 with 3-4 day history of left-sided abdominal and back pain, with diarrhea and rectal bleeding. ?She was also c/o SOB and orthopnea x 2 weeks, w a few days worth of URI sx. In the ED, sat was 93% on room air (baseline high 90?s on RA).? WBC 7.4, plat 131 (usually normal), BUN/creat 40/2.4, BNP 2400, lactate 4.0.? Chest x-ray showed mild diffuse bilateral increased interstitial prominence suggestive of atypical infectious/inflammatory process.? Initial COVID PCR was negative.? Abdominal CT showed chronic moderate to severe intra and extrahepatic biliary ductal dilatation, with dilatation of the pancreatic duct, with no obstructing stone noted, w chronic left hydronephrosis.? The lung bases showed very mild localized airspace opacities. She was admitted to Medicine and evaluated by general surgery, gastroenterology, urology, and nephrology.? MRCP was considered.? She was given ceftriaxone and doxycycline.? By the night of admission, the patient required supplemental oxygen.? Full resp virus panel the next day was positive for COVID PCR.? Both sets of blood cultures from admission grew Gram-negative rods -- beta-lactamase producing Prevotella.? Antibiotics were changed to cefepime, and empiric Flagyl was added. Her oxygenation worsened and by Jul 13 she was transferred to ICU for CPAP.? Her renal indices worsened.? Cefepime/Flagyl was changed to Zosyn in view of the GNR bacteremia with a likely source.? She was intubated early on Jul 15 bec of worsening hypoxemia.? The post intubation film shows much worse bilat disease, with a left apical pneumothorax.? She underwent bronchoscopy because of refractory hypoxemia.? Large central airway secretions and blood clots were suctioned, with subsequent drop in her FiO2 from 100% to 50%.? The post bronchoscopy chest x-ray showed substantial resolution of the apical pneumothorax.? Chest CT later showed (my reading) diffuse bilateral disease not classic for COVID, along with significant underlying bullous disease, jesse in the apices.? There was a tiny apical pneumothorax and also a small right basilar pneumothorax. During sedation holidays from propofol or Precedex over last two days, the patient woke up, became agitated and very active in bed, eyes open, but 100% non interactive.? No tracking and no response to confrontation.? Yesterday her temperature adrián.? We cultured her and added vancomycin. Currently, Precedex is at 1.5ug, Fentanyl @ 150ug, D5W @ 75cc/hr.? HR 66, mostly bigeminy. ?BP 101/61.? Tmax 102.2.? On AC 10/350/40%/+8, RR was 14-17, Ve 6L, PIP 19cm, ETCO2 33, SpO2 94%.? VBG this morning showed 7.43/26/-4.? 3cm JVD at 30?.? Chest is clear, with normal expiratory phase.? Soft heart tones, I heard no murmur or gallops.? The abdomen is flat and benign.? She has trivial edema, if any. I&O: Urine output > 60cc/hr. LABORATORY DATA:? Below.? Notably, sodium down to 144 on the D5W.? BUN & creatinine both down today, potassium down to 4.0, bicarb steady 21, phosphorus up slightly.? DDimer is down.? Ferritin up.? CRP down. Chest x-ray this morning shows no PTX.? Pulmonary infiltrates look maybe improved, to my reading. MICROBIOLOGY:? Blood in urine cultures from yesterday negative so far. ?Sputum Gram stain from yesterday shows 2+ polys, 2+ yeast. ECHO showed normal LV function with mild LVH.? RV appeared mildly enlarged.? Inferior vena cava not visualized. IMPRESSION: 1. Underlying CKD. ?2? left UPJ obstruction, w a nonfxning left kidney. 2. Diminutive stature.? Serum albumins suggest underlying protein calorie malnutrition, at least mild, if not moderate.? Continue Nepro tube feeds. 3. ? Significant underlying chronic lung disease. 4. Bilat COVID pneumonia.? Estimating her symptom onset date from the information presented above is difficult.? Probably somewhere in the range of Jun 27 to Jul 08.? Treated w Decadron on admission.? On Jul 17, I changed her to solu-medrol and added ivermectin and the [facility] protocol agents. 5. Hypoxemic resp failure w ARDS.? 2? to above.? FiO2 is down to 40%, but she hasn?t been doing well with weaning, mostly bec of her encephalopathy.agitation. 6. Small left pneumothorax no longer demonstrated on CXR. 7. Acute on CKD.? Renal indices appear to have crested and are improving, altho I wouldn?t say that she?s out of the chung.? I?ll stop the Lokelma now.? Continue Nepro. 8. Hypernatremia.? Resolved with D5W. 9. RHF on echo, as suggested by marked JVD.? ? Do we need to r/o PE, jesse given bump in DDimer.? But BNP is down.? Troponin is low, LE duplex negative.? Reasonably sufficient to r/o PE. 10. Rectal prolapse.? Nothing to do at this time. 11. Chronic biliary tree dilatation.? Also noting to do at this time. 12. ID:? Gram-negative bacteremia with presumed source.? Continuing Zosyn.? New fever.? Recultured.? Vancomycin added pending cultures. 13. Metabolic encephalopathy.? Presumed 2? COVID. Prognosis is grim.? I spoke with the patient?s son on Jul 17.? He is leaning towards comfort measures.? I believe he is waiting for family members to gather. ADDENDUM at 1809: The family came in and we spoke for a while. They went into the room, and a while later the patient was extubated, at about 4pm. Breathing easy. About 5pm, she was delirious and tossing around the bed. We adjusted her Precedex. Now very comfortable and calm, breathing easy, Sat 70% on room air. The patient passed at 1839 with the family at the bedside. Critical care time: 80+ min. Critical Care Time (minutes): 80 Physical Exam Vital Signs: Vital Signs: Last Vital Signs Temp 101.5 F H 07/19/21 13:00 Pulse 63 07/19/21 13:00 Resp 12 07/19/21 13:00 BP 101/61 07/19/21 13:00 Pulse Ox 95 07/19/21 13:00 BMI result Body Mass Index 22.4 Objective Data Labs CBC & Chem 7: 07/19/21 05:28 07/19/21 05:28 Labs: Laboratory Results - last 24 hr 07/18/21 07/18/21 07/19/21 21:17 Unknown 05:28 WBC 13.0 H RBC 2.71 L Hgb 8.1 L Hct 26.4 L MCV 97.4 MCH 29.9 MCHC 30.7 L RDW 15.1 Plt Count 208 D MPV 11.4 Absolute Nucleated RBC 0.000 Nucleated RBC % (auto) 0.0 D-Dimer High Sensitivty VBG pH VBG pCO2 VBG pO2 VBG HCO3 VBG O2 Saturation VBG Base Excess Sodium Potassium Chloride Carbon Dioxide Anion Gap BUN Creatinine Estim Creat Clear Calc Estimated GFR Random Glucose Lactic Acid 1.7 Calcium Phosphorus Magnesium Ferritin Lactate Dehydrogenase C-Reactive Protein Procalcitonin Urine Color YELLOW Urine Appearance CLOUDY Urine pH 6.0 Ur Specific [place] 1.015 Urine Protein 1+ H Urine Glucose (UA) NEG Urine Ketones NEG Urine Blood 1+ H Urine Nitrite NEG Ur Leukocyte Esterase 3+ H Urine RBC 0 Urine WBC TNTC H Urine WBC Clumps NOTED Ur Squamous Epith Cells 1+ Urine Bacteria 4+ Urine Mucus 1+ Stool Leukocytes, Qual C. difficile Tox B Gene 07/19/21 07/19/21 07/19/21 05:28 05:28 05:29 WBC RBC Hgb Hct MCV MCH MCHC RDW Plt Count MPV Absolute Nucleated RBC Nucleated RBC % (auto) D-Dimer High Sensitivty 2156 VBG pH VBG pCO2 VBG pO2 VBG HCO3 VBG O2 Saturation VBG Base Excess Sodium 144 Potassium 3.8 Chloride 114 H Carbon Dioxide 18 L Anion Gap 16 BUN 114 H Creatinine 2.36 H Estim Creat Clear Calc 15.5 Estimated GFR 20 Random Glucose 171 H Lactic Acid Calcium 7.8 L Phosphorus 4.6 H Magnesium 2.3 Ferritin 516 H Lactate Dehydrogenase 383 H C-Reactive Protein 2.71 H Procalcitonin 2.04 Urine Color Urine Appearance Urine pH Ur Specific [place] Urine Protein Urine Glucose (UA) Urine Ketones Urine Blood Urine Nitrite Ur Leukocyte Esterase Urine RBC Urine WBC Urine WBC Clumps Ur Squamous Epith Cells Urine Bacteria Urine Mucus Stool Leukocytes, Qual C. difficile Tox B Gene 07/19/21 07/19/21 07/19/21 05:29 10:02 10:02 WBC RBC Hgb Hct MCV MCH MCHC RDW Plt Count MPV Absolute Nucleated RBC Nucleated RBC % (auto) D-Dimer High Sensitivty VBG pH 7.43 VBG pCO2 26 VBG pO2 57 VBG HCO3 18 L VBG O2 Saturation 86.0 VBG Base Excess -4.9 Sodium Potassium Chloride Carbon Dioxide Anion Gap BUN Creatinine Estim Creat Clear Calc Estimated GFR Random Glucose Lactic Acid Calcium Phosphorus Magnesium Ferritin Lactate Dehydrogenase C-Reactive Protein Procalcitonin Urine Color Urine Appearance Urine pH Ur Specific [place] Urine Protein Urine Glucose (UA) Urine Ketones Urine Blood Urine Nitrite Ur Leukocyte Esterase Urine RBC Urine WBC Urine WBC Clumps Ur Squamous Epith Cells Urine Bacteria Urine Mucus Stool Leukocytes, Qual NEGATIVE C. difficile Tox B Gene NEGATIVE Microbiology Microbiology Results: Microbiology 07/18/21 Unknown Urine Catheterized - Angulo Catheter Urine Culture - Preliminary No growth to date. 07/18/21 21:44 Sputum - Suctioned Gram Stain - Final 07/13/21 12:20 Urine clean catch - Urine parmar top Urine Culture - Final No growth. 07/11/21 11:04 Blood - Venous Blood Culture - Final Prevotella species 07/11/21 11:03 Blood - Venous Blood Culture - Final Prevotella species Quality Stroke Does the patient have a stroke diagnosis?: No VTE Prior VTE?: No VTE Risk Level:: Medical - moderate - high VTE Device Contraindication: Treatment Not Indicated VTE Drug Contraindication: Treatment Not Indicated Critical Care Time Critical Care Time (minutes): 90
[2021-07-19] MEDS: dexmedeTOMIDidine HCL/NS 400 MCG/100 ML INFUS..BTL 12.13 MCG IVCONT (16:40)
[2021-07-19] MEDS: fentaNYL citrate/NS 1,000 MCG/100 ML PLAST..BAG 30 MCG IVCONT (17:20)
--- NOTE | 2021-07-19 18:23 | PC.NURSE ---
Addendum entered by Amalia Mukherjee RN 07/19/21 19:17: FAMILY TOOK ALL OF THE PTS BELONGINGS HOME. ROSARY LEFT BEHIND ON PTS WRIST. DENTURES PLACED IN MOUTH. HOME: [facility] [address] [place] [address]. Addendum entered by Amalia Mukherjee RN 07/19/21 18:54: PT AT 1840. [employer] DENIED CASE #[id number] AT 1853. FAMILY STILL BEDSIDE AT THIS TIME. Original Note: EXTUBATED TO ROOM AIR AT 1549. PRECEDEX AND FENTANYL GTTS RUNNING FOR COMFORT PER MD - SEE EMAR.
--- NOTE | 2021-07-19 20:41 | P.DN_ITS ---
Discharge Sum: Prov Provider Primary care physician: Tuan Nguyen MD Admitting clinician: Michelle Adams Attending physician on admission: John Alanis Consults: 07/11/21 15:57 Consult to Gastroenterology Routine Consulting Provider: Michael Mesa Reason for consultation: Anemia, GIB, Hx prolapse, Epigastric pain on Naproxen Consult to General Surgery Routine Consulting Provider: Gian Armstrong Reason for consultation: Lt Abd pain,Prolapse grade 2-3, Bleeding, Anemia Consult to Urology Routine Consulting Provider: Je Chávez Reason for consultation: Lt Hydronephrosis w Pyelonephritis for your kind eval. 07/12/21 08:12 Consult to Nephrology Routine Consulting Provider: Donald Amos Reason for consultation: Worsening WANDER on cKD 07/12/21 17:32 Consult to Infectious Diseases Routine Consulting Provider: María Meadows Reason for consultation: Covid19 infx Pronouncing clinician: John Alanis Discharge Sum: Diag PCOD Cause of : Acute respiratory failure due to COVID-19 Contributing Factors (1) Acute respiratory failure with hypoxia: (2) Acute respiratory distress syndrome (ARDS) due to COVID-19 virus: (3) Gram-negative bacteremia: (4) Thrombocytopenia: (5) [id number] kidney injury: (6) Hydronephrosis, left: Discharge Sum: Summary Date and Time Date of admission: 07/11/21 16:07 Date of : 07/19/21 Time of : 18:40 Summary Details: 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 Pt passed comfortably shortly after with her son and sister at the bedside. Dr Alanis at the bedside as well to pronounce. Additional Data Confirmation of as documented by pronouncing clinician: no pulse, no respirations, no heart sounds and pupils fixed and dilated Family: at bedside Attending/PCP notified?: Yes Attending physician: John Alanis MD Was code activated?: No Autopsy requested?: No chief bank examiner notified?: No Organ bank notified?: Yes Advance directives: No Hospice patient?: No
== END 2021-07-19 21:45 | disposition expired | DRG 981 ==
LOC: HO.ED 14:25 → HO.EDOVER 16:28 → HO.ICU 07-13 11:42
PROVIDERS: Internal Medicine; Internal Medicine Hypertension Specialist; Internal Medicine Pulmonary Disease; Admitting Provider Student in an Organized Health Care Education/Training Program; Emergency Provider Emergency Medicine; PCP Internal Medicine; Visit Provider Anesthesiology
DX: N17.0 Acute kidney failure with tubular necrosis (principal); U07.1 COVID-19; J80 Acute respiratory distress syndrome; J12.82 Pneumonia due to coronavirus disease 2019; D62 Acute posthemorrhagic anemia; E87.2 Acidosis; J95.811 Postprocedural pneumothorax; R78.81 Bacteremia; E87.0 Hyperosmolality and hypernatremia; I50.32 Chronic diastolic (congestive) heart failure; K92.2 Gastrointestinal hemorrhage, unspecified; N11.1 Chronic obstructive pyelonephritis; N13.30 Unspecified hydronephrosis; K62.3 Rectal prolapse; F32.A Depression, unspecified; N18.30 Chronic kidney disease, stage 3 unspecified; I50.810 Right heart failure, unspecified; D69.6 Thrombocytopenia, unspecified; F17.210 Nicotine dependence, cigarettes, uncomplicated; Z71.6 Tobacco abuse counseling; Z79.1 Long term (current) use of non-steroidal anti-inflammatories (NSAID); Z79.82 Long term (current) use of aspirin; Z79.899 Other long term (current) drug therapy
CPT/HCPCS: 0241U; 36415; 36600; 71045; 71250; 74176; 80048; 80053; 80076; 81001; 82040; 82272; 82436; 82728; 82803; 83605; 83615; 83690; 83735; 83880; 84100; 84145; 84156; 84300; 84484; 85007; 85025; 85027; 85379; 86140; 87040; 87045; 87046; 87070; 87076; 87077; 87086; 87185; 87205; 87493; 87633; 89055; 93005; 93308; 93970; 94002; 94003; 94660; 97162; 99285; J0456; J0692; J0696; J1100; J1170; J1940; J2060; J2250; J2270; J2370; J2405; J2543; J2930; J3010; J3370; P9047